=== PATIENT | male | born 1945 | race Caucasian/White ===

== ENCOUNTER → 2017-12-03 | Outpatient (CLI) | payer OTHER, SELFPAY ==
[2017-12-03 10:46] LABS: Hemoglobin A1C% w Est Avg Glu 8.6 % (4.0-6.0)
[2017-12-03 11:05] LABS: Alanine Aminotransferase 60 IU/L (21-72); Albumin 4.5 g/dL (3.5-5.0); Albumin Globulin Ratio 1.7 (1.0-2.8); Alkaline Phosphatase 78 U/L (38-126); Aspartate Aminotransferase 40 IU/L (17-59); BUN Creatinine Ratio 12.8 (6-22); Bilirubin Total 0.8 mg/dL (0.2-1.3); Calcium 10.1 mg/dL (8.4-10.2); Cholesterol 81 mg/dL (140-199); Estimated Glomerular Filt Rate 37.4 mL/min (>60); Globulin 2.7 g/dL (1.7-4.1); Glucose 220 mg/dL (80-110); HDL Cholesterol 23 mg/dL (40-60); HEMOLYSIS < 15 (0-50); LDL Cholesterol Calculated 10 mg/dL (<100); Potassium 4.5 mmol/L (3.4-5.1); Sodium 136 mmol/L (137-145); Total Protein 7.2 g/dL (6.3-8.2); Triglycerides 241 mg/dL (35-150)
== END ==
LOC: LAB 09:10
PROVIDERS: PCP Family Medicine; Visit Provider Family Medicine
DX: I10 Essential (primary) hypertension (principal); E78.2 Mixed hyperlipidemia; E11.9 Type 2 diabetes mellitus without complications
CPT/HCPCS: 36415; 80053; 80061; 83036

== ENCOUNTER → 2018-02-26 12:50 | Outpatient (CLI) | payer OTHER, SELFPAY ==
[2018-02-26 13:29] LABS: Hemoglobin A1C% w Est Avg Glu 9.4 % (4.0-6.0)
[2018-02-26 13:49] LABS: BUN Creatinine Ratio 15.9 (6-22); Blood Urea Nitrogen 27 mg/dL (9-20); Calcium 10.4 mg/dL (8.4-10.2); Carbon Dioxide 27 mmol/L (22-32); Chloride 95 mmol/L (98-107); Estimated Glomerular Filt Rate 39.9 mL/min (>60); Glucose 410 mg/dL (80-110); HEMOLYSIS < 15 (0-50); Potassium 5.1 mmol/L (3.4-5.1); Sodium 135 mmol/L (137-145)
== END ==
PROVIDERS: PCP Family Medicine; Visit Provider Family Medicine
DX: E11.9 Type 2 diabetes mellitus without complications (principal)
CPT/HCPCS: 36415; 80048; 83036

== ENCOUNTER → 2018-03-19 13:53 | Outpatient (CLI) | payer OTHER, SELFPAY ==
--- NOTE | 2018-03-19 14:01 | DI.MRI.S_ITS ---
PROCEDURE: MR LUMBAR SPINE WO CON INDICATIONS: DJD w/radiculopathy TECHNIQUE: Noncontrast sagittal T1 spin echo and T2 fast echo, sagittal STIR, axial T1 and T2 fast spin echo through the lumbar spine. In cases with scoliosis, additional coronal T2 fast spin echo may be performed. COMPARISON: [facility], MR, L-SPINE WITHOUT CONTRAST, 01/20/2015, 17:58. [facility], CT, IVP (ABD & PEL WWO CONTRAST), 10/29/2013, 8:08. FINDINGS: Image quality: Excellent. Alignment and Curvature: There is normal bony alignment. Bone Marrow: Marrow is of normal overall signal. No acute vertebral body compression fractures. Spinal Cord: Conus medullaris terminates at the L1 level. Visualized cord demonstrates normal signal and size. Paraspinous Soft Tissues: No paravertebral masses. T12-L1: Normal appearance. L1-L2: Normal appearance. L2-L3: The disc height is well-preserved. Loss of disc signal is seen at this level. Stable from the prior study. No significant neural foraminal or central canal narrowing are seen. L3-L4: The disc height is well-preserved. Loss of disc signal is seen at this level. Mild generalized disc bulge is seen. Mild facet joint hypertrophy is seen. Mild bilateral neural foraminal narrowing is seen. Minimal to mild central canal narrowing is seen. When comparison is made with the prior examination, these findings are similar. L4-L5: Moderate loss of disc height is seen. Loss of disc signal is seen. Moderate generalized disc bulge is seen. Mild facet joint hypertrophy is seen. There is moderate bilateral neural foraminal narrowing seen, right greater than left. Moderate central canal narrowing is seen. The degenerative changes at this level have progressed compared to 2015. L5-S1: The disc height is well-preserved. Loss of disc signal is seen at this level. Mild generalized disc bulge is seen. Mild facet joint hypertrophy is seen. No significant neural foraminal or central canal narrowing are seen. Stable from the prior study. IMPRESSION: Lower lumbar spine degenerative changes are seen, which are mildly progressed at the L4-L5 level compared to the 2015 MRI. Otherwise, stable degenerative changes. Dictated by: Teo Blandon M.D. on 03/19/2018 at 14:51 Approved by: Teo Blandon M.D. on 03/19/2018 at 14:57
== END ==
PROVIDERS: Family Provider Family Medicine; PCP Family Medicine; Visit Provider Family Medicine
DX: M51.36 Other intervertebral disc degeneration, lumbar region (principal); G14 Postpolio syndrome; R29.898 Other symptoms and signs involving the musculoskeletal system
CPT/HCPCS: 72148

== ENCOUNTER → 2018-04-22 12:52 | Outpatient (CLI) | payer OTHER, SELFPAY ==
[2018-04-22 13:43] LABS: Hemoglobin A1C% w Est Avg Glu 7.7 % (4.0-6.0)
[2018-04-22 14:33] LABS: BUN Creatinine Ratio 10.6 (6-22); Blood Urea Nitrogen 18 mg/dL (9-20); Carbon Dioxide 28 mmol/L (22-32); Chloride 99 mmol/L (98-107); Estimated Glomerular Filt Rate 39.9 mL/min (>60); Glucose 218 mg/dL (80-110); HEMOLYSIS < 15 (0-50); Potassium 4.9 mmol/L (3.4-5.1); Sodium 140 mmol/L (137-145)
== END ==
PROVIDERS: PCP Family Medicine; Visit Provider Family Medicine
DX: E11.9 Type 2 diabetes mellitus without complications (principal)
CPT/HCPCS: 36415; 80048; 83036

== ENCOUNTER 2018-06-06 11:15 | Outpatient (RCR) | payer OTHER, SELFPAY ==
--- NOTE | 2018-03-19 12:45 | PT.OIE ---
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) Low back pain (03/19/18) Muscle weakness (generalized) (03/19/18) Other abnormalities of gait and mobility (03/19/18) Repeated falls (03/19/18) Past Medical History (Last Updated 02/26/18 @ 08:20 by Deena Maher) Asthma (Chronic) Bipolar disorder (Chronic) Depression (Chronic) Diabetes mellitus (Chronic) Diverticular disease (Chronic) Gout (Chronic) Hyperlipidemia (Chronic) Hypertension (Chronic) Impotence (Chronic) Insomnia (Chronic) Polio (Chronic) Sleep apnea (Chronic) Past Surgical History (Last Updated 02/26/18 @ 08:24 by Deena Maher) Anesthesia (Resolved) History of incision and drainage (Resolved) Inguinal hernia (Resolved) Surgical procedure planned (Resolved) Status post eye surgery Status post tonsillectomy and adenoidectomy Provider Visit Care Team Role Provider Type Randal Guy MD Attending Provider Physician Family Provider Primary Care Provider Specialty: [facility] Practice Address: [address] [place] [address] Email: [email or web address] Physical Therapy Initial Evaluation PT-OP-A Visit Information Start: 03/19/18 16:33 Freq: Status: Active Protocol: Document 03/19/18 16:38 [facility] (Rec: 03/19/18 17:28 [facility] [email or web address]) Out-Patient Physical Therapy Visit Information Visit Information Visit Type Initial Evaluation Visit Start Time 12:00 Visit Stop Time 12:45 Total Visit Minutes 45 Visit Number 1 Number of GAME PROGRAMMER Visits 0 Evaluation Information Evaluation Date 03/19/18 PT-OP-B Current Condition Start: 03/19/18 16:33 Freq: Status: Active Protocol: Document 03/19/18 16:38 [facility] (Rec: 03/19/18 17:28 [facility] [email or web address]) Current Condition History of Current Condition Onset Date impaired mobility 3+ yrs ago, low back worsening 1 yr ago Current Complaints low back pain, mult. falls History of Current Condition Pt is a 72 y/o male presenting to physical therapy with a c/ o low back pain, worsening with prolonged sitting, and a history of multiple falls and general LE weakness. Pt reports 2 falls while on vacation over the past 1.5-2 weeks. He is not wearing his bilateral ankle braces today due to having an MRI after this appointment and he did not want to have to bring them with him since he would need to take them off anyway. His back pain is somewhat relieved by standing and bending forward or just standing with his back against the wall. He had an MRI on this date which showed lower lumbar spine degenerative changes, mildly progressed at L4-5 compared to 2015 MRI. 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 He is still doing some [place], but back pain is worsening limiting his ability to perform. He now lives in his home with his in [place]. Prior Treatments and Tests MRI of lumbar spine 03/19/2018- lower lumbar spine degenerative changes, mildly progressed at L4-5 compared to 2014 MRI. Developmental History Developmental History polio age 7 Treatment Goals Patient/Caregiver Goals decrease pain, improve strength and participation with [place] [employer] Prior Functional Status Baseline Function- ADL's Needs Assist Baseline Function- Mobility Modified Independent Baseline Function- Gait short distances on level surface with SPC Baseline Function- Recreation/Hobbies [place] without increased back pain Current Functional Impairments (Reported) Functional Limitations- ADL's assistance with some ADLs due to pain (difficulty don/ doffing ankle braces without assitance) Functional Limitations- Mobility/Gait short distances outdoors with SPC Functional Limitations- Recreation/ [place] [employer] with increased low Hobbies back pain and stopping activity due to pain even with a modified version. PT-OP-C Subjective Start: 03/19/18 16:33 Freq: Status: Active Protocol: Document 03/19/18 16:38 [facility] (Rec: 03/19/18 17:28 [facility] [email or web address]) OP-PT Subjective Patient Comments Patient Comments pt wants to be able to participate in [place] [employer] more often, improve strength and balance Patient Reported Progress Worse Patient Questionnaires Oswestry Low Back Index Oswestry Score 48% Oswestry Impairment 40 to 59% Impaired (Score 40- 59) OP-PT Pain Assessment Location Bilateral Lower Back Intensity 8 Scale Used Numeric (1 - 10) Description Aching Radiating Frequency Frequent Variations/Patterns pain into B anterior hip/groin Pain Aggravating Factors Sitting Bending Lifting Pain Alleviating Factors Standing PT-OP-D Balance Start: 03/19/18 16:33 Freq: Status: Active Protocol: Document 03/19/18 16:38 [facility] (Rec: 03/19/18 17:28 [facility] [email or web address]) Tinetti Balance Assessment Sitting Balance Sitting Balance Steady, safe Arising from Chair Ability to Arise Able, uses arms to help Attempts to Arise Arises on 1st attempt Standing Balance Immediate Standing Balance Unsteady Standing Balance Steady, wide stance Nudged Response Begins to fall Standing with Eyes Closed Unsteady Turning Step Pattern Turning 360 Degrees Discontinuous steps Stability Turning 360 Degrees Unsteady, grabs/staggers Sitting Down Sitting Down Uses arms or unsteady Gait and Step Initiation of Gait No hesitancy Right Foot Step Length Does pass stance foot Right Foot Step Height Does not clear floor Left Foot Step Length Does pass stance foot Left Foot Step Height Does not clear floor Step Description Step Symmetry Step length appears equal Step Continuity Stopping or discontinuity Gait Description Path Description Marked deviation Trunk Description Marked sway or uses aide Walking Stance Heels together Scoring and Interpretation Tinetti Composite Score (points) 11 Interpretation of Scores High risk for falls(< 19) Tinetti Impairment Rating from Composite 60 to <80% Impaired (Score 6- Score 11) PT-OP-G Mobility & Gait Start: 03/19/18 16:33 Freq: Status: Active Protocol: Document 03/19/18 16:38 [facility] (Rec: 03/19/18 17:28 [facility] [email or web address]) OP Mobility Evaluation Bed Mobility Supine to and from Sit log roll, slow and painful, SBA PT-OP-H Neuro Start: 03/19/18 16:33 Freq: Status: Active Protocol: Document 03/19/18 16:38 [facility] (Rec: 03/19/18 17:28 [facility] [email or web address]) Sensation Evaluation Comments Summary Comments B neuropathy plantar surface of feet. Deep Tendon Reflex & Clonus Assessment Ankle Clonus Bilateral Clonus Assessment Absent PT-OP-K Range of Motion Start: 03/19/18 16:33 Freq: Status: Active Protocol: Document 03/19/18 16:38 [facility] (Rec: 03/19/18 17:28 [facility] [email or web address]) Lumbar Spine Range of Motion Lumbar Spine Active Degrees Testing Position standing Flexion 40 Extension 12 ROM Limitations Soft Tissue Tightness Pain Comments L side-bending 2 in. greater than to the R with pain bilaterally (pain on R and L side with SB R and SB L) PT-OP-L Special Tests Start: 03/19/18 16:33 Freq: Status: Active Protocol: Document 03/19/18 16:38 [facility] (Rec: 03/19/18 17:28 [facility] [email or web address]) Special Tests Lumbar Spine Special Tests Manual Traction Test Results some decrease in pain bilaterally Comments bent knee (short axis) no relief with long axis Slump Test Results positive bilaterally Comments sciatic Straight Leg Raise Test Results pain bilaterally with lift of each leg >45 deg. Hip Special Tests Buttocks Sign Test Results neg. bilaterally Scour Test Test Results neg. bilaterally PT-OP-M Strength Start: 03/19/18 16:33 Freq: Status: Active Protocol: Document 03/19/18 16:38 [facility] (Rec: 03/19/18 17:28 [facility] [email or web address]) Hip Strength Hip Manual Muscle Testing Right Flexion (L2) 3+ Fair+ Abduction 3 Fair Adduction 3+ Fair+ Left Flexion (L2) 3+ Fair+ Abduction 3 Fair Adduction 3+ Fair+ Knee Strength Knee Manual Muscle Testing Right Flexion (S2) 3+ Fair+ Extension (L3) 3+ Fair+ Left Flexion (S2) 3 Fair Extension (L3) 3+ Fair+ Ankle/Foot Strength Ankle and Foot Manual Muscle Testing Right Dorsiflexion (L4) 2 Poor Left Dorsiflexion (L4) 2 Poor PT-OP-Q Treatments Start: 03/19/18 16:33 Freq: Status: Active Protocol: Document 03/19/18 16:38 [facility] (Rec: 03/19/18 17:28 [facility] [email or web address]) Therapeutic Exercises Supine Exercises 2 Supine Exercise Name SKC Side bilateral 1 Supine Exercise Name Transverse abdominal activation Side bilateral Comments tactile cuing PT-OP-T Assessment and Plan Start: 03/19/18 16:33 Freq: Status: Active Protocol: Document 03/19/18 16:38 [facility] (Rec: 03/19/18 17:28 [facility] [email or web address]) Physical Therapy Assessment Rehab Potential Rehabilitation Potential Fair Evaluation Complexity Number of Personal Factors/Comorbidities 3 or More Number of Body Systems Impaired 4 or More Clinical Presentation at Evaluation Unstable Impairments Impairments Activity Tolerance Balance Functional Activities Functional Mobility Gait Pain ROM Sensation Strength Transfers Other Concerns Barriers to Rehabilitation multiple co-morbidities (DM type II, post-polio syndrome), chronicity of condition Goals Four Impairment Tinetti Balance Assessment score (07/02 on 03/19/2018) [facility] Goal (LTG) 16/28 or greater on the Tinetti Balance Assessment to improve balance in standing and gait. LTG Duration 12 weeks Three Impairment LE weakness Machine Sprayer Goal (LTG) 4/5 or greater hip flexion, abduction, adduction, knee flexion and extension to improve standing balance and decrease fall risk. LTG Duration 12 weeks Two Impairment impaired tolerance to [place] [employer] Short Term Goal (STG) pt to participate in [place] [employer] for 15 min, 3 days per week. STG Duration 6 weeks [facility] Goal (LTG) pt to participate in [place] [employer] for 30 min, 5 days per week. LTG Duration 12 weeks One Impairment low back pain 8/10 Machine Sprayer Goal (LTG) 5/10 or less low back pain LTG Duration 12 weeks Assessment Summary Assessment Pt presents back to physical therapy with increased low back pain, likely due to progression of degeneration of the lumbar spine and deconditioning due to progression of post-polio syndrome. Pt with reported multiple falls, and is still using SPC for ambulation. Pt would greatly benefit from using his 4WW for mobility vs. SPC when not participating in outpatient physical therapy. Pt's LE weakness appears to be worse since last seen in this clinic, which is likely contributing to his increased low back pain and continued falls. Pt's score of 11/20 on the Tinetti Balance Assessment rates him as a high fall risk , and he should have a gait belt on at all times when participating in therapy sessions. Increased time was required for transverse abdominal activation, which is essential to establish for progression of core stability and decreasing lumbar pain. Overall, this pt has multiple co-morbidities which will require an extended rehabilitation process, in which he will need 12+ weeks of therapy on a consistent basis, at least 2x/week to show improvement or no improvement with therapy. If pt does not receive extended physical therapy, it is unlikely that he will be able to improve or show objective and subjective improvements due to the chronicity of condition and poor condition the pt is in at this time. Physical Therapy Plan Frequency and Duration Frequency of Treatment 2x/Week Duration of Treatment 12 weeks Plan of Care Start Date 03/19/18 Plan of Care End Date 06/11/18 Therapeutic Interventions Therapeutic Interventions Aquatic Therapy Balance Training Gait Training Home Exercise Program Manual Therapy Neuromuscular Re-education Patient/Caregiver Education Self-Care/Home Management Taping Therapeutic Activities Therapeutic Exercises Modalities Cold Pack/Ice Massage Electric Stimulation Hot Packs Traction- Mechanical Ultrasound Next Visit Focus/Plan Next Note Type Treatment Note Next Visit Plan review transverse abdominal activation and progress to light core stabilization, LE strengthening, standing balance activities. Gait belt at all times.
--- NOTE | 2018-03-28 12:45 | PT.OTN ---
Current Diagnoses Low back pain (03/28/18) Physical Therapy Treatment Note PT-OP-A Visit Information Start: 03/19/18 16:33 Freq: Status: Active Protocol: Document 03/28/18 12:45 [facility] (Rec: 03/28/18 15:00 [facility] [email or web address]) Out-Patient Physical Therapy Visit Information Visit Information Visit Type Treatment Note Visit Start Time 12:00 Visit Stop Time 12:55 Total Visit Minutes 55 Visit Number 2 Number of ORE DRESSING ENGINEER Visits 0 Evaluation Information Evaluation Date 03/19/18 PT-OP-B Current Condition Start: 03/19/18 16:33 Freq: Status: Active Protocol: Document 03/19/18 16:38 [facility] (Rec: 03/19/18 17:28 [facility] [email or web address]) Current Condition History of Current Condition Onset Date impaired mobility 3+ yrs ago, low back worsening 1 yr ago Current Complaints low back pain, mult. falls History of Current Condition Pt is a 72 y/o male presenting to physical therapy with a c/ o low back pain, worsening with prolonged sitting, and a history of multiple falls and general LE weakness. Pt reports 2 falls while on vacation over the past 1.5-2 weeks. He is not wearing his bilateral ankle braces today due to having an MRI after this appointment and he did not want to have to bring them with him since he would need to take them off anyway. His back pain is somewhat relieved by standing and bending forward or just standing with his back against the wall. He had an MRI on this date which showed lower lumbar spine degenerative changes, mildly progressed at L4-5 compared to 2014 MRI. 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 He is still doing some [place] [employer], but back pain is worsening limiting his ability to perform. He now lives in his home with his in [place]. Prior Treatments and Tests MRI of lumbar spine 03/19/2018- lower lumbar spine degenerative changes, mildly progressed at L4-5 compared to 2014 MRI. Developmental History Developmental History polio age 7 Treatment Goals Patient/Caregiver Goals decrease pain, improve strength and participation with [place] [employer] Prior Functional Status Baseline Function- ADL's Needs Assist Baseline Function- Mobility Modified Independent Baseline Function- Gait short distances on level surface with SPC Baseline Function- Recreation/Hobbies [place] [employer] without increased back pain Current Functional Impairments (Reported) Functional Limitations- ADL's assistance with some ADLs due to pain (difficulty don/ doffing ankle braces without assitance) Functional Limitations- Mobility/Gait short distances outdoors with SPC Functional Limitations- Recreation/ [place] [employer] with increased low Hobbies back pain and stopping activity due to pain even with a modified version. PT-OP-C Subjective Start: 03/19/18 16:33 Freq: Status: Active Protocol: Document 03/28/18 12:45 [facility] (Rec: 03/28/18 15:00 [facility] [email or web address]) OP-PT Subjective Patient Comments Patient Comments pt states that his back pain is aching today into the L hip and anterior groin. He said his MRI showed degeneration of the lumbar spine. PT-OP-D Balance Start: 03/19/18 16:33 Freq: Status: Active Protocol: Document 03/19/18 16:38 [facility] (Rec: 03/19/18 17:28 [facility] [email or web address]) Tinetti Balance Assessment Sitting Balance Sitting Balance Steady, safe Arising from Chair Ability to Arise Able, uses arms to help Attempts to Arise Arises on 1st attempt Standing Balance Immediate Standing Balance Unsteady Standing Balance Steady, wide stance Nudged Response Begins to fall Standing with Eyes Closed Unsteady Turning Step Pattern Turning 360 Degrees Discontinuous steps Stability Turning 360 Degrees Unsteady, grabs/staggers Sitting Down Sitting Down Uses arms or unsteady Gait and Step Initiation of Gait No hesitancy Right Foot Step Length Does pass stance foot Right Foot Step Height Does not clear floor Left Foot Step Length Does pass stance foot Left Foot Step Height Does not clear floor Step Description Step Symmetry Step length appears equal Step Continuity Stopping or discontinuity Gait Description Path Description Marked deviation Trunk Description Marked sway or uses aide Walking Stance Heels together Scoring and Interpretation Tinetti Composite Score (points) 11 Interpretation of Scores High risk for falls(< 19) Tinetti Impairment Rating from Composite 60 to <80% Impaired (Score 6- Score 11) PT-OP-G Mobility & Gait Start: 03/19/18 16:33 Freq: Status: Active Protocol: Document 03/19/18 16:38 [facility] (Rec: 03/19/18 17:28 [facility] [email or web address]) OP Mobility Evaluation Bed Mobility Supine to and from Sit log roll, slow and painful, SBA PT-OP-H Neuro Start: 03/19/18 16:33 Freq: Status: Active Protocol: Document 03/19/18 16:38 [facility] (Rec: 03/19/18 17:28 [facility] [email or web address]) Sensation Evaluation Comments Summary Comments B neuropathy plantar surface of feet. Deep Tendon Reflex & Clonus Assessment Ankle Clonus Bilateral Clonus Assessment Absent PT-OP-K Range of Motion Start: 03/19/18 16:33 Freq: Status: Active Protocol: Document 03/19/18 16:38 [facility] (Rec: 03/19/18 17:28 [facility] [email or web address]) Lumbar Spine Range of Motion Lumbar Spine Active Degrees Testing Position standing Flexion 40 Extension 12 ROM Limitations Soft Tissue Tightness Pain Comments L side-bending 2 in. greater than to the R with pain bilaterally (pain on R and L side with SB R and SB L) PT-OP-L Special Tests Start: 03/19/18 16:33 Freq: Status: Active Protocol: Document 03/19/18 16:38 [facility] (Rec: 03/19/18 17:28 [facility] [email or web address]) Special Tests Lumbar Spine Special Tests Manual Traction Test Results some decrease in pain bilaterally Comments bent knee (short axis) no relief with long axis Slump Test Results positive bilaterally Comments sciatic Straight Leg Raise Test Results pain bilaterally with lift of each leg >45 deg. Hip Special Tests Buttocks Sign Test Results neg. bilaterally Scour Test Test Results neg. bilaterally PT-OP-M Strength Start: 03/19/18 16:33 Freq: Status: Active Protocol: Document 03/19/18 16:38 [facility] (Rec: 03/19/18 17:28 [facility] [email or web address]) Hip Strength Hip Manual Muscle Testing Right Flexion (L2) 3+ Fair+ Abduction 3 Fair Adduction 3+ Fair+ Left Flexion (L2) 3+ Fair+ Abduction 3 Fair Adduction 3+ Fair+ Knee Strength Knee Manual Muscle Testing Right Flexion (S2) 3+ Fair+ Extension (L3) 3+ Fair+ Left Flexion (S2) 3 Fair Extension (L3) 3+ Fair+ Ankle/Foot Strength Ankle and Foot Manual Muscle Testing Right Dorsiflexion (L4) 2 Poor Left Dorsiflexion (L4) 2 Poor PT-OP-Q Treatments Start: 03/19/18 16:33 Freq: Status: Active Protocol: Document 03/28/18 12:45 [facility] (Rec: 03/28/18 15:00 [facility] [email or web address]) Cardio Equipment Recumbent Stepper (Sci-Fit) Duration (Minutes) 8 Resistance 1 Therapeutic Exercises Supine Exercises 4 Supine Exercise Name head lift/chin tuck partial sit up with hold Side bilateral Reps/Minutes 15 Comments hold 5 sec, emphasis on breathing 3 Supine Exercise Name piriformis stretch Side left 2 Supine Exercise Name SKC Side bilateral 1 Supine Exercise Name Transverse abdominal activation- static and marching Side bilateral Comments tactile cuing Manual Therapy Treatment Manual Traction Lumbar Details bent knee traction (LLE) Body Position Supine Reps/Duration 10 min Nerve Glides 1 Nerve sciatic and femoral nerve glides Details manual Body Position R sidelyin Manual Techniques 1 Type Left L4/5 side-gliding Body Position R sidelying Reps/Duration 10 min PT-OP-R Modalities Start: 03/19/18 16:33 Freq: Status: Active Protocol: Document 03/28/18 12:45 [facility] (Rec: 03/28/18 15:00 [facility] [email or web address]) Hot Pack/Cold Pack Treatment Hot Pack Location lumbar Patient Position Hooklying Treatment Duration (minutes) 15 Patient Tolerance Good PT-OP-T Assessment and Plan Start: 03/19/18 16:33 Freq: Status: Active Protocol: Document 03/28/18 12:45 [facility] (Rec: 03/28/18 15:00 [facility] [email or web address]) Physical Therapy Assessment Assessment Summary Assessment Pt with decrease in low back pain and radiating symptoms after manual traction with L knee bent to ~90 degrees. He demonstrates neural tension in both the sciatic and femoral nerves of the L side. Pt requires tactile cuing for transverse abdominal training. MRI showed moderate loss of disc height and a generalized disc bulge at L4/5 and bilateral neural foraminal narrowing, R>L and central canal narrowing. Physical Therapy Plan Frequency and Duration Frequency of Treatment 2x/Week Duration of Treatment 12 weeks Plan of Care Start Date 03/19/18 Plan of Care End Date 06/11/18 Next Visit Focus/Plan Next Note Type Treatment Note Next Visit Plan core stabilization, modalities for pain control, progression toward balance and LE stabilization activities.
--- NOTE | 2018-03-31 13:13 | PT.OTN ---
Current Diagnoses Low back pain (03/31/18) Physical Therapy Treatment Note PT-OP-A Visit Information Start: 03/19/18 16:33 Freq: Status: Active Protocol: Document 03/31/18 13:06 EA (Rec: 03/31/18 13:13 EA [id number]) Out-Patient Physical Therapy Visit Information Visit Information Visit Type Treatment Note Visit Start Time 12:00 Visit Stop Time 12:55 Total Visit Minutes 55 Visit Number 3 Number of L[employer]SC[employer] SPECIALIST Visits 0 PT-OP-B Current Condition Start: 03/19/18 16:33 Freq: Status: Active Protocol: Document 03/19/18 16:38 RCC (Rec: 03/19/18 17:28 RCC [email or web address]) Current Condition History of Current Condition Onset Date impaired mobility 3+ yrs ago, low back worsening 1 yr ago Current Complaints low back pain, mult. falls History of Current Condition Pt is a 72 y/o male presenting to physical therapy with a c/ o low back pain, worsening with prolonged sitting, and a history of multiple falls and general LE weakness. Pt reports 2 falls while on vacation over the past 1.5-2 weeks. He is not wearing his bilateral ankle braces today due to having an MRI after this appointment and he did not want to have to bring them with him since he would need to take them off anyway. His back pain is somewhat relieved by standing and bending forward or just standing with his back against the wall. He had an MRI on this date which showed lower lumbar spine degenerative changes, mildly progressed at L4-5 compared to 2014 MRI. 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 He is still doing some [employer], but back pain is worsening limiting his ability to perform. He now lives in his home with his in [place]. Prior Treatments and Tests MRI of lumbar spine 03/19/2018- lower lumbar spine degenerative changes, mildly progressed at L4-5 compared to 2015 MRI. Developmental History Developmental History polio age 7 Treatment Goals Patient/Caregiver Goals decrease pain, improve strength and participation with [employer] Prior Functional Status Baseline Function- ADL's Needs Assist Baseline Function- Mobility Modified Independent Baseline Function- Gait short distances on level surface with SPC Baseline Function- Recreation/Hobbies [employer] without increased back pain Current Functional Impairments (Reported) Functional Limitations- ADL's assistance with some ADLs due to pain (difficulty don/ doffing ankle braces without assitance) Functional Limitations- Mobility/Gait short distances outdoors with SPC Functional Limitations- Recreation/ [employer] with increased low Hobbies back pain and stopping activity due to pain even with a modified version. PT-OP-C Subjective Start: 03/19/18 16:33 Freq: Status: Active Protocol: Document 03/31/18 13:06 EA (Rec: 03/31/18 13:13 EA [id number]) OP-PT Subjective Patient Comments Patient Comments Pt reports left hip ant/lat thigh tingling with pain and right hip ant when fully towards chest. PT-OP-D Balance Start: 03/19/18 16:33 Freq: Status: Active Protocol: Document 03/19/18 16:38 RCC (Rec: 03/19/18 17:28 RCC [email or web address]) Tinetti Balance Assessment Sitting Balance Sitting Balance Steady, safe Arising from Chair Ability to Arise Able, uses arms to help Attempts to Arise Arises on 1st attempt Standing Balance Immediate Standing Balance Unsteady Standing Balance Steady, wide stance Nudged Response Begins to fall Standing with Eyes Closed Unsteady Turning Step Pattern Turning 360 Degrees Discontinuous steps Stability Turning 360 Degrees Unsteady, grabs/staggers Sitting Down Sitting Down Uses arms or unsteady Gait and Step Initiation of Gait No hesitancy Right Foot Step Length Does pass stance foot Right Foot Step Height Does not clear floor Left Foot Step Length Does pass stance foot Left Foot Step Height Does not clear floor Step Description Step Symmetry Step length appears equal Step Continuity Stopping or discontinuity Gait Description Path Description Marked deviation Trunk Description Marked sway or uses aide Walking Stance Heels together Scoring and Interpretation Tinetti Composite Score (points) 11 Interpretation of Scores High risk for falls(< 19) Tinetti Impairment Rating from Composite 60 to <80% Impaired (Score 6- Score 11) PT-OP-G Mobility & Gait Start: 03/19/18 16:33 Freq: Status: Active Protocol: Document 03/19/18 16:38 RCC (Rec: 03/19/18 17:28 RCC [email or web address]) OP Mobility Evaluation Bed Mobility Supine to and from Sit log roll, slow and painful, SBA PT-OP-H Neuro Start: 03/19/18 16:33 Freq: Status: Active Protocol: Document 03/19/18 16:38 RCC (Rec: 03/19/18 17:28 RCC [email or web address]) Sensation Evaluation Comments Summary Comments B neuropathy plantar surface of feet. Deep Tendon Reflex & Clonus Assessment Ankle Clonus Bilateral Clonus Assessment Absent PT-OP-K Range of Motion Start: 03/19/18 16:33 Freq: Status: Active Protocol: Document 03/19/18 16:38 RCC (Rec: 03/19/18 17:28 RCC [email or web address]) Lumbar Spine Range of Motion Lumbar Spine Active Degrees Testing Position standing Flexion 40 Extension 12 ROM Limitations Soft Tissue Tightness Pain Comments L side-bending 2 in. greater than to the R with pain bilaterally (pain on R and L side with SB R and SB L) PT-OP-L Special Tests Start: 03/19/18 16:33 Freq: Status: Active Protocol: Document 03/19/18 16:38 RCC (Rec: 03/19/18 17:28 RCC [email or web address]) Special Tests Lumbar Spine Special Tests Manual Traction Test Results some decrease in pain bilaterally Comments bent knee (short axis) no relief with long axis Slump Test Results positive bilaterally Comments sciatic Straight Leg Raise Test Results pain bilaterally with lift of each leg >45 deg. Hip Special Tests Buttocks Sign Test Results neg. bilaterally Scour Test Test Results neg. bilaterally PT-OP-M Strength Start: 03/19/18 16:33 Freq: Status: Active Protocol: Document 03/19/18 16:38 RCC (Rec: 03/19/18 17:28 RCC [email or web address]) Hip Strength Hip Manual Muscle Testing Right Flexion (L2) 3+ Fair+ Abduction 3 Fair Adduction 3+ Fair+ Left Flexion (L2) 3+ Fair+ Abduction 3 Fair Adduction 3+ Fair+ Knee Strength Knee Manual Muscle Testing Right Flexion (S2) 3+ Fair+ Extension (L3) 3+ Fair+ Left Flexion (S2) 3 Fair Extension (L3) 3+ Fair+ Ankle/Foot Strength Ankle and Foot Manual Muscle Testing Right Dorsiflexion (L4) 2 Poor Left Dorsiflexion (L4) 2 Poor PT-OP-Q Treatments Start: 03/19/18 16:33 Freq: Status: Active Protocol: Document 03/31/18 13:06 EA (Rec: 03/31/18 13:13 EA [id number]) Cardio Equipment Recumbent Stepper (Sci-Fit) Duration (Minutes) 8 Resistance 1 Therapeutic Exercises Supine Exercises 4 Supine Exercise Name head lift/chin tuck partial sit up with hold Side bilateral Reps/Minutes 15 Comments hold 5 sec, emphasis on breathing 3 Supine Exercise Name piriformis stretch Side left 2 Supine Exercise Name SKC Side bilateral Comments right modified due to pain 1 Supine Exercise Name Transverse abdominal activation- static and marching Side bilateral Comments tactile cuing: with leg marching Manual Therapy Treatment Soft Tissue Mobilization 1 Body Location right hip: iliopsoas Mobilization Type Rolling Sustained Pressure Intensity/Depth Moderate Body Position Hooklying Manual Traction Lumbar Details bent knee traction (LLE) Body Position Supine Reps/Duration 10 min Nerve Glides 1 Nerve sciatic and femoral nerve glides Details manual Body Position R sidelyin Manual Techniques 1 Type Left L4/5 side-gliding Body Position R sidelying Reps/Duration 10 min PT-OP-R Modalities Start: 03/19/18 16:33 Freq: Status: Active Protocol: Document 03/31/18 13:06 EA (Rec: 03/31/18 13:13 EA [id number]) Hot Pack/Cold Pack Treatment Hot Pack Location lumbar Patient Position Hooklying Treatment Duration (minutes) 15 Patient Tolerance Good PT-OP-T Assessment and Plan Start: 03/19/18 16:33 Freq: Status: Active Protocol: Document 03/31/18 13:06 EA (Rec: 03/31/18 13:13 EA [id number]) Physical Therapy Assessment Assessment Summary Assessment Tolerated treatment well. verbal recommendation of sink sit -to stand squat with heel/ toe raises. Physical Therapy Plan Next Visit Focus/Plan Next Note Type Treatment Note Next Visit Plan core stabilization, modalities for pain control, progression toward balance and LE stabilization activities.
--- NOTE | 2018-04-03 12:53 | PT.OTN ---
Current Diagnoses Low back pain (04/03/18) Physical Therapy Treatment Note PT-OP-A Visit Information Start: 03/19/18 16:33 Freq: Status: Active Protocol: Document 04/03/18 12:53 RCC (Rec: 04/03/18 13:39 RCC [email or web address]) Out-Patient Physical Therapy Visit Information Visit Information Visit Type Treatment Note Visit Start Time 12:00 Visit Stop Time 12:53 Total Visit Minutes 53 Visit Number 4 Number of PORTER BATH Visits 0 Evaluation Information Evaluation Date 03/19/18 PT-OP-B Current Condition Start: 03/19/18 16:33 Freq: Status: Active Protocol: Document 03/19/18 16:38 RCC (Rec: 03/19/18 17:28 RCC [email or web address]) Current Condition History of Current Condition Onset Date impaired mobility 3+ yrs ago, low back worsening 1 yr ago Current Complaints low back pain, mult. falls History of Current Condition Pt is a 72 y/o male presenting to physical therapy with a c/ o low back pain, worsening with prolonged sitting, and a history of multiple falls and general LE weakness. Pt reports 2 falls while on vacation over the past 1.5-2 weeks. He is not wearing his bilateral ankle braces today due to having an MRI after this appointment and he did not want to have to bring them with him since he would need to take them off anyway. His back pain is somewhat relieved by standing and bending forward or just standing with his back against the wall. He had an MRI on this date which showed lower lumbar spine degenerative changes, mildly progressed at L4-5 compared to 2014 MRI. 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 He is still doing some [employer], but back pain is worsening limiting his ability to perform. He now lives in his home with his in [place]. Prior Treatments and Tests MRI of lumbar spine 03/19/2018- lower lumbar spine degenerative changes, mildly progressed at L4-5 compared to 2014 MRI. Developmental History Developmental History polio age 7 Treatment Goals Patient/Caregiver Goals decrease pain, improve strength and participation with [employer] Prior Functional Status Baseline Function- ADL's Needs Assist Baseline Function- Mobility Modified Independent Baseline Function- Gait short distances on level surface with SPC Baseline Function- Recreation/Hobbies [employer] without increased back pain Current Functional Impairments (Reported) Functional Limitations- ADL's assistance with some ADLs due to pain (difficulty don/ doffing ankle braces without assitance) Functional Limitations- Mobility/Gait short distances outdoors with SPC Functional Limitations- Recreation/ [employer] with increased low Hobbies back pain and stopping activity due to pain even with a modified version. PT-OP-C Subjective Start: 03/19/18 16:33 Freq: Status: Active Protocol: Document 04/03/18 12:53 RCC (Rec: 04/03/18 13:39 RCC [email or web address]) OP-PT Subjective Patient Comments Patient Comments Pt notes that pain is somewhat better, but still having pain into groin on the L side. PT-OP-D Balance Start: 03/19/18 16:33 Freq: Status: Active Protocol: Document 03/19/18 16:38 RCC (Rec: 03/19/18 17:28 RCC [email or web address]) Tinetti Balance Assessment Sitting Balance Sitting Balance Steady, safe Arising from Chair Ability to Arise Able, uses arms to help Attempts to Arise Arises on 1st attempt Standing Balance Immediate Standing Balance Unsteady Standing Balance Steady, wide stance Nudged Response Begins to fall Standing with Eyes Closed Unsteady Turning Step Pattern Turning 360 Degrees Discontinuous steps Stability Turning 360 Degrees Unsteady, grabs/staggers Sitting Down Sitting Down Uses arms or unsteady Gait and Step Initiation of Gait No hesitancy Right Foot Step Length Does pass stance foot Right Foot Step Height Does not clear floor Left Foot Step Length Does pass stance foot Left Foot Step Height Does not clear floor Step Description Step Symmetry Step length appears equal Step Continuity Stopping or discontinuity Gait Description Path Description Marked deviation Trunk Description Marked sway or uses aide Walking Stance Heels together Scoring and Interpretation Tinetti Composite Score (points) 11 Interpretation of Scores High risk for falls(< 19) Tinetti Impairment Rating from Composite 60 to <80% Impaired (Score 6- Score 11) PT-OP-G Mobility & Gait Start: 03/19/18 16:33 Freq: Status: Active Protocol: Document 03/19/18 16:38 RCC (Rec: 03/19/18 17:28 RCC [email or web address]) OP Mobility Evaluation Bed Mobility Supine to and from Sit log roll, slow and painful, SBA PT-OP-H Neuro Start: 03/19/18 16:33 Freq: Status: Active Protocol: Document 03/19/18 16:38 RCC (Rec: 03/19/18 17:28 RCC [email or web address]) Sensation Evaluation Comments Summary Comments B neuropathy plantar surface of feet. Deep Tendon Reflex & Clonus Assessment Ankle Clonus Bilateral Clonus Assessment Absent PT-OP-K Range of Motion Start: 03/19/18 16:33 Freq: Status: Active Protocol: Document 03/19/18 16:38 RCC (Rec: 03/19/18 17:28 RCC [email or web address]) Lumbar Spine Range of Motion Lumbar Spine Active Degrees Testing Position standing Flexion 40 Extension 12 ROM Limitations Soft Tissue Tightness Pain Comments L side-bending 2 in. greater than to the R with pain bilaterally (pain on R and L side with SB R and SB L) PT-OP-L Special Tests Start: 03/19/18 16:33 Freq: Status: Active Protocol: Document 03/19/18 16:38 RCC (Rec: 03/19/18 17:28 RCC [email or web address]) Special Tests Lumbar Spine Special Tests Manual Traction Test Results some decrease in pain bilaterally Comments bent knee (short axis) no relief with long axis Slump Test Results positive bilaterally Comments sciatic Straight Leg Raise Test Results pain bilaterally with lift of each leg >45 deg. Hip Special Tests Buttocks Sign Test Results neg. bilaterally Scour Test Test Results neg. bilaterally PT-OP-M Strength Start: 03/19/18 16:33 Freq: Status: Active Protocol: Document 03/19/18 16:38 RCC (Rec: 03/19/18 17:28 RCC [email or web address]) Hip Strength Hip Manual Muscle Testing Right Flexion (L2) 3+ Fair+ Abduction 3 Fair Adduction 3+ Fair+ Left Flexion (L2) 3+ Fair+ Abduction 3 Fair Adduction 3+ Fair+ Knee Strength Knee Manual Muscle Testing Right Flexion (S2) 3+ Fair+ Extension (L3) 3+ Fair+ Left Flexion (S2) 3 Fair Extension (L3) 3+ Fair+ Ankle/Foot Strength Ankle and Foot Manual Muscle Testing Right Dorsiflexion (L4) 2 Poor Left Dorsiflexion (L4) 2 Poor PT-OP-Q Treatments Start: 03/19/18 16:33 Freq: Status: Active Protocol: Document 04/03/18 12:53 RCC (Rec: 04/03/18 13:39 RCC [email or web address]) Gym Equipment Shuttle Recovery Bilateral Heel Raises Resistance 50 lbs Shuttle Recovery Platform Stable Reps/Time to fatigue Unilateral Squats Resistance 50 lbs Shuttle Recovery Platform Stable Reps/Time to fatigue Bilateral Squats Resistance 87 lbs Shuttle Recovery Platform Stable Reps/Time to fatigue Shuttle Balance 1 Details blue Reps/Duration 10 min Comments DL neutral, staggered stance with emphasis on TrAb activation Therapeutic Exercises Supine Exercises 1 Supine Exercise Name Transverse abdominal activation- static and marching Side bilateral Comments tactile cuing: with leg marching Manual Therapy Treatment Manual Traction Lumbar Details bent knee traction (LLE) Body Position Supine Reps/Duration 15 min PT-OP-R Modalities Start: 03/19/18 16:33 Freq: Status: Active Protocol: Document 04/03/18 12:53 RCC (Rec: 04/03/18 13:39 RCC [email or web address]) Hot Pack/Cold Pack Treatment Hot Pack Location lumbar Patient Position Hooklying Treatment Duration (minutes) 15 Patient Tolerance Good PT-OP-T Assessment and Plan Start: 03/19/18 16:33 Freq: Status: Active Protocol: Document 04/03/18 12:53 RCC (Rec: 04/03/18 13:39 RCC [email or web address]) Physical Therapy Assessment Assessment Summary Assessment Pt with less pain with transitional movements (supine <->sit). He tends to use hip and lumbar motion for his balance strategy compared to ankle strategy, which leaves him susceptible to increased back pain and falls. Physical Therapy Plan Frequency and Duration Frequency of Treatment 2x/Week Duration of Treatment 12 weeks Plan of Care Start Date 03/19/18 Plan of Care End Date 06/11/18 Next Visit Focus/Plan Next Note Type Treatment Note Next Visit Plan core stability, hip strengthening (IR, ER).
--- NOTE | 2018-04-11 12:47 | PT.OTN ---
Current Diagnoses Low back pain (04/11/18) Physical Therapy Treatment Note PT-OP-A Visit Information Start: 03/19/18 16:33 Freq: Status: Active Protocol: Document 04/11/18 12:00 DCW (Rec: 04/11/18 12:47 DCW [id number]) Out-Patient Physical Therapy Visit Information Visit Information Visit Type Treatment Note Visit Start Time 12:00 Visit Stop Time 12:55 Total Visit Minutes 55 Visit Number 5 Number of COMMISSIONS SPECIALIST Visits 0 Evaluation Information Evaluation Date 03/19/18 PT-OP-B Current Condition Start: 03/19/18 16:33 Freq: Status: Active Protocol: Document 03/19/18 16:38 RCC (Rec: 03/19/18 17:28 RCC [email or web address]) Current Condition History of Current Condition Onset Date impaired mobility 3+ yrs ago, low back worsening 1 yr ago Current Complaints low back pain, mult. falls History of Current Condition Pt is a 72 y/o male presenting to physical therapy with a c/ o low back pain, worsening with prolonged sitting, and a history of multiple falls and general LE weakness. Pt reports 2 falls while on vacation over the past 1.5-2 weeks. He is not wearing his bilateral ankle braces today due to having an MRI after this appointment and he did not want to have to bring them with him since he would need to take them off anyway. His back pain is somewhat relieved by standing and bending forward or just standing with his back against the wall. He had an MRI on this date which showed lower lumbar spine degenerative changes, mildly progressed at L4-5 compared to 2014 MRI. 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 He is still doing some [place] [employer], but back pain is worsening limiting his ability to perform. He now lives in his home with his in [place]. Prior Treatments and Tests MRI of lumbar spine 03/19/2018- lower lumbar spine degenerative changes, mildly progressed at L4-5 compared to 2014 MRI. Developmental History Developmental History polio age 7 Treatment Goals Patient/Caregiver Goals decrease pain, improve strength and participation with [place] [employer] Prior Functional Status Baseline Function- ADL's Needs Assist Baseline Function- Mobility Modified Independent Baseline Function- Gait short distances on level surface with SPC Baseline Function- Recreation/Hobbies [place] [employer] without increased back pain Current Functional Impairments (Reported) Functional Limitations- ADL's assistance with some ADLs due to pain (difficulty don/ doffing ankle braces without assitance) Functional Limitations- Mobility/Gait short distances outdoors with SPC Functional Limitations- Recreation/ [place] [employer] with increased low Hobbies back pain and stopping activity due to pain even with a modified version. PT-OP-C Subjective Start: 03/19/18 16:33 Freq: Status: Active Protocol: Document 04/11/18 12:00 DCW (Rec: 04/11/18 12:47 DCW [id number]) OP-PT Subjective Patient Comments Patient Comments Pt reports he feels like his back is a little better since starting therapy. PT-OP-D Balance Start: 03/19/18 16:33 Freq: Status: Active Protocol: Document 03/19/18 16:38 RCC (Rec: 03/19/18 17:28 RCC [email or web address]) Tinetti Balance Assessment Sitting Balance Sitting Balance Steady, safe Arising from Chair Ability to Arise Able, uses arms to help Attempts to Arise Arises on 1st attempt Standing Balance Immediate Standing Balance Unsteady Standing Balance Steady, wide stance Nudged Response Begins to fall Standing with Eyes Closed Unsteady Turning Step Pattern Turning 360 Degrees Discontinuous steps Stability Turning 360 Degrees Unsteady, grabs/staggers Sitting Down Sitting Down Uses arms or unsteady Gait and Step Initiation of Gait No hesitancy Right Foot Step Length Does pass stance foot Right Foot Step Height Does not clear floor Left Foot Step Length Does pass stance foot Left Foot Step Height Does not clear floor Step Description Step Symmetry Step length appears equal Step Continuity Stopping or discontinuity Gait Description Path Description Marked deviation Trunk Description Marked sway or uses aide Walking Stance Heels together Scoring and Interpretation Tinetti Composite Score (points) 11 Interpretation of Scores High risk for falls(< 19) Tinetti Impairment Rating from Composite 60 to <80% Impaired (Score 6- Score 11) PT-OP-G Mobility & Gait Start: 03/19/18 16:33 Freq: Status: Active Protocol: Document 03/19/18 16:38 RCC (Rec: 03/19/18 17:28 RCC [email or web address]) OP Mobility Evaluation Bed Mobility Supine to and from Sit log roll, slow and painful, SBA PT-OP-H Neuro Start: 08/15/18 16:33 Freq: Status: Active Protocol: Document 03/19/18 16:38 RCC (Rec: 03/19/18 17:28 RCC [email or web address]) Sensation Evaluation Comments Summary Comments B neuropathy plantar surface of feet. Deep Tendon Reflex & Clonus Assessment Ankle Clonus Bilateral Clonus Assessment Absent PT-OP-K Range of Motion Start: 03/19/18 16:33 Freq: Status: Active Protocol: Document 03/19/18 16:38 RCC (Rec: 03/19/18 17:28 RCC [email or web address]) Lumbar Spine Range of Motion Lumbar Spine Active Degrees Testing Position standing Flexion 40 Extension 12 ROM Limitations Soft Tissue Tightness Pain Comments L side-bending 2 in. greater than to the R with pain bilaterally (pain on R and L side with SB R and SB L) PT-OP-L Special Tests Start: 03/19/18 16:33 Freq: Status: Active Protocol: Document 03/19/18 16:38 RCC (Rec: 03/19/18 17:28 RCC [email or web address]) Special Tests Lumbar Spine Special Tests Manual Traction Test Results some decrease in pain bilaterally Comments bent knee (short axis) no relief with long axis Slump Test Results positive bilaterally Comments sciatic Straight Leg Raise Test Results pain bilaterally with lift of each leg >45 deg. Hip Special Tests Buttocks Sign Test Results neg. bilaterally Scour Test Test Results neg. bilaterally PT-OP-M Strength Start: 03/19/18 16:33 Freq: Status: Active Protocol: Document 03/19/18 16:38 RCC (Rec: 03/19/18 17:28 RCC [email or web address]) Hip Strength Hip Manual Muscle Testing Right Flexion (L2) 3+ Fair+ Abduction 3 Fair Adduction 3+ Fair+ Left Flexion (L2) 3+ Fair+ Abduction 3 Fair Adduction 3+ Fair+ Knee Strength Knee Manual Muscle Testing Right Flexion (S2) 3+ Fair+ Extension (L3) 3+ Fair+ Left Flexion (S2) 3 Fair Extension (L3) 3+ Fair+ Ankle/Foot Strength Ankle and Foot Manual Muscle Testing Right Dorsiflexion (L4) 2 Poor Left Dorsiflexion (L4) 2 Poor PT-OP-Q Treatments Start: 03/19/18 16:33 Freq: Status: Active Protocol: Document 04/11/18 12:00 DCW (Rec: 04/11/18 12:47 DCW [id number]) Cardio Equipment Recumbent Stepper (Sci-Fit) Duration (Minutes) 6 Resistance 2 Seat Position 10 Gym Equipment Shuttle Recovery Bilateral Heel Raises Resistance 50 lbs Shuttle Recovery Platform Stable Reps/Time to fatigue Unilateral Squats Resistance 50 lbs Shuttle Recovery Platform Stable Reps/Time to fatigue Bilateral Squats Resistance 87 lbs Shuttle Recovery Platform Stable Reps/Time to fatigue Shuttle Balance 1 Details blue Reps/Duration 10 min Comments DL neutral, staggered stance with emphasis on TrAb activation Manual Therapy Treatment Manual Traction Lumbar Details bent knee traction (LLE) Body Position Supine Reps/Duration 15 min PT-OP-R Modalities Start: 03/19/18 16:33 Freq: Status: Active Protocol: Document 04/11/18 12:00 DCW (Rec: 04/11/18 12:47 DCW [id number]) Hot Pack/Cold Pack Treatment Hot Pack Location lumbar Patient Position Hooklying Treatment Duration (minutes) 15 Patient Tolerance Good PT-OP-T Assessment and Plan Start: 03/19/18 16:33 Freq: Status: Active Protocol: Document 04/11/18 12:00 DCW (Rec: 04/11/18 12:47 DCW [id number]) Physical Therapy Assessment Impairments Impairments Activity Tolerance Balance Functional Activities Functional Mobility Gait Pain ROM Sensation Strength Transfers Goals Four Impairment Tinetti Balance Assessment score (07/02 on 03/19/2018) Usp Goal (LTG) 16/28 or greater on the Tinetti Balance Assessment to improve balance in standing and gait. LTG Duration 12 weeks Three Impairment LE weakness Customer Account Specialist Goal (LTG) 4/5 or greater hip flexion, abduction, adduction, knee flexion and extension to improve standing balance and decrease fall risk. LTG Duration 12 weeks Two Impairment impaired tolerance to [place] [employer] Short Term Goal (STG) pt to participate in [place] [employer] for 15 min, 3 days per week. STG Duration 6 weeks Customer Account Specialist Goal (LTG) pt to participate in [place] [employer] for 30 min, 5 days per week. LTG Duration 12 weeks One Impairment low back pain 8/10 Customer Account Specialist Goal (LTG) 5/10 or less low back pain LTG Duration 12 weeks Assessment Summary Assessment Pt had no complaints with treatment. Physical Therapy Plan Frequency and Duration Frequency of Treatment 2x/Week Duration of Treatment 12 weeks Plan of Care Start Date 03/19/18 Plan of Care End Date 06/11/18 Therapeutic Interventions Therapeutic Interventions Aquatic Therapy Balance Training Gait Training Home Exercise Program Manual Therapy Neuromuscular Re-education Patient/Caregiver Education Self-Care/Home Management Taping Therapeutic Activities Therapeutic Exercises Modalities Cold Pack/Ice Massage Electric Stimulation Hot Packs Traction- Mechanical Ultrasound Next Visit Focus/Plan Next Note Type Treatment Note Next Visit Plan core stability, hip strengthening (IR, ER).
--- NOTE | 2018-04-16 12:00 | PT.OTN ---
Current Diagnoses Low back pain (04/16/18) Physical Therapy Treatment Note PT-OP-A Visit Information Start: 03/19/18 16:33 Freq: Status: Active Protocol: Document 04/16/18 12:00 RCC (Rec: 04/16/18 18:08 RCC [email or web address]) Out-Patient Physical Therapy Visit Information Visit Information Visit Type Treatment Note Visit Start Time 11:15 Visit Stop Time 12:05 Total Visit Minutes 50 Visit Number 6 Number of INCLUSION INTERN Visits 0 Evaluation Information Evaluation Date 03/19/18 PT-OP-B Current Condition Start: 03/19/18 16:33 Freq: Status: Active Protocol: Document 03/19/18 16:38 RCC (Rec: 03/19/18 17:28 RCC [email or web address]) Current Condition History of Current Condition Onset Date impaired mobility 3+ yrs ago, low back worsening 1 yr ago Current Complaints low back pain, mult. falls History of Current Condition Pt is a 72 y/o male presenting to physical therapy with a c/ o low back pain, worsening with prolonged sitting, and a history of multiple falls and general LE weakness. Pt reports 2 falls while on vacation over the past 1.5-2 weeks. He is not wearing his bilateral ankle braces today due to having an MRI after this appointment and he did not want to have to bring them with him since he would need to take them off anyway. His back pain is somewhat relieved by standing and bending forward or just standing with his back against the wall. He had an MRI on this date which showed lower lumbar spine degenerative changes, mildly progressed at L4-5 compared to 2014 MRI. 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 He is still doing some [place] [employer], but back pain is worsening limiting his ability to perform. He now lives in his home with his in [place]. Prior Treatments and Tests MRI of lumbar spine 03/19/2018- lower lumbar spine degenerative changes, mildly progressed at L4-5 compared to 2014 MRI. Developmental History Developmental History polio age 7 Treatment Goals Patient/Caregiver Goals decrease pain, improve strength and participation with [place] [employer] Prior Functional Status Baseline Function- ADL's Needs Assist Baseline Function- Mobility Modified Independent Baseline Function- Gait short distances on level surface with SPC Baseline Function- Recreation/Hobbies [place] [employer] without increased back pain Current Functional Impairments (Reported) Functional Limitations- ADL's assistance with some ADLs due to pain (difficulty don/ doffing ankle braces without assitance) Functional Limitations- Mobility/Gait short distances outdoors with SPC Functional Limitations- Recreation/ [place] [employer] with increased low Hobbies back pain and stopping activity due to pain even with a modified version. PT-OP-C Subjective Start: 03/19/18 16:33 Freq: Status: Active Protocol: Document 04/16/18 12:00 RCC (Rec: 04/16/18 18:08 RCC [email or web address]) OP-PT Subjective Patient Comments Patient Comments Pt notes that he is doing his core exercises, but still having pain with some transitional movements. PT-OP-D Balance Start: 03/19/18 16:33 Freq: Status: Active Protocol: Document 03/19/18 16:38 RCC (Rec: 03/19/18 17:28 [facility] [email or web address]) Tinetti Balance Assessment Sitting Balance Sitting Balance Steady, safe Arising from Chair Ability to Arise Able, uses arms to help Attempts to Arise Arises on 1st attempt Standing Balance Immediate Standing Balance Unsteady Standing Balance Steady, wide stance Nudged Response Begins to fall Standing with Eyes Closed Unsteady Turning Step Pattern Turning 360 Degrees Discontinuous steps Stability Turning 360 Degrees Unsteady, grabs/staggers Sitting Down Sitting Down Uses arms or unsteady Gait and Step Initiation of Gait No hesitancy Right Foot Step Length Does pass stance foot Right Foot Step Height Does not clear floor Left Foot Step Length Does pass stance foot Left Foot Step Height Does not clear floor Step Description Step Symmetry Step length appears equal Step Continuity Stopping or discontinuity Gait Description Path Description Marked deviation Trunk Description Marked sway or uses aide Walking Stance Heels together Scoring and Interpretation Tinetti Composite Score (points) 11 Interpretation of Scores High risk for falls(< 19) Tinetti Impairment Rating from Composite 60 to <80% Impaired (Score 6- Score 11) PT-OP-G Mobility & Gait Start: 03/19/18 16:33 Freq: Status: Active Protocol: Document 03/19/18 16:38 RCC (Rec: 03/19/18 17:28 RCC [email or web address]) OP Mobility Evaluation Bed Mobility Supine to and from Sit log roll, slow and painful, SBA PT-OP-H Neuro Start: 03/19/18 16:33 Freq: Status: Active Protocol: Document 03/19/18 16:38 RCC (Rec: 03/19/18 17:28 RCC [email or web address]) Sensation Evaluation Comments Summary Comments B neuropathy plantar surface of feet. Deep Tendon Reflex & Clonus Assessment Ankle Clonus Bilateral Clonus Assessment Absent PT-OP-K Range of Motion Start: 03/19/18 16:33 Freq: Status: Active Protocol: Document 03/19/18 16:38 RCC (Rec: 03/19/18 17:28 RCC [email or web address]) Lumbar Spine Range of Motion Lumbar Spine Active Degrees Testing Position standing Flexion 40 Extension 12 ROM Limitations Soft Tissue Tightness Pain Comments L side-bending 2 in. greater than to the R with pain bilaterally (pain on R and L side with SB R and SB L) PT-OP-L Special Tests Start: 03/19/18 16:33 Freq: Status: Active Protocol: Document 03/19/18 16:38 RCC (Rec: 03/19/18 17:28 RCC [email or web address]) Special Tests Lumbar Spine Special Tests Manual Traction Test Results some decrease in pain bilaterally Comments bent knee (short axis) no relief with long axis Slump Test Results positive bilaterally Comments sciatic Straight Leg Raise Test Results pain bilaterally with lift of each leg >45 deg. Hip Special Tests Buttocks Sign Test Results neg. bilaterally Scour Test Test Results neg. bilaterally PT-OP-M Strength Start: 03/19/18 16:33 Freq: Status: Active Protocol: Document 03/19/18 16:38 RCC (Rec: 03/19/18 17:28 RCC [email or web address]) Hip Strength Hip Manual Muscle Testing Right Flexion (L2) 3+ Fair+ Abduction 3 Fair Adduction 3+ Fair+ Left Flexion (L2) 3+ Fair+ Abduction 3 Fair Adduction 3+ Fair+ Knee Strength Knee Manual Muscle Testing Right Flexion (S2) 3+ Fair+ Extension (L3) 3+ Fair+ Left Flexion (S2) 3 Fair Extension (L3) 3+ Fair+ Ankle/Foot Strength Ankle and Foot Manual Muscle Testing Right Dorsiflexion (L4) 2 Poor Left Dorsiflexion (L4) 2 Poor PT-OP-Q Treatments Start: 03/19/18 16:33 Freq: Status: Active Protocol: Document 04/16/18 12:00 RCC (Rec: 04/16/18 18:08 RCC [email or web address]) Cardio Equipment Recumbent Stepper (Sci-Fit) Duration (Minutes) 8 Resistance 2 Seat Position 10 Gym Equipment Shuttle Recovery Unilateral Squats Resistance 50 lbs Shuttle Recovery Platform Stable Reps/Time to fatigue Bilateral Squats Resistance 87 lbs Shuttle Recovery Platform Stable Reps/Time to fatigue Shuttle Balance 1 Details blue Reps/Duration 10 min Comments DL neutral, staggered stance with emphasis on TrAb activation Therapeutic Exercises Supine Exercises 1 Supine Exercise Name Transverse abdominal activation- static and marching Side bilateral Comments tactile cuing: with leg marching Manual Therapy Treatment Soft Tissue Mobilization 1 Body Location right hip: iliopsoas Mobilization Type Rolling Sustained Pressure Intensity/Depth Moderate Body Position Hooklying Manual Techniques 1 Type Left L4/5 side-gliding Body Position R sidelying Reps/Duration 10 min PT-OP-R Modalities Start: 03/19/18 16:33 Freq: Status: Active Protocol: Document 04/16/18 12:00 RCC (Rec: 04/16/18 18:08 [facility] [email or web address]) Hot Pack/Cold Pack Treatment Hot Pack Location lumbar Patient Position Hooklying Treatment Duration (minutes) 10 Patient Tolerance Good PT-OP-T Assessment and Plan Start: 03/19/18 16:33 Freq: Status: Active Protocol: Document 04/16/18 12:00 RCC (Rec: 04/16/18 18:08 [facility] [email or web address]) Physical Therapy Assessment Assessment Summary Assessment Pt with less pain using log roll and transverse abdominal activation. Balance on Shuttle Balance Board with improved hip strategy but still limited ankle strategy. Physical Therapy Plan Frequency and Duration Frequency of Treatment 2x/Week Duration of Treatment 12 weeks Plan of Care Start Date 03/19/18 Plan of Care End Date 06/11/18 Next Visit Focus/Plan Next Note Type Treatment Note Next Visit Plan progress TrAb strengthening, and hip strength
--- NOTE | 2018-04-18 12:00 | PT.OTN ---
Current Diagnoses Low back pain (04/18/18) Physical Therapy Treatment Note PT-OP-A Visit Information Start: 03/19/18 16:33 Freq: Status: Active Protocol: Document 04/18/18 12:00 [facility] (Rec: 04/18/18 15:18 [facility] [email or web address]) Out-Patient Physical Therapy Visit Information Visit Information Visit Type Treatment Note Visit Start Time 11:30 Visit Stop Time 12:10 Total Visit Minutes 40 Visit Number 7 Number of FOREIGN LEGAL CONSULTANT Visits 0 Evaluation Information Evaluation Date 03/19/18 PT-OP-B Current Condition Start: 03/19/18 16:33 Freq: Status: Active Protocol: Document 03/19/18 16:38 [facility] (Rec: 03/19/18 17:28 [facility] [email or web address]) Current Condition History of Current Condition Onset Date impaired mobility 3+ yrs ago, low back worsening 1 yr ago Current Complaints low back pain, mult. falls History of Current Condition Pt is a 72 y/o male presenting to physical therapy with a c/ o low back pain, worsening with prolonged sitting, and a history of multiple falls and general LE weakness. Pt reports 2 falls while on vacation over the past 1.5-2 weeks. He is not wearing his bilateral ankle braces today due to having an MRI after this appointment and he did not want to have to bring them with him since he would need to take them off anyway. His back pain is somewhat relieved by standing and bending forward or just standing with his back against the wall. He had an MRI on this date which showed lower lumbar spine degenerative changes, mildly progressed at L4-5 compared to 2014 MRI. 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 He is still doing some [employer], but back pain is worsening limiting his ability to perform. He now lives in his home with his in [place]. Prior Treatments and Tests MRI of lumbar spine 03/19/2018- lower lumbar spine degenerative changes, mildly progressed at L4-5 compared to 2014 MRI. Developmental History Developmental History polio age 7 Treatment Goals Patient/Caregiver Goals decrease pain, improve strength and participation with [employer] Prior Functional Status Baseline Function- ADL's Needs Assist Baseline Function- Mobility Modified Independent Baseline Function- Gait short distances on level surface with SPC Baseline Function- Recreation/Hobbies [employer] without increased back pain Current Functional Impairments (Reported) Functional Limitations- ADL's assistance with some ADLs due to pain (difficulty don/ doffing ankle braces without assitance) Functional Limitations- Mobility/Gait short distances outdoors with SPC Functional Limitations- Recreation/ [employer] with increased low Hobbies back pain and stopping activity due to pain even with a modified version. PT-OP-C Subjective Start: 03/19/18 16:33 Freq: Status: Active Protocol: Document 04/18/18 12:00 [facility] (Rec: 04/18/18 15:18 [facility] [email or web address]) OP-PT Subjective Patient Comments Patient Comments Pt notes that his gait is a little off today, notes that he feels like his legs are having a bad day due to post- polio. PT-OP-D Balance Start: 03/19/18 16:33 Freq: Status: Active Protocol: Document 03/19/18 16:38 [facility] (Rec: 03/19/18 17:28 [facility] [email or web address]) Tinetti Balance Assessment Sitting Balance Sitting Balance Steady, safe Arising from Chair Ability to Arise Able, uses arms to help Attempts to Arise Arises on 1st attempt Standing Balance Immediate Standing Balance Unsteady Standing Balance Steady, wide stance Nudged Response Begins to fall Standing with Eyes Closed Unsteady Turning Step Pattern Turning 360 Degrees Discontinuous steps Stability Turning 360 Degrees Unsteady, grabs/staggers Sitting Down Sitting Down Uses arms or unsteady Gait and Step Initiation of Gait No hesitancy Right Foot Step Length Does pass stance foot Right Foot Step Height Does not clear floor Left Foot Step Length Does pass stance foot Left Foot Step Height Does not clear floor Step Description Step Symmetry Step length appears equal Step Continuity Stopping or discontinuity Gait Description Path Description Marked deviation Trunk Description Marked sway or uses aide Walking Stance Heels together Scoring and Interpretation Tinetti Composite Score (points) 11 Interpretation of Scores High risk for falls(< 19) Tinetti Impairment Rating from Composite 60 to <80% Impaired (Score 6- Score 11) PT-OP-G Mobility & Gait Start: 03/19/18 16:33 Freq: Status: Active Protocol: Document 03/19/18 16:38 [facility] (Rec: 03/19/18 17:28 [facility] [email or web address]) OP Mobility Evaluation Bed Mobility Supine to and from Sit log roll, slow and painful, SBA PT-OP-H Neuro Start: 03/19/18 16:33 Freq: Status: Active Protocol: Document 03/19/18 16:38 [facility] (Rec: 03/19/18 17:28 [facility] [email or web address]) Sensation Evaluation Comments Summary Comments B neuropathy plantar surface of feet. Deep Tendon Reflex & Clonus Assessment Ankle Clonus Bilateral Clonus Assessment Absent PT-OP-K Range of Motion Start: 03/19/18 16:33 Freq: Status: Active Protocol: Document 03/19/18 16:38 [facility] (Rec: 03/19/18 17:28 [facility] [email or web address]) Lumbar Spine Range of Motion Lumbar Spine Active Degrees Testing Position standing Flexion 40 Extension 12 ROM Limitations Soft Tissue Tightness Pain Comments L side-bending 2 in. greater than to the R with pain bilaterally (pain on R and L side with SB R and SB L) PT-OP-L Special Tests Start: 03/19/18 16:33 Freq: Status: Active Protocol: Document 03/19/18 16:38 [facility] (Rec: 03/19/18 17:28 [facility] [email or web address]) Special Tests Lumbar Spine Special Tests Manual Traction Test Results some decrease in pain bilaterally Comments bent knee (short axis) no relief with long axis Slump Test Results positive bilaterally Comments sciatic Straight Leg Raise Test Results pain bilaterally with lift of each leg >45 deg. Hip Special Tests Buttocks Sign Test Results neg. bilaterally Scour Test Test Results neg. bilaterally PT-OP-M Strength Start: 03/19/18 16:33 Freq: Status: Active Protocol: Document 03/19/18 16:38 [facility] (Rec: 03/19/18 17:28 [facility] [email or web address]) Hip Strength Hip Manual Muscle Testing Right Flexion (L2) 3+ Fair+ Abduction 3 Fair Adduction 3+ Fair+ Left Flexion (L2) 3+ Fair+ Abduction 3 Fair Adduction 3+ Fair+ Knee Strength Knee Manual Muscle Testing Right Flexion (S2) 3+ Fair+ Extension (L3) 3+ Fair+ Left Flexion (S2) 3 Fair Extension (L3) 3+ Fair+ Ankle/Foot Strength Ankle and Foot Manual Muscle Testing Right Dorsiflexion (L4) 2 Poor Left Dorsiflexion (L4) 2 Poor PT-OP-Q Treatments Start: 03/19/18 16:33 Freq: Status: Active Protocol: Document 04/18/18 12:00 [facility] (Rec: 04/18/18 15:18 [facility] [email or web address]) Manual Therapy Treatment Soft Tissue Mobilization 3 Body Location B piriformis Mobilization Type Strumming Intensity/Depth Moderate Body Position Sidelying 2 Body Location L paraspinals Mobilization Type Rolling Intensity/Depth Moderate Body Position Sidelying 1 Body Location right hip: iliopsoas Mobilization Type Rolling Sustained Pressure Intensity/Depth Moderate Body Position Hooklying Manual Techniques 1 Type Left L4/5 side-gliding Body Position R sidelying Reps/Duration 10 min PT-OP-R Modalities Start: 03/19/18 16:33 Freq: Status: Active Protocol: Document 04/18/18 12:00 [facility] (Rec: 04/18/18 15:18 [facility] [email or web address]) Hot Pack/Cold Pack Treatment Hot Pack Location lumbar Patient Position Hooklying Treatment Duration (minutes) 10 Patient Tolerance Good PT-OP-T Assessment and Plan Start: 03/19/18 16:33 Freq: Status: Active Protocol: Document 04/18/18 12:00 [facility] (Rec: 04/18/18 15:18 [facility] [email or web address]) Physical Therapy Assessment Assessment Summary Assessment Pt with increased tenderness in soft tissue of the lumbar spine on the L and bilateral piriformis. Physical Therapy Plan Frequency and Duration Frequency of Treatment 2x/Week Duration of Treatment 12 weeks Plan of Care Start Date 03/19/18 Plan of Care End Date 06/11/18 Next Visit Focus/Plan Next Note Type Treatment Note Next Visit Plan cont to progress core stabilization, LE strength and balance.
--- NOTE | 2018-04-23 12:00 | PT.OTN ---
Current Diagnoses Low back pain (04/23/18) Physical Therapy Treatment Note PT-OP-A Visit Information Start: 03/19/18 16:33 Freq: Status: Active Protocol: Document 04/23/18 12:00 [facility] (Rec: 04/23/18 13:39 [facility] [email or web address]) Out-Patient Physical Therapy Visit Information Visit Information Visit Type Treatment Note Visit Start Time 11:25 Visit Stop Time 12:10 Total Visit Minutes 45 Visit Number 8 Number of PLUNGER SCOOP OPERATOR Visits 0 Evaluation Information Evaluation Date 03/19/18 PT-OP-B Current Condition Start: 03/19/18 16:33 Freq: Status: Active Protocol: Document 03/19/18 16:38 [facility] (Rec: 03/19/18 17:28 [facility] [email or web address]) Current Condition History of Current Condition Onset Date impaired mobility 3+ yrs ago, low back worsening 1 yr ago Current Complaints low back pain, mult. falls History of Current Condition Pt is a 72 y/o male presenting to physical therapy with a c/ o low back pain, worsening with prolonged sitting, and a history of multiple falls and general LE weakness. Pt reports 2 falls while on vacation over the past 1.5-2 weeks. He is not wearing his bilateral ankle braces today due to having an MRI after this appointment and he did not want to have to bring them with him since he would need to take them off anyway. His back pain is somewhat relieved by standing and bending forward or just standing with his back against the wall. He had an MRI on this date which showed lower lumbar spine degenerative changes, mildly progressed at L4-5 compared to 2014 MRI. 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 He is still doing some [employer] [employer], but back pain is worsening limiting his ability to perform. He now lives in his home with his in [place]. Prior Treatments and Tests MRI of lumbar spine 03/19/2018- lower lumbar spine degenerative changes, mildly progressed at L4-5 compared to 2014 MRI. Developmental History Developmental History polio age 7 Treatment Goals Patient/Caregiver Goals decrease pain, improve strength and participation with [employer] [employer] Prior Functional Status Baseline Function- ADL's Needs Assist Baseline Function- Mobility Modified Independent Baseline Function- Gait short distances on level surface with SPC Baseline Function- Recreation/Hobbies [employer] without increased back pain Current Functional Impairments (Reported) Functional Limitations- ADL's assistance with some ADLs due to pain (difficulty don/ doffing ankle braces without assitance) Functional Limitations- Mobility/Gait short distances outdoors with SPC Functional Limitations- Recreation/ [employer] [employer] with increased low Hobbies back pain and stopping activity due to pain even with a modified version. PT-OP-C Subjective Start: 03/19/18 16:33 Freq: Status: Active Protocol: Document 04/23/18 12:00 [facility] (Rec: 04/23/18 13:39 [facility] [email or web address]) OP-PT Subjective Patient Comments Patient Comments Pt states he saw his PCP earlier this week. He will be attending the pain clinic and potentially getting and injection in his low back at some point. PT-OP-D Balance Start: 03/19/18 16:33 Freq: Status: Active Protocol: Document 03/19/18 16:38 [facility] (Rec: 03/19/18 17:28 [facility] [email or web address]) Tinetti Balance Assessment Sitting Balance Sitting Balance Steady, safe Arising from Chair Ability to Arise Able, uses arms to help Attempts to Arise Arises on 1st attempt Standing Balance Immediate Standing Balance Unsteady Standing Balance Steady, wide stance Nudged Response Begins to fall Standing with Eyes Closed Unsteady Turning Step Pattern Turning 360 Degrees Discontinuous steps Stability Turning 360 Degrees Unsteady, grabs/staggers Sitting Down Sitting Down Uses arms or unsteady Gait and Step Initiation of Gait No hesitancy Right Foot Step Length Does pass stance foot Right Foot Step Height Does not clear floor Left Foot Step Length Does pass stance foot Left Foot Step Height Does not clear floor Step Description Step Symmetry Step length appears equal Step Continuity Stopping or discontinuity Gait Description Path Description Marked deviation Trunk Description Marked sway or uses aide Walking Stance Heels together Scoring and Interpretation Tinetti Composite Score (points) 11 Interpretation of Scores High risk for falls(< 19) Tinetti Impairment Rating from Composite 60 to <80% Impaired (Score 6- Score 11) PT-OP-G Mobility & Gait Start: 03/19/18 16:33 Freq: Status: Active Protocol: Document 03/19/18 16:38 [facility] (Rec: 03/19/18 17:28 [facility] [email or web address]) OP Mobility Evaluation Bed Mobility Supine to and from Sit log roll, slow and painful, SBA PT-OP-H Neuro Start: 03/19/18 16:33 Freq: Status: Active Protocol: Document 03/19/18 16:38 [facility] (Rec: 03/19/18 17:28 [facility] [email or web address]) Sensation Evaluation Comments Summary Comments B neuropathy plantar surface of feet. Deep Tendon Reflex & Clonus Assessment Ankle Clonus Bilateral Clonus Assessment Absent PT-OP-K Range of Motion Start: 03/19/18 16:33 Freq: Status: Active Protocol: Document 03/19/18 16:38 [facility] (Rec: 03/19/18 17:28 [facility] [email or web address]) Lumbar Spine Range of Motion Lumbar Spine Active Degrees Testing Position standing Flexion 40 Extension 12 ROM Limitations Soft Tissue Tightness Pain Comments L side-bending 2 in. greater than to the R with pain bilaterally (pain on R and L side with SB R and SB L) PT-OP-L Special Tests Start: 03/19/18 16:33 Freq: Status: Active Protocol: Document 03/19/18 16:38 [facility] (Rec: 03/19/18 17:28 [facility] [email or web address]) Special Tests Lumbar Spine Special Tests Manual Traction Test Results some decrease in pain bilaterally Comments bent knee (short axis) no relief with long axis Slump Test Results positive bilaterally Comments sciatic Straight Leg Raise Test Results pain bilaterally with lift of each leg >45 deg. Hip Special Tests Buttocks Sign Test Results neg. bilaterally Scour Test Test Results neg. bilaterally PT-OP-M Strength Start: 03/19/18 16:33 Freq: Status: Active Protocol: Document 03/19/18 16:38 [facility] (Rec: 03/19/18 17:28 [facility] [email or web address]) Hip Strength Hip Manual Muscle Testing Right Flexion (L2) 3+ Fair+ Abduction 3 Fair Adduction 3+ Fair+ Left Flexion (L2) 3+ Fair+ Abduction 3 Fair Adduction 3+ Fair+ Knee Strength Knee Manual Muscle Testing Right Flexion (S2) 3+ Fair+ Extension (L3) 3+ Fair+ Left Flexion (S2) 3 Fair Extension (L3) 3+ Fair+ Ankle/Foot Strength Ankle and Foot Manual Muscle Testing Right Dorsiflexion (L4) 2 Poor Left Dorsiflexion (L4) 2 Poor PT-OP-Q Treatments Start: 03/19/18 16:33 Freq: Status: Active Protocol: Document 04/23/18 12:00 [facility] (Rec: 04/23/18 13:39 [facility] [email or web address]) Gym Equipment Shuttle Recovery Bilateral Heel Raises Resistance 50 lbs Shuttle Recovery Platform Stable Reps/Time to fatigue Unilateral Squats Resistance 62 lbs Shuttle Recovery Platform Unstable Reps/Time to fatigue Bilateral Squats Resistance 100 lbs Shuttle Recovery Platform Unstable Reps/Time to fatigue Manual Therapy Treatment Soft Tissue Mobilization 3 Body Location L piriformis Mobilization Type Strumming Intensity/Depth Moderate Body Position Sidelying 2 Body Location B paraspinals Mobilization Type Rolling Intensity/Depth Moderate Body Position Sidelying Manual Techniques 1 Type Left L4/5 side-gliding Body Position R sidelying Reps/Duration 12 min PT-OP-R Modalities Start: 03/19/18 16:33 Freq: Status: Active Protocol: Document 04/23/18 12:00 [facility] (Rec: 04/23/18 13:39 [facility] [email or web address]) Hot Pack/Cold Pack Treatment Hot Pack Location lumbar Patient Position Hooklying Treatment Duration (minutes) 10 Patient Tolerance Good PT-OP-T Assessment and Plan Start: 03/19/18 16:33 Freq: Status: Active Protocol: Document 04/23/18 12:00 [facility] (Rec: 04/23/18 13:39 [facility] [email or web address]) Physical Therapy Assessment Assessment Summary Assessment Pt able to tolerate unstable leg press without pain, and actively recruiting transverse abdominals during this activity. He has improved fluidity of supine<->sit but still with low back pain with deeper squatting (sit<->stand to low bed). Physical Therapy Plan Frequency and Duration Frequency of Treatment 2x/Week Duration of Treatment 12 weeks Plan of Care Start Date 03/19/18 Plan of Care End Date 06/11/18 Next Visit Focus/Plan Next Note Type Treatment Note Next Visit Plan STS in WB @ various height with TrAb activation and posture & body mechanics.
--- NOTE | 2018-04-25 12:09 | PT.OTN ---
Current Diagnoses Low back pain (04/25/18) Physical Therapy Treatment Note PT-OP-A Visit Information Start: 03/19/18 16:33 Freq: Status: Active Protocol: Document 04/25/18 12:09 [facility] (Rec: 04/25/18 12:40 [facility] [email or web address]) Out-Patient Physical Therapy Visit Information Visit Information Visit Type Treatment Note Visit Start Time 11:19 Visit Stop Time 12:09 Total Visit Minutes 50 Visit Number 9 Number of SECURITY CONTROL ASSESSOR Visits 0 Evaluation Information Evaluation Date 03/19/18 PT-OP-B Current Condition Start: 03/19/18 16:33 Freq: Status: Active Protocol: Document 03/19/18 16:38 [facility] (Rec: 03/19/18 17:28 [facility] [email or web address]) Current Condition History of Current Condition Onset Date impaired mobility 3+ yrs ago, low back worsening 1 yr ago Current Complaints low back pain, mult. falls History of Current Condition Pt is a 72 y/o male presenting to physical therapy with a c/ o low back pain, worsening with prolonged sitting, and a history of multiple falls and general LE weakness. Pt reports 2 falls while on vacation over the past 1.5-2 weeks. He is not wearing his bilateral ankle braces today due to having an MRI after this appointment and he did not want to have to bring them with him since he would need to take them off anyway. His back pain is somewhat relieved by standing and bending forward or just standing with his back against the wall. He had an MRI on this date which showed lower lumbar spine degenerative changes, mildly progressed at L4-5 compared to 2014 MRI. 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 He is still doing some [place] [employer], but back pain is worsening limiting his ability to perform. He now lives in his home with his in [place]. Prior Treatments and Tests MRI of lumbar spine 03/19/2018- lower lumbar spine degenerative changes, mildly progressed at L4-5 compared to 2014 MRI. Developmental History Developmental History polio age 7 Treatment Goals Patient/Caregiver Goals decrease pain, improve strength and participation with [place] [employer] Prior Functional Status Baseline Function- ADL's Needs Assist Baseline Function- Mobility Modified Independent Baseline Function- Gait short distances on level surface with SPC Baseline Function- Recreation/Hobbies [place] [employer] without increased back pain Current Functional Impairments (Reported) Functional Limitations- ADL's assistance with some ADLs due to pain (difficulty don/ doffing ankle braces without assitance) Functional Limitations- Mobility/Gait short distances outdoors with SPC Functional Limitations- Recreation/ [place] [employer] with increased low Hobbies back pain and stopping activity due to pain even with a modified version. PT-OP-C Subjective Start: 03/19/18 16:33 Freq: Status: Active Protocol: Document 04/25/18 12:09 [facility] (Rec: 04/25/18 12:40 [facility] [email or web address]) OP-PT Subjective Patient Comments Patient Comments Pt notes that pain ranges from a 7 to occasionally and 8/10 (slightly better). Patient Questionnaires Oswestry Low Back Index Oswestry Score 46% Oswestry Impairment 40 to 59% Impaired (Score 40- 59) OP-PT Pain Assessment Location Bilateral Lower Back Intensity 8 Scale Used Numeric (1 - 10) PT-OP-D Balance Start: 03/19/18 16:33 Freq: Status: Active Protocol: Document 04/25/18 12:09 [facility] (Rec: 04/25/18 12:40 [facility] [email or web address]) Tinetti Balance Assessment Sitting Balance Sitting Balance Steady, safe Arising from Chair Ability to Arise Able, w/o using arms Attempts to Arise Arises on 1st attempt Standing Balance Immediate Standing Balance Steady with support Standing Balance Steady, wide stance Nudged Response Staggers, catches self Standing with Eyes Closed Unsteady Turning Step Pattern Turning 360 Degrees Discontinuous steps Stability Turning 360 Degrees Unsteady, grabs/staggers Sitting Down Sitting Down Uses arms or unsteady Gait and Step Initiation of Gait No hesitancy Right Foot Step Length Does pass stance foot Right Foot Step Height Does not clear floor Left Foot Step Length Does pass stance foot Left Foot Step Height Does not clear floor Step Description Step Symmetry Step length appears equal Step Continuity Steps appear continuous Gait Description Path Description Mild/moderate deviation Trunk Description Marked sway or uses aide Walking Stance Heels together Scoring and Interpretation Tinetti Composite Score (points) 16 Interpretation of Scores High risk for falls(< 19) Tinetti Impairment Rating from Composite 40 to <60% Impaired (Score 12- Score 16) PT-OP-G Mobility & Gait Start: 03/19/18 16:33 Freq: Status: Active Protocol: Document 03/19/18 16:38 [facility] (Rec: 03/19/18 17:28 [facility] [email or web address]) OP Mobility Evaluation Bed Mobility Supine to and from Sit log roll, slow and painful, SBA PT-OP-H Neuro Start: 03/19/18 16:33 Freq: Status: Active Protocol: Document 03/19/18 16:38 [facility] (Rec: 03/19/18 17:28 [facility] [email or web address]) Sensation Evaluation Comments Summary Comments B neuropathy plantar surface of feet. Deep Tendon Reflex & Clonus Assessment Ankle Clonus Bilateral Clonus Assessment Absent PT-OP-K Range of Motion Start: 03/19/18 16:33 Freq: Status: Active Protocol: Document 04/25/18 12:09 [facility] (Rec: 04/25/18 12:40 [facility] [email or web address]) Lumbar Spine Range of Motion Lumbar Spine Active Degrees Testing Position standing Flexion 40 Extension 15 ROM Limitations Soft Tissue Tightness Pain Comments L side-bending 2 in. greater than to the R with pain bilaterally (pain on R and L side with SB R and SB L) PT-OP-L Special Tests Start: 03/19/18 16:33 Freq: Status: Active Protocol: Document 03/19/18 16:38 [facility] (Rec: 03/19/18 17:28 [facility] [email or web address]) Special Tests Lumbar Spine Special Tests Manual Traction Test Results some decrease in pain bilaterally Comments bent knee (short axis) no relief with long axis Slump Test Results positive bilaterally Comments sciatic Straight Leg Raise Test Results pain bilaterally with lift of each leg >45 deg. Hip Special Tests Buttocks Sign Test Results neg. bilaterally Scour Test Test Results neg. bilaterally PT-OP-M Strength Start: 03/19/18 16:33 Freq: Status: Active Protocol: Document 04/25/18 12:09 [facility] (Rec: 04/25/18 12:40 [facility] [email or web address]) Hip Strength Hip Manual Muscle Testing Right Flexion (L2) 4- Good- Abduction 3 Fair Adduction 4 Good Left Flexion (L2) 4- Good- Abduction 3 Fair Adduction 4 Good Knee Strength Knee Manual Muscle Testing Right Flexion (S2) 4- Good- Extension (L3) 4- Good- Left Flexion (S2) 4- Good- Extension (L3) 4- Good- Ankle/Foot Strength Ankle and Foot Manual Muscle Testing Right Dorsiflexion (L4) 3+ Fair+ Left Dorsiflexion (L4) 3+ Fair+ PT-OP-Q Treatments Start: 03/19/18 16:33 Freq: Status: Active Protocol: Document 04/25/18 12:09 [facility] (Rec: 04/25/18 12:40 [facility] [email or web address]) Therapeutic Activity Therapeutic Activity 1 Name Tinetti Balance Assessment Reps/Minutes 10 min Manual Therapy Treatment Soft Tissue Mobilization 3 Body Location L piriformis Mobilization Type Strumming Intensity/Depth Moderate Body Position Sidelying 2 Body Location B paraspinals Mobilization Type Rolling Intensity/Depth Moderate Body Position Sidelying Manual Traction Lumbar Details bent knee traction (LLE) Body Position Supine Reps/Duration 12 min Manual Techniques 1 Type Left L4/5 side-gliding Body Position R sidelying Reps/Duration 6 min PT-OP-R Modalities Start: 03/19/18 16:33 Freq: Status: Active Protocol: Document 04/25/18 12:09 [facility] (Rec: 04/25/18 12:40 [facility] [email or web address]) Hot Pack/Cold Pack Treatment Hot Pack Location lumbar Patient Position Hooklying Treatment Duration (minutes) 10 Patient Tolerance Good PT-OP-T Assessment and Plan Start: 03/19/18 16:33 Freq: Status: Active Protocol: Document 04/25/18 12:09 [facility] (Rec: 04/25/18 12:40 [facility] [email or web address]) Physical Therapy Assessment Goals Four Impairment Tinetti Balance Assessment score (1128 on 03/19/2018) Cardroom Plastic Card Grader Goal (LTG) 16/28 or greater on the Tinetti Balance Assessment to improve balance in standing and gait. LTG Duration 12 weeks Three Impairment LE weakness Cardroom Plastic Card Grader Goal (LTG) 4/5 or greater hip flexion, abduction, adduction, knee flexion and extension to improve standing balance and decrease fall risk. LTG Duration 12 weeks Two Impairment impaired tolerance to [place] [employer] Short Term Goal (STG) pt to participate in [place] [employer] for 15 min, 3 days per week. STG Duration 6 weeks Cardroom Plastic Card Grader Goal (LTG) pt to participate in [place] [employer] for 30 min, 5 days per week. LTG Duration 12 weeks One Impairment low back pain 8/10 Half-Way Goal (LTG) 5/10 or less low back pain LTG Duration 12 weeks Progress Towards Goals Progress Towards Goals Progressing Toward Goals Progress Comments Pt is participating in modified version of [place] [employer], which he reports is ~50% or greater modified version. His pain is normally a 7-8/10, which he believes is somewhat better but this is the same rating that he gave on initial evaluation. LE strength had substantially improved, with improved dorsiflexion of bilateral ankles to no longer present with foot-drop. 2% decrease in Modified Oswestry perceived disability. Assessment Summary Assessment Pt has made excellent progression with his LE strength, no longer with drop foot. His score in the Tinetti Balance Assessment Tool is 16 /28, which is an improvement of 5 points, but still remains a high fall risk according to what his score still indicates. Overall, the pt is making good progression with therapy, and it is imperative that he continue to participate in outpatient physical therapy to progress his strength, decrease pain, improve function and independence with activities. Pt is going to require an extended period of time participating in physical therapy, given his co- morbidities which included ( but are not limited to) type II diabetes and post-polio syndrome. Pt will require at least another 8 weeks of physical therapy, twice per week (16 visits) to demonstrate further improvements given the chronicity of his condition and co-morbidities. Physical Therapy Plan Frequency and Duration Frequency of Treatment 2x/Week Duration of Treatment 12 weeks Plan of Care Start Date 03/19/18 Plan of Care End Date 06/11/18 Next Visit Focus/Plan Next Note Type Treatment Note Next Visit Plan progression of sit to stand and log roll with core/ transverse abdominal activation; progress HEP
--- NOTE | 2018-05-09 16:00 | PT.OTN ---
Current Diagnoses Low back pain (05/09/18) Physical Therapy Treatment Note PT-OP-A Visit Information Start: 03/19/18 16:33 Freq: Status: Active Protocol: Document 05/09/18 16:00 [facility] (Rec: 05/11/18 13:07 [facility] [email or web address]) Out-Patient Physical Therapy Visit Information Visit Information Visit Type Treatment Note Visit Start Time 15:15 Visit Stop Time 16:04 Total Visit Minutes 49 Visit Number 10 Number of POLICE LIAISON Visits 0 Evaluation Information Evaluation Date 03/19/18 PT-OP-B Current Condition Start: 03/19/18 16:33 Freq: Status: Active Protocol: Document 03/19/18 16:38 [facility] (Rec: 03/19/18 17:28 [facility] [email or web address]) Current Condition History of Current Condition Onset Date impaired mobility 3+ yrs ago, low back worsening 1 yr ago Current Complaints low back pain, mult. falls History of Current Condition Pt is a 72 y/o male presenting to physical therapy with a c/ o low back pain, worsening with prolonged sitting, and a history of multiple falls and general LE weakness. Pt reports 2 falls while on vacation over the past 1.5-2 weeks. He is not wearing his bilateral ankle braces today due to having an MRI after this appointment and he did not want to have to bring them with him since he would need to take them off anyway. His back pain is somewhat relieved by standing and bending forward or just standing with his back against the wall. He had an MRI on this date which showed lower lumbar spine degenerative changes, mildly progressed at L4-5 compared to 2014 MRI. 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 He is still doing some [place] [employer], but back pain is worsening limiting his ability to perform. He now lives in his home with his in [place]. Prior Treatments and Tests MRI of lumbar spine 03/19/2018- lower lumbar spine degenerative changes, mildly progressed at L4-5 compared to 2014 MRI. Developmental History Developmental History polio age 7 Treatment Goals Patient/Caregiver Goals decrease pain, improve strength and participation with [place] [employer] Prior Functional Status Baseline Function- ADL's Needs Assist Baseline Function- Mobility Modified Independent Baseline Function- Gait short distances on level surface with SPC Baseline Function- Recreation/Hobbies [place] [employer] without increased back pain Current Functional Impairments (Reported) Functional Limitations- ADL's assistance with some ADLs due to pain (difficulty don/ doffing ankle braces without assitance) Functional Limitations- Mobility/Gait short distances outdoors with SPC Functional Limitations- Recreation/ [place] [employer] with increased low Hobbies back pain and stopping activity due to pain even with a modified version. PT-OP-C Subjective Start: 03/19/18 16:33 Freq: Status: Active Protocol: Document 05/09/18 16:00 [facility] (Rec: 05/11/18 13:07 [facility] [email or web address]) OP-PT Subjective Patient Comments Patient Comments Pt notes his back is somewhat better, but still having pain into L groin and hip. PT-OP-D Balance Start: 03/19/18 16:33 Freq: Status: Active Protocol: Document 04/25/18 12:09 [facility] (Rec: 04/25/18 12:40 [facility] [email or web address]) Tinetti Balance Assessment Sitting Balance Sitting Balance Steady, safe Arising from Chair Ability to Arise Able, w/o using arms Attempts to Arise Arises on 1st attempt Standing Balance Immediate Standing Balance Steady with support Standing Balance Steady, wide stance Nudged Response Staggers, catches self Standing with Eyes Closed Unsteady Turning Step Pattern Turning 360 Degrees Discontinuous steps Stability Turning 360 Degrees Unsteady, grabs/staggers Sitting Down Sitting Down Uses arms or unsteady Gait and Step Initiation of Gait No hesitancy Right Foot Step Length Does pass stance foot Right Foot Step Height Does not clear floor Left Foot Step Length Does pass stance foot Left Foot Step Height Does not clear floor Step Description Step Symmetry Step length appears equal Step Continuity Steps appear continuous Gait Description Path Description Mild/moderate deviation Trunk Description Marked sway or uses aide Walking Stance Heels together Scoring and Interpretation Tinetti Composite Score (points) 16 Interpretation of Scores High risk for falls(< 19) Tinetti Impairment Rating from Composite 40 to <60% Impaired (Score 12- Score 16) PT-OP-G Mobility & Gait Start: 03/19/18 16:33 Freq: Status: Active Protocol: Document 03/19/18 16:38 [facility] (Rec: 03/19/18 17:28 [facility] [email or web address]) OP Mobility Evaluation Bed Mobility Supine to and from Sit log roll, slow and painful, SBA PT-OP-H Neuro Start: 03/19/18 16:33 Freq: Status: Active Protocol: Document 03/19/18 16:38 [facility] (Rec: 03/19/18 17:28 [facility] [email or web address]) Sensation Evaluation Comments Summary Comments B neuropathy plantar surface of feet. Deep Tendon Reflex & Clonus Assessment Ankle Clonus Bilateral Clonus Assessment Absent PT-OP-K Range of Motion Start: 03/19/18 16:33 Freq: Status: Active Protocol: Document 04/25/18 12:09 [facility] (Rec: 04/25/18 12:40 [facility] [email or web address]) Lumbar Spine Range of Motion Lumbar Spine Active Degrees Testing Position standing Flexion 40 Extension 15 ROM Limitations Soft Tissue Tightness Pain Comments L side-bending 2 in. greater than to the R with pain bilaterally (pain on R and L side with SB R and SB L) PT-OP-L Special Tests Start: 03/19/18 16:33 Freq: Status: Active Protocol: Document 03/19/18 16:38 [facility] (Rec: 03/19/18 17:28 [facility] [email or web address]) Special Tests Lumbar Spine Special Tests Manual Traction Test Results some decrease in pain bilaterally Comments bent knee (short axis) no relief with long axis Slump Test Results positive bilaterally Comments sciatic Straight Leg Raise Test Results pain bilaterally with lift of each leg >45 deg. Hip Special Tests Buttocks Sign Test Results neg. bilaterally Scour Test Test Results neg. bilaterally PT-OP-M Strength Start: 03/19/18 16:33 Freq: Status: Active Protocol: Document 04/25/18 12:09 [facility] (Rec: 04/25/18 12:40 [facility] [email or web address]) Hip Strength Hip Manual Muscle Testing Right Flexion (L2) 4- Good- Abduction 3 Fair Adduction 4 Good Left Flexion (L2) 4- Good- Abduction 3 Fair Adduction 4 Good Knee Strength Knee Manual Muscle Testing Right Flexion (S2) 4- Good- Extension (L3) 4- Good- Left Flexion (S2) 4- Good- Extension (L3) 4- Good- Ankle/Foot Strength Ankle and Foot Manual Muscle Testing Right Dorsiflexion (L4) 3+ Fair+ Left Dorsiflexion (L4) 3+ Fair+ PT-OP-Q Treatments Start: 03/19/18 16:33 Freq: Status: Active Protocol: Document 05/09/18 16:00 [facility] (Rec: 05/11/18 13:07 [facility] [email or web address]) Cardio Equipment Recumbent Elliptical (Biodex) Duration (Minutes) 6 Resistance 3 Gym Equipment Shuttle Recovery Unilateral Squats Resistance 75 lbs Shuttle Recovery Platform Unstable Reps/Time to fatigue Bilateral Squats Resistance 100 lbs Shuttle Recovery Platform Unstable Reps/Time to fatigue Therapeutic Exercises Other Exercises quadruped alt LE Other Exercise Name quadruped alternating LE lift Side bilateral Reps/Minutes 10 each LE Comments with TrAb activation Manual Therapy Treatment Manual Traction Lumbar Details bent knee traction (LLE) Body Position Supine Reps/Duration 15 min Manual Techniques 1 Type Left L4/5 side-gliding Body Position R sidelying Reps/Duration 8 min PT-OP-R Modalities Start: 03/19/18 16:33 Freq: Status: Active Protocol: Document 05/09/18 16:00 [facility] (Rec: 05/11/18 13:07 [facility] [email or web address]) Hot Pack/Cold Pack Treatment Hot Pack Location lumbar Patient Position Hooklying Treatment Duration (minutes) 10 Patient Tolerance Good PT-OP-T Assessment and Plan Start: 03/19/18 16:33 Freq: Status: Active Protocol: Document 05/09/18 16:00 [facility] (Rec: 05/11/18 13:07 [facility] [email or web address]) Physical Therapy Assessment Assessment Summary Assessment Pt tolerated increased resistance with single leg Shuttle Recovery as well as the quadruped position for alternating LE lifts. Pt requires tactile cuing for multifidi activation. Physical Therapy Plan Frequency and Duration Frequency of Treatment 2x/Week Duration of Treatment 12 weeks Plan of Care Start Date 03/19/18 Plan of Care End Date 06/11/18 Next Visit Focus/Plan Next Note Type Treatment Note Next Visit Plan advance core stability- quadruped
--- NOTE | 2018-05-13 16:10 | PT.OTN ---
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 falls History of Current Condition Pt is a 72 y/o male presenting to physical therapy with a c/ o low back pain, worsening with prolonged sitting, and a history of multiple falls and general LE weakness. Pt reports 2 falls while on vacation over the past 1.5-2 weeks. He is not wearing his bilateral ankle braces today due to having an MRI after this appointment and he did not want to have to bring them with him since he would need to take them off anyway. His back pain is somewhat relieved by standing and bending forward or just standing with his back against the wall. He had an MRI on this date which showed lower lumbar spine degenerative changes, mildly progressed at L4-5 compared to 2015 MRI. 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 He is still doing some [employer], but back pain is worsening limiting his ability to perform. He now lives in his home with his in [place]. Prior Treatments and Tests MRI of lumbar spine 03/19/2018- lower lumbar spine degenerative changes, mildly progressed at L4-5 compared to 2015 MRI. Developmental History Developmental History polio age 7 Treatment Goals Patient/Caregiver Goals decrease pain, improve strength and participation with [employer] Prior Functional Status Baseline Function- ADL's Needs Assist Baseline Function- Mobility Modified Independent Baseline Function- Gait short distances on level surface with SPC Baseline Function- Recreation/Hobbies [employer] without increased back pain Current Functional Impairments (Reported) Functional Limitations- ADL's assistance with some ADLs due to pain (difficulty don/ doffing ankle braces without assitance) Functional Limitations- Mobility/Gait short distances outdoors with SPC Functional Limitations- Recreation/ [employer] with increased low Hobbies back pain and stopping activity due to pain even with a modified version. PT-OP-C Subjective Start: 03/19/18 16:33 Freq: Status: Active Protocol: Document 05/13/18 15:59 SA (Rec: 05/13/18 16:10 SA [email or web address]) OP-PT Subjective Patient Comments Patient Comments Pt having tough day with increased LLE leg bucking, denied increase in pain though . PT-OP-D Balance Start: 03/19/18 16:33 Freq: Status: Active Protocol: Document 04/25/18 12:09 RCC (Rec: 04/25/18 12:40 RCC [email or web address]) Tinetti Balance Assessment Sitting Balance Sitting Balance Steady, safe Arising from Chair Ability to Arise Able, w/o using arms Attempts to Arise Arises on 1st attempt Standing Balance Immediate Standing Balance Steady with support Standing Balance Steady, wide stance Nudged Response Staggers, catches self Standing with Eyes Closed Unsteady Turning Step Pattern Turning 360 Degrees Discontinuous steps Stability Turning 360 Degrees Unsteady, grabs/staggers Sitting Down Sitting Down Uses arms or unsteady Gait and Step Initiation of Gait No hesitancy Right Foot Step Length Does pass stance foot Right Foot Step Height Does not clear floor Left Foot Step Length Does pass stance foot Left Foot Step Height Does not clear floor Step Description Step Symmetry Step length appears equal Step Continuity Steps appear continuous Gait Description Path Description Mild/moderate deviation Trunk Description Marked sway or uses aide Walking Stance Heels together Scoring and Interpretation Tinetti Composite Score (points) 16 Interpretation of Scores High risk for falls(< 19) Tinetti Impairment Rating from Composite 40 to <60% Impaired (Score 12- Score 16) PT-OP-G Mobility & Gait Start: 03/19/18 16:33 Freq: Status: Active Protocol: Document 03/19/18 16:38 RCC (Rec: 03/19/18 17:28 RCC [email or web address]) OP Mobility Evaluation Bed Mobility Supine to and from Sit log roll, slow and painful, SBA PT-OP-H Neuro Start: 03/19/18 16:33 Freq: Status: Active Protocol: Document 03/19/18 16:38 RCC (Rec: 03/19/18 17:28 RCC [email or web address]) Sensation Evaluation Comments Summary Comments B neuropathy plantar surface of feet. Deep Tendon Reflex & Clonus Assessment Ankle Clonus Bilateral Clonus Assessment Absent PT-OP-K Range of Motion Start: 03/19/18 16:33 Freq: Status: Active Protocol: Document 04/25/18 12:09 RCC (Rec: 04/25/18 12:40 RCC [email or web address]) Lumbar Spine Range of Motion Lumbar Spine Active Degrees Testing Position standing Flexion 40 Extension 15 ROM Limitations Soft Tissue Tightness Pain Comments L side-bending 2 in. greater than to the R with pain bilaterally (pain on R and L side with SB R and SB L) PT-OP-L Special Tests Start: 03/19/18 16:33 Freq: Status: Active Protocol: Document 03/19/18 16:38 RCC (Rec: 03/19/18 17:28 RCC [email or web address]) Special Tests Lumbar Spine Special Tests Manual Traction Test Results some decrease in pain bilaterally Comments bent knee (short axis) no relief with long axis Slump Test Results positive bilaterally Comments sciatic Straight Leg Raise Test Results pain bilaterally with lift of each leg >45 deg. Hip Special Tests Buttocks Sign Test Results neg. bilaterally Scour Test Test Results neg. bilaterally PT-OP-M Strength Start: 03/19/18 16:33 Freq: Status: Active Protocol: Document 04/25/18 12:09 RCC (Rec: 04/25/18 12:40 RCC [email or web address]) Hip Strength Hip Manual Muscle Testing Right Flexion (L2) 4- Good- Abduction 3 Fair Adduction 4 Good Left Flexion (L2) 4- Good- Abduction 3 Fair Adduction 4 Good Knee Strength Knee Manual Muscle Testing Right Flexion (S2) 4- Good- Extension (L3) 4- Good- Left Flexion (S2) 4- Good- Extension (L3) 4- Good- Ankle/Foot Strength Ankle and Foot Manual Muscle Testing Right Dorsiflexion (L4) 3+ Fair+ Left Dorsiflexion (L4) 3+ Fair+ PT-OP-Q Treatments Start: 03/19/18 16:33 Freq: Status: Active Protocol: Document 05/13/18 15:59 SA (Rec: 05/13/18 16:10 SA [email or web address]) Cardio Equipment Recumbent Elliptical (Biodex) Duration (Minutes) 6 Resistance 3 Gym Equipment Shuttle Recovery Unilateral Squats Resistance 75 lbs Shuttle Recovery Platform Unstable Reps/Time to fatigue Bilateral Squats Resistance 100 lbs Shuttle Recovery Platform Unstable Reps/Time to fatigue Therapeutic Exercises Supine Exercises 1 Supine Exercise Name Transverse abdominal activation- static and marching Side bilateral Comments tactile cuing: with leg marching Other Exercises quadruped alt LE Other Exercise Name quadruped alternating LE lift Side bilateral Reps/Minutes 10 each LE Comments with TrAb activation Manual Therapy Treatment Soft Tissue Mobilization 3 Body Location L piriformis Mobilization Type Strumming Intensity/Depth Moderate Body Position Sidelying 2 Body Location B paraspinals Mobilization Type Rolling Intensity/Depth Moderate Body Position Sidelying Manual Traction Lumbar Details bent knee traction (LLE) Body Position Supine Reps/Duration 15 min PT-OP-R Modalities Start: 03/19/18 16:33 Freq: Status: Active Protocol: Document 05/13/18 15:59 SA (Rec: 05/13/18 16:10 SA [email or web address]) Hot Pack/Cold Pack Treatment Hot Pack Location lumbar Patient Position Hooklying Treatment Duration (minutes) 10 Patient Tolerance Good PT-OP-T Assessment and Plan Start: 03/19/18 16:33 Freq: Status: Active Protocol: Document 05/13/18 15:59 SA (Rec: 05/13/18 16:10 SA [email or web address]) Physical Therapy Assessment Assessment Summary Assessment Pt tolerated exercise well with verbal/tactile cues for quadriped exercise and form. Physical Therapy Plan Frequency and Duration Frequency of Treatment 2x/Week Duration of Treatment 12 weeks Plan of Care Start Date 03/19/18 Plan of Care End Date 06/11/18 Next Visit Focus/Plan Next Note Type Treatment Note Next Visit Plan Continue with LE and quadriped strengthening to reduce LLE knee buckling.
--- NOTE | 2018-05-15 12:12 | PT.OTN ---
Current Diagnoses Low back pain (05/15/18) Physical Therapy Treatment Note PT-OP-A Visit Information Start: 03/19/18 16:33 Freq: Status: Active Protocol: Document 05/15/18 12:12 RCC (Rec: 05/16/18 12:44 RCC [email or web address]) Out-Patient Physical Therapy Visit Information Visit Information Visit Type Treatment Note Visit Start Time 11:30 Visit Stop Time 12:12 Total Visit Minutes 42 Visit Number 12 Number of [employer] Visits 0 Evaluation Information Evaluation Date 03/19/18 PT-OP-B Current Condition Start: 03/19/18 16:33 Freq: Status: Active Protocol: Document 03/19/18 16:38 RCC (Rec: 03/19/18 17:28 RCC [email or web address]) Current Condition History of Current Condition Onset Date impaired mobility 3+ yrs ago, low back worsening 1 yr ago Current Complaints low back pain, mult. falls History of Current Condition Pt is a 72 y/o male presenting to physical therapy with a c/ o low back pain, worsening with prolonged sitting, and a history of multiple falls and general LE weakness. Pt reports 2 falls while on vacation over the past 1.5-2 weeks. He is not wearing his bilateral ankle braces today due to having an MRI after this appointment and he did not want to have to bring them with him since he would need to take them off anyway. His back pain is somewhat relieved by standing and bending forward or just standing with his back against the wall. He had an MRI on this date which showed lower lumbar spine degenerative changes, mildly progressed at L4-5 compared to 2014 MRI. 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 He is still doing some [place] [employer], but back pain is worsening limiting his ability to perform. He now lives in his home with his in [place]. Prior Treatments and Tests MRI of lumbar spine 03/19/2018- lower lumbar spine degenerative changes, mildly progressed at L4-5 compared to 2014 MRI. Developmental History Developmental History polio age 7 Treatment Goals Patient/Caregiver Goals decrease pain, improve strength and participation with [place] Prior Functional Status Baseline Function- ADL's Needs Assist Baseline Function- Mobility Modified Independent Baseline Function- Gait short distances on level surface with SPC Baseline Function- Recreation/Hobbies [place] without increased back pain Current Functional Impairments (Reported) Functional Limitations- ADL's assistance with some ADLs due to pain (difficulty don/ doffing ankle braces without assitance) Functional Limitations- Mobility/Gait short distances outdoors with SPC Functional Limitations- Recreation/ [place] with increased low Hobbies back pain and stopping activity due to pain even with a modified version. PT-OP-C Subjective Start: 03/19/18 16:33 Freq: Status: Active Protocol: Document 05/15/18 12:12 RCC (Rec: 05/16/18 12:44 RCC [email or web address]) OP-PT Subjective Patient Comments Patient Comments Pt has been doing his HEP and doing the quadruped training on the floor. PT-OP-D Balance Start: 03/19/18 16:33 Freq: Status: Active Protocol: Document 04/25/18 12:09 RCC (Rec: 04/25/18 12:40 RCC [email or web address]) Tinetti Balance Assessment Sitting Balance Sitting Balance Steady, safe Arising from Chair Ability to Arise Able, w/o using arms Attempts to Arise Arises on 1st attempt Standing Balance Immediate Standing Balance Steady with support Standing Balance Steady, wide stance Nudged Response Staggers, catches self Standing with Eyes Closed Unsteady Turning Step Pattern Turning 360 Degrees Discontinuous steps Stability Turning 360 Degrees Unsteady, grabs/staggers Sitting Down Sitting Down Uses arms or unsteady Gait and Step Initiation of Gait No hesitancy Right Foot Step Length Does pass stance foot Right Foot Step Height Does not clear floor Left Foot Step Length Does pass stance foot Left Foot Step Height Does not clear floor Step Description Step Symmetry Step length appears equal Step Continuity Steps appear continuous Gait Description Path Description Mild/moderate deviation Trunk Description Marked sway or uses aide Walking Stance Heels together Scoring and Interpretation Tinetti Composite Score (points) 16 Interpretation of Scores High risk for falls(< 19) Tinetti Impairment Rating from Composite 40 to <60% Impaired (Score 12- Score 16) PT-OP-G Mobility & Gait Start: 03/19/18 16:33 Freq: Status: Active Protocol: Document 03/19/18 16:38 RCC (Rec: 03/19/18 17:28 RCC [email or web address]) OP Mobility Evaluation Bed Mobility Supine to and from Sit log roll, slow and painful, SBA PT-OP-H Neuro Start: 08/15/18 16:33 Freq: Status: Active Protocol: Document 03/19/18 16:38 RCC (Rec: 03/19/18 17:28 RCC [email or web address]) Sensation Evaluation Comments Summary Comments B neuropathy plantar surface of feet. Deep Tendon Reflex & Clonus Assessment Ankle Clonus Bilateral Clonus Assessment Absent PT-OP-K Range of Motion Start: 03/19/18 16:33 Freq: Status: Active Protocol: Document 04/25/18 12:09 RCC (Rec: 04/25/18 12:40 RCC [email or web address]) Lumbar Spine Range of Motion Lumbar Spine Active Degrees Testing Position standing Flexion 40 Extension 15 ROM Limitations Soft Tissue Tightness Pain Comments L side-bending 2 in. greater than to the R with pain bilaterally (pain on R and L side with SB R and SB L) PT-OP-L Special Tests Start: 03/19/18 16:33 Freq: Status: Active Protocol: Document 03/19/18 16:38 RCC (Rec: 03/19/18 17:28 RCC [email or web address]) Special Tests Lumbar Spine Special Tests Manual Traction Test Results some decrease in pain bilaterally Comments bent knee (short axis) no relief with long axis Slump Test Results positive bilaterally Comments sciatic Straight Leg Raise Test Results pain bilaterally with lift of each leg >45 deg. Hip Special Tests Buttocks Sign Test Results neg. bilaterally Scour Test Test Results neg. bilaterally PT-OP-M Strength Start: 03/19/18 16:33 Freq: Status: Active Protocol: Document 04/25/18 12:09 RCC (Rec: 04/25/18 12:40 RCC [email or web address]) Hip Strength Hip Manual Muscle Testing Right Flexion (L2) 4- Good- Abduction 3 Fair Adduction 4 Good Left Flexion (L2) 4- Good- Abduction 3 Fair Adduction 4 Good Knee Strength Knee Manual Muscle Testing Right Flexion (S2) 4- Good- Extension (L3) 4- Good- Left Flexion (S2) 4- Good- Extension (L3) 4- Good- Ankle/Foot Strength Ankle and Foot Manual Muscle Testing Right Dorsiflexion (L4) 3+ Fair+ Left Dorsiflexion (L4) 3+ Fair+ PT-OP-Q Treatments Start: 03/19/18 16:33 Freq: Status: Active Protocol: Document 05/15/18 12:12 RCC (Rec: 05/16/18 12:44 RCC [email or web address]) Therapeutic Exercises Supine Exercises dying bug Side bilateral Reps/Minutes 10 reps each side 1 Supine Exercise Name Transverse abdominal activation- static and marching Side bilateral Comments tactile cuing: with leg marching Other Exercises quad alt UE/LE Other Exercise Name quadruped alternating UE/LE Side bilateral Reps/Minutes 2 each Comments tactile cuing, unsteady quadruped alt LE Other Exercise Name quadruped alternating LE lift Side bilateral Reps/Minutes 10 each LE Comments with TrAb activation Manual Therapy Treatment Soft Tissue Mobilization 3 Body Location L piriformis Mobilization Type Strumming Intensity/Depth Moderate Body Position Sidelying 2 Body Location B paraspinals Mobilization Type Rolling Intensity/Depth Moderate Body Position Sidelying Manual Traction Lumbar Details bent knee traction (LLE) Body Position Supine Reps/Duration 12 min PT-OP-R Modalities Start: 03/19/18 16:33 Freq: Status: Active Protocol: Document 05/15/18 12:12 RCC (Rec: 05/16/18 12:44 RCC [email or web address]) Hot Pack/Cold Pack Treatment Hot Pack Location lumbar Patient Position Hooklying Treatment Duration (minutes) 10 Patient Tolerance Good PT-OP-T Assessment and Plan Start: 03/19/18 16:33 Freq: Status: Active Protocol: Document 05/15/18 12:12 RCC (Rec: 05/16/18 12:44 RCC [email or web address]) Physical Therapy Assessment Assessment Summary Assessment Pt was too unstable with core stability to tolerate adding alternating upper and lower extremity quadruped activity ( alternating at the same time), and required tactile cuing. No c/o pain during exercise, but still with increased tension in the L piriformis and bilateral multifidi. Physical Therapy Plan Frequency and Duration Frequency of Treatment 2x/Week Duration of Treatment 12 weeks Plan of Care Start Date 03/19/18 Plan of Care End Date 06/11/18 Next Visit Focus/Plan Next Note Type Treatment Note Next Visit Plan core and LE stabilization.
--- NOTE | 2018-05-22 16:26 | PT.OTN ---
Current Diagnoses Low back pain (05/22/18) Physical Therapy Treatment Note PT-OP-A Visit Information Start: 03/19/18 16:33 Freq: Status: Active Protocol: Document 05/22/18 15:19 SAK (Rec: 05/22/18 16:14 SAK [id number]) Out-Patient Physical Therapy Visit Information Visit Information Visit Type Treatment Note Visit Start Time 15:20 Visit Stop Time 16:05 Total Visit Minutes 42 Visit Number 13 Number of MEDICAL OFFICE SECRETARY Visits 0 Evaluation Information Evaluation Date 03/19/18 PT-OP-B Current Condition Start: 03/19/18 16:33 Freq: Status: Active Protocol: Document 03/19/18 16:38 RCC (Rec: 03/19/18 17:28 RCC [email or web address]) Current Condition History of Current Condition Onset Date impaired mobility 3+ yrs ago, low back worsening 1 yr ago Current Complaints low back pain, mult. falls History of Current Condition Pt is a 72 y/o male presenting to physical therapy with a c/ o low back pain, worsening with prolonged sitting, and a history of multiple falls and general LE weakness. Pt reports 2 falls while on vacation over the past 1.5-2 weeks. He is not wearing his bilateral ankle braces today due to having an MRI after this appointment and he did not want to have to bring them with him since he would need to take them off anyway. His back pain is somewhat relieved by standing and bending forward or just standing with his back against the wall. He had an MRI on this date which showed lower lumbar spine degenerative changes, mildly progressed at L4-5 compared to 2014 MRI. 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 He is still doing some [place] [employer], but back pain is worsening limiting his ability to perform. He now lives in his home with his in [place]. Prior Treatments and Tests MRI of lumbar spine 03/19/2018- lower lumbar spine degenerative changes, mildly progressed at L4-5 compared to 2014 MRI. Developmental History Developmental History polio age 7 Treatment Goals Patient/Caregiver Goals decrease pain, improve strength and participation with [place] [employer] Prior Functional Status Baseline Function- ADL's Needs Assist Baseline Function- Mobility Modified Independent Baseline Function- Gait short distances on level surface with SPC Baseline Function- Recreation/Hobbies [place] [employer] without increased back pain Current Functional Impairments (Reported) Functional Limitations- ADL's assistance with some ADLs due to pain (difficulty don/ doffing ankle braces without assitance) Functional Limitations- Mobility/Gait short distances outdoors with SPC Functional Limitations- Recreation/ [place] [employer] with increased low Hobbies back pain and stopping activity due to pain even with a modified version. PT-OP-C Subjective Start: 03/19/18 16:33 Freq: Status: Active Protocol: Document 05/22/18 15:19 SAK (Rec: 05/22/18 16:14 SAK [id number]) OP-PT Subjective Patient Comments Patient Comments Reports doing [place] [employer] 2x/day. Compliant with HEP, has joined gym at [employer] and [employer], plans to try some aquatic exercise PT-OP-D Balance Start: 03/19/18 16:33 Freq: Status: Active Protocol: Document 04/25/18 12:09 RCC (Rec: 04/25/18 12:40 RCC [email or web address]) Tinetti Balance Assessment Sitting Balance Sitting Balance Steady, safe Arising from Chair Ability to Arise Able, w/o using arms Attempts to Arise Arises on 1st attempt Standing Balance Immediate Standing Balance Steady with support Standing Balance Steady, wide stance Nudged Response Staggers, catches self Standing with Eyes Closed Unsteady Turning Step Pattern Turning 360 Degrees Discontinuous steps Stability Turning 360 Degrees Unsteady, grabs/staggers Sitting Down Sitting Down Uses arms or unsteady Gait and Step Initiation of Gait No hesitancy Right Foot Step Length Does pass stance foot Right Foot Step Height Does not clear floor Left Foot Step Length Does pass stance foot Left Foot Step Height Does not clear floor Step Description Step Symmetry Step length appears equal Step Continuity Steps appear continuous Gait Description Path Description Mild/moderate deviation Trunk Description Marked sway or uses aide Walking Stance Heels together Scoring and Interpretation Tinetti Composite Score (points) 16 Interpretation of Scores High risk for falls(< 19) Tinetti Impairment Rating from Composite 40 to <60% Impaired (Score 12- Score 16) PT-OP-G Mobility & Gait Start: 03/19/18 16:33 Freq: Status: Active Protocol: Document 03/19/18 16:38 RCC (Rec: 03/19/18 17:28 RCC [email or web address]) OP Mobility Evaluation Bed Mobility Supine to and from Sit log roll, slow and painful, SBA PT-OP-H Neuro Start: 03/19/18 16:33 Freq: Status: Active Protocol: Document 03/19/18 16:38 RCC (Rec: 03/19/18 17:28 RCC [email or web address]) Sensation Evaluation Comments Summary Comments B neuropathy plantar surface of feet. Deep Tendon Reflex & Clonus Assessment Ankle Clonus Bilateral Clonus Assessment Absent PT-OP-K Range of Motion Start: 03/19/18 16:33 Freq: Status: Active Protocol: Document 04/25/18 12:09 RCC (Rec: 04/25/18 12:40 RCC [email or web address]) Lumbar Spine Range of Motion Lumbar Spine Active Degrees Testing Position standing Flexion 40 Extension 15 ROM Limitations Soft Tissue Tightness Pain Comments L side-bending 2 in. greater than to the R with pain bilaterally (pain on R and L side with SB R and SB L) PT-OP-L Special Tests Start: 03/19/18 16:33 Freq: Status: Active Protocol: Document 03/19/18 16:38 RCC (Rec: 03/19/18 17:28 RCC [email or web address]) Special Tests Lumbar Spine Special Tests Manual Traction Test Results some decrease in pain bilaterally Comments bent knee (short axis) no relief with long axis Slump Test Results positive bilaterally Comments sciatic Straight Leg Raise Test Results pain bilaterally with lift of each leg >45 deg. Hip Special Tests Buttocks Sign Test Results neg. bilaterally Scour Test Test Results neg. bilaterally PT-OP-M Strength Start: 03/19/18 16:33 Freq: Status: Active Protocol: Document 04/25/18 12:09 RCC (Rec: 04/25/18 12:40 RCC [email or web address]) Hip Strength Hip Manual Muscle Testing Right Flexion (L2) 4- Good- Abduction 3 Fair Adduction 4 Good Left Flexion (L2) 4- Good- Abduction 3 Fair Adduction 4 Good Knee Strength Knee Manual Muscle Testing Right Flexion (S2) 4- Good- Extension (L3) 4- Good- Left Flexion (S2) 4- Good- Extension (L3) 4- Good- Ankle/Foot Strength Ankle and Foot Manual Muscle Testing Right Dorsiflexion (L4) 3+ Fair+ Left Dorsiflexion (L4) 3+ Fair+ PT-OP-Q Treatments Start: 03/19/18 16:33 Freq: Status: Active Protocol: Document 05/22/18 15:19 SAK (Rec: 05/22/18 16:14 [facility] [id number]) Cardio Equipment Recumbent Stepper (Sci-Fit) Duration (Minutes) 7 Resistance 2.0 Gym Equipment Shuttle Recovery Unilateral Squats Resistance 62 lbs Shuttle Recovery Platform Unstable Reps/Time to fatigue Bilateral Squats Resistance 100 lbs Shuttle Recovery Platform Unstable Reps/Time to fatigue Therapeutic Exercises Supine Exercises [id number] isometric Reps/Minutes 5x ea push, pull Comments hips flexed to 90, feet supported on bolster dying bug Side bilateral Reps/Minutes 10 reps each side 1 Supine Exercise Name Transverse abdominal activation- static and marching Side bilateral Comments tactile cuing: with leg marching Other Exercises quad alt UE/LE Other Exercise Name quadruped alternating UE/LE Side bilateral Reps/Minutes 2 each Comments tactile cuing, unsteady quadruped alt LE Other Exercise Name quadruped alternating LE lift Side bilateral Reps/Minutes 10 each LE Comments with TrAb activation Manual Therapy Treatment Soft Tissue Mobilization 3 Body Location L piriformis Mobilization Type Strumming Intensity/Depth Moderate Body Position Sidelying 2 Body Location B paraspinals Mobilization Type Rolling Intensity/Depth Moderate Body Position Sidelying Manual Traction Lumbar Details bent knee traction (LLE) Body Position Supine Reps/Duration 12 min PT-OP-R Modalities Start: 03/19/18 16:33 Freq: Status: Active Protocol: Document 05/22/18 15:19 [facility] (Rec: 05/22/18 16:18 [facility] [id number]) Hot Pack/Cold Pack Treatment Hot Pack Location lumbar Patient Position Hooklying Treatment Duration (minutes) 10 Patient Tolerance Good PT-OP-T Assessment and Plan Start: 03/19/18 16:33 Freq: Status: Active Protocol: Document 05/22/18 15:19 [facility] (Rec: 05/22/18 16:18 [facility] [id number]) Physical Therapy Assessment Goals Four Impairment Tinetti Balance Assessment score (1128 on 03/19/2018) Languages And Literature Instructor Goal (LTG) 16/28 or greater on the Tinetti Balance Assessment to improve balance in standing and gait. LTG Duration 12 weeks Three Impairment LE weakness Languages And Literature Instructor Goal (LTG) 4/5 or greater hip flexion, abduction, adduction, knee flexion and extension to improve standing balance and decrease fall risk. LTG Duration 12 weeks Two Impairment impaired tolerance to [place] [employer] Short Term Goal (STG) pt to participate in [place] [employer] for 15 min, 3 days per week. STG Duration 6 weeks Languages And Literature Instructor Goal (LTG) pt to participate in [place] [employer] for 30 min, 5 days per week. LTG Duration 12 weeks One Impairment low back pain 8/10 Languages And Literature Instructor Goal (LTG) 5/10 or less low back pain LTG Duration 12 weeks Assessment Summary Assessment Able to tolerate lower trunk bracing (push, cross, pull); stated he could feel deep core musculature. Physical Therapy Plan Frequency and Duration Frequency of Treatment 2x/Week Duration of Treatment 12 weeks Plan of Care Start Date 03/19/18 Plan of Care End Date 06/11/18 Therapeutic Interventions Therapeutic Interventions Aquatic Therapy Balance Training Gait Training Home Exercise Program Manual Therapy Neuromuscular Re-education Patient/Caregiver Education Self-Care/Home Management Taping Therapeutic Activities Therapeutic Exercises Modalities Cold Pack/Ice Massage Electric Stimulation Hot Packs Traction- Mechanical Ultrasound Next Visit Focus/Plan Next Note Type Treatment Note Next Visit Plan Progress core stabilization, manual techniques and modalities as indicated.
--- NOTE | 2018-05-27 10:40 | PT.OTN ---
Current Diagnoses Low back pain (05/27/18) Physical Therapy Treatment Note PT-OP-A Visit Information Start: 03/19/18 16:33 Freq: Status: Active Protocol: Document 05/27/18 09:50 GGD (Rec: 05/27/18 09:57 GGD [id number]) Out-Patient Physical Therapy Visit Information Visit Information Visit Type Treatment Note Visit Start Time 09:50 Visit Stop Time 10:40 Total Visit Minutes 50 Visit Number 14 Number of PNEUMATIC TOOL OPERATOR Visits 1 Evaluation Information Evaluation Date 03/19/18 PT-OP-B Current Condition Start: 03/19/18 16:33 Freq: Status: Active Protocol: Document 03/19/18 16:38 RCC (Rec: 03/19/18 17:28 RCC [email or web address]) Current Condition History of Current Condition Onset Date impaired mobility 3+ yrs ago, low back worsening 1 yr ago Current Complaints low back pain, mult. falls History of Current Condition Pt is a 72 y/o male presenting to physical therapy with a c/ o low back pain, worsening with prolonged sitting, and a history of multiple falls and general LE weakness. Pt reports 2 falls while on vacation over the past 1.5-2 weeks. He is not wearing his bilateral ankle braces today due to having an MRI after this appointment and he did not want to have to bring them with him since he would need to take them off anyway. His back pain is somewhat relieved by standing and bending forward or just standing with his back against the wall. He had an MRI on this date which showed lower lumbar spine degenerative changes, mildly progressed at L4-5 compared to 2014 MRI. 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 He is still doing some [place] [employer], but back pain is worsening limiting his ability to perform. He now lives in his home with his in [place]. Prior Treatments and Tests MRI of lumbar spine 03/19/2018- lower lumbar spine degenerative changes, mildly progressed at L4-5 compared to 2014 MRI. Developmental History Developmental History polio age 7 Treatment Goals Patient/Caregiver Goals decrease pain, improve strength and participation with [place] [employer] Prior Functional Status Baseline Function- ADL's Needs Assist Baseline Function- Mobility Modified Independent Baseline Function- Gait short distances on level surface with SPC Baseline Function- Recreation/Hobbies [place] [employer] without increased back pain Current Functional Impairments (Reported) Functional Limitations- ADL's assistance with some ADLs due to pain (difficulty don/ doffing ankle braces without assitance) Functional Limitations- Mobility/Gait short distances outdoors with SPC Functional Limitations- Recreation/ [place] [employer] with increased low Hobbies back pain and stopping activity due to pain even with a modified version. PT-OP-C Subjective Start: 03/19/18 16:33 Freq: Status: Active Protocol: Document 05/27/18 09:50 GGD (Rec: 05/27/18 09:57 GGD [id number]) OP-PT Subjective Patient Comments Patient Comments Pt states pain is the same. Doing HEP. PT-OP-D Balance Start: 03/19/18 16:33 Freq: Status: Active Protocol: Document 04/25/18 12:09 RCC (Rec: 04/25/18 12:40 RCC [email or web address]) Tinetti Balance Assessment Sitting Balance Sitting Balance Steady, safe Arising from Chair Ability to Arise Able, w/o using arms Attempts to Arise Arises on 1st attempt Standing Balance Immediate Standing Balance Steady with support Standing Balance Steady, wide stance Nudged Response Staggers, catches self Standing with Eyes Closed Unsteady Turning Step Pattern Turning 360 Degrees Discontinuous steps Stability Turning 360 Degrees Unsteady, grabs/staggers Sitting Down Sitting Down Uses arms or unsteady Gait and Step Initiation of Gait No hesitancy Right Foot Step Length Does pass stance foot Right Foot Step Height Does not clear floor Left Foot Step Length Does pass stance foot Left Foot Step Height Does not clear floor Step Description Step Symmetry Step length appears equal Step Continuity Steps appear continuous Gait Description Path Description Mild/moderate deviation Trunk Description Marked sway or uses aide Walking Stance Heels together Scoring and Interpretation Tinetti Composite Score (points) 16 Interpretation of Scores High risk for falls(< 19) Tinetti Impairment Rating from Composite 40 to <60% Impaired (Score 12- Score 16) PT-OP-G Mobility & Gait Start: 03/19/18 16:33 Freq: Status: Active Protocol: Document 03/19/18 16:38 RCC (Rec: 03/19/18 17:28 RCC [email or web address]) OP Mobility Evaluation Bed Mobility Supine to and from Sit log roll, slow and painful, SBA PT-OP-H Neuro Start: 08/15/18 16:33 Freq: Status: Active Protocol: Document 03/19/18 16:38 RCC (Rec: 03/19/18 17:28 RCC [email or web address]) Sensation Evaluation Comments Summary Comments B neuropathy plantar surface of feet. Deep Tendon Reflex & Clonus Assessment Ankle Clonus Bilateral Clonus Assessment Absent PT-OP-K Range of Motion Start: 03/19/18 16:33 Freq: Status: Active Protocol: Document 04/25/18 12:09 RCC (Rec: 04/25/18 12:40 RCC [email or web address]) Lumbar Spine Range of Motion Lumbar Spine Active Degrees Testing Position standing Flexion 40 Extension 15 ROM Limitations Soft Tissue Tightness Pain Comments L side-bending 2 in. greater than to the R with pain bilaterally (pain on R and L side with SB R and SB L) PT-OP-L Special Tests Start: 03/19/18 16:33 Freq: Status: Active Protocol: Document 03/19/18 16:38 RCC (Rec: 03/19/18 17:28 RCC [email or web address]) Special Tests Lumbar Spine Special Tests Manual Traction Test Results some decrease in pain bilaterally Comments bent knee (short axis) no relief with long axis Slump Test Results positive bilaterally Comments sciatic Straight Leg Raise Test Results pain bilaterally with lift of each leg >45 deg. Hip Special Tests Buttocks Sign Test Results neg. bilaterally Scour Test Test Results neg. bilaterally PT-OP-M Strength Start: 03/19/18 16:33 Freq: Status: Active Protocol: Document 04/25/18 12:09 RCC (Rec: 04/25/18 12:40 RCC [email or web address]) Hip Strength Hip Manual Muscle Testing Right Flexion (L2) 4- Good- Abduction 3 Fair Adduction 4 Good Left Flexion (L2) 4- Good- Abduction 3 Fair Adduction 4 Good Knee Strength Knee Manual Muscle Testing Right Flexion (S2) 4- Good- Extension (L3) 4- Good- Left Flexion (S2) 4- Good- Extension (L3) 4- Good- Ankle/Foot Strength Ankle and Foot Manual Muscle Testing Right Dorsiflexion (L4) 3+ Fair+ Left Dorsiflexion (L4) 3+ Fair+ PT-OP-Q Treatments Start: 03/19/18 16:33 Freq: Status: Active Protocol: Document 05/27/18 09:50 GGD (Rec: 05/27/18 10:21 GGD [id number]) Cardio Equipment Recumbent Elliptical (Biodex) Duration (Minutes) 7 Resistance 3 Gym Equipment Shuttle Recovery Unilateral Squats Resistance 62 lbs Shuttle Recovery Platform Unstable Reps/Time to fatigue Bilateral Squats Resistance 100 lbs Shuttle Recovery Platform Unstable Reps/Time to fatigue Therapeutic Exercises Supine Exercises [id number] isometric Reps/Minutes 5x ea push, pull Comments hips flexed to 90, feet supported on bolster dying bug Side bilateral Reps/Minutes 10 reps each side 1 Supine Exercise Name Transverse abdominal activation- static and marching Side bilateral Comments tactile cuing: with leg marching Manual Therapy Treatment Soft Tissue Mobilization 3 Body Location L piriformis Mobilization Type Strumming Intensity/Depth Moderate Body Position Sidelying 2 Body Location B paraspinals Mobilization Type Rolling Intensity/Depth Moderate Body Position Sidelying Manual Traction Lumbar Details bent knee traction (LLE) Body Position Supine Reps/Duration 12 min PT-OP-R Modalities Start: 03/19/18 16:33 Freq: Status: Active Protocol: Document 05/27/18 09:50 GGD (Rec: 05/27/18 10:21 GGD [id number]) Hot Pack/Cold Pack Treatment Hot Pack Location lumbar Patient Position Hooklying Treatment Duration (minutes) 10 Patient Tolerance Good PT-OP-T Assessment and Plan Start: 03/19/18 16:33 Freq: Status: Active Protocol: Document 05/27/18 09:50 GGD (Rec: 05/27/18 10:38 GGD [email or web address]) Physical Therapy Assessment Assessment Summary Assessment Pt need cues with exercise technique. He had improved tolerance to LE strengthening. Physical Therapy Plan Frequency and Duration Frequency of Treatment 2x/Week Duration of Treatment 12 weeks Plan of Care Start Date 03/19/18 Plan of Care End Date 06/11/18 Next Visit Focus/Plan Next Note Type Treatment Note Next Visit Plan Progress core stabilization.
--- NOTE | 2018-05-29 12:00 | PT.OTN ---
Current Diagnoses Low back pain (05/29/18) Physical Therapy Treatment Note PT-OP-A Visit Information Start: 03/19/18 16:33 Freq: Status: Active Protocol: Document 05/29/18 12:00 RCC (Rec: 06/01/18 16:16 RCC [email or web address]) Out-Patient Physical Therapy Visit Information Visit Information Visit Type Treatment Note Visit Start Time 11:20 Visit Stop Time 12:00 Total Visit Minutes 40 Visit Number 15 Number of PLASTIC MIXER Visits 0 Evaluation Information Evaluation Date 03/19/18 PT-OP-B Current Condition Start: 03/19/18 16:33 Freq: Status: Active Protocol: Document 03/19/18 16:38 RCC (Rec: 03/19/18 17:28 RCC [email or web address]) Current Condition History of Current Condition Onset Date impaired mobility 3+ yrs ago, low back worsening 1 yr ago Current Complaints low back pain, mult. falls History of Current Condition Pt is a 72 y/o male presenting to physical therapy with a c/ o low back pain, worsening with prolonged sitting, and a history of multiple falls and general LE weakness. Pt reports 2 falls while on vacation over the past 1.5-2 weeks. He is not wearing his bilateral ankle braces today due to having an MRI after this appointment and he did not want to have to bring them with him since he would need to take them off anyway. His back pain is somewhat relieved by standing and bending forward or just standing with his back against the wall. He had an MRI on this date which showed lower lumbar spine degenerative changes, mildly progressed at L4-5 compared to 2014 MRI. 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 He is still doing some [place] [employer], but back pain is worsening limiting his ability to perform. He now lives in his home with his in [place]. Prior Treatments and Tests MRI of lumbar spine 03/19/2018- lower lumbar spine degenerative changes, mildly progressed at L4-5 compared to 2014 MRI. Developmental History Developmental History polio age 7 Treatment Goals Patient/Caregiver Goals decrease pain, improve strength and participation with [place] [employer] Prior Functional Status Baseline Function- ADL's Needs Assist Baseline Function- Mobility Modified Independent Baseline Function- Gait short distances on level surface with SPC Baseline Function- Recreation/Hobbies [place] [employer] without increased back pain Current Functional Impairments (Reported) Functional Limitations- ADL's assistance with some ADLs due to pain (difficulty don/ doffing ankle braces without assitance) Functional Limitations- Mobility/Gait short distances outdoors with SPC Functional Limitations- Recreation/ [place] [employer] with increased low Hobbies back pain and stopping activity due to pain even with a modified version. PT-OP-C Subjective Start: 03/19/18 16:33 Freq: Status: Active Protocol: Document 05/29/18 12:00 RCC (Rec: 06/01/18 16:16 RCC [email or web address]) OP-PT Subjective Patient Comments Patient Comments Pt states his legs are a little shaky today. He admits he has had less groin pain. PT-OP-D Balance Start: 03/19/18 16:33 Freq: Status: Active Protocol: Document 04/25/18 12:09 RCC (Rec: 04/25/18 12:40 RCC [email or web address]) Tinetti Balance Assessment Sitting Balance Sitting Balance Steady, safe Arising from Chair Ability to Arise Able, w/o using arms Attempts to Arise Arises on 1st attempt Standing Balance Immediate Standing Balance Steady with support Standing Balance Steady, wide stance Nudged Response Staggers, catches self Standing with Eyes Closed Unsteady Turning Step Pattern Turning 360 Degrees Discontinuous steps Stability Turning 360 Degrees Unsteady, grabs/staggers Sitting Down Sitting Down Uses arms or unsteady Gait and Step Initiation of Gait No hesitancy Right Foot Step Length Does pass stance foot Right Foot Step Height Does not clear floor Left Foot Step Length Does pass stance foot Left Foot Step Height Does not clear floor Step Description Step Symmetry Step length appears equal Step Continuity Steps appear continuous Gait Description Path Description Mild/moderate deviation Trunk Description Marked sway or uses aide Walking Stance Heels together Scoring and Interpretation Tinetti Composite Score (points) 16 Interpretation of Scores High risk for falls(< 19) Tinetti Impairment Rating from Composite 40 to <60% Impaired (Score 12- Score 16) PT-OP-G Mobility & Gait Start: 03/19/18 16:33 Freq: Status: Active Protocol: Document 03/19/18 16:38 RCC (Rec: 03/19/18 17:28 RCC [email or web address]) OP Mobility Evaluation Bed Mobility Supine to and from Sit log roll, slow and painful, SBA PT-OP-H Neuro Start: 03/19/18 16:33 Freq: Status: Active Protocol: Document 03/19/18 16:38 RCC (Rec: 03/19/18 17:28 RCC [email or web address]) Sensation Evaluation Comments Summary Comments B neuropathy plantar surface of feet. Deep Tendon Reflex & Clonus Assessment Ankle Clonus Bilateral Clonus Assessment Absent PT-OP-K Range of Motion Start: 03/19/18 16:33 Freq: Status: Active Protocol: Document 04/25/18 12:09 RCC (Rec: 04/25/18 12:40 RCC [email or web address]) Lumbar Spine Range of Motion Lumbar Spine Active Degrees Testing Position standing Flexion 40 Extension 15 ROM Limitations Soft Tissue Tightness Pain Comments L side-bending 2 in. greater than to the R with pain bilaterally (pain on R and L side with SB R and SB L) PT-OP-L Special Tests Start: 03/19/18 16:33 Freq: Status: Active Protocol: Document 03/19/18 16:38 RCC (Rec: 03/19/18 17:28 RCC [email or web address]) Special Tests Lumbar Spine Special Tests Manual Traction Test Results some decrease in pain bilaterally Comments bent knee (short axis) no relief with long axis Slump Test Results positive bilaterally Comments sciatic Straight Leg Raise Test Results pain bilaterally with lift of each leg >45 deg. Hip Special Tests Buttocks Sign Test Results neg. bilaterally Scour Test Test Results neg. bilaterally PT-OP-M Strength Start: 03/19/18 16:33 Freq: Status: Active Protocol: Document 04/25/18 12:09 RCC (Rec: 04/25/18 12:40 RCC [email or web address]) Hip Strength Hip Manual Muscle Testing Right Flexion (L2) 4- Good- Abduction 3 Fair Adduction 4 Good Left Flexion (L2) 4- Good- Abduction 3 Fair Adduction 4 Good Knee Strength Knee Manual Muscle Testing Right Flexion (S2) 4- Good- Extension (L3) 4- Good- Left Flexion (S2) 4- Good- Extension (L3) 4- Good- Ankle/Foot Strength Ankle and Foot Manual Muscle Testing Right Dorsiflexion (L4) 3+ Fair+ Left Dorsiflexion (L4) 3+ Fair+ PT-OP-Q Treatments Start: 03/19/18 16:33 Freq: Status: Active Protocol: Document 05/29/18 12:00 RCC (Rec: 06/01/18 16:16 RCC [email or web address]) Gym Equipment Shuttle Recovery Unilateral Squats Resistance 62 lbs Shuttle Recovery Platform Unstable Reps/Time to fatigue Bilateral Squats Resistance 112 lbs Shuttle Recovery Platform Unstable Reps/Time to fatigue Therapeutic Exercises Supine Exercises [id number] isometric Reps/Minutes 5x ea push, pull Comments hips flexed to 90, feet supported on bolster Manual Therapy Treatment Soft Tissue Mobilization 3 Body Location L piriformis Mobilization Type Strumming Intensity/Depth Moderate Body Position Sidelying 2 Body Location L paraspinals Mobilization Type Rolling Intensity/Depth Moderate Body Position Sidelying Manual Traction Lumbar Details bent knee traction (LLE) Body Position Supine Reps/Duration 10 min PT-OP-R Modalities Start: 03/19/18 16:33 Freq: Status: Active Protocol: Document 05/29/18 12:00 [facility] (Rec: 06/01/18 16:16 [facility] [email or web address]) Hot Pack/Cold Pack Treatment Hot Pack Location lumbar Patient Position Hooklying Treatment Duration (minutes) 10 Patient Tolerance Good PT-OP-T Assessment and Plan Start: 03/19/18 16:33 Freq: Status: Active Protocol: Document 05/29/18 12:00 [facility] (Rec: 06/01/18 16:16 [facility] [email or web address]) Physical Therapy Assessment Assessment Summary Assessment Pt able to increased BLE leg press resistance, but fatigues quickly with this activity. Pt able to perform abdominal isometric well with cuing. He continues to get good relief with manual traction. Physical Therapy Plan Frequency and Duration Frequency of Treatment 2x/Week Duration of Treatment 12 weeks Plan of Care Start Date 03/19/18 Plan of Care End Date 06/11/18 Next Visit Focus/Plan Next Note Type Treatment Note Next Visit Plan gluteal and core stability, lateral step up/down
--- NOTE | 2018-06-03 15:50 | PT.OTN ---
Current Diagnoses Low back pain (06/03/18) Physical Therapy Treatment Note PT-OP-A Visit Information Start: 03/19/18 16:33 Freq: Status: Active Protocol: Document 06/03/18 15:38 SA (Rec: 06/03/18 15:50 SA [email or web address]) Out-Patient Physical Therapy Visit Information Visit Information Visit Type Treatment Note Visit Start Time 13:00 Visit Stop Time 13:42 Total Visit Minutes 42 Visit Number 16 Number of QUILLER TENDER Visits 1 PT-OP-B Current Condition Start: 03/19/18 16:33 Freq: Status: Active Protocol: Document 03/19/18 16:38 RCC (Rec: 03/19/18 17:28 RCC [email or web address]) Current Condition History of Current Condition Onset Date impaired mobility 3+ yrs ago, low back worsening 1 yr ago Current Complaints low back pain, mult. falls History of Current Condition Pt is a 72 y/o male presenting to physical therapy with a c/ o low back pain, worsening with prolonged sitting, and a history of multiple falls and general LE weakness. Pt reports 2 falls while on vacation over the past 1.5-2 weeks. He is not wearing his bilateral ankle braces today due to having an MRI after this appointment and he did not want to have to bring them with him since he would need to take them off anyway. His back pain is somewhat relieved by standing and bending forward or just standing with his back against the wall. He had an MRI on this date which showed lower lumbar spine degenerative changes, mildly progressed at L4-5 compared to 2015 MRI. 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 He is still doing some [place] [employer], but back pain is worsening limiting his ability to perform. He now lives in his home with his in [place]. Prior Treatments and Tests MRI of lumbar spine 03/19/2018- lower lumbar spine degenerative changes, mildly progressed at L4-5 compared to 2015 MRI. Developmental History Developmental History polio age 7 Treatment Goals Patient/Caregiver Goals decrease pain, improve strength and participation with [place] [employer] Prior Functional Status Baseline Function- ADL's Needs Assist Baseline Function- Mobility Modified Independent Baseline Function- Gait short distances on level surface with SPC Baseline Function- Recreation/Hobbies [place] [employer] without increased back pain Current Functional Impairments (Reported) Functional Limitations- ADL's assistance with some ADLs due to pain (difficulty don/ doffing ankle braces without assitance) Functional Limitations- Mobility/Gait short distances outdoors with SPC Functional Limitations- Recreation/ [place] [employer] with increased low Hobbies back pain and stopping activity due to pain even with a modified version. PT-OP-C Subjective Start: 03/19/18 16:33 Freq: Status: Active Protocol: Document 06/03/18 15:38 SA (Rec: 06/03/18 15:50 SA [email or web address]) OP-PT Subjective Patient Comments Patient Comments Pt having difficulty the last few days keeping blood sugar levels stable. Has appointment to see but feeling a little shaky on legs today. Patient Reported Progress Improving PT-OP-D Balance Start: 03/19/18 16:33 Freq: Status: Active Protocol: Document 04/25/18 12:09 RCC (Rec: 04/25/18 12:40 RCC [email or web address]) Tinetti Balance Assessment Sitting Balance Sitting Balance Steady, safe Arising from Chair Ability to Arise Able, w/o using arms Attempts to Arise Arises on 1st attempt Standing Balance Immediate Standing Balance Steady with support Standing Balance Steady, wide stance Nudged Response Staggers, catches self Standing with Eyes Closed Unsteady Turning Step Pattern Turning 360 Degrees Discontinuous steps Stability Turning 360 Degrees Unsteady, grabs/staggers Sitting Down Sitting Down Uses arms or unsteady Gait and Step Initiation of Gait No hesitancy Right Foot Step Length Does pass stance foot Right Foot Step Height Does not clear floor Left Foot Step Length Does pass stance foot Left Foot Step Height Does not clear floor Step Description Step Symmetry Step length appears equal Step Continuity Steps appear continuous Gait Description Path Description Mild/moderate deviation Trunk Description Marked sway or uses aide Walking Stance Heels together Scoring and Interpretation Tinetti Composite Score (points) 16 Interpretation of Scores High risk for falls(< 19) Tinetti Impairment Rating from Composite 40 to <60% Impaired (Score 12- Score 16) PT-OP-G Mobility & Gait Start: 03/19/18 16:33 Freq: Status: Active Protocol: Document 03/19/18 16:38 RCC (Rec: 03/19/18 17:28 RCC [email or web address]) OP Mobility Evaluation Bed Mobility Supine to and from Sit log roll, slow and painful, SBA PT-OP-H Neuro Start: 03/19/18 16:33 Freq: Status: Active Protocol: Document 03/19/18 16:38 RCC (Rec: 03/19/18 17:28 RCC [email or web address]) Sensation Evaluation Comments Summary Comments B neuropathy plantar surface of feet. Deep Tendon Reflex & Clonus Assessment Ankle Clonus Bilateral Clonus Assessment Absent PT-OP-K Range of Motion Start: 03/19/18 16:33 Freq: Status: Active Protocol: Document 04/25/18 12:09 RCC (Rec: 04/25/18 12:40 RCC [email or web address]) Lumbar Spine Range of Motion Lumbar Spine Active Degrees Testing Position standing Flexion 40 Extension 15 ROM Limitations Soft Tissue Tightness Pain Comments L side-bending 2 in. greater than to the R with pain bilaterally (pain on R and L side with SB R and SB L) PT-OP-L Special Tests Start: 03/19/18 16:33 Freq: Status: Active Protocol: Document 03/19/18 16:38 RCC (Rec: 03/19/18 17:28 RCC [email or web address]) Special Tests Lumbar Spine Special Tests Manual Traction Test Results some decrease in pain bilaterally Comments bent knee (short axis) no relief with long axis Slump Test Results positive bilaterally Comments sciatic Straight Leg Raise Test Results pain bilaterally with lift of each leg >45 deg. Hip Special Tests Buttocks Sign Test Results neg. bilaterally Scour Test Test Results neg. bilaterally PT-OP-M Strength Start: 03/19/18 16:33 Freq: Status: Active Protocol: Document 04/25/18 12:09 RCC (Rec: 04/25/18 12:40 RCC [email or web address]) Hip Strength Hip Manual Muscle Testing Right Flexion (L2) 4- Good- Abduction 3 Fair Adduction 4 Good Left Flexion (L2) 4- Good- Abduction 3 Fair Adduction 4 Good Knee Strength Knee Manual Muscle Testing Right Flexion (S2) 4- Good- Extension (L3) 4- Good- Left Flexion (S2) 4- Good- Extension (L3) 4- Good- Ankle/Foot Strength Ankle and Foot Manual Muscle Testing Right Dorsiflexion (L4) 3+ Fair+ Left Dorsiflexion (L4) 3+ Fair+ PT-OP-Q Treatments Start: 03/19/18 16:33 Freq: Status: Active Protocol: Document 06/03/18 15:38 SA (Rec: 06/03/18 15:50 SA [email or web address]) Cardio Equipment Recumbent Elliptical (Biodex) Duration (Minutes) 7 Resistance 3 Gym Equipment Shuttle Recovery Unilateral Squats Resistance 62 lbs Shuttle Recovery Platform Unstable Reps/Time to fatigue Bilateral Squats Resistance 112 lbs Shuttle Recovery Platform Unstable Reps/Time to fatigue Therapeutic Exercises Supine Exercises [id number] isometric Reps/Minutes 5x ea push, pull Comments hips at 90 degrees Other Exercises quad alt UE/LE Reps/Minutes 10 x each Comments unstable, limited to LEs only quadruped alt LE Reps/Minutes 15x Manual Therapy Treatment Soft Tissue Mobilization 3 Body Location L piriformis Mobilization Type Strumming Intensity/Depth Moderate Body Position Side lying Manual Traction Lumbar Details bent knee traction (LLE) Body Position Supine Reps/Duration 10 min PT-OP-R Modalities Start: 03/19/18 16:33 Freq: Status: Active Protocol: Document 05/29/18 12:00 RCC (Rec: 06/01/18 16:16 RCC [email or web address]) Hot Pack/Cold Pack Treatment Hot Pack Location lumbar Patient Position Hooklying Treatment Duration (minutes) 10 Patient Tolerance Good PT-OP-T Assessment and Plan Start: 03/19/18 16:33 Freq: Status: Active Protocol: Document 06/03/18 15:38 SA (Rec: 06/03/18 15:50 SA [email or web address]) Physical Therapy Assessment Assessment Summary Assessment Tactile cues for quadriped alternating LEs. Pt with increased unsteadyness today, continues to have relief with lumbar traction. Physical Therapy Plan Next Visit Focus/Plan Next Note Type Treatment Note Next Visit Plan Continue/progress with core stabilization and manual lumbar traction.
--- NOTE | 2018-06-06 12:00 | PT.OTN ---
Current Diagnoses Low back pain (06/06/18) Physical Therapy Treatment Note PT-OP-A Visit Information Start: 03/19/18 16:33 Freq: Status: Active Protocol: Document 06/06/18 12:00 RCC (Rec: 06/07/18 13:33 RCC [email or web address]) Out-Patient Physical Therapy Visit Information Visit Information Visit Type Treatment Note Visit Start Time 11:17 Visit Stop Time 12:00 Total Visit Minutes 43 Visit Number 17 Number of BUNDLE CLERK Visits 0 Evaluation Information Evaluation Date 03/19/18 PT-OP-B Current Condition Start: 03/19/18 16:33 Freq: Status: Active Protocol: Document 03/19/18 16:38 RCC (Rec: 03/19/18 17:28 RCC [email or web address]) Current Condition History of Current Condition Onset Date impaired mobility 3+ yrs ago, low back worsening 1 yr ago Current Complaints low back pain, mult. falls History of Current Condition Pt is a 72 y/o male presenting to physical therapy with a c/ o low back pain, worsening with prolonged sitting, and a history of multiple falls and general LE weakness. Pt reports 2 falls while on vacation over the past 1.5-2 weeks. He is not wearing his bilateral ankle braces today due to having an MRI after this appointment and he did not want to have to bring them with him since he would need to take them off anyway. His back pain is somewhat relieved by standing and bending forward or just standing with his back against the wall. He had an MRI on this date which showed lower lumbar spine degenerative changes, mildly progressed at L4-5 compared to 2014 MRI. 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 He is still doing some [place] [employer], but back pain is worsening limiting his ability to perform. He now lives in his home with his in [place]. Prior Treatments and Tests MRI of lumbar spine 03/19/2018- lower lumbar spine degenerative changes, mildly progressed at L4-5 compared to 2014 MRI. Developmental History Developmental History polio age 7 Treatment Goals Patient/Caregiver Goals decrease pain, improve strength and participation with [place] [employer] Prior Functional Status Baseline Function- ADL's Needs Assist Baseline Function- Mobility Modified Independent Baseline Function- Gait short distances on level surface with SPC Baseline Function- Recreation/Hobbies [place] [employer] without increased back pain Current Functional Impairments (Reported) Functional Limitations- ADL's assistance with some ADLs due to pain (difficulty don/ doffing ankle braces without assitance) Functional Limitations- Mobility/Gait short distances outdoors with SPC Functional Limitations- Recreation/ [place] [employer] with increased low Hobbies back pain and stopping activity due to pain even with a modified version. PT-OP-C Subjective Start: 03/19/18 16:33 Freq: Status: Active Protocol: Document 06/06/18 12:00 RCC (Rec: 06/07/18 13:33 RCC [email or web address]) OP-PT Subjective Patient Comments Patient Comments Pt states pain in groin is better; he is still dealing with low back pain but is doing his HEP to hell dull it down. OP-PT Pain Assessment Location Bilateral Lower Back Intensity 6 Scale Used Numeric (1 - 10) PT-OP-D Balance Start: 03/19/18 16:33 Freq: Status: Active Protocol: Document 04/25/18 12:09 RCC (Rec: 04/25/18 12:40 RCC [email or web address]) Tinetti Balance Assessment Sitting Balance Sitting Balance Steady, safe Arising from Chair Ability to Arise Able, w/o using arms Attempts to Arise Arises on 1st attempt Standing Balance Immediate Standing Balance Steady with support Standing Balance Steady, wide stance Nudged Response Staggers, catches self Standing with Eyes Closed Unsteady Turning Step Pattern Turning 360 Degrees Discontinuous steps Stability Turning 360 Degrees Unsteady, grabs/staggers Sitting Down Sitting Down Uses arms or unsteady Gait and Step Initiation of Gait No hesitancy Right Foot Step Length Does pass stance foot Right Foot Step Height Does not clear floor Left Foot Step Length Does pass stance foot Left Foot Step Height Does not clear floor Step Description Step Symmetry Step length appears equal Step Continuity Steps appear continuous Gait Description Path Description Mild/moderate deviation Trunk Description Marked sway or uses aide Walking Stance Heels together Scoring and Interpretation Tinetti Composite Score (points) 16 Interpretation of Scores High risk for falls(< 19) Tinetti Impairment Rating from Composite 40 to <60% Impaired (Score 12- Score 16) PT-OP-G Mobility & Gait Start: 03/19/18 16:33 Freq: Status: Active Protocol: Document 03/19/18 16:38 RCC (Rec: 03/19/18 17:28 RCC [email or web address]) OP Mobility Evaluation Bed Mobility Supine to and from Sit log roll, slow and painful, SBA PT-OP-H Neuro Start: 03/19/18 16:33 Freq: Status: Active Protocol: Document 03/19/18 16:38 RCC (Rec: 03/19/18 17:28 RCC [email or web address]) Sensation Evaluation Comments Summary Comments B neuropathy plantar surface of feet. Deep Tendon Reflex & Clonus Assessment Ankle Clonus Bilateral Clonus Assessment Absent PT-OP-K Range of Motion Start: 03/19/18 16:33 Freq: Status: Active Protocol: Document 04/25/18 12:09 RCC (Rec: 04/25/18 12:40 RCC [email or web address]) Lumbar Spine Range of Motion Lumbar Spine Active Degrees Testing Position standing Flexion 40 Extension 15 ROM Limitations Soft Tissue Tightness Pain Comments L side-bending 2 in. greater than to the R with pain bilaterally (pain on R and L side with SB R and SB L) PT-OP-L Special Tests Start: 03/19/18 16:33 Freq: Status: Active Protocol: Document 03/19/18 16:38 RCC (Rec: 03/19/18 17:28 RCC [email or web address]) Special Tests Lumbar Spine Special Tests Manual Traction Test Results some decrease in pain bilaterally Comments bent knee (short axis) no relief with long axis Slump Test Results positive bilaterally Comments sciatic Straight Leg Raise Test Results pain bilaterally with lift of each leg >45 deg. Hip Special Tests Buttocks Sign Test Results neg. bilaterally Scour Test Test Results neg. bilaterally PT-OP-M Strength Start: 03/19/18 16:33 Freq: Status: Active Protocol: Document 06/06/18 12:00 RCC (Rec: 06/07/18 13:33 RCC [email or web address]) Hip Strength Hip Manual Muscle Testing Right Flexion (L2) 5 Normal Abduction 4 Good Adduction 5 Normal Left Flexion (L2) 5 Normal Abduction 4 Good Adduction 5 Normal Knee Strength Knee Manual Muscle Testing Right Flexion (S2) 5 Normal Extension (L3) 5 Normal Left Flexion (S2) 5 Normal Extension (L3) 5 Normal Ankle/Foot Strength Ankle and Foot Manual Muscle Testing Right Dorsiflexion (L4) 4 Good Left Dorsiflexion (L4) 4- Good- PT-OP-Q Treatments Start: 03/19/18 16:33 Freq: Status: Active Protocol: Document 06/06/18 12:00 RCC (Rec: 06/07/18 13:33 [facility] [id number]) Therapeutic Exercises Supine Exercises [id number] isometric Reps/Minutes 5x ea push, pull Comments hips at 90 degrees 1 Supine Exercise Name Transverse abdominal activation- static and marching Side bilateral Comments tactile cuing: with leg marching Sitting Exercises ankle DF Sitting Exercise Name ankle DF Side bilateral Resistance L2 Reps/Minutes 10 each Manual Therapy Treatment Soft Tissue Mobilization 3 Body Location L piriformis Mobilization Type Strumming Intensity/Depth Moderate Body Position Sidelying 2 Body Location L paraspinals Mobilization Type Rolling Intensity/Depth Moderate Body Position Sidelying Manual Traction Lumbar Details bent knee traction (LLE) Body Position Supine Reps/Duration 15 min Other Other Manual Treatments LE MMT PT-OP-R Modalities Start: 03/19/18 16:33 Freq: Status: Active Protocol: Document 05/29/18 12:00 [facility] (Rec: 06/01/18 16:16 [facility] [id number]) Hot Pack/Cold Pack Treatment Hot Pack Location lumbar Patient Position Hooklying Treatment Duration (minutes) 10 Patient Tolerance Good PT-OP-T Assessment and Plan Start: 03/19/18 16:33 Freq: Status: Active Protocol: Document 06/06/18 12:00 [facility] (Rec: 06/07/18 13:33 [facility] [id number]) Physical Therapy Assessment Goals Four Impairment Tinetti Balance Assessment score (07/02 on 03/19/2018) Pigment Processor Goal (LTG) 16/28 or greater on the Tinetti Balance Assessment to improve balance in standing and gait. unable to assess 06/06/18 Three Impairment LE weakness Mcc Goal (LTG) 4/5 or greater hip flexion, abduction, adduction, knee flexion and extension to improve standing balance and decrease fall risk. Goal Achieved 06/06/18 Two Impairment impaired tolerance to [place] [employer] Short Term Goal (STG) pt to participate in [place] [employer] for 15 min, 3 days per week. STG Duration 6 weeks Mcc Goal (LTG) pt to participate in [place] [employer] for 30 min, 5 days per week. 06/06/18: goal achieved ( limited/modified) One Impairment low back pain 8/10 Pigment Processor Goal (LTG) 5/10 or less low back pain 06/06/18: some progress Progress Towards Goals Progress Towards Goals Progressing Toward Goals Assessment Summary Assessment Pt with less low back pain reported, although it still is present and challenges him in standing and with transitional movements. Pt has a HEP established to perform to improve posture and core stabilization. His LE strength has improved drastically, but still with weakness of the bilateral tibialis anterior due to post-polio. Pt at this time is limited due to insurance visit limitations, therefore will d/c today with emphasis on his HEP as well as attending the pain clinic next month. Pt has a good understanding of his HEP. If his pain continues, he may benefit from a referral to a neurosurgical group for further assessment and options . Physical Therapy Plan Discharge Physical Therapy Discharge Comments insurance visit limitations
== END 2018-06-06 12:47 ==
LOC: PHYS 11:15
PROVIDERS: Family Provider Family Medicine; PCP Family Medicine; Visit Provider Family Medicine
DX: M54.5 Low back pain (principal)
CPT/HCPCS: 97010; 97110; 97112; 97140; 97163; 97530

== ENCOUNTER → 2018-07-02 13:48 | Outpatient (CLI) | payer OTHER, SELFPAY ==
[2018-07-02 14:30] LABS: Hemoglobin A1C% w Est Avg Glu 7.5 % (4.0-6.0)
[2018-07-02 15:19] LABS: BUN Creatinine Ratio 16.1 (6-22); Blood Urea Nitrogen 29 mg/dL (9-20); Calcium 10.3 mg/dL (8.4-10.2); Carbon Dioxide 24 mmol/L (22-32); Chloride 100 mmol/L (98-107); Estimated Glomerular Filt Rate 37.4 mL/min (>60); Glucose 131 mg/dL (80-110); HEMOLYSIS < 15 (0-50); Potassium 4.9 mmol/L (3.4-5.1); Sodium 140 mmol/L (137-145)
== END ==
PROVIDERS: Family Provider Family Medicine; PCP Family Medicine; Visit Provider Family Medicine
DX: E11.9 Type 2 diabetes mellitus without complications (principal)
CPT/HCPCS: 36415; 80048; 83036

== ENCOUNTER 2018-07-28 22:24 | Observation (INO) | payer OTHER, SELFPAY ==
[2018-07-28 22:29] VITALS: BP 109/70; PULSE 105; RESP 18; TEMP 37.1; O2SAT 100; BMI 28.7
--- NOTE | 2018-07-28 22:36 | ED.GIBLEED ---
HPI - GI Bleed General Chief complaint: Syncope Stated complaint: GI Bleed Time Seen by Provider: 07/28/18 22:30 Source: patient, family () and EMS Mode of arrival: EMS Limitations: no limitations History of Present Illness HPI Narrative: This is a 72 year old male who comes to the emergency department with complaint of black tarry stools that started this evening. Patient states that he felt a little nauseous and fatigue today, no chest pain, no shortness of breath, no syncope. He felt maybe a little lightheaded. Patient has the feeling that he had to go the bathroom but did not make it to the bathroom and started having diarrhea on the floor. Him and his states that small metallic and it was black with a little bit of maroonish red coloration. Patient states he had similar issues about 2 years ago, he had a colonoscopy there was no source found. He states that he does take aspirin daily. He takes medication for hypertension as well as diabetes, he denies any dyslipidemia. Patient also has a history of PTSD and takes medications related to this. He also has a post-polio syndrome and has chronic weakness in his lower extremities that slowly been progressive. Related Data Home Medications Medication Instructions Recorded Confirmed testosterone cypionate 300 mg IM SEE INSTRUCTIONS #0 10/09/16 07/25/18 [Depo-Testosterone] Previous Rx's Medication Instructions Recorded metformin [Glucophage] 0 PO BID #360 tab 01/01/17 clonazepam 0.25 mg PO QDAYP PRN #30 tab 07/03/17 amlodipine [Norvasc] 5 mg PO QDAY #180 tab 01/03/18 gabapentin 300 mg capsule 300 mg PO ONCE #90 cap 01/07/18 albuterol sulfate HFA 90 1 puff INHALATION Q6H PRN #17 gram 01/31/18 mcg/actuation aerosol inhaler atorvastatin [Lipitor] 40 mg PO HS #90 tab 02/27/18 tamsulosin [Flomax] 0.4 mg PO QHS #60 cap 03/24/18 aspirin 325 mg tablet 325 mg PO QDAY #150 tab 06/17/18 duloxetine [Cymbalta] 0 PO Q DAY #60 cap 06/17/18 lisinopril 20 mg tablet 40 mg PO BID #120 tab 06/17/18 lamotrigine 200 mg tablet 200 mg PO QDAY #30 tab 06/18/18 glimepiride 2 mg tablet 4 mg PO QAM #180 tab 07/03/18 levetiracetam 1,000 mg tablet 1,000 mg PO BID #60 tab 07/15/18 blood-glucose meter kit #1 each 07/17/18 lancets #100 each 07/17/18 blood sugar diagnostic strips #100 each 07/18/18 montelukast 10 mg tablet 10 mg PO QDAYPM #30 07/18/18 Allergies Allergy/AdvReac Type Severity Reaction Status Date / Time ibuprofen [IBUPROFEN] Allergy Severe LARGE Verified 07/25/18 14:20 HIVES, ALL OVER BODY Iodine and Iodide Containing Allergy Severe THROAT Verified 07/25/18 14:20 Produc SWELLING [IODINE AND IODIDE AND WELTS CONTAINING PRODUC] shellfish derived Allergy Severe SEAFOOD, Verified 07/25/18 14:20 [SHELLFISH DERIVED] THROAT SWELLING Review of Systems Review of Systems All systems reviewed & are unremarkable except as noted in HPI and below Constitutional Denies chills, Reports fatigue, Denies fever(s), Denies lethargy and Reports weakness Cardiovascular Denies chest pain, Denies diaphoresis, Denies syncope, Denies edema, Denies irregular heart rhythm, Denies lightheadedness, Denies palpitations, Denies dyspnea and Denies orthopnea Respiratory Denies dyspnea Gastrointestinal Gastrointestinal: Denies abdominal pain, Reports melena, Reports hematochezia, Denies change in bowel habits, Denies constipation, Denies diarrhea, Reports nausea and Denies vomiting Genitourinary Denies hematuria, Denies flank pain, Denies urinary incontinence and Denies urinary urgency Musculoskeletal Reports back pain (x 1 week after lifting a box) Neurologic Denies syncope and Reports weakness Endocrine Reports fatigue and Denies palpitations [facility] Medical History Asthma (Chronic) Bipolar disorder (Chronic) Depression (Chronic) Diabetes mellitus (Chronic) Diverticular disease (Chronic) Gout (Chronic) Hyperlipidemia (Chronic) Hypertension (Chronic) Impotence (Chronic) Insomnia (Chronic) Polio (Chronic) Sleep apnea (Chronic) Surgical History Anesthesia (Resolved) History of incision and drainage (Resolved) Inguinal hernia (Resolved) Surgical procedure planned (Resolved) Status post eye surgery Status post tonsillectomy and adenoidectomy Social History household members: spouse Smoking Status: Never smoker Exam Narrative Exam Narrative: GENERAL: Alert and oriented x three, well-nourished, well-appearing male in mild distress. HEENT: Head normocephalic, atraumatic, EOMI, pupils reactive, face symmetric, moist mucous membranes NECK: Supple, full range of motion CARDIOVASCULAR: Regular rate and rhythm without murmurs, rubs or gallops. RESPIRATORY: Breath sounds equal bilaterally, no wheezes rales or rhonchi. ABDOMEN: Soft, nontender. Normoactive bowel sounds all 4 quadrants. No guarding or rebound, rigidity, no mass. : No CVA tenderness EXTREMITIES: Normal range of motion, no clubbing or edema. Neurovascularly intact NEUROLOGICAL: Cranial nerves II through XII grossly intact. Moving all extremities SKIN: Warm, dry, no petechiae, no rashes or lesions. Initial Vital Signs Initial Vital Signs: Vital Signs Temperature 98.7 F 07/28/18 22:29 Pulse Rate 105 H 07/28/18 22:29 Respiratory Rate 18 07/28/18 22:29 Blood Pressure 109/70 07/28/18 22:29 Pulse Oximetry 100 07/28/18 22:29 Course Orders Ordered: ED Orders 07/28/18 22:25 CBC [Complete Blood Count AUTO DIFF] Stat CMP [Comprehensive Metabolic Panel] Stat PT [Prothrombin Time INR] Stat 07/28/18 22:45 Type and Screen Stat 07/29/18 00:54 Consult to General Surgery Routine 07/29/18 04:45 Blood Culture Stat 07/29/18 05:00 Basic Metabolic Panel Stat Complete Blood Count AUTO DIFF Stat Sodium Chloride (Normal Saline 0.9%) 1,000 mls @ 125 mls/hr IV CONT LIZBETH Last Admin: 07/29/18 01:42 Dose: 125 mls/hr Discontinued Medications Sodium Chloride (Normal Saline 0.9%) 1,000 mls @ 1,000 mls/hr IV BOLUS ONE Stop: 07/28/18 23:35 Last Infusion: 07/28/18 23:54 Dose: 0 mls/hr Admin: 07/28/18 22:51 Dose: 1,000 mls/hr Pantoprazole Sodium (Protonix) 40 mg IV NOW ONE Stop: 07/28/18 22:37 Last Admin: 07/28/18 22:51 Dose: 40 mg Vital Signs - 8 hr 07/28/18 22:29 07/28/18 23:56 07/29/18 00:34 Temperature 98.7 F Pulse Rate 105 H 88 Pulse Rate [Orthostatic Lying] 91 H Pulse Rate [Orthostatic Sitting] 112 H Pulse Rate [Orthostatic Standing] 120 H Respiratory Rate 18 21 Blood Pressure 109/70 Blood Pressure [Orthostatic Lying] 123/64 Blood Pressure [Orthostatic Sitting] 135/78 Blood Pressure [Orthostatic Standing] 116/76 Blood Pressure [Right Arm] 116/67 Pulse Oximetry 100 98 07/29/18 00:46 07/29/18 01:18 Temperature 98.6 F Pulse Rate 88 89 Pulse Rate [Orthostatic Lying] Pulse Rate [Orthostatic Sitting] Pulse Rate [Orthostatic Standing] Respiratory Rate 22 16 Blood Pressure 125/66 Blood Pressure [Orthostatic Lying] Blood Pressure [Orthostatic Sitting] Blood Pressure [Orthostatic Standing] Blood Pressure [Right Arm] 126/84 Pulse Oximetry 97 100 MDM - GI Bleed Lab Data Attestation: I reviewed the patient's lab results. Result diagrams: 07/28/18 22:25 07/28/18 22:25 Lab Results 07/28/18 07/28/18 07/28/18 Range/Units 22:25 22:25 22:25 WBC 17.3 H (4.5-11.0) X10^3/uL RBC 3.68 L (4.5-5.9) X10^6/uL Hgb 11.2 L (13.5-17.5) g/dL Hct 33.4 L (41-53) % MCV 90.7 (80-100) fL MCH 30.5 (26-34) PG MCHC 33.6 (30-36) % RDW 13.3 (11.6-14.8) % Plt Count 276 (150-400) X10^3/uL Neut % (Auto) 78.3 H (50-75) % Lymph % (Auto) 13.6 L (25-40) % [place] % (Auto) 7.0 (3-14) % Eos % (Auto) 0.8 L (2-4) % Baso % (Auto) 0.3 (0-2) % Neut # (Auto) 16714 H (8393-9219) /uL PT 11.1 (10.1-12.7) SECONDS INR 1.0 (0.9-1.3) Sodium 143 (137-145) mmol/L Potassium 4.8 (3.4-5.1) mmol/L Chloride 104 (98-107) mmol/L Carbon Dioxide 22 (22-32) mmol/L BUN 31 H (9-20) mg/dL Creatinine 1.70 H (0.66-1.25) mg/dL Estimated GFR 39.9 L (>60) mL/min BUN/Creatinine Ratio 18.2 (6-22) Glucose 211 H (80-110) mg/dL Calcium 9.7 (8.4-10.2) mg/dL Total Bilirubin 0.4 (0.2-1.3) mg/dL AST 29 (17-59) IU/L ALT 45 (21-72) IU/L Alkaline Phosphatase 64 (38-126) U/L Total Protein 6.3 (6.3-8.2) g/dL Albumin 3.9 (3.5-5.0) g/dL Globulin 2.4 (1.7-4.1) g/dL Albumin/Globulin Ratio 1.6 (1.0-2.8) Blood Type Antibody Screen 07/28/18 Range/Units 22:45 WBC (4.5-11.0) X10^3/uL RBC (4.5-5.9) X10^6/uL Hgb (13.5-17.5) g/dL Hct (41-53) % MCV (80-100) fL MCH (26-34) PG MCHC (30-36) % RDW (11.6-14.8) % Plt Count (150-400) X10^3/uL Neut % (Auto) (50-75) % Lymph % (Auto) (25-40) % [place] % (Auto) (3-14) % Eos % (Auto) (2-4) % Baso % (Auto) (0-2) % Neut # (Auto) (3847-8860) /uL PT (10.1-12.7) SECONDS INR (0.9-1.3) Sodium (137-145) mmol/L Potassium (3.4-5.1) mmol/L Chloride (98-107) mmol/L Carbon Dioxide (22-32) mmol/L BUN (9-20) mg/dL Creatinine (0.66-1.25) mg/dL Estimated GFR (>60) mL/min BUN/Creatinine Ratio (6-22) Glucose (80-110) mg/dL Calcium (8.4-10.2) mg/dL Total Bilirubin (0.2-1.3) mg/dL AST (17-59) IU/L ALT (21-72) IU/L Alkaline Phosphatase (38-126) U/L Total Protein (6.3-8.2) g/dL Albumin (3.5-5.0) g/dL Globulin (1.7-4.1) g/dL Albumin/Globulin Ratio (1.0-2.8) Blood Type O Positive Antibody Screen Negative MDM Narrative Medical decision making narrative: Patient comes in with complaints of black bloody stools, patient's hemoglobin dropped from 14-11 from last lab several months ago. Patient with feeling fatigued and tired, no chest pain or shortness of breath. Orthostatics were positive. Patient does have a history of scope secondary to GI bleed with no source found. Spoke with Dr. Lantigua on he who happy to consult on the patient. Spoke with Dr. Guy primary care who will see the patient hospital. He asked the patient be NPO repeat crit and hemoglobin in the morning. Patient was given a dose of Protonix here in the emergency department, vitals have been stable otherwise. Discharge Plan Departure Patient Disposition: Admitted as Observation Clinical Impression: Acute GI bleeding Discharge Date/Time: 07/29/18 01:17 Interventions: ED Discharge Assessment Last Done: 07/29/18 01:17 Admit Date/Time: 07/29/18 00:54 Admit Provider: Randal Guy
[2018-07-28 22:42] LABS: Add Manual Diff / Slide Review NO; Basophils Percent Auto 0.3 % (0-2); Eosinophils Percent Auto 0.8 % (2-4); Hematocrit 33.4 % (41-53); Hemoglobin 11.2 g/dL (13.5-17.5); Lymphocytes Percent Auto 13.6 % (25-40); Mean Corpuscular HGB Conc 33.6 % (30-36); Mean Corpuscular Hemoglobin 30.5 PG (26-34); Mean Corpuscular Volume 90.7 fL (80-100); Neutrophils Absolute Auto 13500 /uL (1500-7000); Neutrophils Percent Auto 78.3 % (50-75); Platelet Count 276 X10^3/uL (150-400); Red Blood Cell Count 3.68 X10^6/uL (4.5-5.9); Red Cell Distribution Width 13.3 % (11.6-14.8); White Blood Cell Count 17.3 X10^3/uL (4.5-11.0)
[2018-07-28 22:44] LABS: Prothrombin Time 11.1 SECONDS (10.1-12.7)
[2018-07-28 22:49] LABS: Alanine Aminotransferase 45 IU/L (21-72); Albumin 3.9 g/dL (3.5-5.0); Albumin Globulin Ratio 1.6 (1.0-2.8); Alkaline Phosphatase 64 U/L (38-126); Aspartate Aminotransferase 29 IU/L (17-59); BUN Creatinine Ratio 18.2 (6-22); Bilirubin Total 0.4 mg/dL (0.2-1.3); Blood Urea Nitrogen 31 mg/dL (9-20); Calcium 9.7 mg/dL (8.4-10.2); Carbon Dioxide 22 mmol/L (22-32); Chloride 104 mmol/L (98-107); Estimated Glomerular Filt Rate 39.9 mL/min (>60); Globulin 2.4 g/dL (1.7-4.1); Glucose 211 mg/dL (80-110); HEMOLYSIS < 15 (0-50); Potassium 4.8 mmol/L (3.4-5.1); Sodium 143 mmol/L (137-145); Total Protein 6.3 g/dL (6.3-8.2)
[2018-07-28] MEDS: PANTOPRAZOLE 40 MG VIAL IV (22:51)
[2018-07-28] MEDS: SODIUM CHLORIDE 0.9% 1,000 ML 1000 ML IV (22:51)
[2018-07-28 23:56] VITALS: BP 116/67; PULSE 88; RESP 21; O2SAT 98
[2018-07-29] VITALS (26 sets, daily range): BP systolic 104–147; BP diastolic 62–84; PULSE 73–120; RESP 10–22; TEMP 36.6–37.6; O2SAT 94–100; BMI 28.7
--- NOTE | 2018-07-29 | PATH_ITS ---
[facility] Accession Number: [id number] . 01 Material submitted: . PART A: RANDOM ANTRUM BIOPSIES PART B: GE JUNCTION BIOPSIES . 02 Diagnosis: A. Random Gastric Antrum Biopsies: Mucosal hyperemia involving antral mucosa and fundic mucosa, negative for significant inflammation. Negative for evidence of Helicobacter on H/E stain. Negative for intestinal metaplasia. Negative for dysplasia and malignancy. . B. 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 Chronic inflammation with reactive epithelial changes, but negative for dysplasia and malignancy. Negative for squamous intraepithelial eosinophils. . . I/08/01/2018 . 02 Electronically signed: . Jean Claude Thompson MD, Pathologist NPI- [id number] . 01 Gross description: . Part A: RANDOM ANTRUM BIOPSIES: Received in formalin are multiple fragment(s) of roa, soft tissue measuring 1.0 x 0.3 x 0.1 cm in aggregate submitted entirely in 1 cassette(s) Part B: GE JUNCTION BIOPSIES: Received in formalin are multiple fragment(s) of roa, soft tissue measuring 0.7 x 0.2 x 0.1 cm in aggregate submitted entirely in 1 cassette(s) /TRC /TRC . 02 Pathologist provided ICD-10: K22.70 . 02 CPT . 211878, [id number] Performed at: 01 [facility] [address] [facility] [place], [place], [place] [id number] MD Tashi Mcgee MD Phone: [phone] Performed at: [facility] [address] [place], [place] [id number] MD Emily Butler MD Phone: [phone]
[2018-07-29] MEDS: SODIUM CHLORIDE 0.9% 1,000 ML 125 ML IV ×4 (01:42→23:58)
--- NOTE | 2018-07-29 02:29 | PC.NURSE ---
Addendum entered by Radha Michael R.N. 07/29/18 06:32: 0545: Pt had large black tarry stool with some red streaks. Pt used bedside commode with SBA. Pt denies light headiness and VSS throughout the night. Pt requests for his inhaler because he did not sleep with his CPAP machine and feels constricted. Dr. Guy notified of stool at 0615 and pt's request for his inhaler. 2 U PRBCs placed on hold. Pt already typed and crossed. RT consult ordered. RT notified by KEILY Ortiz. Inhaler ordered. Waiting for acknowledgement from Rx. Original Note: operation shift supervisor 0115: Pt arrived on unit via stretcher with [employer]IST. Pt was able to transfer from stretcher to bed independently. Pt denies pain at this time and VSS. Pt went home for the night. Reviewed home medication. Pt states to be honest I don't look at the names of the pills I put in my week med dispenser. Will have to wait for home medication list in the morning. Pt reports last stool was at 2145 and it was black/maroon and jello-mary in texture.
[2018-07-29 06:21] LABS: Add Manual Diff / Slide Review NO; Basophils Percent Auto 0.3 % (0-2); Eosinophils Percent Auto 0.9 % (2-4); Hematocrit 25.4 % (41-53); Hemoglobin 8.9 g/dL (13.5-17.5); Lymphocytes Percent Auto 16.1 % (25-40); Mean Corpuscular HGB Conc 35.1 % (30-36); Mean Corpuscular Hemoglobin 31.4 PG (26-34); Mean Corpuscular Volume 89.6 fL (80-100); Neutrophils Absolute Auto 8100 /uL (1500-7000); Neutrophils Percent Auto 76.7 % (50-75); Platelet Count 215 X10^3/uL (150-400); Red Blood Cell Count 2.84 X10^6/uL (4.5-5.9); Red Cell Distribution Width 13.3 % (11.6-14.8); White Blood Cell Count 10.6 X10^3/uL (4.5-11.0)
[2018-07-29 06:41] LABS: Blood Urea Nitrogen 33 mg/dL (9-20); Calcium 8.8 mg/dL (8.4-10.2); Carbon Dioxide 19 mmol/L (22-32); Chloride 109 mmol/L (98-107); Glucose 185 mg/dL (80-110); HEMOLYSIS 19 (0-50); Potassium 4.8 mmol/L (3.4-5.1); Sodium 142 mmol/L (137-145)
--- NOTE | 2018-07-29 08:24 | P.HP_ITS ---
History of Present Illness Date Patient Seen: 07/29/18 Time Patient Seen: 08:21 Chief complaint: GI Bleed Narrative: GI bleed. Patient admitted through the emergency room early this morning. The patient had been well on Saturday and Saturday he felt fine. Saturday night she began to feel tired and somewhat nauseated. He was attempting to go to bed because he felt tired. Apparently he felt he needed a bowel movement for he went to bed. He was on the toilet and became very dizzy diaphoretic and lightheaded. He did not pass out but felt like it. Paramedics were called and they found blacked tarry stools in the toilet and on the floor. He was lightheaded at that time. And he was brought to the emergency room. Emergency room evaluation found him to have dizziness and decreased hemoglobin. [place] to have upper GI bleed based on this history of melena. Vital signs improved however a dizziness persisted. A apparently Dr. Vasquez surgeon on air announcer was notified and he recommended patient be admitted to the medical service. Patient has a history of a ulcer back in 1969. Additionally reportedly has a history of a GI bleed 2013. The chart shows him to have a history of diverticulosis. Unable to retrieve operative note or hospitalization at that time due to computer dysfunction. But patient does not believe he had an upper endoscopy at that time but colonoscopy. The patient does not take nonsteroidal anti-inflammatory medications routinely. He did take 2 last night because of his headache. Patient History Medical History Asthma (Chronic) Bipolar disorder (Chronic) Depression (Chronic) Diabetes mellitus (Chronic) Diverticular disease (Chronic) Gout (Chronic) Hyperlipidemia (Chronic) Hypertension (Chronic) Impotence (Chronic) Insomnia (Chronic) Polio (Chronic) Sleep apnea (Chronic) Surgical History Anesthesia (Resolved) History of incision and drainage (Resolved) Inguinal hernia (Resolved) Surgical procedure planned (Resolved) Status post eye surgery Status post tonsillectomy and adenoidectomy Family & Social History Family History: Reviewed 07/29/18 by Randal Guy MD Social History: household members spouse Prior Living Arrangements House Safety & Behavioral: Feels Safe in Current Yes Environment Been Physically Hurt or No Threatened By a Person Suicidal Ideation Description None Suicide Plan Description No Plan Tobacco & Substance use: Smoking Status Never smoker alcohol intake frequency holiday/special occasion Substance Use Type does not use Meds Home Medications Medication Instructions Recorded Confirmed Type testosterone cypionate 300 mg IM SEE INSTRUCTIONS #0 10/09/16 07/25/18 History [Depo-Testosterone] metformin [Glucophage] 0 PO BID #360 tab 01/01/17 07/25/18 Rx clonazepam 0.25 mg PO QDAYP PRN #30 tab 07/03/17 07/25/18 Rx amlodipine [Norvasc] 5 mg PO QDAY #180 tab 01/03/18 07/25/18 Rx gabapentin 300 mg capsule 300 mg PO ONCE #90 cap 01/07/18 07/25/18 Rx albuterol sulfate HFA 90 1 puff INHALATION Q6H PRN #17 gram 01/31/18 07/25/18 Rx mcg/actuation aerosol inhaler atorvastatin [Lipitor] 40 mg PO HS #90 tab 02/27/18 07/25/18 Rx tamsulosin [Flomax] 0.4 mg PO QHS #60 cap 03/24/18 07/25/18 Rx aspirin 325 mg tablet 325 mg PO QDAY #150 tab 06/17/18 07/25/18 Rx duloxetine [Cymbalta] 0 PO Q DAY #60 cap 06/17/18 07/25/18 Rx lisinopril 20 mg tablet 40 mg PO BID #120 tab 06/17/18 07/25/18 Rx lamotrigine 200 mg tablet 200 mg PO QDAY #30 tab 06/18/18 07/25/18 Rx glimepiride 2 mg tablet 4 mg PO QAM #180 tab 07/03/18 07/25/18 Rx levetiracetam 1,000 mg tablet 1,000 mg PO BID #60 tab 07/15/18 07/25/18 Rx blood-glucose meter kit #1 each 07/17/18 07/25/18 Rx lancets #100 each 07/17/18 07/25/18 Rx blood sugar diagnostic strips #100 each 07/18/18 07/25/18 Rx montelukast 10 mg tablet 10 mg PO QDAYPM #30 07/18/18 07/25/18 Rx Allergies Allergy/AdvReac Type Severity Reaction Status Date / Time ibuprofen [IBUPROFEN] Allergy Severe LARGE Verified 07/25/18 14:20 HIVES, ALL OVER BODY Iodine and Iodide Containing Allergy Severe THROAT Verified 07/25/18 14:20 Produc SWELLING [IODINE AND IODIDE AND WELTS CONTAINING PRODUC] shellfish derived Allergy Severe SEAFOOD, Verified 07/25/18 14:20 [SHELLFISH DERIVED] THROAT SWELLING Review of Systems Review of Systems All systems reviewed & are unremarkable except as noted in HPI and below Exam Vital Signs (past 8 hours): - 07/29/18 00:34 07/29/18 00:46 07/29/18 01:18 Temperature 98.6 F Pulse Rate 88 89 Pulse Rate [Orthostatic Lying] 91 H Pulse Rate [Orthostatic Sitting] 112 H Pulse Rate [Orthostatic Standing] 120 H Respiratory Rate 22 16 Blood Pressure 125/66 Blood Pressure [Orthostatic Lying] 123/64 Blood Pressure [Orthostatic Sitting] 135/78 Blood Pressure [Orthostatic Standing] 116/76 Blood Pressure [Right Arm] 126/84 Pulse Oximetry 97 100 07/29/18 05:42 07/29/18 08:03 07/29/18 08:11 Temperature 98.5 F 98 F Pulse Rate 85 Pulse Rate [Orthostatic Lying] Pulse Rate [Orthostatic Sitting] Pulse Rate [Orthostatic Standing] Respiratory Rate 16 14 Blood Pressure 121/73 129/67 Blood Pressure [Orthostatic Lying] Blood Pressure [Orthostatic Sitting] Blood Pressure [Orthostatic Standing] Blood Pressure [Right Arm] Pulse Oximetry 99 99 99 Oxygen Delivery Method Room Air Oxygen Flow Rate 0 Narrative Exam Narrative: Gen.: Skin: Warm well perfused. No prominent lesions. Nonicteric. HEENT: PERRL., normal EOM, external ears canals TMs normal, nasal mucosa normal and midline septum, oropharynx without lesions. Neck: Trachea midline. Thyroid nontender and not enlarged. Carotids without bruits. No lymphadenopathy Back: No obvious deformity or tenderness. Chest: Clear to P&A. Symmetric. CV: RRR no murmur or gallop. No JVD. Abdomen: No masses bruits tenderness or visceromegaly. Neuro: Cranial nerves II through XII grossly intact. Sensory and motor exams intact. Gait normal.] Mental status: Intact for screening Extremities: No cyanosis clubbing or edema Musculoskeletal: No gross deformities Lymphatics: Negative for lymphadenopathy, supraclavicular axillary or inguinal . The patient examined in his hospital bed he is resting quietly appears in no distress lungs are entirely clear. Abdominal exam no masses no tenderness calves are nontender Objective Labs Result Diagrams: 07/29/18 05:25 07/29/18 05:25 Labs: Laboratory Results - last 24 hr 07/28/18 07/28/18 07/28/18 22:25 22:25 22:25 WBC 17.3 H RBC 3.68 L Hgb 11.2 L Hct 33.4 L MCV 90.7 MCH 30.5 MCHC 33.6 RDW 13.3 Plt Count 276 Neut % (Auto) 78.3 H Lymph % (Auto) 13.6 L [place] % (Auto) 7.0 Eos % (Auto) 0.8 L Baso % (Auto) 0.3 Neut # (Auto) 33212 H PT 11.1 INR 1.0 Sodium 143 Potassium 4.8 Chloride 104 Carbon Dioxide 22 BUN 31 H Creatinine 1.70 H Estimated GFR 39.9 L BUN/Creatinine Ratio 18.2 Glucose 211 H Calcium 9.7 Total Bilirubin 0.4 AST 29 ALT 45 Alkaline Phosphatase 64 Total Protein 6.3 Albumin 3.9 Globulin 2.4 Albumin/Globulin Ratio 1.6 Blood Type Antibody Screen Crossmatch 07/28/18 07/29/18 07/29/18 22:45 05:25 05:25 WBC 10.6 RBC 2.84 L Hgb 8.9 L Hct 25.4 L MCV 89.6 MCH 31.4 MCHC 35.1 RDW 13.3 Plt Count 215 Neut % (Auto) 76.7 H Lymph % (Auto) 16.1 L [place] % (Auto) 6.0 Eos % (Auto) 0.9 L Baso % (Auto) 0.3 Neut # (Auto) 8100 H PT INR Sodium 142 Potassium 4.8 Chloride 109 H Carbon Dioxide 19 L BUN 33 H Creatinine 1.50 H Estimated GFR 46.0 L BUN/Creatinine Ratio 22.0 Glucose 185 H Calcium 8.8 Total Bilirubin AST ALT Alkaline Phosphatase Total Protein Albumin Globulin Albumin/Globulin Ratio Blood Type O Positive Antibody Screen Negative Crossmatch See Detail Labs reviewed as above. His hemoglobin has dropped significantly from initial. Will commence with 2 units of packed cells transfusion surgical evaluation forthcoming Assessment & Plan Plan: Assessment/Plan Narrative: 1. GI bleed. Presumably coming from upper GI based on history of melena. Presumably has a diverticulosis S past medical history. Obviously this could be the source of his red blood. Patient was orthostatic in the emergency room and that has resolved with IV fluids. However his hemoglobin has dropped significantly from last night and will commence with transfusion. Patient also to receive IV Protonix. 2. Diabetes mellitus has been well controlled in the past. Will hold his metformin for the time being. 3. Hypertension has been stable in the past will hold his antihypertensive medication pending reassessment of vital signs. 4. His asthma has been chronic and stable on current medications will resume his baseline inhaler. 5. He has multiple psychiatric diagnoses being followed by counselors. Diagnoses include posttraumatic stress disorder, bipolar, depression, anxiety,. 6. 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 7.
[2018-07-29] MEDS: DULOXETINE 30 MG CAPSULE 60 MG PO (09:09)
[2018-07-29] MEDS: lamoTRIgine 100 MG TABLET 200 MG PO (09:10)
[2018-07-29] MEDS: levETIRAcetam 250 MG TABLET 1000 MG PO ×2 (09:10→20:16)
[2018-07-29] MEDS: PANTOPRAZOLE 40 MG VIAL IV (09:11)
[2018-07-29] MEDS: ALBUTEROL HFA 60 PUFF/8 GM INH INH ×2 (09:37→13:52)
--- NOTE | 2018-07-29 12:04 | CM.IDA ---
Discharge Planning/Care Management CM Discharge Assessment Start: 07/29/18 11:46 Freq: Status: Active Protocol: Document 07/29/18 11:47 LITZY (Rec: 07/29/18 12:04 LITZY [id number]) Discharge Planning Assessment Assigned Jockey Room Custodian ATUL Teresa DPOA/Assigned Designee Name NEGAR Murphy, Life Partner Contact Information [phone], Advance Directives? No History Provided By Patient Prior Living Arrangements House Household Members spouse Type of transporation used prior to Drives own vehicle admit Independent with ADL's Yes Is patient alert and oriented? Yes Barriers to Discharge No Comment Likely no barriers to safe DC home when ready. Met w/spouse briefly outside of pt's rm, introduced role. Then introduced role to pt and his friend at bedside, today is pt's [birth year]. Pt indp in ADLs at home and grateful today to Dr Guy for addressing his medical needs. Pt is NPO and awaits a scope by Dr Vasquez. Pt has significant mental health history to include depression, PTSD and Bipolar disorder. Pt is well managed on his psychiatric medications to include duloxetine, Klonopin prn, lamotrigine( Bipolar med/mood stabilizer). counseling and Rx management done by Rama ALLEN at behavioral health. Pt in good spirits today and has no questions or concerns at this time. Appreciative of visit. This PLACEMENT DIRECTOR following closely in case any DC needs or concerns arise. Discharge Plan Home Transportation Arrangement Family Referrals Initiated None needed Whiteboard Updated in Patient Room with Yes name and ext. # of Jockey Room Custodian Review Status In Process
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
--- NOTE | 2018-07-29 13:30 | PM.PREOP ---
Pre-operative Note Interval Note Pre-op Check: Yes History & Physical exam performed today by Physician Changes: No H&P completed within 30 days and has changed as indicated here:: General anesthesia
[2018-07-29] MEDS: LACTATED RINGERS 1,000 ML 42 ML IV (13:53)
--- NOTE | 2018-07-29 14:04 | PC.NURSE ---
Addendum entered by Pratima Mar R.N. 07/29/18 15:43: Post-op: Arrived back to floor at 1455 from EGD. Awake but drowsy. Vitals stable. Cont pulse ox in place, 95% RA. Wearing CPAP. Second unit PRBC's infusing. This functional tester typewriters passed on to the next shift to order CBC after second unit is complete. Bed alarm on, call light in reach. at bedside. Original Note: Shift summary: A&O X3. No bloody/black stools this shift, no other s/sx bleeding. VSS. Received one unit PRBC's- tolerated well and without s/sx adverse reaction. Was taken off floor to surgery at 1345. This functional tester typewriters informed HARMONICA MAKER that there is a second unit that is still needing to be transfused- the RN was going to check with Dr Vasquez downstairs. They might hang it in surgery, or we may still have to hang it when he's back on the floor.
--- NOTE | 2018-07-29 14:21 | PM.OP.ENDO ---
Operative Date/Time/Diagnoses Date of procedure: 07/29/18 Time of procedure: 14:22 Pre-op diagnosis: Upper GI bleed Post-op diagnosis: same (Duodenal ulcers superficial. Lesion in the wall of the duodenal bulb. Cause unclear. Inflammation of the GE junction. 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 Topical anesthetic was applied his oropharynx. Scope was inserted through a bite block and advanced under direct vision into the esophagus. The esophagus was normal. GE junction at 38 cm from the incisors. There was mild inflammation and evidence of possible Castillo's esophagus. The stomach insufflated well. It was normal in appearance without any blood. The pyloric channel was patent and normal. The duodenal bulb had 2 superficial ulcers. There is also a raised lesion with a central opening in what appeared to be the superior surface of the bulb. He was in location was very difficult to get good visualization and good distention of the bulb. I went on into the 2nd 3rd and 4th parts of the duodenum which were unremarkable. The scope was brought back into the bulb and I tried multiple times to look at this area but really could not get a good assessment of its size or its nature due to the fact I could not keep the bulb distended and I could not angled the scope to see into the opening at the center. It is possible this represents a duodenal diverticulum but it could also represent a leiomyoma of the wall of the duodenum and could well be the source of the patient's large amount of bleeding. The ulcers seen were fairly superficial and not felt to be a likely source of the massive upper GI bleeding that the patient experienced. The scope was brought back into the stomach and retroflexed. The proximal stomach was normal in appearance. I took random biopsies of the antrum to rule out H pylori. The scope was then brought up into the GE junction where multiple biopsies were taken to rule out Castillo's esophagus. The scope was slowly removed after evacuating the air from the stomach. The patient tolerated the procedure well. 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 Esophageal biopsies.) Complications: none Plan for aftercare: CT scan of the abdomen to evaluate the duodenal bulb wall. Follow up: as needed Disposition: PACU
[2018-07-29] MEDS: MONTELUKAST 10 MG TABLET PO (16:48)
[2018-07-29] MEDS: GABAPENTIN 300 MG CAPSULE PO (16:49)
[2018-07-29 17:19] LABS: Add Manual Diff / Slide Review NO; Basophils Percent Auto 0.4 % (0-2); Hematocrit 31.6 % (41-53); Hemoglobin 10.9 g/dL (13.5-17.5); Mean Corpuscular HGB Conc 34.5 % (30-36); Mean Corpuscular Hemoglobin 31.3 PG (26-34); Mean Corpuscular Volume 90.8 fL (80-100); Monocytes Percent Auto 5.7 % (3-14); Neutrophils Absolute Auto 7500 /uL (1500-7000); Neutrophils Percent Auto 75.9 % (50-75); Platelet Count 199 X10^3/uL (150-400); Red Blood Cell Count 3.48 X10^6/uL (4.5-5.9); Red Cell Distribution Width 13.4 % (11.6-14.8); White Blood Cell Count 9.9 X10^3/uL (4.5-11.0)
--- NOTE | 2018-07-29 18:04 | PC.NURSE ---
Tara shift note: PRBC unit 2 ended at 1645, VSS and afebrile. No s/sx of transfusion reaction. NO c/o SOB or dizziness. Tolerating clear liquid diet. Call light within reach.
[2018-07-29] MEDS: TAMSULOSIN 0.4 MG CAPSULE PO (20:16)
[2018-07-29] MEDS: ATORVASTATIN 20 MG TABLET 40 MG PO (20:16)
[2018-07-30] VITALS (10 sets, daily range): BP systolic 121–146; BP diastolic 67–85; PULSE 63–86; RESP 16–18; TEMP 36.6–36.9; O2SAT 95–99
--- NOTE | 2018-07-30 | DI.MRI.S_ITS ---
PROCEDURE: MR ABDOMEN WO/W CON INDICATIONS: Abdominal/duodenal mass found on CT abdomen pelvis today TECHNIQUE: Coronal HASTE, axial 2D FLASH in- and [id number]; axial breath-hold T2 FSE with fat saturation from the hepatic dome to the iliac crests. Oblique coronal thin-slice and radial thick slab HASTE through the biliary system. Dynamic axial VIBE during administration of contrast. Post-contrast coronal VIBE or 2D FLASH with fat saturation from the hepatic dome to the iliac crests. Optional diffusion weighted imaging and ADC may be performed. COMPARISON: [facility], CT, ABDOMEN/PELVIS WITH CONTRAST, 07/31/2014, 16:45. [facility], CT, CT ABDOMEN PELVIS W CON, 07/30/2018, 10:08. FINDINGS: Image quality: Excellent. Pancreas and biliary system: Over the multiple pulse sequences at are targeted to the area of prior CT concern, the pancreatic head and its relationship to the medial wall of the descending duodenum, no discrete identifiable mass is found. There is no biliary distention, and no retroperitoneal edema or evidence of altered vascularity. The pancreatic duct and side branches are normal in caliber. The subtle interlobular fat within the pancreatic parenchyma is symmetric throughout. Solid organs: Liver is normal in size and enhancement. Gallbladder contains a gallstone that measures up to 1.7 cm but is not associated with evidence of gallbladder inflammation or biliary obstruction.. Spleen is normal in size and enhancement. No adrenal nodules. Kidneys are normal in size and enhancement, without hydronephrosis. Nodes and vessels: No retroperitoneal or mesenteric adenopathy by size criteria. Aorta and inferior vena cava are normal in size. Bowel and peritoneum: Unenhanced bowel loops are normal in caliber throughout. No free fluid. Lung bases: No basal pleural effusions. Heart size is normal. Bones and soft tissues: No ventral hernias. Bone marrow is normal in overall signal. IMPRESSION: The recent CT scanning from 07/30/18 earlier same day has a morphology of the pancreatic parenchyma near equivalent to that present on a comparison CT from almost exactly 4 years ago. There is a normal anatomic variant lobulation of the pancreatic head area, previously present, and without imaging findings diagnostic of a pancreatic head or ampullary neoplasm. The absence of biliary ductal distention or pancreatic ductal distention also argues strongly towards normal anatomic variability as cause of the lobulated pattern noted above, stable over time. No inflammation or adenopathy is seen. 1.7 cm nonobstructive gallstone incidentally noted within the gallbladder lumen. Dictated by: Isaac Ratliff M.D. on 07/30/2018 at 16:38 Approved by: Isaac Ratliff M.D. on 07/30/2018 at 16:49
--- NOTE | 2018-07-30 | DI.CT.S_ITS ---
PROCEDURE: CT ABDOMEN PELVIS W CON INDICATIONS: Abnormal duodenum on egd yesterday TECHNIQUE: After the administration of oral and intravenous contrast, 5 mm thick sections acquired from the diaphragms to the symphysis. 5 mm thick coronal and sagittal reformats were performed. For radiation dose reduction, the following was used: automated exposure control, adjustment of mA and/or kV according to patient size. COMPARISON: None. FINDINGS: Image quality: Excellent. ABDOMEN: Lung bases: Lung bases are clear. Heart size is normal. Solid organs: Liver is normal in size and enhancement. Gallbladder demonstrates gallstones within its lumen. Biliary system is non-dilated. Pancreas enhances normally. Spleen is normal in size and enhancement. No adrenal nodules. Kidneys are normal in size and enhancement, without hydronephrosis. Peritoneum and bowel: Within the 1st portion of the duodenum, there is a mass seen, as on series 4 image 37 that measures up to 3 cm, with partial obscuration of the lumen. This appears to correspond to a pancreatic head mass, as on series 2 image 36 and measures 3.2 x 2.7 cm in greatest axial dimension. No additional areas of bowel wall thickening are seen. No dilated loops of small bowel are seen. No free fluid or air. Diverticulosis is seen, without findings of active diverticulitis. Incidental note is made of a normal-appearing appendix. Nodes and vessels: Mildly enlarged left para-aortic lymph nodes can be seen, as on series 2 image 46 that measure up to 1 cm in short axis. No enlarged retroperitoneal lymph nodes are seen. Aorta and inferior vena cava are normal in caliber. Miscellaneous: No ventral hernias. PELVIS: Genitourinary: Bladder wall thickness is normal. Miscellaneous: No inguinal adenopathy. Bilateral fat containing inguinal hernias are seen Bones: No suspicious bony lesions. No vertebral body compression fractures. Degenerative changes are seen throughout, which are most prominent at the L4-L5 level. IMPRESSION: Apparent periampullary mass, likely pancreatic in origin, with protrusion into the duodenal lumen. Please correlate with endoscopic biopsy results, if performed. Please consider a dedicated pancreatic protocol CT of the abdomen and pelvis without and with IV contrast for further evaluation. Mildly enlarged retroperitoneal lymph nodes are seen, which are felt unlikely to be related to the pancreatic process. Incidental note is made of: Gallstones Diverticulosis is seen, without findings of active diverticulitis. Normal appendix Bilateral fat containing inguinal hernias Focal L4-L5 degenerative change Dictated by: Teo Blandon M.D. on 07/30/2018 at 9:40 Approved by: Teo Blandon M.D. on 07/30/2018 at 9:55
[2018-07-30 01:00] LABS: Enterococcus species Not Detected (Not Detect); Listeria monocytogenes Not Detected (Not Detect); Staphylococcus species Not Detected (Not Detect)
[2018-07-30 01:02] LABS: Streptococcus species Detected (Not Detect)
[2018-07-30 01:03] LABS: Acinetobacter baumannii Not Detected (Not Detect); Candida albicans Not Detected (Not Detect); Candida glabrata Not Detected (Not Detect); Candida krusei Not Detected (Not Detect); Candida parapsilosis Not Detected (Not Detect); Candida tropicalis Not Detected (Not Detect); E. coli Not Detected (Not Detect); Enterobacter cloacae complex Not Detected (Not Detect); Enterobacteriaceae species Not Detected (Not Detect); Haemophilus influenzae Not Detected (Not Detect); Neisseria meningitidis Not Detected (Not Detect); Proteus species Not Detected (Not Detect); Pseudomonas aeruginosa Not Detected (Not Detect); Serratia marcescens Not Detected (Not Detect); Streptococcus agalactiae (Gr B Not Detected (Not Detect); Streptococcus pneumonia Not Detected (Not Detect); Streptococcus pyogenes (Gr A) Not Detected (Not Detect)
[2018-07-30 06:21] LABS: BUN Creatinine Ratio 18.6 (6-22); Blood Urea Nitrogen 26 mg/dL (9-20); Calcium 8.7 mg/dL (8.4-10.2); Carbon Dioxide 22 mmol/L (22-32); Chloride 110 mmol/L (98-107); Estimated Glomerular Filt Rate 49.8 mL/min (>60); Glucose 110 mg/dL (80-110); HEMOLYSIS < 15 (0-50); Potassium 4.4 mmol/L (3.4-5.1); Sodium 144 mmol/L (137-145)
[2018-07-30 06:26] LABS: Add Manual Diff / Slide Review NO; Basophils Percent Auto 0.3 % (0-2); Hematocrit 26.7 % (41-53); Hemoglobin 9.4 g/dL (13.5-17.5); Mean Corpuscular HGB Conc 35.2 % (30-36); Mean Corpuscular Hemoglobin 31.8 PG (26-34); Mean Corpuscular Volume 90.4 fL (80-100); Monocytes Percent Auto 5.9 % (3-14); Neutrophils Absolute Auto 6500 /uL (1500-7000); Neutrophils Percent Auto 72.8 % (50-75); Platelet Count 175 X10^3/uL (150-400); Red Blood Cell Count 2.95 X10^6/uL (4.5-5.9); Red Cell Distribution Width 13.7 % (11.6-14.8); White Blood Cell Count 8.9 X10^3/uL (4.5-11.0)
[2018-07-30 06:43] LABS: B Type Natriuretic Peptide < 100 (<100)
[2018-07-30] MEDS: SODIUM CHLORIDE 0.9% 1,000 ML 125 ML IV ×2 (06:50→18:26)
--- NOTE | 2018-07-30 08:30 | PM.PN.1 ---
Subjective Date Patient Seen: 07/30/18 Time Patient Seen: 08:30 Interval history: Had a relatively uneventful night. Does not recall much of the endoscopy report as per Dr. Vasquez last night. Tolerating clear liquids. Respiratory status stable. He has not had a bowel movement since yesterday afternoon. Having no abdominal pain Exam Vital Signs (past 8 hours): - 07/30/18 05:55 07/30/18 07:55 Temperature 98.4 F 98.3 F Pulse Rate 64 63 Respiratory Rate 16 17 Blood Pressure 125/74 139/81 Pulse Oximetry 97 97 Fraction of Inspired Oxygen 21 Oxygen Delivery Method Room Air Oxygen Flow Rate 0 Narrative Exam Narrative: The patient is sitting upright a finishing his a clear liquid breakfast. He appears in no distress. Lungs are entirely clear. Cardiac exam regular rhythm no murmur gallop. Abdominal exam nontender. Objective Labs Result Diagrams: 07/30/18 05:41 07/30/18 05:41 Labs: Laboratory Results - last 24 hr 07/28/18 07/29/18 07/29/18 22:45 05:25 17:09 WBC 9.9 RBC 3.48 L Hgb 10.9 L Hct 31.6 L MCV 90.8 MCH 31.3 MCHC 34.5 RDW 13.4 Plt Count 199 Neut % (Auto) 75.9 H Lymph % (Auto) 17.0 L [place] % (Auto) 5.7 Eos % (Auto) 1.0 L Baso % (Auto) 0.4 Neut # (Auto) 7500 H Sodium Potassium Chloride Carbon Dioxide BUN Creatinine Estimated GFR BUN/Creatinine Ratio Glucose Calcium B-Natriuretic Peptide A. baumannii (PCR) Not detected Leslye albicans (PCR) Not detected C. glabrata (PCR) Not detected C. krusei (PCR) Not detected C. parapsilosis (PCR) Not detected C. tropicalis (PCR) Not detected Enterobacteriac sp PCR Not detected E. cloacae complex PCR Not detected Enterococcus sp PCR Not detected E. coli (PCR) Not detected H. influenzae (PCR) Not detected Klebsiella oxytoca PCR Not detected Klebsiella pneumoniae Not detected List. monocytogenes PCR Not detected N. meningitidis (PCR) Not detected Proteus species (PCR) Not detected Serratia marcescens PCR Not detected Staphylococcus sp PCR Not detected Staph aureus (PCR) Not detected mecA-Methicil Res Gene Not Reportable Streptococcus sp PCR Detected H Group A Strep (PCR) Not detected Strep agalactiae (PCR) Not detected Strep pneumoniae (PCR) Not detected P. aeruginosa (PCR) Not detected Dorota/B-Vanco Res Genes Not Reportable KPC-Carbap Res Gene PCR Not Reportable Blood Type O Positive Antibody Screen Negative Crossmatch See Detail 07/30/18 07/30/18 07/30/18 05:41 05:41 05:41 WBC 8.9 RBC 2.95 L Hgb 9.4 L Hct 26.7 L MCV 90.4 MCH 31.8 MCHC 35.2 RDW 13.7 Plt Count 175 Neut % (Auto) 72.8 Lymph % (Auto) 19.0 L [place] % (Auto) 5.9 Eos % (Auto) 2.0 Baso % (Auto) 0.3 Neut # (Auto) 6500 Sodium 144 Potassium 4.4 Chloride 110 H Carbon Dioxide 22 BUN 26 H Creatinine 1.40 H Estimated GFR 49.8 L BUN/Creatinine Ratio 18.6 Glucose 110 Calcium 8.7 B-Natriuretic Peptide < 100 A. baumannii (PCR) Leslye albicans (PCR) C. glabrata (PCR) C. krusei (PCR) C. parapsilosis (PCR) C. tropicalis (PCR) Enterobacteriac sp PCR E. cloacae complex PCR Enterococcus sp PCR E. coli (PCR) H. influenzae (PCR) Klebsiella oxytoca PCR Klebsiella pneumoniae List. monocytogenes PCR N. meningitidis (PCR) Proteus species (PCR) Serratia marcescens PCR Staphylococcus sp PCR Staph aureus (PCR) mecA-Methicil Res Gene Streptococcus sp PCR Group A Strep (PCR) Strep agalactiae (PCR) Strep pneumoniae (PCR) P. aeruginosa (PCR) Dorota/B-Vanco Res Genes KPC-Carbap Res Gene PCR Blood Type Antibody Screen Crossmatch labs today is reviewed hemoglobin is dropped from last night. But as stated does not require transfusion. Renal function stable has improved from admission %period% creatinine 1.4 is his baseline. Apparent blood culture shows positive for strep infection. Unclear whether not relevant or not he has no evidence for infection Assessment & Plan Plan: Assessment/Plan Narrative: 1. GI bleed presumably from upper source. Gastritis perhaps some duodenitis para apparent no evidence for ulcer disease. Question about whether not maybe some esophagitis. Biopsies are pending. 2. Presumably bleeding of stopped as per observation at the EGD. Hemoglobin has dropped somewhat. 3. Chronic renal failure stable. 4. Patient have abdominal CT as per recommendation by Dr. Vasquez. Presumably bleeding of stop. Assuming there is no abnormality seen on the CT that warrant further evaluation. Hopefully patient will be stable enough to be discharged tomorrow
[2018-07-30] MEDS: lamoTRIgine 100 MG TABLET 200 MG PO (11:55)
[2018-07-30] MEDS: DULOXETINE 30 MG CAPSULE 60 MG PO (11:55)
[2018-07-30] MEDS: levETIRAcetam 250 MG TABLET 1000 MG PO ×2 (11:56→20:35)
[2018-07-30] MEDS: PANTOPRAZOLE 40 MG VIAL IV (11:57)
--- NOTE | 2018-07-30 13:28 | PC.NURSE ---
GI: 500ml black/red stool with clots, guiac positive. Pt denies weakness of lightheadedness. Is back in bed. MD Guy called about large stool w/obvious clots. HH was down this am from previous value. Pt has no pain and has been instructed to call if he feels worse or has another large bloody stool.
[2018-07-30 16:20] LABS: Hematocrit 29.4 % (41-53); Hemoglobin 10.3 g/dL (13.5-17.5)
[2018-07-30] MEDS: GABAPENTIN 300 MG CAPSULE PO (17:22)
[2018-07-30] MEDS: MONTELUKAST 10 MG TABLET PO (17:22)
[2018-07-30] MEDS: TAMSULOSIN 0.4 MG CAPSULE PO (20:35)
[2018-07-30] MEDS: ATORVASTATIN 20 MG TABLET 40 MG PO (20:35)
--- NOTE | 2018-07-30 21:56 | PC.NURSE ---
Tara shift note: Patient returned form MRI in stable condition, remains asymptomatic, no dizziness or SOB. No c/o pain or discomfort. NO BM this shift. Voiding.
[2018-07-31] VITALS (7 sets, daily range): BP systolic 127–145; BP diastolic 72–81; PULSE 64–70; RESP 16–18; TEMP 36.4–36.8; O2SAT 96–99
--- NOTE | 2018-07-31 02:59 | PC.NURSE ---
Histology Manager Note: 0000: Resting in bed. Home CPAP on, with room air. IV in place in lt arm with NS infusing at 125cc/hr. No complaint of pain or discomfort.
[2018-07-31] MEDS: SODIUM CHLORIDE 0.9% 1,000 ML 125 ML IV (03:25)
[2018-07-31 06:36] LABS: BUN Creatinine Ratio 11.4 (6-22); Blood Urea Nitrogen 16 mg/dL (9-20); Calcium 9.1 mg/dL (8.4-10.2); Carbon Dioxide 25 mmol/L (22-32); Chloride 105 mmol/L (98-107); Estimated Glomerular Filt Rate 49.8 mL/min (>60); Glucose 93 mg/dL (80-110); HEMOLYSIS < 15 (0-50); Sodium 140 mmol/L (137-145)
[2018-07-31 08:17] LABS: Add Manual Diff / Slide Review NO; Basophils Percent Auto 0.6 % (0-2); Eosinophils Percent Auto 2.4 % (2-4); Hematocrit 26.7 % (41-53); Hemoglobin 9.4 g/dL (13.5-17.5); Lymphocytes Percent Auto 18.4 % (25-40); Mean Corpuscular Hemoglobin 31.8 PG (26-34); Monocytes Percent Auto 6.1 % (3-14); Neutrophils Absolute Auto 5300 /uL (1500-7000); Neutrophils Percent Auto 72.5 % (50-75); Platelet Count 171 X10^3/uL (150-400); Red Blood Cell Count 2.94 X10^6/uL (4.5-5.9); Red Cell Distribution Width 13.9 % (11.6-14.8); White Blood Cell Count 7.4 X10^3/uL (4.5-11.0)
[2018-07-31] MEDS: DULOXETINE 30 MG CAPSULE 60 MG PO (09:37)
[2018-07-31] MEDS: levETIRAcetam 250 MG TABLET 1000 MG PO (09:37)
[2018-07-31] MEDS: PANTOPRAZOLE 40 MG VIAL IV (09:37)
[2018-07-31] MEDS: lamoTRIgine 100 MG TABLET 200 MG PO (09:38)
[2018-07-31] MEDS: ALBUTEROL HFA 60 PUFF/8 GM INH INH (11:33)
[2018-07-31] MEDS: GABAPENTIN 300 MG CAPSULE PO (17:03)
[2018-07-31] MEDS: MONTELUKAST 10 MG TABLET PO (17:04)
[2018-07-31 18:15] LABS: Add Manual Diff / Slide Review NO; Basophils Percent Auto 0.5 % (0-2); Hemoglobin 9.9 g/dL (13.5-17.5); Lymphocytes Percent Auto 15.1 % (25-40); Mean Corpuscular HGB Conc 34.1 % (30-36); Mean Corpuscular Hemoglobin 31.1 PG (26-34); Mean Corpuscular Volume 91.2 fL (80-100); Monocytes Percent Auto 6.4 % (3-14); Neutrophils Absolute Auto 6400 /uL (1500-7000); Platelet Count 202 X10^3/uL (150-400); Red Blood Cell Count 3.18 X10^6/uL (4.5-5.9); Red Cell Distribution Width 13.4 % (11.6-14.8); White Blood Cell Count 8.4 X10^3/uL (4.5-11.0)
--- NOTE | 2018-07-31 19:39 | PC.NURSE ---
patient discharged from facility at around 1950 this shift, with all belongings and discharge paperwork. No medications were locked up in pharmacy, and no valuables were in the safe. Patient left facility escorted by spouse and CHANGE ATTENDANT and left in personal vehicle.
--- NOTE | 2018-07-31 21:46 | P.DS_ITS ---
History of Present Illness Chief complaint: GI Bleed Narrative: GI bleed. Patient admitted through the emergency room early this morning. The patient had been well on Saturday and Saturday he felt fine. Saturday night she began to feel tired and somewhat nauseated. He was attempting to go to bed because he felt tired. Apparently he felt he needed a bowel movement for he went to bed. He was on the toilet and became very dizzy diaphoretic and lightheaded. He did not pass out but felt like it. Paramedics were called and they found blacked tarry stools in the toilet and on the floor. He was lightheaded at that time. And he was brought to the emergency room. Emergency room evaluation found him to have dizziness and decreased hemoglobin. [place] to have upper GI bleed based on this history of melena. Vital signs improved however a dizziness persisted. A apparently Dr. Vasquez surgeon concrete fence builder was notified and he recommended patient be admitted to the medical service. Patient has a history of a ulcer back in 1969. Additionally reportedly has a history of a GI bleed 2013. The chart shows him to have a history of diverticulosis. Unable to retrieve operative note or hospitalization at that time due to computer dysfunction. But patient does not believe he had an upper endoscopy at that time but colonoscopy. The patient does not take nonsteroidal anti-inflammatory medications routinely. He did take 2 last night because of his headache. Discharge Providers Date of admission: 07/29/18 00:54 Primary care physician: Randal Guy MD Consults: 07/29/18 00:54 Consult to General Surgery Routine Comment: Consulting Provider: Scott Vasquez Reason for consultation: gi bleed Has provider been notified: Yes 07/29/18 06:17 Consult to Respiratory Therapy Evaluate & Treat Comment: Physician Instructions: Evaluate and treat Discharge provider: Randal Guy MD Discharge Date: 07/31/18 Summary Discharge Diagnosis: 1. upper GI bleed. 2. superficial duodenal ulcers. 3. acute blood loss anemia requiring transfusion. 4. abnormal appearing duodenal mucosa is workup included CT CT the pancreas MRI all of which confirmed benign normavariant. 5. diabetes mellitus patient was relatively asymptomatic referable to this sugars remain low he will resume his baseline medication patient upon discharge. 6. sleep apnea has his own BiPAP doing well. 7. hyperlipidemia stable 8. history of PTSD on medications stable. 9. history of testosterone deficiency being replaced Hospital Course: the patient was admitted for evaluation of presumed upper GI bleed associated with melena. Was seen in consultation by Dr. Vasquez surgeon patient underwent endoscopy and found superficial duodenal ulcers and possibly esophagitis. These are biopsies results pending at the time of this dictation. Additionally a distorted proximal duodenum was seen. Workup included CT abdomen CT the pancreas MR the pancreas all of which confirmed benign lesion nothing further The patient was discharged the evening of the tolerating normal food ambulating in the hallway no longer having dizzy spells. Apparently had a dark stool morning discharge but hemoglobin stable. The patient will be followed up in the office in 2 weeks remain on omeprazole 20 mg twice a day for the ulcer disease. Biopsy results from pathology had not returned at the time of this dictation but patient may need further follow-up of this pending Exam Vital Signs (past 8 hours): - 07/31/18 15:00 07/31/18 15:26 Temperature 98.2 F Pulse Rate 64 Respiratory Rate 18 Blood Pressure 145/81 H Pulse Oximetry 96 96 Fraction of Inspired Oxygen 21 Oxygen Delivery Method Room Air Oxygen Flow Rate 0 Narrative Exam Narrative: on discharge he looked in no distress conversant appeared his usual self. Lungs were clear. Abdomen was benign soft nontender cardiac exam regular rhythm Objective Labs Result Diagrams: 07/31/18 17:35 07/31/18 05:50 Labs: Laboratory Results - last 24 hr 07/29/18 07/31/18 07/31/18 05:25 05:50 05:50 WBC 7.4 RBC 2.94 L Hgb 9.4 L Hct 26.7 L MCV 91.0 MCH 31.8 MCHC 35.0 RDW 13.9 Plt Count 171 Neut % (Auto) 72.5 Lymph % (Auto) 18.4 L [place] % (Auto) 6.1 Eos % (Auto) 2.4 Baso % (Auto) 0.6 Neut # (Auto) 5300 Sodium 140 Potassium 4.0 Chloride 105 Carbon Dioxide 25 BUN 16 Creatinine 1.40 H Estimated GFR 49.8 L BUN/Creatinine Ratio 11.4 Glucose 93 Calcium 9.1 A. baumannii (PCR) Not detected Leslye albicans (PCR) Not detected C. glabrata (PCR) Not detected C. krusei (PCR) Not detected C. parapsilosis (PCR) Not detected C. tropicalis (PCR) Not detected Enterobacteriac sp PCR Not detected E. cloacae complex PCR Not detected Enterococcus sp PCR Not detected E. coli (PCR) Not detected H. influenzae (PCR) Not detected Klebsiella oxytoca PCR Not detected Klebsiella pneumoniae Not detected List. monocytogenes PCR Not detected N. meningitidis (PCR) Not detected Proteus species (PCR) Not detected Serratia marcescens PCR Not detected Staphylococcus sp PCR Not detected Staph aureus (PCR) Not detected Streptococcus sp PCR Detected H Group A Strep (PCR) Not detected Strep agalactiae (PCR) Not detected Strep pneumoniae (PCR) Not detected P. aeruginosa (PCR) Not detected 07/31/18 17:35 WBC 8.4 RBC 3.18 L Hgb 9.9 L Hct 29.0 L MCV 91.2 MCH 31.1 MCHC 34.1 RDW 13.4 Plt Count 202 Neut % (Auto) 76.0 H Lymph % (Auto) 15.1 L [place] % (Auto) 6.4 Eos % (Auto) 2.0 Baso % (Auto) 0.5 Neut # (Auto) 6400 Sodium Potassium Chloride Carbon Dioxide BUN Creatinine Estimated GFR BUN/Creatinine Ratio Glucose Calcium A. baumannii (PCR) Leslye albicans (PCR) C. glabrata (PCR) C. krusei (PCR) C. parapsilosis (PCR) C. tropicalis (PCR) Enterobacteriac sp PCR E. cloacae complex PCR Enterococcus sp PCR E. coli (PCR) H. influenzae (PCR) Klebsiella oxytoca PCR Klebsiella pneumoniae List. monocytogenes PCR N. meningitidis (PCR) Proteus species (PCR) Serratia marcescens PCR Staphylococcus sp PCR Staph aureus (PCR) Streptococcus sp PCR Group A Strep (PCR) Strep agalactiae (PCR) Strep pneumoniae (PCR) P. aeruginosa (PCR) Discharge Plan Discharge Plan Patient Disposition: Home Discharge comment: apt w conl 2 weeks. cbc prior to appt Discharge Med Rec/Prescriptions Prescriptions: New omeprazole magnesium 20 mg capsule,delayed release(DR/EC) 20 mg PO DAILY Qty: 60 RF: 0 Continue testosterone cypionate [Depo-Testosterone] 200 MG/1 ML oil 300 mg IM SEE INSTRUCTIONS Qty: 0 RF: 0 metformin [Glucophage] 500 MG tablet PO BID Qty: 360 RF: 3 clonazepam 0.5 MG tablet 0.25 mg PO QDAYP PRNQty: 30 RF: 0 amlodipine [Norvasc] 5 mg tablet 5 mg PO QDAY Qty: 180 RF: 3 gabapentin [Neurontin] 300 mg capsule 300 mg PO ONCE Qty: 90 RF: 3 albuterol sulfate [Proventil HFA] 90 mcg/actuation HFA aerosol inhaler 1 puff INHALATION Q6H PRN (Reason: shortness of breath or wheezing) Qty: 17 RF: 3 atorvastatin [Lipitor] 40 mg tablet 40 mg PO HS Qty: 90 RF: 1 tamsulosin [Flomax] 0.4 mg capsule 0.4 mg PO QHS Qty: 60 RF: 2 lisinopril 20 mg tablet 40 mg PO BID Qty: 120 RF: 1 duloxetine [Cymbalta] 60 mg capsule,delayed release(DR/EC) PO Q DAY Qty: 60 RF: 1 lamotrigine 200 mg tablet 200 mg PO QDAY Qty: 30 RF: 1 glimepiride 2 mg tablet 4 mg PO QAM Qty: 180 RF: 3 levetiracetam [Keppra] 1,000 mg tablet 1,000 mg PO BID Qty: 60 RF: 5 blood-glucose meter [Blood Glucose Monitoring] kit .ROUTE .MEDSUPPLY Qty: 1 RF: 0 lancets misc .ROUTE .MEDSUPPLY Qty: 100 RF: 11 montelukast 10 mg tablet 10 mg PO QDAYPM Qty: 30 RF: 5 blood sugar diagnostic [Blood Glucose Test] strip .ROUTE .MEDSUPPLY Qty: 100 RF: 11 Discontinued aspirin 325 mg tablet 325 mg PO QDAY Qty: 150 RF: 6 Follow up/Referrals: Randal Guy MD [Primary Care Provider] - Visit Report/Discharge Packet Instructions: Blood Transfusion, Gastrointestinal Bleeding Visit Report Forms: Stroke Signs & Symptoms Discharge Data Primary Care Provider: Randal Guy Attending Provider: Randal Guy Admit Date/Time: 07/29/18 00:54 Discharges patient from system. Discharge Date/Time: 07/31/18 19:50
== END 2018-07-31 19:50 | disposition home or self-care (01) | DRG 378 ==
LOC: ED 07-29 00:53 → AC 07-29 08:39
PROVIDERS: Specialist; Admitting Provider Family Medicine; Emergency Provider Emergency Medicine; Family Provider Family Medicine; PCP Family Medicine; Visit Provider Family Medicine
PROC: 0DJ08ZZ Inspection of Upper Intestinal Tract, Via Natural or Artificial Opening Endoscopic (ICD-10-PCS; CPT 43235; principal; 2018-07-29 13:25)
DX: K22.70 Barrett's esophagus without dysplasia (principal); K92.1 Melena; K26.4 Chronic or unspecified duodenal ulcer with hemorrhage; D62 Acute posthemorrhagic anemia; K29.70 Gastritis, unspecified, without bleeding; K29.80 Duodenitis without bleeding; Z79.84 Long term (current) use of oral hypoglycemic drugs; F31.9 Bipolar disorder, unspecified; F41.9 Anxiety disorder, unspecified; E78.5 Hyperlipidemia, unspecified; J45.909 Unspecified asthma, uncomplicated; F43.10 Post-traumatic stress disorder, unspecified; G47.33 Obstructive sleep apnea (adult) (pediatric); E11.22 Type 2 diabetes mellitus with diabetic chronic kidney disease; I12.9 Hypertensive chronic kidney disease with stage 1 through stage 4 chronic kidney disease, or unspecified chronic kidney disease; N18.9 Chronic kidney disease, unspecified; A80.9 Acute poliomyelitis, unspecified
CPT/HCPCS: 43239; 36415; 36430; 74177; 74183; 80048; 80053; 82962; 83880; 85014; 85018; 85025; 85610; 86850; 86900; 86901; 87040; 87147; 87150; 87205; 94640; 94760; 96361; 96374; 99222; 99223; 99233; 99238; 99283; 99284; G0378; P9016; A9579; C9113; J0330; J2704; Q9967

== ENCOUNTER → 2018-08-11 10:17 | Outpatient (CLI) | payer OTHER, SELFPAY ==
[2018-08-04 11:31] VITALS: BMI 28.7
[2018-08-11 11:03] LABS: Add Manual Diff / Slide Review NO; Eosinophils Percent Auto 2.1 % (2-4); Hematocrit 34.6 % (41-53); Hemoglobin 11.8 g/dL (13.5-17.5); Lymphocytes Percent Auto 17.4 % (25-40); Mean Corpuscular HGB Conc 34.2 % (30-36); Mean Corpuscular Hemoglobin 30.9 PG (26-34); Mean Corpuscular Volume 90.4 fL (80-100); Monocytes Percent Auto 8.8 % (3-14); Neutrophils Absolute Auto 4700 /uL (1500-7000); Neutrophils Percent Auto 70.7 % (50-75); Platelet Count 243 X10^3/uL (150-400); Red Blood Cell Count 3.83 X10^6/uL (4.5-5.9); Red Cell Distribution Width 14.2 % (11.6-14.8); White Blood Cell Count 6.6 X10^3/uL (4.5-11.0)
[2018-08-11 11:12] LABS: BUN Creatinine Ratio 14.7 (6-22); Blood Urea Nitrogen 25 mg/dL (9-20); Calcium 10.5 mg/dL (8.4-10.2); Carbon Dioxide 25 mmol/L (22-32); Chloride 103 mmol/L (98-107); Estimated Glomerular Filt Rate 39.8 mL/min (>60); Glucose 141 mg/dL (80-110); HEMOLYSIS < 15 (0-50); Sodium 142 mmol/L (137-145)
== END ==
PROVIDERS: Family Provider Family Medicine; PCP Family Medicine; Visit Provider Family Medicine
DX: K92.2 Gastrointestinal hemorrhage, unspecified (principal)
CPT/HCPCS: 36415; 80048; 85025

== ENCOUNTER 2018-08-19 08:42 | Outpatient (CLI) | payer OTHER, SELFPAY ==
[2018-08-12 12:44] VITALS: BMI 28.7
[2018-08-19] VITALS (9 sets, daily range): BP systolic 124–148; BP diastolic 64–88; PULSE 66–78; RESP 16–26; TEMP 36.6; O2SAT 96–99
--- NOTE | 2018-08-19 | DI.RAD.S_ITS ---
PROCEDURE: PAIN L/S FACET INJ/BLK 1ST bilateral. COMPARISON: None. 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 These images represent the procedure a bilateral needle tip localization at the L4-5 and L5-S1 facet region levels, for perineural injection bilaterally. The study shows successful perineural epidural steroid injection localization. IMPRESSION: Successful bilateral L4-5 and L5-S1 needle tip localization for perineural epidural steroid injection bilaterally. Dictated by: Isaac Ratliff M.D. on 08/19/2018 at 11:00 Approved by: Isaac Ratliff M.D. on 08/19/2018 at 11:02
[2018-08-19] MEDS: MIDAZOLAM 5 MG/5 ML VIAL IV (09:55)
--- NOTE | 2018-08-19 10:07 | PC.NURSE ---
pt tolerated procedure without incident. Some difficulty getting him off the table, 2 person assist related to his legs feeling a little rubbery and his polio played into that also. Transferred pt via W/C to pre procedure room for continued monitoring with Judith MICHAUD.
--- NOTE | 2018-08-19 10:16 | P.PCN_ITS ---
Procedures Date/Time Date of procedure: 08/19/18 Time of procedure: 10:15 General Procedure description: PREOP DIAGNOSIS 1. FACET ARTHROPATHY 2. AXIAL LBP 3. MULTILEVEL DDD POST OP DIAGNOSIS 1. FACET ARTHROPATHY 2. AXIAL LBP 3. MULTILEVEL DDD PROCEDURES 1. FLUORSCOPICALLY GUIDED CONTRAST CONTROLLED FACET JOINT INJECTIONS BILATERAL L4/5, L5/S1 PHYSICIAN: Ovidio Choe, DO INDICATIONS Hemanth is referred by Dr. Guy for treatment of Axial LBP FINDINGS Multilevel Facet Arthropathy with Clinically significant axial LBP DESCRIPTION OF PROCEDURE Fluoroscopically guided, contrast-controlled bilateral L4/5, L5/S1 facet joint injections. Following denial of allergy and review of potential side effects and complications, including, but not necessarily limited to, infection, allergic reaction, local tissue breakdown, stroke, temporary or permanent nerve injury, paralysis, and possible , the patient indicated that the patient understood and agreed to proceed. An informed consent document was signed by the patient, witnessed by a nurse, and placed in the patient's chart. Additionally, other treatment options including medications, modalities, and physical therapy were reviewed with the patient. After review of previous anaesthesic history and IV conscious sedation the patient was deemed safe to proceed with todays procedure with IV conscious sedation as ASA class II designation. Safety time-out was performed to confirm patient ID, procedure to be performed and site of procedure. IV sedation was accomplished with a combination of 4mg was administered by the RN after DO order , titrated to patient comfort during the course of the procedure while the patient remained responsive to all verbal commands In the prone position, following sterile prep and drape of the lumbar region, the posterior aspect of the L4/5, L5/S1 facet joints were identified fluoroscopically. The skin was anesthetized via a 25-gauge 1.5-inch needle with 1% lidocaine solution into the corresponding facet joints. At this point, a 22-gauge 3.5-inch spinal needle was atraumatically introduced and advanced under fluoroscopic guidance into the corresponding facet joints. Following negative aspiration, injections of approximately 0.2-cc of Isovue 200 confirmed interarticular placement without vascular uptake. The identical procedure was then performed at the L4/5, L5/S1 facet joints on the left. Radiological data, including multiple fluoroscopic views of the lumbosacral spine, reveal a spinal needle at the L4/5, L5/S1 facet joints bilaterally. Subsequent views show flow of contrast material both superiorly and inferiorly within the joint space without vascular or intrathecal uptake. At this point, a total of 0.5 cc including a mixture of 0.25cc Marcaine and 0.25cc betamethasone was injected without complication into each of the corresponding facet joints. The patient tolerated the procedure well without signs or symptoms of complications prior to transfer to the recovery area continued monitoring without incident. The patient was then transferred to the recovery area where they were observed for an appropriate period of time after the injection. The patient reported a VAS score of 7 prior to the procedure and a post- procedure VAS of 0. Total Fluoroscopy Time: 20.3 seconds Total Conscious Sedation Time: 24min POST OP INSTRUCTIONS The patient was provided a Pain Log to continue to record their response to the target-specific procedure prior to follow-up visit with their referring physician. Additionally, specific post-injection care instructions and a contact number to our office were provided if concerns arise regarding possible complications associated with the procedure are suspected. Ovidio Choe, Complications: none
--- NOTE | 2018-08-19 10:20 | PC.NURSE ---
ACCEPTED PT CARE IN POST PROC AREA. PT IN STABLE CONDITION
[2018-08-19] MEDS: IOPAMIDOL 15 ML VIAL 3 ML INJ (10:22)
[2018-08-19] MEDS: BETAMETHASONE 30 MG/5 ML MDV 12 MG INJ (10:22)
[2018-08-19] MEDS: LIDOCAINE 1% 20 ML INJ 10 ML INJ (10:22)
[2018-08-19] MEDS: diphenhydrAMINE 50 MG/ML VIAL IV (10:22)
[2018-08-19] MEDS: BUPIVACAINE 0.5% (PF) VIAL 5 ML INJ (10:22)
--- NOTE | 2018-08-20 12:51 | PC.NURSE ---
Follow up call made, pt reports that it was just like we said it would be He's a little more sore today but it's getting better. Otherwise he is doing well and denies any questions.
== END 2018-08-19 11:18 | disposition home or self-care (01) ==
LOC: RAD 08:45
PROVIDERS: PCP Family Medicine; Visit Provider Physical Medicine & Rehabilitation
DX: M47.817 Spondylosis without myelopathy or radiculopathy, lumbosacral region (principal); M47.816 Spondylosis without myelopathy or radiculopathy, lumbar region; M54.5 Low back pain; M51.36 Other intervertebral disc degeneration, lumbar region
CPT/HCPCS: 64493; 64494; 99152; J0702; J1200; J2250

== ENCOUNTER → 2018-09-22 11:46 | Outpatient (CLI) | payer OTHER, SELFPAY ==
[2018-08-12 12:44] VITALS: BMI 28.7
[2018-09-22 12:35] LABS: Hemoglobin A1C% w Est Avg Glu 7.8 % (4.0-6.0)
[2018-09-22 12:56] LABS: BUN Creatinine Ratio 11.8 (6-22); Blood Urea Nitrogen 20 mg/dL (9-20); Calcium 10.4 mg/dL (8.4-10.2); Carbon Dioxide 25 mmol/L (22-32); Chloride 96 mmol/L (98-107); Estimated Glomerular Filt Rate 39.8 mL/min (>60); Glucose 276 mg/dL (80-110); HEMOLYSIS < 15 (0-50); Potassium 4.8 mmol/L (3.4-5.1); Sodium 136 mmol/L (137-145)
== END ==
PROVIDERS: PCP Family Medicine; Visit Provider Family Medicine
DX: E11.9 Type 2 diabetes mellitus without complications (principal)
CPT/HCPCS: 36415; 80048; 83036

== ENCOUNTER 2018-10-01 07:31 | Outpatient (CLI) | payer OTHER, SELFPAY ==
[2018-08-12 12:44] VITALS: BMI 28.7
[2018-10-01] VITALS (8 sets, daily range): BP systolic 100–124; BP diastolic 47–72; PULSE 72–86; RESP 16–18; TEMP 36.8; O2SAT 96–98
--- NOTE | 2018-10-01 07:34 | DI.RAD.S_ITS ---
PROCEDURE: PAIN L/S TRANSFORAMINAL INJECT INDICATIONS: SPONDYLOSIS FINDINGS: Fluoroscopic spot filming was performed to verify placement of spinal needles at the L4-L5 level(s), as labeled on the films. Appropriate location(s) of the needle tip(s) was confirmed by injection of iodinated contrast. IMPRESSION: Intraprocedural examination within normal limits. Dictated by: Teo Blandon M.D. on 10/01/2018 at 9:13 Approved by: Teo Blandon M.D. on 10/01/2018 at 9:13
[2018-10-01] MEDS: MIDAZOLAM 5 MG/5 ML VIAL IV (08:17)
[2018-10-01] MEDS: IOPAMIDOL 15 ML VIAL 3 ML INJ (08:24)
[2018-10-01] MEDS: BUPIVACAINE 0.25% (PF) VIAL 2 ML INJ (08:24)
[2018-10-01] MEDS: DEXAMETHASONE 10 MG/ML VIAL 20 MG INJ (08:25)
--- NOTE | 2018-10-01 08:36 | P.PCN_ITS ---
Procedures Date/Time Date of procedure: 10/01/18 Time of procedure: 08:35 General Procedure description: PREOP DIAGNOSIS 1. FORMAINAL STENOSIS WITH LE SYMPTOMS POST OP DIAGNOSIS 1. FORMAINAL STENOSIS WITH LE SYMPTOMS PROCEDURES 1. FLUOROSCOPICALLY GUIDED CONTRAST CONTROLLED TRANSFORAMINAL EPIDURAL STEROID INJECTION - LEFT L4/5 PHYSICIAN: Ovidio Choe DO INDICATIONS: Hemanth is referred by Dr. Guy for treatment of Foraminal Stenosis with Left LE Symptoms FINDINGS Foraminal Nerve Root Compression secondary to disc disease and facet hypertrophy DESCRIPTION OF PROCEDURE: Following denial of allergy and review of potential side effects and complications, including, but not necessarily limited to, infection, allergic reaction, local tissue breakdown, stroke, temporary or permanent nerve injury, paralysis, and possible , the patient indicated that the patient understood and agreed to proceed. An informed consent document was signed by the patient, witnessed by a nurse, and placed in the patient's chart. Additionally, other treatment options including medications, modalities, and physical therapy were reviewed with the patient. After review of previous anaesthesic history and IV conscious sedation the patie nt was deemed safe to proceed with todays procedure with IV conscious sedation as ASA class II designation. Safety time-out was performed to confirm patient ID, procedure to be performed and site of procedure. IV sedation was accomplished with a combination of 3mg of Versed administered by the RN after DO order, titrated to patient comfort during the course of the procedure while the patient remained responsive to all verbal commands In the prone position following sterile prep and drape of the lumbar region, the left L4/5 posterior neuroforamen was identified fluoroscopically. The skin was anesthetized via a 25-gauge 1.5-inch needle with 1% lidocaine solution. At this point, a 25-gauge 3.5-inch spinal needle was atraumatically introduced and advanced under fluoroscopic guidance through the posterior left L4/5 neuroforamen to approximately the anterior aspect of the canal. Depth was confirmed on lateral view. Following negative aspiration, injection of approximately 1.5 cc of Isovue 200 under live fluoroscopy in the AP view confirmed excellent flow along the nerve root, into the epidural space without vascular or intrathecal uptake observed Radiological data, including multiple fluoroscopic views of the lumbosacral spine, reveal a spinal needle at the left L4/5 posterior neuroforamen. Subsequent views show flow of contrast material flowing superiorly and inferiorly along the nerve root confirming epidural flow. Subsequently, a test dose of 1.5 cc of 1% lidocaine solution was administered and patient was observed for two minutes for signs or symptoms of complications, including abdominal pain, shortness of breath, bilateral upper or lower extremity weakness, nausea and vomiting, prior to steroid injection. At this point, a total of 2cc or 20mg of dexamethasone was injected without incident. The procedure tolerated the procedure well without signs or symptoms of complications prior to transfer to the recovery area continued monitoring without incident. The patient was then transferred to the recovery area where they were observed for an appropriate time after the injection. The patient reported a VAS score of 7 prior to the procedure and a post- procedure VAS of 0. Total Fluoroscopy Time: 20.9 seconds Total Conscious Sedation Time: 24min POST OP INSTRUCTIONS The patient was provided a Pain Log to continue to record their response to the target-specific procedure prior to follow-up visit with their referring physician. Additionally, specific post-injection care instructions and a contact number to our office were provided if concerns arise regarding possible complications associated with the procedure are suspected. Ovidio Choe DO Complications: none
--- NOTE | 2018-10-01 08:36 | CM.MNRNOTE ---
Pt finished procedure at 0826, assisted pt off table awake and alert. Able to get into w/c with 2 person assist related to his hx of polio and left knee trouble. Transferred pt to pre procedure room via w/c for continued monitoring by Judith MICHAUD.
--- NOTE | 2018-10-01 08:38 | PC.NURSE ---
accepted care of pt in post proc area in stable condition
--- NOTE | 2018-10-01 08:46 | DI.RAD.S_ITS ---
PROCEDURE: XR KNEE LT 3V INDICATIONS: left knee pain and swelling TECHNIQUE: 3 views of the knee were acquired. COMPARISON: None. FINDINGS: Bones: No fractures or dislocations. No suspicious bony lesions. Soft tissues: Small joint effusion. No suspicious soft tissue calcifications. IMPRESSION: Small suprapatellar joint effusion. Consider MRI to evaluate for internal derangement. Dictated by: Chio Alatorre M.D. on 10/01/2018 at 14:26 Approved by: Chio Alatorre M.D. on 10/01/2018 at 14:26
== END 2018-10-01 08:58 | disposition home or self-care (01) ==
LOC: RAD 07:32
PROVIDERS: PCP Family Medicine; Visit Provider Physical Medicine & Rehabilitation
DX: M48.061 Spinal stenosis, lumbar region without neurogenic claudication (principal); M51.16 Intervertebral disc disorders with radiculopathy, lumbar region; M25.462 Effusion, left knee; M25.562 Pain in left knee; M47.26 Other spondylosis with radiculopathy, lumbar region
CPT/HCPCS: 64483; 73562; 99152; J1100; J2250

== ENCOUNTER 2018-11-13 12:51 | Emergency (ER) | payer OTHER, SELFPAY ==
[2018-08-12 12:44] VITALS: BMI 28.7
[2018-11-13 12:53] VITALS: BP 126/76; PULSE 92; RESP 18; TEMP 36.3; O2SAT 99; BMI 27.9
--- NOTE | 2018-11-13 13:29 | DI.RAD.S_ITS ---
PROCEDURE: XR KNEE LT 3V INDICATIONS: left knee pain, swelling, dec rom TECHNIQUE: 3 views of the knee were acquired. COMPARISON: [facility], CR, XR KNEE LT 3V, 10/01/2018, 8:52. FINDINGS: Bones: Mild tricompartment osteoarthritis is seen. No fractures or dislocations. No suspicious bony lesions. Soft tissues: There is moderate to large joint effusion. No suspicious soft tissue calcifications. IMPRESSION: Mild tricompartment osteoarthritis. Moderate to large joint effusion. No fracture or dislocation. Dictated by: Faustino Martinez M.D. on 11/13/2018 at 14:19 Approved by: Faustino Martinez M.D. on 11/13/2018 at 14:20
--- NOTE | 2018-11-13 13:29 | DI.US.S_ITS ---
PROCEDURE: US PERIPH VENOUS LOW EXTREM LT INDICATIONS: pain, swelling, dec mobility TECHNIQUE: Real-time imaging, as well as color and pulse Doppler interrogation, were performed of the lower extremity deep veins from the inguinal ligament to the popliteal fossa. COMPARISON: None. FINDINGS: The common femoral, femoral and popliteal veins are normally compressible, and free of intraluminal thrombus. Color and pulse Doppler demonstrate normal phasic intraluminal flow. There is normal augmentation response to distal compression maneuver. Multiple mildly enlarged left inguinal lymph nodes are seen measures up to 3.7 x 1 x 2.3 cm in size. There are multiple fluid collection in the subcutaneous soft tissue anterior and superior to left patella measures 4.3 x 1.4 x 5.4 cm, and 6.7 x 3.6 x 1.2 cm in size. No internal vascularity is seen. IMPRESSION: 1. No evidence of DVT in visualized left lower extremity veins. 2. Prominent left inguinal lymph nodes as above. 3. 2 small fluid collections in the subcutaneous soft tissue anterior and superior to patella, which may represent hematoma. Dictated by: Faustino Martinez M.D. on 11/13/2018 at 14:14 Approved by: Faustino Martinez M.D. on 11/13/2018 at 14:19
--- NOTE | 2018-11-13 13:32 | ED.EXTPRO ---
HPI - Extremity Problem <Nohemi Alvarenga, PAY AGENT-BC - Last Filed: 11/13/18 15:42> General Chief complaint: Extremity Problem,Nontraumatic Stated complaint: LEFT LEG PAIN Time Seen by Provider: 11/13/18 13:19 Source: patient and family Mode of arrival: wheelchair Limitations: no limitations History of Present Illness HPI Narrative: The patient is a 73-year-old male with her smoker who presents with his for chief complaint of ongoing left knee pain times several months. He states it started back in August in June. States his pain is getting worse, radiating from the back of the knee. Patient has a history of type 2 diabetes, post-polio syndrome and back issues. He states he was seen by pain management, orthopedics, and his physical therapist sent him to the emergency department. He has not iced the knee, but T2 knee or taken any medications for his knee pain. His is concerned about a blood clot given his decreased mobility lately. He states that the pain radiates from the back of his knee up and down. Chart review of the streets the patient was seen on 10/[address] Choe for a transforaminal epidural steroid injection and was subsequently seen after his procedure on the 10/10. He had left knee x-rays completed on 10/[address] Choe Patient later states that he thinks his pain started when he had a twisting fall back in September. He states he felt a pop in his knee at that point time. He denies any fevers nausea vomiting diarrhea. He denies any redness or bruising over his knee. Related Data Home Medications Medication Instructions Recorded Confirmed testosterone cypionate 300 mg IM Q3W #0 10/09/16 11/13/18 [Depo-Testosterone] amlodipine [Norvasc] 10 mg PO DAILY 11/13/18 11/13/18 aspirin 325 mg PO DAILY 11/13/18 11/13/18 atorvastatin 40 mg PO BEDTIME 11/13/18 11/13/18 duloxetine [Cymbalta] 120 mg PO BEDTIME 11/13/18 11/13/18 glimepiride 2 mg PO QPM 11/13/18 11/13/18 glimepiride 4 mg PO QAM 11/13/18 11/13/18 lamotrigine 200 mg PO DAILY 11/13/18 11/13/18 metformin 1,000 mg PO QPM 11/13/18 11/13/18 metformin [Glucophage] 1,500 mg PO QAM 11/13/18 11/13/18 montelukast 10 mg PO QPM 11/13/18 11/13/18 tamsulosin [Flomax] 0.4 mg PO BEDTIME 11/13/18 11/13/18 Previous Rx's Medication Instructions Recorded levetiracetam 1,000 mg tablet 1,000 mg PO BID #60 tab 07/15/18 blood-glucose meter kit #1 each 07/17/18 lancets #100 each 07/17/18 blood sugar diagnostic strips #100 each 07/18/18 omeprazole 20 mg capsule,delayed 20 mg PO BID #60 cap 08/20/18 release albuterol sulfate HFA 90 1 puff INHALATION Q6H PRN #17 gram 09/23/18 mcg/actuation aerosol inhaler gabapentin 300 mg capsule 300 mg PO BID #180 cap 09/23/18 lisinopril 20 mg tablet 40 mg PO BID #120 tab 10/13/18 diclofenac sodium [Voltaren] 2 gram TOP BID #100 gram 11/13/18 hydrocodone 5 mg-acetaminophen 325 1 tab PO Q6H PRN #20 tab 11/13/18 mg tablet lidocaine 1 patch TOP DAILY #15 each 11/13/18 Allergies Allergy/AdvReac Type Severity Reaction Status Date / Time ibuprofen [IBUPROFEN] Allergy Severe LARGE Verified 11/13/18 16:11 HIVES, ALL OVER BODY Iodine and Iodide Containing Allergy Severe THROAT Verified 11/13/18 16:11 Produc SWELLING [IODINE AND IODIDE AND WELTS CONTAINING PRODUC] shellfish derived Allergy Severe SEAFOOD, Verified 11/13/18 16:11 [SHELLFISH DERIVED] THROAT SWELLING Review of Systems <SHANNAN Hernández-BC - Last Filed: 11/13/18 15:42> Review of Systems GENERAL: Denies chills, fatigue, malaise, fever, sweats. HEENT: Denies sinus pain, ear pain, sore throat, difficulty swallowing, dizziness. RESPIRATORY: Denies dyspnea, cough, wheezing, hemoptysis, sputum. CARDIOVASCULAR: Denies chest pain, palpitations, orthopnea, edema, GASTROINTESTINAL: Denies nausea, vomiting, abdominal pain, diarrhea, constipation, melena. : Denies dysuria, frequency, incontinence, hematuria, urinary retention. MUSCULOSKELETAL: See HPI SKIN: See HPI NEUROLOGIC: Denies weakness, headache, numbness, change in speech, confusion, seizures, incoordination. PSYCHIATRIC: No concerning psychosocial issues. 12 point review of systems is negative except for those stated above PFSH <ALESIA Hernández - Last Filed: 11/13/18 15:42> Medical History Asthma (Chronic) Bipolar disorder (Chronic) Depression (Chronic) Diabetes mellitus (Chronic) Diverticular disease (Chronic) Gout (Chronic) Hyperlipidemia (Chronic) Hypertension (Chronic) Impotence (Chronic) Insomnia (Chronic) Polio (Chronic) Sleep apnea (Chronic) Personal history of radiation therapy (Resolved) Surgical History Anesthesia (Resolved) History of incision and drainage (Resolved) History of prostate surgery (Resolved) Inguinal hernia (Resolved) Surgical procedure planned (Resolved) Status post eye surgery Status post tonsillectomy and adenoidectomy Family History Father Prostate cancer Mother CAD (coronary artery disease) Social History household members: spouse Smoking Status: Never smoker Social History household members: spouse Smoking Status: Never smoker Exam <ALESIA Hernández - Last Filed: 11/13/18 15:42> Narrative Exam Narrative: GENERAL: This is a well-nourished, well-developed patient, in mild distress. HEAD: Atraumatic. Normocephalic. No temporal or scalp tenderness. EYES: Pupils equal round and reactive. Extraocular motions intact. No scleral icterus. No injection or drainage. ENT: Nose without bleeding, purulent drainage or septal hematoma. Throat without erythema, tonsillar hypertrophy or exudate. Uvula midline. Airway patent. NECK: Trachea midline. No JVD or lymphadenopathy. Supple, nontender, no meningeal signs. RESPIRATORY: No cough. No increased respiratory effort. EXTREMITIES: Slight swelling of left knee. Generalized pain to palpation posterior aspect left knee. Negative posterior and anterior drawer test. Negative varus and valgus test. Pain and catching on Jose. Positive pedal pulses. BACK: Nontender without deformity or crepitance. No flank tenderness. NEURO: AOx3. SKIN: No rash, erythema, ecchymosis noted left knee. Initial Vital Signs Initial Vital Signs: Vital Signs Temperature 97.4 F L 11/13/18 12:53 Pulse Rate 92 H 11/13/18 12:53 Respiratory Rate 18 11/13/18 12:53 Blood Pressure 126/76 11/13/18 12:53 Pulse Oximetry 99 11/13/18 12:53 <Nohemi Abernathy DO - Last Filed: 11/17/18 07:12> Initial Vital Signs Initial Vital Signs: Vital Signs Temperature 97.4 F L 11/13/18 12:53 Pulse Rate 92 H 11/13/18 12:53 Respiratory Rate 18 11/13/18 12:53 Blood Pressure 126/76 11/13/18 12:53 Pulse Oximetry 99 11/13/18 12:53 Course <MARTA HernándezBC - Last Filed: 11/13/18 15:42> Orders Ordered: ED Orders 11/13/18 13:29 US periph venous low extrem lt Stat XR knee LT 3V Stat Vital Signs - 8 hr 11/13/18 12:53 11/13/18 13:45 11/13/18 15:20 Temperature 97.4 F L Pulse Rate 92 H 74 65 Respiratory Rate 18 16 18 Blood Pressure 126/76 Blood Pressure [Left Arm] 136/72 135/75 Pulse Oximetry 99 99 100 <Nohemi Abernathy DO - Last Filed: 11/17/18 07:12> Orders Ordered: ED Orders 11/13/18 13:29 US periph venous low extrem lt Stat XR knee LT 3V Stat Vital Signs - 8 hr 11/13/18 12:53 11/13/18 13:45 11/13/18 15:20 Temperature 97.4 F L Pulse Rate 92 H 74 65 Respiratory Rate 18 16 18 Blood Pressure 126/76 Blood Pressure [Left Arm] 136/72 135/75 Pulse Oximetry 99 99 100 MDM - Extremity (Nontraumatic) <ALESIA Hernández - Last Filed: 11/13/18 15:42> Imaging Data Venous US: Radiologist's impression: [address] [address] Ultrasound Report Signed Patient: Hemanth Murphy RMR#: [id number] : 1945cct:[id number] Age/Sex: 73 / MDate of Service: 11/13/18 Loc: ED Accession Number: [id number] Procedure: US periph venous low extrem lt Ordering Provider: Nohemi Alvarenga PROCEDURE: US PERIPH VENOUS LOW EXTREM LT INDICATIONS: pain, swelling, dec mobility TECHNIQUE: Real-time imaging, as well as color and pulse Doppler interrogation, were performed of the lower extremity deep veins from the inguinal ligament to the popliteal fossa. COMPARISON: None. FINDINGS: The common femoral, femoral and popliteal veins are normally compressible, and free of intraluminal thrombus. Color and pulse Doppler demonstrate normal phasic intraluminal flow. There is normal augmentation response to distal compression maneuver. Multiple mildly enlarged left inguinal lymph nodes are seen measures up to 3.7 x 1 x 2.3 cm in size. There are multiple fluid collection in the subcutaneous soft tissue anterior and superior to left patella measures 4.3 x 1.4 x 5.4 cm, and 6.7 x 3.6 x 1.2 cm in size. No internal vascularity is seen. IMPRESSION: 1. No evidence of DVT in visualized left lower extremity veins. 2. Prominent left inguinal lymph nodes as above. 3. 2 small fluid collections in the subcutaneous soft tissue anterior and superior to patella, which may represent hematoma. Dictated by: Faustino Martinez M.D. on 11/13/2018 at 14:14 Approved by: Faustino Martinez M.D. on 11/13/2018 at 14:19 knee xray : Radiologist's impression: [place],Hemanth Garvey 73 M [address] [address] XRay Report Signed Patient: Hemanth Murphy RMR#: [id number] : 6Acct:[id number] Age/Sex: 73 / MDate of Service: 11/13/18 Loc: ED Accession Number: [id number] Procedure: XR knee LT 3V Ordering Provider: Nohemi Alvarenga PROCEDURE: XR KNEE LT 3V INDICATIONS: left knee pain, swelling, dec rom TECHNIQUE: 3 views of the knee were acquired. COMPARISON: [facility], CR, XR KNEE LT 3V, 10/01/2018, 8:52. FINDINGS: Bones: Mild tricompartment osteoarthritis is seen. No fractures or dislocations. No suspicious bony lesions. Soft tissues: There is moderate to large joint effusion. No suspicious soft tissue calcifications. IMPRESSION: Mild tricompartment osteoarthritis. Moderate to large joint effusion. No fracture or dislocation. Dictated by: Faustino Martinez M.D. on 11/13/2018 at 14:19 Approved by: Faustino Martinez M.D. on 11/13/2018 at 14:20 MDM Narrative Medical decision making narrative: The patient is a 73-year-old male who presents with a chief complaint of left knee pain ongoing since September. is concerned about a DVT, which was ruled out by ultrasound. The he has no fractures on his x-ray. He does have a knee effusion. I discussed at length the rest ice compression elevation as well as follow up with Orthopedics for possible further workup including further imaging. I am concerned about soft tissue injury given his exam. I discussed Toradol, but the patient's renal function is decreased, so I gave him Voltaren gel as well as lidocaine patches. Patient and state understanding. Discussed return precautions to the emergency department including acute concerns. Able to ambulate outside the emergency department with a walker. Discharge Plan Departure Patient Disposition: Home Clinical Impression: Acute pain of left knee, Effusion of knee joint, left Discharge Date/Time: 11/13/18 15:25 Interventions: ED Discharge Assessment Last Done: 11/13/18 15:25 Instructions: How To Perform RICE (Rest, Ice, Compress, Elevate), DI for Knee Pain Activity Restrictions/Additional Instructions: Your ultrasound shows no blood clot. Your x-ray shows no fracture. Please follow up with orthopedics as we discussed. Please use rest ice compression elevation as well as pain medication as needed and able. You may need further imaging as well as specialist care. I am concerned about a soft tissue injury. come back to emergency department for any acute concerns. Prescriptions: New lidocaine 5 % adhesive patch,medicated 1 patch TOP DAILY Qty: 15 RF: 0 diclofenac sodium [Voltaren] 1 % gel 2 gram TOP BID Qty: 100 RF: 0 No Action testosterone cypionate [Depo-Testosterone] 200 MG/1 ML oil 300 mg IM Q3W Qty: 0 RF: 0 levetiracetam [Keppra] 1,000 mg tablet 1,000 mg PO BID Qty: 60 RF: 5 blood-glucose meter [Blood Glucose Monitoring] kit .ROUTE .MEDSUPPLY Qty: 1 RF: 0 lancets misc .ROUTE .MEDSUPPLY Qty: 100 RF: 11 blood sugar diagnostic [Blood Glucose Test] strip .ROUTE .MEDSUPPLY Qty: 100 RF: 11 lisinopril 20 mg tablet 40 mg PO BID Qty: 120 RF: 11 hydrocodone-acetaminophen [Tate] 5-325 mg tablet 1 tab PO Q6H PRN (Reason: pain) Qty: 20 RF: 0 Proventil HFA 90 mcg/actuation HFA aerosol inhaler 1 puff INHALATION Q6H PRN (Reason: shortness of breath or wheezing) Qty: 17 RF: 8 gabapentin [Neurontin] 300 mg capsule 300 mg PO BID Qty: 180 RF: 3 omeprazole 20 mg capsule,delayed release(DR/EC) 20 mg PO BID Qty: 60 RF: 2 atorvastatin 40 mg tablet 40 mg PO BEDTIME RF: 0 metformin 500 mg tablet 1,000 mg PO QPM RF: 0 glimepiride 2 mg tablet 2 mg PO QPM RF: 0 metformin [Glucophage] 500 mg tablet 1,500 mg PO QAM RF: 0 lamotrigine 200 mg tablet 200 mg PO DAILY RF: 0 aspirin 325 mg tablet 325 mg PO DAILY RF: 0 amlodipine [Norvasc] 5 mg tablet 10 mg PO DAILY RF: 0 glimepiride 2 mg tablet 4 mg PO QAM RF: 0 tamsulosin [Flomax] 0.4 mg capsule 0.4 mg PO BEDTIME RF: 0 montelukast 10 mg tablet 10 mg PO QPM RF: 0 duloxetine [Cymbalta] 60 mg capsule,delayed release(DR/EC) 120 mg PO BEDTIME RF: 0 Referrals: [facility] [Provider Group] Randal Guy MD [Primary Care Provider] - <Nohemi Abernathy DO - Last Filed: 11/17/18 07:12> Cosign ED Attending Cosignature Attestation: I was immediately available in the department for consultation. This documentation has been reviewed and I agree with assessment and plan. Supervised by Nohemi Abernathy,
--- NOTE | 2018-11-13 13:35 | ED_ITS ---
HPI - Extremity Problem <Nohemi Alvarenga, LACQUER MIXER-BC - Last Filed: 11/13/18 15:42> General Chief complaint: Extremity Problem,Nontraumatic Stated complaint: LEFT LEG PAIN Time Seen by Provider: 11/13/18 13:19 Source: patient and family Mode of arrival: wheelchair Limitations: no limitations History of Present Illness HPI Narrative: The patient is a 73-year-old male with her smoker who presents w ith his for chief complaint of ongoing left knee pain times several months. He states it started back in August in June. States his pain is getting worse, radiating from the back of the knee. Patient has a history of type 2 diabetes, post-polio syndrome and back issues. He states he was seen by pain management, orthopedics, and his physical therapist sent him to the emergency department. He has not iced the knee, but T2 knee or taken any medications for his knee pain. His is concerned about a blood clot given his decreased mobility lately. He states that the pain radiates from the back of his knee up and down. Chart review of the streets the patient was seen on 10/[address] Choe for a transforaminal epidural steroid injection and was subsequently seen after his procedure on the 10/10. He had left knee x-rays completed on 10/[address] Choe Patient later states that he thinks his pain started when he had a twisting fall back in September. He states he felt a pop in his knee at that point time. He denies any fevers nausea vomiting diarrhea. He denies any redness or bruising over his knee. Related Data Home Medications Medication Instructions Recorded Confirmed testosterone cypionate 300 mg IM Q3W #0 10/09/16 11/13/18 [Depo-Testosterone] amlodipine [Norvasc] 10 mg PO DAILY 11/13/18 11/13/18 aspirin 325 mg PO DAILY 11/13/18 11/13/18 atorvastatin 40 mg PO BEDTIME 11/13/18 11/13/18 duloxetine [Cymbalta] 120 mg PO BEDTIME 11/13/18 11/13/18 glimepiride 2 mg PO QPM 11/13/18 11/13/18 glimepiride 4 mg PO QAM 11/13/18 11/13/18 lamotrigine 200 mg PO DAILY 11/13/18 11/13/18 metformin 1,000 mg PO QPM 11/13/18 11/13/18 metformin [Glucophage] 1,500 mg PO QAM 11/13/18 11/13/18 montelukast 10 mg PO QPM 11/13/18 11/13/18 tamsulosin [Flomax] 0.4 mg PO BEDTIME 11/13/18 11/13/18 Previous Rx's Medication Instructions Recorded levetiracetam 1,000 mg tablet 1,000 mg PO BID #60 tab 07/15/18 blood-glucose meter kit #1 each 07/17/18 lancets #100 each 07/17/18 blood sugar diagnostic strips #100 each 07/18/18 omeprazole 20 mg capsule,delayed 20 mg PO BID #60 cap 08/20/18 release albuterol sulfate HFA 90 1 puff INHALATION Q6H PRN #17 gram 09/23/18 mcg/actuation aerosol inhaler gabapentin 300 mg capsule 300 mg PO BID #180 cap 09/23/18 lisinopril 20 mg tablet 40 mg PO BID #120 tab 10/13/18 diclofenac sodium [Voltaren] 2 gram TOP BID #100 gram 11/13/18 hydrocodone 5 mg-acetaminophen 325 1 tab PO Q6H PRN #20 tab 11/13/18 mg tablet lidocaine 1 patch TOP DAILY #15 each 11/13/18 Allergies Allergy/AdvReac Type Severity Reaction Status Date / Time ibuprofen [IBUPROFEN] Allergy Severe LARGE Verified 11/13/18 16:11 HIVES, ALL OVER BODY Iodine and Iodide Containing Allergy Severe THROAT Verified 11/13/18 16:11 Produc SWELLING [IODINE AND IODIDE AND WELTS CONTAINING PRODUC] shellfish derived Allergy Severe SEAFOOD, Verified 11/13/18 16:11 [SHELLFISH DERIVED] THROAT SWELLING Review of Systems <Nohemi Alvarenga, LACQUER MIXER-BC - Last Filed: 11/13/18 15:42> Review of Systems GENERAL: Denies chills, fatigue, malaise, fever, sweats. HEENT: Denies sinus pain, ear pain, sore throat, difficulty swallowing, dizziness. RESPIRATORY: Denies dyspnea, cough, wheezing, hemoptysis, sputum. CARDIOVASCULAR: Denies chest pain, palpitations, orthopnea, edema, GASTROINTESTINAL: Denies nausea, vomiting, abdominal pain, diarrhea, constipation, melena. : Denies dysuria, frequency, incontinence, hematuria, urinary retention. MUSCULOSKELETAL: See HPI SKIN: See HPI NEUROLOGIC: Denies weakness, headache, numbness, change in speech, confusion, seizures, incoordination. PSYCHIATRIC: No concerning psychosocial issues. 12 point review of systems is negative except for those stated above PFSH <ALESIA Hernández - Last Filed: 11/13/18 15:42> Medical History Asthma (Chronic) Bipolar disorder (Chronic) Depression (Chronic) Diabetes mellitus (Chronic) Diverticular disease (Chronic) Gout (Chronic) Hyperlipidemia (Chronic) Hypertension (Chronic) Impotence (Chronic) Insomnia (Chronic) Polio (Chronic) Sleep apnea (Chronic) Personal history of radiation therapy (Resolved) Surgical History Anesthesia (Resolved) History of incision and drainage (Resolved) History of prostate surgery (Resolved) Inguinal hernia (Resolved) Surgical procedure planned (Resolved) Status post eye surgery Status post tonsillectomy and adenoidectomy Family History Father Prostate cancer Mother CAD (coronary artery disease) Social History household members: spouse Smoking Status: Never smoker Social History household members: spouse Smoking Status: Never smoker Exam <ALESIA Hernández - Last Filed: 11/13/18 15:42> Narrative Exam Narrative: GENERAL: This is a well-nourished, well-developed patient, in mild distress. HEAD: Atraumatic. Normocephalic. No temporal or scalp tenderness. EYES: Pupils equal round and reactive. Extraocular motions intact. No scleral icterus. No injection or drainage. ENT: Nose without bleeding, purulent drainage or septal hematoma. Throat without erythema, tonsillar hypertrophy or exudate. Uvula midline. Airway patent. NECK: Trachea midline. No JVD or lymphadenopathy. Supple, nontender, no meningeal signs. RESPIRATORY: No cough. No increased respiratory effort. EXTREMITIES: Slight swelling of left knee. Generalized pain to palpation posterior aspect left knee. Negative posterior and anterior drawer test. Negative varus and valgus test. Pain and catching on Jose. Positive pedal pulses. BACK: Nontender without deformity or crepitance. No flank tenderness. NEURO: AOx3. SKIN: No rash, erythema, ecchymosis noted left knee. Initial Vital Signs Initial Vital Signs: Vital Signs Temperature 97.4 F L 11/13/18 12:53 Pulse Rate 92 H 11/13/18 12:53 Respiratory Rate 18 11/13/18 12:53 Blood Pressure 126/76 11/13/18 12:53 Pulse Oximetry 99 11/13/18 12:53 <Nohemi Abernathy DO - Last Filed: 11/17/18 07:12> Initial Vital Signs Initial Vital Signs: Vital Signs Temperature 97.4 F L 11/13/18 12:53 Pulse Rate 92 H 11/13/18 12:53 Respiratory Rate 18 11/13/18 12:53 Blood Pressure 126/76 11/13/18 12:53 Pulse Oximetry 99 11/13/18 12:53 Course <SHNANAN Hernández-BC - Last Filed: 11/13/18 15:42> Orders Ordered: ED Orders 11/13/18 13:29 US periph venous low extrem lt Stat XR knee LT 3V Stat Vital Signs - 8 hr 11/13/18 12:53 11/13/18 13:45 11/13/18 15:20 Temperature 97.4 F L Pulse Rate 92 H 74 65 Respiratory Rate 18 16 18 Blood Pressure 126/76 Blood Pressure [Left Arm] 136/72 135/75 Pulse Oximetry 99 99 100 <Nohemi Abernathy DO - Last Filed: 11/17/18 07:12> Orders Ordered: ED Orders 11/13/18 13:29 US periph venous low extrem lt Stat XR knee LT 3V Stat Vital Signs - 8 hr 11/13/18 12:53 11/13/18 13:45 11/13/18 15:20 Temperature 97.4 F L Pulse Rate 92 H 74 65 Respiratory Rate 18 16 18 Blood Pressure 126/76 Blood Pressure [Left Arm] 136/72 135/75 Pulse Oximetry 99 99 100 MDM - Extremity (Nontraumatic) <ALESIA Hernández - Last Filed: 11/13/18 15:42> Imaging Data Venous US: Radiologist's impression: [address] [address] Ultrasound Report Signed Patient: Hemanth Murphy RMR#: [id number] : [id number]:[id number] Age/Sex: 73 / MDate of Service: 11/13/18 Loc: ED Accession Number: [id number] Procedure: US periph venous low extrem lt Ordering Provider: Nohemi Alvarenga PROCEDURE: US PERIPH VENOUS LOW EXTREM LT INDICATIONS: pain, swelling, dec mobility TECHNIQUE: Real-time imaging, as well as color and pulse Doppler interrogation, were performed of the lower extremity deep veins from the inguinal ligament to the popliteal fossa. COMPARISON: None. FINDINGS: The common femoral, femoral and popliteal veins are normally compressible, and free of intraluminal thrombus. Color and pulse Doppler demonstrate normal phasic intraluminal flow. There is normal augmentation response to distal compression maneuver. Multiple mildly enlarged left inguinal lymph nodes are seen measures up to 3.7 x 1 x 2.3 cm in size. There are multiple fluid collection in the subcutaneous soft tissue anterior and superior to left patella measures 4.3 x 1.4 x 5.4 cm, and 6.7 x 3.6 x 1.2 cm in size. No internal vascularity is seen. IMPRESSION: 1. No evidence of DVT in visualized left lower extremity veins. 2. Prominent left inguinal lymph nodes as above. 3. 2 small fluid collections in the subcutaneous soft tissue anterior and superior to patella, which may represent hematoma. Dictated by: Faustino Martinez M.D. on 11/13/2018 at 14:14 Approved by: Faustino Martinez M.D. on 11/13/2018 at 14:19 knee xray : Radiologist's impression: [place] 73 M [address] [address] XRay Report Signed Patient: Hemanth Murphy RMR#: [id number] : 6Acct:[id number] Age/Sex: 73 / MDate of Service: 11/13/18 Loc: ED Accession Number: [id number] Procedure: XR knee LT 3V Ordering Provider: Nohemi Alvarenga-BC PROCEDURE: XR KNEE LT 3V INDICATIONS: left knee pain, swelling, dec rom TECHNIQUE: 3 views of the knee were acquired. COMPARISON: [facility], CR, XR KNEE LT 3V, 10/01/2018, 8:52. FINDINGS: Bones: Mild tricompartment osteoarthritis is seen. No fractures or dislocations. No suspicious bony lesions. Soft tissues: There is moderate to large joint effusion. No suspicious soft tissue calcifications. IMPRESSION: Mild tricompartment osteoarthritis. Moderate to large joint effusion. No fracture or dislocation. Dictated by: Faustino Martinez M.D. on 11/13/2018 at 14:19 Approved by: Faustino Martinez M.D. on 11/13/2018 at 14:20 MDM Narrative Medical decision making narrative: The patient is a 73-year-old male who presents with a chief complaint of left knee pain ongoing since September. is concerned about a DVT, which was ruled out by ultrasound. The he has no fractures on his x-ray. He does have a knee effusion. I discussed at length the rest ice compression elevation as well as follow up with Orthopedics for possible further workup including further imaging. I am concerned about soft tissue injury given his exam. I discussed Toradol, but the patient's renal function is decreased, so I gave him Voltaren gel as well as lidocaine patches. Patient and state understanding. Discussed return precautions to the emergency department including acute concerns. Able to ambulate outside the emergency department with a walker. Discharge Plan Departure Patient Disposition: Home Clinical Impression: Acute pain of left knee, Effusion of knee joint, left Discharge Date/Time: 11/13/18 15:25 Interventions: ED Discharge Assessment Last Done: 11/13/18 15:25 Instructions: How To Perform RICE (Rest, Ice, Compress, Elevate), DI for Knee Pain Activity Restrictions/Additional Instructions: Your ultrasound shows no blood clot. Your x-ray shows no fracture. Please follow up with orthopedics as we discussed. Please use rest ice compression elevation as well as pain medication as needed and able. You may need further imaging as well as specialist care. I am concerned about a soft tissue injury. come back to emergency department for any acute concerns. Prescriptions: New lidocaine 5 % adhesive patch,medicated 1 patch TOP DAILY Qty: 15 RF: 0 diclofenac sodium [Voltaren] 1 % gel 2 gram TOP BID Qty: 100 RF: 0 No Action testosterone cypionate [Depo-Testosterone] 200 MG/1 ML oil 300 mg IM Q3W Qty: 0 RF: 0 levetiracetam [Keppra] 1,000 mg tablet 1,000 mg PO BID Qty: 60 RF: 5 blood-glucose meter [Blood Glucose Monitoring] kit .ROUTE .MEDSUPPLY Qty: 1 RF: 0 lancets misc .ROUTE .MEDSUPPLY Qty: 100 RF: 11 blood sugar diagnostic [Blood Glucose Test] strip .ROUTE .MEDSUPPLY Qty: 100 RF: 11 lisinopril 20 mg tablet 40 mg PO BID Qty: 120 RF: 11 hydrocodone-acetaminophen [Cana] 5-325 mg tablet 1 tab PO Q6H PRN (Reason: pain) Qty: 20 RF: 0 Proventil HFA 90 mcg/actuation HFA aerosol inhaler 1 puff INHALATION Q6H PRN (Reason: shortness of breath or wheezing) Qty: 17 RF: 8 gabapentin [Neurontin] 300 mg capsule 300 mg PO BID Qty: 180 RF: 3 omeprazole 20 mg capsule,delayed release(DR/EC) 20 mg PO BID Qty: 60 RF: 2 atorvastatin 40 mg tablet 40 mg PO BEDTIME RF: 0 metformin 500 mg tablet 1,000 mg PO QPM RF: 0 glimepiride 2 mg tablet 2 mg PO QPM RF: 0 metformin [Glucophage] 500 mg tablet 1,500 mg PO QAM RF: 0 lamotrigine 200 mg tablet 200 mg PO DAILY RF: 0 aspirin 325 mg tablet 325 mg PO DAILY RF: 0 amlodipine [Norvasc] 5 mg tablet 10 mg PO DAILY RF: 0 glimepiride 2 mg tablet 4 mg PO QAM RF: 0 tamsulosin [Flomax] 0.4 mg capsule 0.4 mg PO BEDTIME RF: 0 montelukast 10 mg tablet 10 mg PO QPM RF: 0 duloxetine [Cymbalta] 60 mg capsule,delayed release(DR/EC) 120 mg PO BEDTIME RF: 0 Referrals: [facility] [Provider Group] Randal Guy MD [Primary Care Provider] - <Nohemi Abernathy DO - Last Filed: 11/17/18 07:12> Cosign ED Attending Cosignature Attestation: I was immediately available in the department for consultation. This documentation has been reviewed and I agree with assessment and plan. Supervised by Nohemi Abernathy DO
[2018-11-13 13:45] VITALS: BP 136/72; PULSE 74; RESP 16; O2SAT 99
[2018-11-13 15:20] VITALS: BP 135/75; PULSE 65; RESP 18; O2SAT 100
== END 2018-11-13 15:25 | disposition home or self-care (01) ==
PROVIDERS: Emergency Provider Nurse Practitioner Family; PCP Family Medicine
DX: M25.562 Pain in left knee (principal); M25.462 Effusion, left knee; M25.511 Pain in right shoulder; M19.011 Primary osteoarthritis, right shoulder
CPT/HCPCS: 73030; 73562; 93971; 99282; 99283

== ENCOUNTER → 2018-11-13 16:56 | Outpatient (CLI) | payer OTHER, SELFPAY ==
[2018-08-12 12:44] VITALS: BMI 28.7
--- NOTE | 2018-11-13 16:58 | DI.RAD.S_ITS ---
PROCEDURE: XR SHOULDER RT MIN 2V INDICATIONS: pain TECHNIQUE: 3 views of the shoulder were acquired. COMPARISON: None. FINDINGS: Bones: Moderate acromioclavicular joint and glenohumeral joint osteoarthritis is seen. No fractures or dislocations. No suspicious bony lesions. Visualized ribs appear intact. Soft tissues: No suspicious soft tissue calcifications. IMPRESSION: Moderate right shoulder joint osteoarthritis. Dictated by: Faustino Martinez M.D. on 11/13/2018 at 17:26 Approved by: Faustino Martinez M.D. on 11/13/2018 at 17:32
== END ==
PROVIDERS: PCP Family Medicine; Visit Provider Family Medicine
DX: M19.011 Primary osteoarthritis, right shoulder (principal)
CPT/HCPCS: 73030

== ENCOUNTER → 2018-11-24 16:35 | Outpatient (CLI) | payer OTHER, SELFPAY ==
[2018-08-12 12:44] VITALS: BMI 28.7
[2018-11-24 18:58] LABS: Testosterone 45.5 ng/dL (71.8-623)
== END ==
PROVIDERS: PCP Family Medicine; Visit Provider Family Medicine
DX: E34.9 Endocrine disorder, unspecified (principal)
CPT/HCPCS: 36415; 84403

== ENCOUNTER → 2018-11-26 06:59 | Outpatient (CLI) | payer OTHER, SELFPAY ==
[2018-08-12 12:44] VITALS: BMI 28.7
--- NOTE | 2018-11-26 07:09 | DI.MRI.S_ITS ---
PROCEDURE: MR SHOULDER RT WO CON INDICATIONS: pain TECHNIQUE: Noncontrast oblique coronal T2 fast spin echo with fat saturation, oblique sagittal T1 spin echo and T2 fast spin echo with fat saturation, axial T1 spin echo and T2 fast spin echo with fat saturation through the shoulder. COMPARISON: [facility], MR, SHOULDER WITHOUT CONTRAST, 04/25/2012, 8:12. FINDINGS: Image quality: Excellent. Rotator cuff: There is full thickness rupture involving most anterior fibers of the distal supraspinatus at its insertion on femoral head with 9 mm medial retraction of torn tendon fibers. Tendinosis and moderately articular surface partial-thickness tear involving mid to posterior fibers of the distal supraspinatus and infraspinatus at their insertion on greater tuberosity of humeral head extending to the musculotendinous junction. Tendinosis and low-grade intrasubstance partial thickness involving distal subscapularis is seen. Sagittal images demonstrate mild supraspinatus muscle atrophy. Bones and bursae: No bone marrow contusions or fractures. Moderate acromioclavicular joint and glenohumeral joint osteoarthritis is seen.. Moderate amount of subacromial-subdeltoid fluid and joint effusion is present. Capsule and soft tissues: In the absence of intra-articular contrast, there is suggestion of superior anterior labral tear at 12 to 2:00 position. The glenohumeral ligaments appear intact. The long head of the biceps tendon demonstrates normal location and morphology. The rotator interval appears normal, without fibrosis. The coracohumeral ligament is normal in thickness. IMPRESSION: 1. Focal full-thickness perforation involving most anterior fibers of the distal supraspinatus at its insertion the humeral head with a 9 mm medial retraction of torn tendon fibers. Tendinosis of moderately articular surface partial-thickness tear involving rest of supraspinatus and infraspinatus. Tendinosis and low to moderate grade intrasubstance partial thickness involving the distal subscapularis. Mild supraspinatus muscle atrophy. 2. Moderate acromioclavicular joint and glenohumeral joint osteoarthritis. Moderate amount of joint effusion and subacromial subdeltoid bursal fluid. 3. Suggestion of superior anterior labral tear from 12 to 2:00 position. Dictated by: Faustino Martinez M.D. on 11/26/2018 at 9:05 Approved by: Faustino Martinez M.D. on 11/26/2018 at 9:15
--- NOTE | 2018-11-26 07:09 | DI.MRI.S_ITS ---
PROCEDURE: MR KNEE LT WO CON INDICATIONS: pain TECHNIQUE: Noncontrast sagittal PD fast spin echo and T2 fast spin echo with fat saturation, sagittal 3-D FLASH with fat saturation; coronal T1 spin echo and PD fast spin echo with fat saturation, and axial PD fast spin echo with fat saturation through the knee. COMPARISON: None. FINDINGS: Image quality: Excellent. Menisci: Medial meniscal tear involving the body and posterior horn, with abnormal signal extending to the free margin and undersurface. There is also mild truncation of the free margin of the body. Lateral meniscal tear also present, with truncation of the free margin of the body as well as abnormal signal extending to the superior to the surface. There is also partial extrusion. Cruciate ligaments: Anterior cruciate ligament grossly intact although mild thickening and increased intrasubstance T2 hyperintensity suggestive of low-grade mucoid degeneration or essentially age-indeterminate mild sprain. The PCL appears intact Medial structures: The medial collateral ligament appears intact. Prominent soft tissue edema is seen adjacent to the sella raise the possibility of low-grade sprain. The posterior oblique ligament, semimembranosus tendon insertions, oblique popliteal ligament, and meniscocapsular junction appear intact. Visualized portions of the pes anserinus tendons appear normal although there is adjacent fluid raising the possibility of mild bursitis. Lateral structures: Mild age indeterminate low-grade sprain of the proximal lateral collateral ligament. The long and short heads of the biceps femoris tendon appear intact. The popliteus tendon appears normal; the popliteofibular ligament appears intact. The posterosuperior and anteroinferior popliteomeniscal fascicles appear intact. The arcuate and fabellofibular ligaments appear intact, on either side of the lateral inferior geniculate artery. Iliotibial band appears normal. Anterior structures: Quadriceps tendon intact. Low-grade proximal and distal patellar tendinopathy with mild thickening and adjacent soft tissue edema. Bones and cartilage: No focal marrow contusion or discrete low signal fracture line. Within the medial compartment, diffuse partial-thickness loss of the femoral and tibial articular cartilage without focal defect. Within the lateral compartment, diffuse partial-thickness loss of the femoral and tibial articular cartilage. Within the patellofemoral compartment, evaluation limited by motion artifact on the axial pulse sequence. There is probable diffuse surface fraying of the patellar and femoral trochlear cartilage. Joint space: Moderate joint effusion is seen. No specific evidence of intra-articular loose body identified. Trace Munoz's cyst is seen measuring 1 cm in the cephalocaudad dimension. Subcutaneous edema adjacent to the lateral aspect of the fibular head. IMPRESSION: Medial meniscal tear involving the body and posterior horn. Lateral meniscal tear involving the body, with partial extrusion. Mild signal changes and thickening involving the ACL suggestive of chronic low-grade mucoid degeneration or age-indeterminate mild sprain. Mild degenerative joint disease. Low-grade proximal and distal patellar tendinopathy. Moderate joint effusion. Trace Munoz's cyst. Mild soft tissue edema adjacent to the MCL, which could be reactive to meniscal pathology versus mild sprain. The MCL is otherwise intact. Dictated by: Jose Maria Sinha M.D. on 11/26/2018 at 9:49 Approved by: Jose Maria Sinha M.D. on 11/26/2018 at 9:59
== END ==
PROVIDERS: PCP Family Medicine; Visit Provider Family Medicine
DX: M25.511 Pain in right shoulder (principal); M75.121 Complete rotator cuff tear or rupture of right shoulder, not specified as traumatic; M19.011 Primary osteoarthritis, right shoulder; M25.562 Pain in left knee; S83.242A Other tear of medial meniscus, current injury, left knee, initial encounter; S83.282A Other tear of lateral meniscus, current injury, left knee, initial encounter; M17.12 Unilateral primary osteoarthritis, left knee; M25.462 Effusion, left knee; M67.962 Unspecified disorder of synovium and tendon, left lower leg
CPT/HCPCS: 73221; 73721

== ENCOUNTER 2018-12-05 06:51 | Day surgery (SDC) | payer OTHER, SELFPAY ==
[2018-08-12 12:44] VITALS: BMI 28.7
[2018-12-05 07:26] VITALS: BP 148/84; PULSE 79; RESP 15; TEMP 36.4; O2SAT 100; BMI 60.4
[2018-12-05] MEDS: SODIUM CHLORIDE 0.9% 1,000 ML 200 ML IV (07:40)
[2018-12-05] MEDS: LIDOCAINE 4% SOLN 50 ML 20 ML TOP (07:47)
[2018-12-05] MEDS: TETRACAINE/BENZOCAINE/BUTAMBEN (CETACAINE) BOTTLE 1 SPRAY TOP (07:47)
--- NOTE | 2018-12-05 07:48 | P.HP_ITS ---
History of Present Illness Date Patient Seen: 12/05/18 Time Patient Seen: 07:40 Chief complaint: [id number] EGD Narrative: Patient is a man here for a repeat EGD to confirm healing of gastric ulcers. Last scope was in July Patient History Medical History Obstructive sleep apnea of adult (Chronic) Hypersomnia (Chronic) Asthma (Chronic) Bipolar disorder (Chronic) Depression (Chronic) Diabetes mellitus (Chronic) Diverticular disease (Chronic) Gout (Chronic) Hyperlipidemia (Chronic) Hypertension (Chronic) Impotence (Chronic) Insomnia (Chronic) Polio (Chronic) Sleep apnea (Chronic) Personal history of radiation therapy (Resolved) Surgical History Anesthesia (Resolved) History of incision and drainage (Resolved) History of prostate surgery (Resolved) Inguinal hernia (Resolved) Surgical procedure planned (Resolved) Status post eye surgery Status post tonsillectomy and adenoidectomy Family History Father Prostate cancer Mother CAD (coronary artery disease) Social History (Updated 11/27/18 @ 18:26 by ALEJANDRO Ramsey) marital status: details: to , lives in [place] household members: spouse lives independently: Yes caregiver/support person: No housing: house education level: master's degree Previous occupational history: law enforcement Smoking Status: Never smoker alcohol intake: never substance use type: does not use Family & Social History Family History Father Prostate cancer Mother CAD (coronary artery disease) Social History: household members spouse lives independently Yes caregiver/support person No Tobacco & Substance use: Smoking Status Never smoker alcohol intake never alcohol intake frequency holiday/special occasion Substance Use Type does not use Meds Home Medications Medication Instructions Recorded Confirmed Type blood-glucose meter kit #1 each 07/17/18 11/27/18 Rx lancets #100 each 07/17/18 11/27/18 Rx blood sugar diagnostic strips #100 each 07/18/18 11/27/18 Rx omeprazole 20 mg capsule,delayed 20 mg PO BID #60 cap 08/20/18 12/05/18 Rx release albuterol sulfate HFA 90 1 puff INHALATION Q6H PRN #17 gram 09/23/18 12/05/18 Rx mcg/actuation aerosol inhaler gabapentin 300 mg capsule 300 mg PO BID #180 cap 09/23/18 12/05/18 Rx lisinopril 20 mg tablet 40 mg PO BID #120 tab 10/13/18 12/05/18 Rx amlodipine [Norvasc] 10 mg PO DAILY 11/13/18 12/05/18 History aspirin 325 mg PO DAILY 11/13/18 12/05/18 History atorvastatin 40 mg PO BEDTIME 11/13/18 12/05/18 History diclofenac sodium [Voltaren] 2 gram TOP BID #100 gram 11/13/18 12/05/18 Rx duloxetine [Cymbalta] 120 mg PO BEDTIME 11/13/18 12/05/18 History glimepiride 2 mg PO QPM 11/13/18 12/05/18 History glimepiride 4 mg PO QAM 11/13/18 12/05/18 History hydrocodone 5 mg-acetaminophen 325 1 tab PO Q6H PRN #20 tab 11/13/18 12/05/18 Rx mg tablet lamotrigine 200 mg PO DAILY 11/13/18 12/05/18 History lidocaine 1 patch TOP DAILY #15 each 11/13/18 12/05/18 Rx metformin 1,000 mg PO QPM 11/13/18 12/05/18 History metformin [Glucophage] 1,500 mg PO QAM 11/13/18 12/05/18 History montelukast 10 mg PO QPM 11/13/18 12/05/18 History tamsulosin [Flomax] 0.4 mg PO BEDTIME 11/13/18 12/05/18 History testosterone cypionate 200 mg/mL 350 mg IM Q2W ml 11/26/18 12/05/18 History intramuscular oil Respironics Dreamstation BIPAP #1 ea 11/27/18 11/27/18 History levetiracetam 1,000 mg tablet 1,000 mg PO BID #60 tab 12/04/18 12/05/18 Rx Allergies Allergy/AdvReac Type Severity Reaction Status Date / Time ibuprofen [IBUPROFEN] Allergy Severe LARGE Verified 12/05/18 07:42 HIVES, ALL OVER BODY Iodine and Iodide Containing Allergy Severe THROAT Verified 12/05/18 07:43 Produc SWELLING [IODINE AND IODIDE AND WELTS CONTAINING PRODUC] shellfish derived Allergy Severe SEAFOOD, Verified 12/05/18 07:43 [SHELLFISH DERIVED] THROAT SWELLING Review of Systems Review of Systems All systems reviewed & are unremarkable except as noted in HPI and below Exam Vital Signs (past 8 hours): - 12/05/18 07:26 Temperature 97.5 F L Pulse Rate 79 Respiratory Rate 15 Blood Pressure 148/84 H Pulse Oximetry 100 Oxygen Delivery Method Room Air Narrative Exam Narrative: Pleasant cooperative patient no apparent distress. Lungs are clear to auscultation. No rales or rhonchi. Heart regular rate and rhythm no murmur gallop. Abdomen is soft protuberant nontender without mass. No obvious hernias. Patient is alert and oriented x3. Assessment & Plan Assessment & Plan narrative: The patient for an egd.. I have discussed the procedure with them. Risks of bleeding, perforation which would necessitate major operation, were discussed. He wishes to proceed
--- NOTE | 2018-12-05 07:48 | PM.PREOP ---
Pre-operative Note Interval Note History & Physical reviewed/Exam performed by Physician: Yes Changes to H&P: No ASA Class (for procedural sedation): II
[2018-12-05] MEDS: fentaNYL 250 MCG/5 ML INJ IV (08:08)
[2018-12-05] MEDS: MIDAZOLAM 5 MG/5 ML VIAL IV (08:08)
--- NOTE | 2018-12-05 08:08 | PM.OP.ENDO ---
Operative Date/Time/Diagnoses Date of procedure: 12/05/18 Time of procedure: 08:08 Pre-op diagnosis: History of ulcers of the duodenum with upper GI bleed Post-op diagnosis: same (Ulcers have healed) Procedure & Clinicians Study performed: EGD Same procedure as scheduled: Yes Indications: Patient had an upper GI bleed. He had no abdominal complaints prior to that bleed. He was found to have duodenal ulcers. He is brought back to evaluate his upper tract for healing as he had no symptoms prior to his bleeding at the last exam. Surgeon: Scott Vasquez Procedure Notes SCOAP/Timeout: Performed Procedure in detail: The patient had topical anesthetic applied to oropharynx. She was placed in left lateral decubitus position and underwent IV sedation directed by the surgeon consisting of fentanyl and Versed. A bite block was inserted and the scope was advanced through it into the esophagus. The esophagus was unremarkable. GE junction was noted at 38 cm from the incisors. 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 The stomach insufflated well. There were no lesions seen in the body, antrum or at the incisura. The pyloric channel was widely patent. The duodenum was unremarkable to the 4th part. The scope was brought back into the stomach and retroflexed. The proximal stomach was remarkable for small hiatal hernia visible from below but not apparent from above. The scope was straightened and brought out through the esophagus again. In the proximal esophagus around 20 cm from the incisors there were some raised dilated veins that were isolated like small bubbles. The scope was removed and the patient tolerated the procedure well. Scope withdrawal time: Not applicable Sedation minutes: 17 Findings: hiatal hernia (Small) and other findings (Healed ulcers. Normal exam except for small hiatal hernia.) Specimen(s): none sent Complications: none Recommendations: EGD in 1 year (Due to Castillo's esophagus) Plan for aftercare: Will continue some form of acid suppression. May switch to a H2 lashanda. Disposition: PACU
[2018-12-05 08:15] VITALS: BP 133/77; PULSE 71; RESP 13; TEMP 37; O2SAT 91
[2018-12-05 08:17] VITALS: BP 125/71; PULSE 70; RESP 11; O2SAT 96
[2018-12-05 08:22] VITALS: BP 114/65; PULSE 66; RESP 10; O2SAT 96
[2018-12-05 08:27] VITALS: BP 128/71; PULSE 74; RESP 9; O2SAT 92
[2018-12-05 08:35] VITALS: BP 127/75; PULSE 75; RESP 18; TEMP 36.7; O2SAT 93
== END 2018-12-05 08:53 | disposition home or self-care (01) ==
PROVIDERS: PCP Family Medicine; Visit Provider Specialist
PROC: 0DJ08ZZ Inspection of Upper Intestinal Tract, Via Natural or Artificial Opening Endoscopic (ICD-10-PCS; CPT 43235; principal; 2018-12-05 07:45)
DX: Z87.19 Personal history of other diseases of the digestive system (principal); K44.9 Diaphragmatic hernia without obstruction or gangrene; K22.70 Barrett's esophagus without dysplasia; G47.33 Obstructive sleep apnea (adult) (pediatric); J45.909 Unspecified asthma, uncomplicated; E78.5 Hyperlipidemia, unspecified; I10 Essential (primary) hypertension
CPT/HCPCS: 43235; 99152; J2250; J3010

== ENCOUNTER → 2018-12-16 07:44 | Outpatient (CLI) | payer OTHER, SELFPAY ==
[2018-08-12 12:44] VITALS: BMI 28.7
[2018-12-16 09:19] LABS: Hemoglobin A1C% w Est Avg Glu 8.6 % (4.0-6.0)
[2018-12-16 09:20] LABS: Alanine Aminotransferase 22 IU/L (21-72); Albumin 4.2 g/dL (3.5-5.0); Albumin Globulin Ratio 1.4 (1.0-2.8); Alkaline Phosphatase 88 U/L (38-126); Aspartate Aminotransferase 20 IU/L (17-59); BUN Creatinine Ratio 13.1 (6-22); Bilirubin Total 0.7 mg/dL (0.2-1.3); Blood Urea Nitrogen 17 mg/dL (9-20); Calcium 10.6 mg/dL (8.4-10.2); Carbon Dioxide 28 mmol/L (22-32); Chloride 101 mmol/L (98-107); Cholesterol 81 mg/dL (140-199); Estimated Glomerular Filt Rate 54.3 mL/min (>60); Globulin 2.9 g/dL (1.7-4.1); Glucose 118 mg/dL (80-110); HDL Cholesterol 21 mg/dL (40-60); HEMOLYSIS 25 (0-50); LDL Cholesterol Calculated 29 mg/dL (<100); Potassium 4.4 mmol/L (3.4-5.1); Sodium 140 mmol/L (137-145); Total Protein 7.1 g/dL (6.3-8.2); Triglycerides 157 mg/dL (35-150)
[2018-12-16 09:34] LABS: Creatinine Urine Random 104.2 mg/dL
[2018-12-16 09:39] LABS: Microalbumi Creatinin Ratio Ur 27.8 ug/mg CR (<30); Microalbumin Urine Random 2.9 mg/dL (0-1.6)
[2018-12-16 09:48] LABS: Prostate Specific Antigen Scrn 0.255 ng/mL (0.1-4.0)
== END ==
PROVIDERS: PCP Family Medicine; Visit Provider Family Medicine
DX: E11.9 Type 2 diabetes mellitus without complications (principal); E34.9 Endocrine disorder, unspecified; Z12.5 Encounter for screening for malignant neoplasm of prostate
CPT/HCPCS: 36415; 80053; 80061; 82043; 82570; 83036; 84403; 84443; G0103

== ENCOUNTER → 2019-02-10 11:11 | Outpatient (CLI) | payer OTHER, SELFPAY ==
[2018-08-12 12:44] VITALS: BMI 28.7
[2019-02-10 12:23] LABS: Hemoglobin A1C% w Est Avg Glu 6.7 % (4.0-6.0)
[2019-02-10 12:33] LABS: HEMOLYSIS < 15 (0-50)
[2019-02-10 12:41] LABS: BUN Creatinine Ratio 11.3 (6-22); Blood Urea Nitrogen 18 mg/dL (9-20); Calcium 10.6 mg/dL (8.4-10.2); Carbon Dioxide 26 mmol/L (22-32); Chloride 100 mmol/L (98-107); Estimated Glomerular Filt Rate 42.7 mL/min (>60); Glucose 119 mg/dL (80-110); Potassium 4.9 mmol/L (3.4-5.1); Sodium 140 mmol/L (137-145)
== END ==
PROVIDERS: PCP Family Medicine; Visit Provider Family Medicine
DX: E11.9 Type 2 diabetes mellitus without complications (principal)
CPT/HCPCS: 36415; 80048; 83036; 84403

== ENCOUNTER → 2019-04-07 08:56 | Outpatient (CLI) | payer OTHER, SELFPAY ==
[2018-08-12 12:44] VITALS: BMI 28.7
[2019-04-07 09:58] LABS: Blood Urea Nitrogen 16 mg/dL (9-20); Calcium 10.2 mg/dL (8.4-10.2); Carbon Dioxide 28 mmol/L (22-32); Chloride 100 mmol/L (98-107); Estimated Glomerular Filt Rate 42.7 mL/min (>60); Glucose 108 mg/dL (80-110); HEMOLYSIS < 15 (0-50); Potassium 4.3 mmol/L (3.4-5.1); Sodium 138 mmol/L (137-145)
== END ==
PROVIDERS: PCP Family Medicine; Visit Provider Family Medicine
DX: E11.9 Type 2 diabetes mellitus without complications (principal)
CPT/HCPCS: 36415; 80048; 83036

== ENCOUNTER → 2019-06-23 14:15 | Outpatient (CLI) | payer OTHER, SELFPAY ==
[2018-08-12 12:44] VITALS: BMI 28.7
[2019-06-23 14:40] LABS: Hemoglobin A1C% w Est Avg Glu 7.1 % (4.0-6.0)
[2019-06-23 15:25] LABS: BUN Creatinine Ratio 7.9 (6-22); Blood Urea Nitrogen 15 mg/dL (9-20); Calcium 10.8 mg/dL (8.4-10.2); Carbon Dioxide 30 mmol/L (22-32); Chloride 97 mmol/L (98-107); Glucose 58 mg/dL (80-110); HEMOLYSIS < 15 (0-50); Potassium 4.7 mmol/L (3.4-5.1); Sodium 138 mmol/L (137-145)
[2019-06-23 16:15] LABS: Creatinine Urine Random 249.8 mg/dL
[2019-06-23 16:19] LABS: Microalbumi Creatinin Ratio Ur 65.6 ug/mg CR (<30); Microalbumin Urine Random 16.4 mg/dL (0-1.6)
== END ==
PROVIDERS: PCP Family Medicine; Visit Provider Family Medicine
DX: E11.9 Type 2 diabetes mellitus without complications (principal)
CPT/HCPCS: 36415; 80048; 82043; 82570; 83036

== ENCOUNTER → 2019-09-21 11:20 | Outpatient (CLI) | payer OTHER, SELFPAY ==
[2018-08-12 12:44] VITALS: BMI 28.7
[2019-09-21 12:14] LABS: BUN Creatinine Ratio 11.7 (6-22); Blood Urea Nitrogen 21 mg/dL (9-20); Calcium 10.9 mg/dL (8.4-10.2); Carbon Dioxide 28 mmol/L (22-32); Chloride 99 mmol/L (98-107); Estimated Glomerular Filt Rate 37.2 mL/min (>60); Glucose 135 mg/dL (80-110); HEMOLYSIS < 15 (0-50); Potassium 5.3 mmol/L (3.4-5.1); Sodium 138 mmol/L (137-145)
[2019-09-21 12:55] LABS: Creatinine Urine Random 102.8 mg/dL
[2019-09-21 13:01] LABS: Microalbumi Creatinin Ratio Ur 153.6 ug/mg CR (<30); Microalbumin Urine Random 15.8 mg/dL (0-1.6)
[2019-09-24 16:49] LABS: Testosterone Free 586.9 pg/mL (30.0-135.0); Testosterone Total 1643 ng/dL (250-1100)
== END ==
PROVIDERS: Nurse Practitioner; PCP Family Medicine; Referring Provider Family Medicine; Visit Provider Family Medicine
DX: E29.1 Testicular hypofunction (principal); E11.9 Type 2 diabetes mellitus without complications
CPT/HCPCS: 36415; 80048; 82043; 82570; 83036; 84402; 84403

== ENCOUNTER → 2019-12-17 12:28 | Outpatient (CLI) | payer OTHER, SELFPAY ==
[2018-08-12 12:44] VITALS: BMI 28.7
[2019-12-17 13:25] LABS: Hemoglobin A1C% w Est Avg Glu 7.5 % (4.0-6.0)
[2019-12-17 13:30] LABS: BUN Creatinine Ratio 11.9 (6-22); Blood Urea Nitrogen 22 mg/dL (9-20); Calcium 10.7 mg/dL (8.4-10.2); Carbon Dioxide 28 mmol/L (22-32); Chloride 99 mmol/L (98-107); Glucose 246 mg/dL (80-110); HEMOLYSIS < 15 (0-50); Potassium 4.9 mmol/L (3.4-5.1); Sodium 138 mmol/L (137-145)
[2019-12-17 13:37] LABS: Creatinine Urine Random 156.2 mg/dL
[2019-12-17 14:03] LABS: Testosterone 722 ng/dL (71.8-623)
[2019-12-17 14:06] LABS: Microalbumi Creatinin Ratio Ur 190.7 ug/mg CR (<30); Microalbumin Urine Random 29.8 mg/dL (0-1.6)
== END ==
PROVIDERS: PCP Family Medicine; Referring Provider Family Medicine; Visit Provider Family Medicine
DX: E11.9 Type 2 diabetes mellitus without complications (principal)
CPT/HCPCS: 36415; 80048; 82043; 82570; 83036; 84403

== ENCOUNTER → 2020-02-06 14:43 | Outpatient (CLI) | payer OTHER, SELFPAY ==
[2018-08-12 12:44] VITALS: BMI 28.7
[2020-02-07 08:14] LABS: COVID19 Sendout Not Detected (Not Detect)
== END ==
PROVIDERS: PCP Family Medicine; Visit Provider Nurse Practitioner
DX: Z01.812 Encounter for preprocedural laboratory examination (principal)
CPT/HCPCS: 87635

== ENCOUNTER 2020-02-09 07:32 | Day surgery (SDC) | payer OTHER, SELFPAY ==
[2018-08-12 12:44] VITALS: BMI 28.7
[2020-02-09 07:57] VITALS: BP 167/80; PULSE 68; RESP 16; TEMP 36.3; O2SAT 98; BMI 27.8
[2020-02-09] MEDS: LACTATED RINGERS 1,000 ML 42 ML IV (08:00)
--- NOTE | 2020-02-09 08:29 | PM.HP.1 ---
History of Present Illness History of Present Illness Date Patient Seen: 02/09/20 Time Patient Seen: 08:29 Chief complaint: [id number] Narrative: The patient is a gentleman who has a history of peptic ulcer disease. He is here to confirm healing. He was relatively asymptomatic prior to the diagnosis. Patient History Medical History Asthma (Chronic) Bipolar disorder (Chronic) Depression (Chronic) Diabetes mellitus (Chronic) Diverticular disease (Chronic) Gout (Chronic) Hyperlipidemia (Chronic) Hypersomnia (Chronic) Hypertension (Chronic) Impotence (Chronic) Insomnia (Chronic) Obstructive sleep apnea of adult (Chronic) Personal history of radiation therapy (Resolved) Polio (Chronic) Sleep apnea (Chronic) Surgical History Anesthesia (Resolved) History of incision and drainage (Resolved) History of prostate surgery (Resolved) Inguinal hernia (Resolved) Status post eye surgery Status post tonsillectomy and adenoidectomy Surgical procedure planned (Resolved) Family & Social History Family History Father Prostate cancer Mother CAD (coronary artery disease) Social History: household members spouse lives independently Yes caregiver/support person No Tobacco & Substance use: Smoking Status Never smoker alcohol intake never alcohol intake frequency holiday/special occasion Substance Use Type does not use Meds Home Medications and Allergies Home Medications Medication Instructions Recorded Confirmed Type blood-glucose meter #1 each 07/17/18 01/20/20 Rx lancets #100 each 07/17/18 01/20/20 Rx diclofenac sodium [Voltaren] 2 gram TOP BID #100 gram 11/13/18 01/20/20 Rx Respironics Dreamstation BIPAP #1 ea 11/27/18 01/20/20 History albuterol sulfate 90 mcg/actuation 1 puff INHALATION Q6H PRN #17 gram 02/20/19 02/09/20 Rx aerosol inhaler aspirin 325 mg tablet 325 mg PO DAILY #90 tab 06/18/19 02/09/20 Rx blood sugar diagnostic #100 each 08/20/19 01/20/20 Rx montelukast 10 mg tablet 10 mg PO QPM #90 tab 09/05/19 02/09/20 Rx clotrimazole-betamethasone 1 1 applictn TOP BID 14 Days #45 gram 09/23/19 02/09/20 Rx %-0.05 % topical cream miscellaneous medical supply #1 each 10/26/19 01/20/[address] permit #1 each 10/28/19 01/20/20 Rx atorvastatin 40 mg tablet See Rx Instructions .ROUTE 11/11/19 02/09/20 Rx .COMPLEX #90 tablet glimepiride 2 mg tablet See Rx Instructions .ROUTE 11/11/19 02/09/20 Rx .COMPLEX #360 tablet gabapentin 300 mg capsule See Rx Instructions PO .COMPLEX 12/23/19 02/09/20 Rx #270 cap lisinopril 20 mg tablet See Rx Instructions .ROUTE 12/23/19 12/23/19 Rx .COMPLEX #120 tablet testosterone cypionate 200 mg/mL 150 mg IM Q2W #1 ml 12/23/19 02/09/20 Rx intramuscular oil omeprazole 20 mg capsule,delayed 20 mg PO DAILY #30 cap 12/30/19 02/09/20 Rx release flash glucose scanning reader #1 each 01/20/20 01/20/20 History metformin 500 mg tablet 500 mg PO QAM tab 01/20/20 02/09/20 History semaglutide 1 mg/dose (2 mg/1.5 1 mg SUBCUT QWEEK 01/20/20 02/09/20 History mL) subcutaneous pen injector amlodipine 5 mg tablet 10 mg PO DAILY #180 tab 02/03/20 02/09/20 Rx lamotrigine 200 mg tablet 200 mg PO DAILY #90 tab 02/03/20 02/09/20 Rx levetiracetam 1,000 mg tablet See Rx Instructions .ROUTE 02/03/20 Rx .COMPLEX #180 tab tamsulosin 0.4 mg capsule 0.4 mg PO BEDTIME #90 cap 02/03/20 02/09/20 Rx vortioxetine 20 mg tablet 20 mg PO DAILY #90 tab 02/03/20 02/09/20 Rx Allergies Allergy/AdvReac Type Severity Reaction Status Date / Time ibuprofen [IBUPROFEN] Allergy Severe LARGE Verified 02/06/20 14:54 HIVES, ALL OVER BODY Iodine and Iodide Containing Allergy Severe THROAT Verified 02/06/20 14:54 Produc SWELLING [IODINE AND IODIDE AND WELTS CONTAINING PRODUC] shellfish derived Allergy Severe SEAFOOD, Verified 02/06/20 14:54 [SHELLFISH DERIVED] THROAT SWELLING Review of Systems Review of Systems Narrative: Blood sugars well controlled ROS: Yes All systems reviewed with the patient and are negative except as otherwise documented Exam Vital Signs (past 8 hours): - 02/09/20 07:57 Temperature 97.4 F L Pulse Rate 68 Respiratory Rate 16 Blood Pressure 167/80 H Pulse Oximetry 98 Oxygen Delivery Method Room Air Narrative Exam Narrative: No apparent distress. Lungs are clear no rales or rhonchi heart regular rate and rhythm without murmur gallop abdomen is protuberant soft nontender without mass patient has no nodes in his neck or supraclavicular areas. He is alert and oriented. Assessment & Plan Assessment & Plan narrative: Patient for an EGD to confirm healing of ulcers. I have discussed the procedure including risks of bleeding and perforation. He appears to understand and wishes to proceed.
--- NOTE | 2020-02-09 08:32 | PM.PREOP ---
Pre-operative Note COVID-19 COVID-19 status: Negative Result date/Date tested (Pos, Neg/Pending): 02/06/20 Interval Note History & Physical reviewed/Exam performed by Physician: Yes Changes to H&P: No ASA Class (for procedural sedation): III
--- NOTE | 2020-02-09 08:53 | PM.OP.ENDO ---
Operative Date/Time/Diagnoses Date of procedure: 02/09/20 Time of procedure: 08:53 Pre-op diagnosis: History of peptic ulcer disease with minimal symptoms Post-op diagnosis: same (Ulcers have healed) Procedure & Clinicians Study performed: EGD Same procedure as scheduled: Yes Indications: Follow-up exam to confirm healing Surgeon: Scott Vasquez Procedure Notes SCOAP/Timeout: Performed Procedure in detail: The patient had topical anesthetic applied to oropharynx. She was placed in left lateral decubitus position and underwent IV sedation directed by the surgeon consisting of fentanyl and Versed. A bite block was inserted and the scope was advanced through it into the esophagus. The esophagus was unremarkable. GE junction was noted at 39 cm from the incisors. The stomach insufflated well. There were no lesions seen in the body, antrum or at the incisura. The pyloric channel was widely patent. The duodenum was unremarkable to the 4th part. The scope was brought back into the stomach and retroflexed. The proximal stomach normal in appearance. No evidence of a hiatal hernia.. The scope was straightened and brought out through the esophagus again. No lesions were seen. The scope was removed and the patient tolerated the procedure well. Scope withdrawal time: Not applicable Sedation minutes: 8 Specimen(s): none sent Complications: none Impression: Normal examination Post-procedure Recommendations: Stop medication(s) (Omeprazole may be stopped) Follow up: as needed Disposition: PACU
[2020-02-09] MEDS: fentaNYL 250 MCG/5 ML INJ IV (08:55)
[2020-02-09] MEDS: MIDAZOLAM 5 MG/5 ML VIAL IV (08:56)
[2020-02-09] MEDS: LIDOCAINE 4% SOLN 50 ML 20 ML TOP (08:57)
[2020-02-09 08:58] VITALS: BP 141/79; PULSE 62; RESP 14; TEMP 36.6; O2SAT 94
[2020-02-09 09:06] VITALS: BP 141/81; PULSE 58; RESP 16; O2SAT 94
[2020-02-09 09:10] VITALS: BP 138/81; PULSE 67; RESP 16; O2SAT 96
[2020-02-09 09:12] VITALS: BP 139/84; PULSE 64; RESP 16; TEMP 37; O2SAT 94
== END 2020-02-09 09:45 | disposition home or self-care (01) ==
PROVIDERS: PCP Family Medicine; Referring Provider Specialist; Visit Provider Specialist
PROC: 0DJ08ZZ Inspection of Upper Intestinal Tract, Via Natural or Artificial Opening Endoscopic (ICD-10-PCS; CPT 43235; principal; 2020-02-09 08:45)
DX: Z87.11 Personal history of peptic ulcer disease (principal); J45.909 Unspecified asthma, uncomplicated; I10 Essential (primary) hypertension; E78.5 Hyperlipidemia, unspecified; E11.9 Type 2 diabetes mellitus without complications; Z79.4 Long term (current) use of insulin; G47.33 Obstructive sleep apnea (adult) (pediatric)
CPT/HCPCS: 43235; 99152; J2250; J3010

== ENCOUNTER → 2020-02-11 09:36 | Outpatient (CLI) | payer OTHER, SELFPAY ==
[2018-08-12 12:44] VITALS: BMI 28.7
[2020-02-11 10:22] LABS: Hemoglobin A1C% w Est Avg Glu 7.3 % (4.0-6.0)
[2020-02-11 11:03] LABS: BUN Creatinine Ratio 12.6 (6-22); Blood Urea Nitrogen 19 mg/dL (9-20); Calcium 10.3 mg/dL (8.4-10.2); Carbon Dioxide 29 mmol/L (22-32); Chloride 103 mmol/L (98-107); Estimated Glomerular Filt Rate 45.5 mL/min (>60); Glucose 134 mg/dL (80-110); HEMOLYSIS < 15 (0-50); Sodium 140 mmol/L (137-145)
== END ==
PROVIDERS: PCP Family Medicine; Referring Provider Nurse Practitioner Family; Visit Provider Nurse Practitioner Family
DX: E11.9 Type 2 diabetes mellitus without complications (principal)
CPT/HCPCS: 36415; 80048; 83036

== ENCOUNTER → 2020-02-17 14:01 | Outpatient (CLI) | payer OTHER, SELFPAY ==
[2018-08-12 12:44] VITALS: BMI 28.7
--- NOTE | 2020-02-17 15:39 | DIET.PN ---
Diabetes Intake: Initial Assessment Assess: Mr. Murphy is a 74 YOM referred for type 2 diabetes. He was diagnosed approx. 15 yrs ago. He has had some prior education. He currently uses [employer] erin continuous glucose monitoring system for monitoring FBG, pre-prandials and 2 hr post-prandials. He reports family hx of diabetes on both sides. He request diabetes education as his microalbuminuria is elevated and he is experiencing neuropathy which is managed by gabapentin. 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 He follow a high protein diet but admits he has a sweet tooth. Will not eat seafood, vegetables (likes corn, potatoes) Labs: Per pt report A1c: 7.5 Meds: metformin XR 1000mg, Ozempic 0.5mg weekly, glimepiride 4mg, gabapentin Diet: per 24 hr recall: high protein, low f/v, likes oatmeal, corn, potatoes, velveta cheese, canned chili Wt: 194# Ht: 70? BMI: 27.8 DX: Altered nutrition related laboratory values related to impaired glucose metabolism, lack of previous exposure to nutrition information as evidenced by pt report, diagnosis of diabetes, previous diet high in refined carbohydrates. Intervention: 1. Completed intake assessment. Discussed barriers to care. 2. Discussed pathophysiology of diabetes. Reviewed A1c and its correlation to blood glucose numbers. Discussed recommended BG ranges. 3. Discussed importance of self-monitoring, how often, and when to check. 4. Reviewed hyper/hypoglycemia and treatment. 5. Reviewed safe disposal of equipment (strip/lancets/insulin needles). 6. Created SMART goals for pt self-care and success. 7. Discussed program curriculum outline and class needs based on individual goals. SMART Goals: 1. Would like to adopt better eating habits for better glucose control and kidney health. Monitor/Evaluate: Anticipate excellent compliance. Pt will attend full DSME program.
== END ==
PROVIDERS: PCP Family Medicine; Referring Provider Nurse Practitioner Family; Visit Provider Nurse Practitioner Family
DX: E11.21 Type 2 diabetes mellitus with diabetic nephropathy (principal); Z79.84 Long term (current) use of oral hypoglycemic drugs; R77.0 Abnormality of albumin; G14 Postpolio syndrome; Z71.3 Dietary counseling and surveillance
CPT/HCPCS: G0108

== ENCOUNTER → 2020-02-24 11:52 | Outpatient (CLI) | payer OTHER, SELFPAY ==
[2018-08-12 12:44] VITALS: BMI 28.7
[2020-02-24 13:19] LABS: Cholesterol 73 mg/dL (140-199); HDL Cholesterol 20 mg/dL (40-60); LDL Cholesterol Calculated 6 mg/dL (<100); Triglycerides 236 mg/dL (35-150)
[2020-02-24 13:50] LABS: Prostate Specific Antigen Scrn 0.237 ng/mL (0.1-4.0)
== END ==
PROVIDERS: PCP Family Medicine; Referring Provider Family Medicine; Visit Provider Family Medicine
DX: E78.2 Mixed hyperlipidemia (principal); Z12.5 Encounter for screening for malignant neoplasm of prostate
CPT/HCPCS: 36415; 80061; G0103

== ENCOUNTER → 2020-03-15 10:00 | Outpatient (CLI) | payer OTHER, SELFPAY ==
[2018-08-12 12:44] VITALS: BMI 28.7
--- NOTE | 2020-03-15 11:46 | DIET.PN ---
Diabetes: Healthy Eating 1 Intervention: ? Discussed pathophysiology of diabetes and impact of nutrition/diet on blood sugar control.? Discussed fed versus non-fed state.?? ? Reviewed importance of Balance, Variety, and Moderation. ? Discussed the effect of carbohydrates/protein/fat on blood sugar control.? ? Stressed importance of consistent carbohydrate intake at each meal and provided instructions for recommended servings/portions of carbohydrates/protein per meal. Provided educational material. ? Reviewed carbohydrate counting and measuring carbohydrate content via serving sizes and reading nutrition labels.? Provided handouts.?? ? Discussed the difference between simple versus complex carbohydrates and the effect of fiber on blood sugar control.? Discussed various methods to increase fiber content in diet. ? Discussed the plate method for creating more carbohydrate conscious balanced meals. ? Stressed importance of meal timing and not going >4-5 hours between meals. Encouraged adding protein to evening snack to support glucose control overnight. ? Discussed importance of making dietary habits part of lifestyle change.
== END ==
PROVIDERS: PCP Family Medicine; Referring Provider Family Medicine; Visit Provider Family Medicine
DX: E11.9 Type 2 diabetes mellitus without complications (principal); Z71.3 Dietary counseling and surveillance
CPT/HCPCS: G0109

== ENCOUNTER → 2020-03-24 09:56 | Outpatient (CLI) | payer OTHER, SELFPAY ==
[2018-08-12 12:44] VITALS: BMI 28.7
--- NOTE | 2020-03-24 11:42 | DIET.PN ---
Diabetes: Healthy Eating 2 Intervention: Fats effects on glucose, weight, heart disease, cholesterol Sat Vs Unsat Protein- animal and plant based options Low, med, high fat meats Sugar substitutes Sodium Health claims Grocery shopping guidelines Eating away from home Alcohol Sick day guidelines Ketone Testing
== END ==
PROVIDERS: PCP Family Medicine; Referring Provider Family Medicine; Visit Provider Family Medicine
DX: E11.9 Type 2 diabetes mellitus without complications (principal)
CPT/HCPCS: G0109

== ENCOUNTER → 2020-04-06 13:00 | Outpatient (CLI) | payer OTHER, SELFPAY ==
[2018-08-12 12:44] VITALS: BMI 28.7
--- NOTE | 2020-04-06 14:50 | DIET.PN ---
DIABETES Nutrition Initial Assessment:? ASSESS:??Mr. Murphy is a 74 yom?referred for type 2 diabetes seen as part of DSME program. Pt endorses managed BG between 80-150?s over the last few months. However, the last few days his BG has been elevated due to recent back surgery. In reviewing his CGM from last week, he does show several hyperglycemic episodes without explanation. He reports no real patterns regardless of eating the same meals every day. His GFR is still down, but in reviewing his labs appears to be improving slightly each month. ??? LABS: Per pt report:? A1c: 7.3 ? MEDS:?? metformin XR 500mg; Ozempic 1mg weekly; glimepiride 4mg; gabapentin ? Eating Out: several times ea week. Changes in Appetite: na Nutrition Supplements: no change ? Weight: 190lb Height:70in BMI: ? 27.3 ? Exercise:? NUTRITION DX 1. Altered Nutrition related labs related to impaired glucose metabolism, lack of previous exposure to accurate nutrition information as evidenced by pt report, dx of diabetes, previous diet high in refined carbohydrates.? INTERVENTION(s): 1. Reviewed pathophysiology of diabetes and impact of nutrition/diet on blood sugar control.? Discussed fed versus non-fed state.?? 2. Discussed the effect of carbohydrates/protein/fat on blood sugar control.? Stressed importance of consistent carbohydrate intake at each meal and provided instructions for recommended servings/portions of carbohydrates/protein per meal. Provided pt with educational material. 3. Reviewed carbohydrate counting and measuring carbohydrate content via serving sizes and reading nutrition labels.? Provided handouts.?? 4. Discussed the difference between simple versus complex carbohydrates and the effect of fiber on blood sugar control.? Discussed various methods to increase fiber content in diet. 5. Stressed importance of meal timing and not going >4-5 hours between meals. Encouraged adding protein to evening snack to support glucose control overnight. 6. Recommend monitoring fasting and alternating 2 hr PP mealtime glucose. MONITOR/EVALUATE: Anticipate good compliance.? Nutrition follow-up scheduled for 1 month.
[2020-04-06 14:52] VITALS: BMI 27.3
== END ==
PROVIDERS: PCP Family Medicine; Referring Provider Family Medicine; Visit Provider Family Medicine
DX: E11.9 Type 2 diabetes mellitus without complications (principal); Z71.3 Dietary counseling and surveillance; Z79.84 Long term (current) use of oral hypoglycemic drugs
CPT/HCPCS: G0109

== ENCOUNTER → 2020-04-19 14:50 | Outpatient (CLI) | payer OTHER, SELFPAY ==
[2018-08-12 12:44] VITALS: BMI 28.7
[2020-04-19 16:06] LABS: Hemoglobin A1C% w Est Avg Glu 6.7 % (4.0-6.0)
[2020-04-19 16:44] LABS: BUN Creatinine Ratio 16.7 (6-22); Blood Urea Nitrogen 28 mg/dL (9-20); Calcium 10.7 mg/dL (8.4-10.2); Carbon Dioxide 29 mmol/L (22-32); Chloride 98 mmol/L (98-107); Estimated Glomerular Filt Rate 40.3 mL/min (>60); Glucose 93 mg/dL (80-110); HEMOLYSIS < 15 (0-50); Potassium 4.5 mmol/L (3.4-5.1); Sodium 138 mmol/L (137-145)
[2020-04-19 17:15] LABS: Testosterone 845 ng/dL (71.8-623)
== END ==
PROVIDERS: PCP Family Medicine; Referring Provider Family Medicine; Visit Provider Family Medicine
DX: E11.9 Type 2 diabetes mellitus without complications (principal); E34.9 Endocrine disorder, unspecified
CPT/HCPCS: 36415; 80048; 83036; 84403

== ENCOUNTER → 2020-05-11 12:49 | Outpatient (CLI) | payer OTHER, SELFPAY ==
[2018-08-12 12:44] VITALS: BMI 28.7
--- NOTE | 2020-05-11 16:04 | DIET.PN ---
Diabetes Follow Up Assess: Met for Mr. Murphy?s 3 mo follow up visit. Pt recently completed follow up labs with great improvement in blood glucose values and lipids. After reviewing CGM, he appear to continue to have episodes of post-prandial hyperglycemia along with some hypoglycemia. He plans to follow up with his administrative services assistant to discuss these issues and strategies for management. He continues to work on dietary recommendations and exercises every day. He presents today without the assist of his cane and is working on his stabilization. Labs: A1c: 6.7 (down from 7.5) Meds: metf XR 1000mg, Ozempic .5mg weekly, glimepiride 4mg, gabapentin Dietary changes: drastically reduced portions of starchy foods and canned meals Ht: 70in Wt: 186lb BMI: 26.7 Nutrition DX: Altered nutrition related laboratory values related to impaired glucose metabolism, lack of previous exposure to nutrition information as evidenced by pt report, diagnosis of diabetes, previous diet high in refined carbohydrates. Intervention: 1. Completed follow up assessment. Reviewed barriers to care. 2. Reviewed new labs and importance of continued BG monitoring. 3. Reviewed SMART goals and made modifications where appropriate including wt management, activity, and A1c goals. 4. Discussed plan for ongoing support. Provided information for continued support and success. SMART goals: 1. Continue to work on better eating habits for glucose control and kidney health and weight maintenance. Monitor/Evaluate: Pt will follow up in 3 mo to discuss new labs and barriers to care.
== END ==
PROVIDERS: PCP Family Medicine; Referring Provider Family Medicine; Visit Provider Family Medicine
DX: E11.649 Type 2 diabetes mellitus with hypoglycemia without coma (principal); E11.65 Type 2 diabetes mellitus with hyperglycemia; Z79.84 Long term (current) use of oral hypoglycemic drugs; Z71.3 Dietary counseling and surveillance; Z68.26 Body mass index [BMI] 26.0-26.9, adult
CPT/HCPCS: G0109

== ENCOUNTER → 2020-07-06 14:25 | Outpatient (CLI) | payer OTHER, SELFPAY ==
[2018-08-12 12:44] VITALS: BMI 28.7
[2020-07-06 14:52] LABS: Blood Urea Nitrogen 26 mg/dL (9-20); Calcium 10.5 mg/dL (8.4-10.2); Carbon Dioxide 30 mmol/L (22-32); Chloride 105 mmol/L (98-107); Estimated Glomerular Filt Rate 38.9 mL/min (>60); Glucose 67 mg/dL (80-110); HEMOLYSIS 15 (0-50); Hemoglobin A1C% w Est Avg Glu 7.4 % (4.0-6.0); Potassium 4.9 mmol/L (3.4-5.1); Sodium 141 mmol/L (137-145)
[2020-07-06 15:24] LABS: Testosterone 142 ng/dL (71.8-623)
== END ==
PROVIDERS: PCP Family Medicine; Referring Provider Nurse Practitioner Family; Visit Provider Nurse Practitioner Family
DX: E11.29 Type 2 diabetes mellitus with other diabetic kidney complication (principal); R80.9 Proteinuria, unspecified
CPT/HCPCS: 36415; 80048; 83036; 84403

== ENCOUNTER → 2020-07-20 12:50 | Outpatient (CLI) | payer OTHER, SELFPAY ==
[2018-08-12 12:44] VITALS: BMI 28.7
== END ==
PROVIDERS: PCP Family Medicine; Referring Provider Family Medicine; Visit Provider Family Medicine
DX: E11.9 Type 2 diabetes mellitus without complications (principal); Z71.3 Dietary counseling and surveillance
CPT/HCPCS: G0109

== ENCOUNTER → 2020-09-28 14:00 | Outpatient (CLI) | payer OTHER, SELFPAY ==
[2018-08-12 12:44] VITALS: BMI 28.7
[2020-09-28 14:43] LABS: Hemoglobin A1C% w Est Avg Glu 6.6 % (4.0-6.0)
[2020-09-28 16:57] LABS: BUN Creatinine Ratio 12.4 (6-22); Blood Urea Nitrogen 23 mg/dL (9-20); Calcium 9.9 mg/dL (8.4-10.2); Carbon Dioxide 30 mmol/L (22-32); Chloride 105 mmol/L (98-107); Estimated Glomerular Filt Rate 35.9 mL/min (>60); Glucose 106 mg/dL (80-110); HEMOLYSIS < 15 (0-50); Potassium 4.5 mmol/L (3.4-5.1); Sodium 139 mmol/L (137-145)
== END ==
PROVIDERS: PCP Family Medicine; Referring Provider Nurse Practitioner Family; Visit Provider Family Medicine
DX: E11.29 Type 2 diabetes mellitus with other diabetic kidney complication (principal); R80.9 Proteinuria, unspecified; E11.9 Type 2 diabetes mellitus without complications
CPT/HCPCS: 36415; 80048; 83036

== ENCOUNTER → 2020-10-05 12:51 | Outpatient (CLI) | payer OTHER, SELFPAY ==
[2018-08-12 12:44] VITALS: BMI 28.7
--- NOTE | 2020-10-05 13:44 | DIET.PN ---
Diabetes Follow Up Assess: Met for Mr. Murphy?s 6 mo follow up visit. Pt continues to have improvements in blood glucose values. After reviewing CGM, he appear to continue to have episodes of post-prandial hyperglycemia along with some hypoglycemia in the 40's. His Ozempic and Glipizide was doubled since our last visit. He also reports a few mini seizures resulting from TIA's as shown by MRI. Labs: A1c: 6.6 Meds: metf XR 1000mg, Ozempic 1 mg weekly, glimepiride 10 mg, gabapentin Dietary changes: drastically reduced portions of starchy foods and canned meals Ht: 70in Wt: 190lb BMI: 27.3 Nutrition DX: Altered nutrition related laboratory values related to impaired glucose metabolism, lack of previous exposure to nutrition information as evidenced by pt report, diagnosis of diabetes, previous diet high in refined carbohydrates. Intervention: 1. Reviewed new labs. Pt satisfied with recent results. 2. Discussed frequent hypoglycemia and treatment. 3. Discussed importance of carb consistency and balance to avoid extreme hypo/hyperglycemia. SMART goals: 1. Continue to work on better eating habits for glucose control and kidney health and weight maintenance. Monitor/Evaluate: Pt will follow up in 3 mo to discuss new labs and barriers to care.
== END ==
PROVIDERS: PCP Family Medicine; Referring Provider Family Medicine; Visit Provider Family Medicine
DX: E11.9 Type 2 diabetes mellitus without complications (principal)
CPT/HCPCS: G0109

== ENCOUNTER → 2020-10-21 13:24 | Outpatient (CLI) | payer MEDICARE, SELFPAY ==
[2018-08-12 12:44] VITALS: BMI 28.7
[2020-10-21] MEDS: COVID-19 VACC #1, MRNA(MOD) 100 MCG/0.5 ML VIAL IM (13:35)
== END ==
PROVIDERS: PCP Family Medicine; Visit Provider Internal Medicine
DX: Z23 Encounter for immunization (principal)
CPT/HCPCS: 0011A; 91301

== ENCOUNTER → 2020-11-18 13:29 | Outpatient (CLI) | payer OTHER, MEDICARE, SELFPAY ==
[2018-08-12 12:44] VITALS: BMI 28.7
[2020-11-18] MEDS: COVID-19 VACC #2, MRNA(MOD) 100 MCG/0.5 ML VIAL IM (13:43)
== END ==
PROVIDERS: PCP Family Medicine; Visit Provider Internal Medicine
DX: Z23 Encounter for immunization (principal)
CPT/HCPCS: 0012A; 91301

== ENCOUNTER → 2020-12-07 13:29 | Outpatient (CLI) | payer OTHER, SELFPAY ==
[2018-08-12 12:44] VITALS: BMI 28.7
[2020-12-07 14:47] LABS: Add Manual Diff / Slide Review NO; Basophils Absolute Auto 0 /uL (0-100); Basophils Percent Auto 0.6 % (0-2); Eosinophils Absolute Auto 0 /uL (0-450); Hematocrit 39.4 % (41-53); Hemoglobin 13.8 g/dL (13.5-17.5); Lymphocytes Absolute Auto 1500 /uL (1100-4500); Mean Corpuscular Hemoglobin 31.1 PG (26-34); Monocytes Absolute Auto 700 /uL (0-900); Monocytes Percent Auto 11.1 % (3-14); Neutrophils Absolute Auto 4100 /uL (1500-7000); Neutrophils Percent Auto 64.3 % (50-75); Platelet Count 157 X10^3/uL (150-400); Red Blood Cell Count 4.43 X10^6/uL (4.5-5.9); Red Cell Distribution Width 12.9 % (11.6-14.8); White Blood Cell Count 6.3 X10^3/uL (4.5-11.0)
[2020-12-07 15:04] LABS: Hemoglobin A1C% w Est Avg Glu 6.4 % (4.0-6.0)
[2020-12-07 15:48] LABS: Testosterone 124 ng/dL (71.8-623)
[2020-12-07 16:14] LABS: Creatinine Urine Random 142.3 mg/dL
[2020-12-08 17:20] LABS: Microalbumi Creatinin Ratio Ur 67.4 ug/mg CR (<30); Microalbumin Urine Random 9.6 mg/dL (0-1.6)
== END ==
PROVIDERS: PCP Family Medicine; Referring Provider Internal Medicine; Visit Provider Internal Medicine
DX: E11.29 Type 2 diabetes mellitus with other diabetic kidney complication (principal); R80.9 Proteinuria, unspecified; E34.9 Endocrine disorder, unspecified
CPT/HCPCS: 36415; 82043; 82570; 83036; 84156; 84403; 85025

== ENCOUNTER → 2021-02-01 13:37 | Outpatient (CLI) | payer OTHER, SELFPAY ==
[2018-08-12 12:44] VITALS: BMI 28.7
[2021-02-01 14:30] LABS: Hemoglobin A1C% w Est Avg Glu 6.6 % (4.0-6.0)
[2021-02-01 14:34] LABS: Alanine Aminotransferase 29 IU/L (<50); Albumin 4.3 g/dL (3.5-5.0); Albumin Globulin Ratio 1.7 (1.0-2.8); Alkaline Phosphatase 90 U/L (38-126); Aspartate Aminotransferase 27 IU/L (17-59); BUN Creatinine Ratio 11.4 (6-22); Bilirubin Total 1.6 mg/dL (0.2-1.3); Blood Urea Nitrogen 29 mg/dL (9-20); Calcium 9.9 mg/dL (8.4-10.2); Carbon Dioxide 23 mmol/L (22-32); Chloride 105 mmol/L (98-107); Estimated Glomerular Filt Rate 24.9 mL/min (>60); Globulin 2.6 g/dL (1.7-4.1); Glucose 120 mg/dL (80-110); HEMOLYSIS < 15 (0-50); Potassium 4.4 mmol/L (3.4-5.1); Sodium 139 mmol/L (137-145); Total Protein 6.9 g/dL (6.3-8.2)
== END ==
PROVIDERS: PCP Family Medicine; Referring Provider Family Medicine; Visit Provider Family Medicine
DX: N18.2 Chronic kidney disease, stage 2 (mild) (principal); N17.9 Acute kidney failure, unspecified; E11.49 Type 2 diabetes mellitus with other diabetic neurological complication; E11.22 Type 2 diabetes mellitus with diabetic chronic kidney disease; I12.9 Hypertensive chronic kidney disease with stage 1 through stage 4 chronic kidney disease, or unspecified chronic kidney disease; E78.2 Mixed hyperlipidemia
CPT/HCPCS: 36415; 80053; 83036

== ENCOUNTER → 2021-02-01 14:22 | Outpatient (CLI) | payer OTHER, SELFPAY ==
[2018-08-12 12:44] VITALS: BMI 28.7
[2021-02-10 06:36] LABS: Testosterone Total 149.9 ng/dL (264.0-916.0)
== END ==
PROVIDERS: PCP Family Medicine; Referring Provider Family Medicine; Visit Provider Family Medicine
DX: Z12.5 Encounter for screening for malignant neoplasm of prostate (principal); E34.9 Endocrine disorder, unspecified; E11.22 Type 2 diabetes mellitus with diabetic chronic kidney disease; I12.9 Hypertensive chronic kidney disease with stage 1 through stage 4 chronic kidney disease, or unspecified chronic kidney disease; N18.2 Chronic kidney disease, stage 2 (mild); N17.9 Acute kidney failure, unspecified; E11.49 Type 2 diabetes mellitus with other diabetic neurological complication; E78.2 Mixed hyperlipidemia
CPT/HCPCS: 36415; 80053; 83036; 84402; 84403; G0103

== ENCOUNTER → 2021-02-07 12:15 | Outpatient (CLI) | payer OTHER, SELFPAY ==
[2018-08-12 12:44] VITALS: BMI 28.7
[2021-02-07 13:29] LABS: Alanine Aminotransferase 39 IU/L (<50); Albumin 4.4 g/dL (3.5-5.0); Albumin Globulin Ratio 1.9 (1.0-2.8); Alkaline Phosphatase 89 U/L (38-126); Aspartate Aminotransferase 30 IU/L (17-59); BUN Creatinine Ratio 9.8 (6-22); Bilirubin Total 1.4 mg/dL (0.2-1.3); Blood Urea Nitrogen 20 mg/dL (9-20); Calcium 10.1 mg/dL (8.4-10.2); Carbon Dioxide 26 mmol/L (22-32); Chloride 105 mmol/L (98-107); Estimated Glomerular Filt Rate 31.9 mL/min (>60); Globulin 2.3 g/dL (1.7-4.1); Glucose 107 mg/dL (80-110); HEMOLYSIS < 15 (0-50); Potassium 4.9 mmol/L (3.4-5.1); Sodium 139 mmol/L (137-145); Total Protein 6.7 g/dL (6.3-8.2)
[2021-02-10 11:10] LABS: Levetiracetam Keppra 46.3 ug/mL (10.0-40.0)
== END ==
PROVIDERS: PCP Family Medicine; Referring Provider Family Medicine; Visit Provider Family Medicine
DX: G40.909 Epilepsy, unspecified, not intractable, without status epilepticus (principal); I10 Essential (primary) hypertension
CPT/HCPCS: 36415; 80053; 80177

== ENCOUNTER → 2021-02-21 12:09 | Outpatient (CLI) | payer OTHER, SELFPAY ==
[2018-08-12 12:44] VITALS: BMI 28.7
[2021-02-21 13:32] LABS: Alanine Aminotransferase 33 IU/L (<50); Albumin 4.2 g/dL (3.5-5.0); Albumin Globulin Ratio 1.8 (1.0-2.8); Alkaline Phosphatase 72 U/L (38-126); Aspartate Aminotransferase 30 IU/L (17-59); BUN Creatinine Ratio 8.6 (6-22); Bilirubin Total 1.5 mg/dL (0.2-1.3); Blood Urea Nitrogen 21 mg/dL (9-20); Calcium 9.8 mg/dL (8.4-10.2); Carbon Dioxide 24 mmol/L (22-32); Chloride 104 mmol/L (98-107); Estimated Glomerular Filt Rate 26.2 mL/min (>60); Globulin 2.4 g/dL (1.7-4.1); Glucose 157 mg/dL (80-110); HEMOLYSIS < 15 (0-50); Potassium 4.8 mmol/L (3.4-5.1); Sodium 137 mmol/L (137-145); Total Protein 6.6 g/dL (6.3-8.2)
== END ==
PROVIDERS: PCP Family Medicine; Referring Provider Family Medicine; Visit Provider Family Medicine
DX: E11.9 Type 2 diabetes mellitus without complications (principal); E78.2 Mixed hyperlipidemia; I10 Essential (primary) hypertension
CPT/HCPCS: 36415; 80053

== ENCOUNTER → 2021-03-22 13:54 | Outpatient (CLI) | payer OTHER, SELFPAY ==
[2018-08-12 12:44] VITALS: BMI 28.7
[2021-03-22 16:03] LABS: Testosterone 526 ng/dL (71.8-623)
== END ==
PROVIDERS: PCP Family Medicine; Referring Provider Family Medicine; Visit Provider Family Medicine
DX: E34.9 Endocrine disorder, unspecified (principal)
CPT/HCPCS: 36415; 84403

== ENCOUNTER 2021-03-27 13:08 | Outpatient (RCR) | payer OTHER, SELFPAY ==
[2018-08-12 12:44] VITALS: BMI 28.7
--- NOTE | 2021-03-27 15:45 | PT.OPPOC ---
Physical, Occupational & Speech Therapy At [facility] Current Diagnoses Stiffness of unspecified hand, not elsewhere classified (03/27/21) Muscle weakness (generalized) (03/27/21) Palmar fascial fibromatosis [Dupuytren] (03/27/21) Visit Care Team Role Provider Type Esequiel Armstrong DO Attending Provider Physician Primary Care Provider Referring Provider Specialty: [facility] Address: [address] [place] [address], [facility] Email: [email or web address], [email or web address] Plan Of Care PT-OP-T Assessment and Plan Start: 03/24/21 11:51 Freq: Status: Active Protocol: Document 03/27/21 13:38 LRN (Rec: 03/27/21 19:22 LRN [id number]) Physical Therapy Assessment Rehab Potential Rehabilitation Potential Good Evaluation Complexity Number of Personal Factors/Comorbidities 1-2 Number of Body Systems Impaired 4 or More Clinical Presentation at Evaluation Evolving Impairments Impairments Functional Mobility,ROM,Soft Tissue Mobility,Strength Goals Three Impairment Decreased L wrist AROM Short Term Goal (STG) Pt will be independent in self care L wrist ROM ex's. STG Duration 04/24/21 Fan Mail Editor Goal (LTG) Improve L wrist AROM for improved UE function per UE QuickDASH score ............. LTG Duration 05/26/21 Two Impairment L middle finger fascial restrictions resulting in locking of finger in flex Impairment Middle finger AROM: MCP jt (in deg's): Flex 60 left, 68 right; Ext 16 left, 18 right. PIP jt (in deg's): Flex 72 left, 90 right. Tip to Distal Parlmar Crease: 3 cm left, 0 cm right. Tip Base of Palm: 8 cm left, 0 cm right. Short Term Goal (STG) Pt will be educated in self STM of L Flexor Digitorum Superficialis tendon and will demonstrate improved active finger flexion mobility. STG Duration 04/24/21 Senior Living Goal (LTG) Pt will be able to movable bulkhead installer a narrow object without the L middle finger locking into flexion. LTG Duration 05/26/21 One Impairment Lacks appropriate self care HEP. Short Term Goal (STG) Pt to obtain a volar wrist splint for nighttime wear. STG Duration 04/17/21 Fan Mail Editor Goal (LTG) Pt will be independent with a self care HEP. LTG Duration 05/26/21 Assessment Summary Assessment Pt presents with a Duputren's intermittent contracture with intermittent locking of his L middle finger in flexion. Recommend pt be referred to Certified Hand Specialist ( STEFANIA Merritt, at [facility] or possibly [facility]), for a custom fit volar splint to prevent his L middle finger locking into flexion during sleep prior to further PT. Once pt has a volar splint, the pt will benefit from skilled physical therapy to improve functional movable bulkhead installer for narrow objects without locking of his L middle finger and to improve his quality of sleep. He will benefit from manual therapy for fascial release and finger extension strengthening, finger ROM, and wrist/forearm ROM/ strengthening exercises. Treatment will focus on achieving the above stated goals. Physical Therapy Plan Frequency and Duration Frequency of Treatment 2x/wk to 1x/week Plan of Care Start Date 03/27/21 Plan of Care End Date 05/26/21 Therapeutic Interventions Therapeutic Interventions Home Exercise Program,Joint Mobilizations,Manual Therapy, Patient/Caregiver Education, Self-Care/Home Management,Soft Tissue Mobilization,Taping, Therapeutic Activities, Therapeutic Exercises Modalities Cold Pack/Ice Massage,Hot Packs,Infrared Therapy, Paraffin Bath Other Referrals/Consults Referrals/Consults Recommended Pt be referred to Certified Hand Specialist for volar splint for L hand. Next Visit Focus/Plan Next Note Type Treatment Note Next Visit Plan Pt to be fit for volar splint before return to PT. Start HEP ex's of wrist ROM ex's ( flex, ext, UD, RD) and assess pron/sup AROM and progress towards strengthening when appropriate. PT to include L hand intrinsic and finger ext strengthening, and manual therapy to reduce soft tissue restrictions and eliminate locking of L hand middle finger and JMT. Modalities: Laser. Plan of Care Dates Plan of Care Start Date 03/27/21 Plan of Care End Date 05/26/21 Electronically Signed by: Debbie Singh, PT 03/28/21 4616 Please Sign and Return: I have reviewed this Plan of Care and certify that the skilled therapy services above are required to meet the patient?s needs. Physician Signature Date Printed Name and Credentials Clinical Instructor Signature Printed Name and Credentials
--- NOTE | 2021-03-27 15:45 | PT.OIE ---
Current Diagnoses Stiffness of unspecified hand, not elsewhere classified (03/27/21) Muscle weakness (generalized) (03/27/21) Palmar fascial fibromatosis [Dupuytren] (03/27/21) Past Medical History (Last Reviewed 10/03/20 @ 14:52 by Esequiel Armstrong DO) Acute GI bleeding Wtkra-ga-[id number] kidney injury Asthma Barretts esophagus Bipolar disorder Closed head injury Community acquired pneumonia Degenerative joint disease of left hip Depression Diabetes mellitus Diverticular disease DJD of right shoulder Gout Herniated nucleus pulposus, L4-5 left History of incision and drainage History of prostate cancer History of prostate surgery Hyperlipidemia Hypersomnia Hypertension Idiopathic peripheral neuropathy Impotence Low back pain Lumbosacral radiculopathy at L4 Obstructive sleep apnea of adult Personal history of radiation therapy Polio Syncope TIA (transient ischemic attack) Past Surgical History (Last Reviewed 06/16/20 @ 10:11 by ALEJANDRO Ramsey) Anesthesia History of incision and drainage History of prostate surgery Inguinal hernia Status post eye surgery Status post tonsillectomy and adenoidectomy Surgical procedure planned Visit Care Team Role Provider Type Esequiel Armstrong DO Attending Provider Physician Primary Care Provider Referring Provider Specialty: [facility] Address: [address] [place] [address] Email: [email or web address] Physical Therapy Initial Evaluation PT-OP-A Visit Information Start: 03/24/21 11:51 Freq: Status: Active Protocol: Document 03/27/21 13:38 LRN (Rec: 03/27/21 14:27 LRN [id number]) Out-Patient Physical Therapy Visit Information Visit Information Visit Type Initial Evaluation Visit Start Time 13:38 Visit Stop Time 14:28 Total Visit Minutes 50 Visit Number 1 Evaluation Information Evaluation Date 03/27/21 Precautions Precautions TIA's, Arthritis, Diabetes II , Polio, Neuropathy, Fall history. PT-OP-B Current Condition Start: 03/24/21 11:51 Freq: Status: Active Protocol: Document 03/27/21 13:38 LRN (Rec: 03/27/21 14:27 LRN [id number]) Current Condition History of Current Condition Onset Date 1 yrs ago Current Complaints Locking of L hand middle finger into flexion History of Current Condition Pt reports unknown onset of L hand middle finger locking on his dominant hand. States he has severe pain when he unlocks it. Prior Treatments and Tests None Future Testing and Treatments Planned None Treatment Goals Patient/Caregiver Goals Pt goal is to stop the locking of the L hand middle finger Prior Functional Status Baseline Function- ADL's Independent Baseline Function- Mobility Independent Baseline Function- Other No locking of L middle finger. Current Functional Impairments (Reported) Functional Limitations- ADL's Locking of L middle finger day and night, interferring with nighttime sleep 2x night. Difficulty grabbing objects and holding utensils for eating. Difficulty writing, opening lids and sometimes holding cane for gait. Personal Factors Other Personal Factors That May Effect Lives with spouse. 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 PT-OP-C Subjective Start: 03/24/21 11:51 Freq: Status: Active Protocol: Document 03/27/21 13:38 LRN (Rec: 03/27/21 14:27 LRN [id number]) Patient Questionnaires Quick Dash- Upper Extremity Quick Dash UE Score 40.9 Quick Dash UE Impairment 40 to 59% Impaired (Score 40- 59) OP-PT Pain Assessment Pain Assessment Grid Paper Pain Assessment Grid Completed Yes Location L hand middle finger Pain Location Details L Hand middle finger and sometimes ring finger Intensity 9 Scale Used Numeric (0 - 10) Description Aching Pain Duration While locked PT-OP-H Neuro Start: 03/24/21 11:51 Freq: Status: Active Protocol: Document 03/27/21 13:38 LRN (Rec: 03/27/21 19:22 LRN [id number]) Sensation Evaluation Gross Sensation Gross Sensation WNL PT-OP-J Posture/Palpation/Skin Start: 03/24/21 11:51 Freq: Status: Active Protocol: Document 03/27/21 13:38 LRN (Rec: 03/27/21 19:22 LRN [id number]) Posture Evaluation Comments Posture Comments Mild forward head, rounded back, forward rounded shoulder . Palpation Assessment Location L hand Palpation Location L middle finger Palpation Details Flexor Digitorum Superficialis mid-palm node. Middle finger restricted at MCP and/or PIP jt. PT-OP-K Range of Motion Start: 03/24/21 11:51 Freq: Status: Active Protocol: Document 03/27/21 13:38 LRN (Rec: 03/27/21 14:27 LRN [id number]) Wrist Goniometric Range of Motion Wrist Right Wrist ROM WFL Yes Flexion Active (degrees) 75 Extension Active (degrees) 72 Ulnar Deviation Active (degrees) 30 Radial Deviation Active (degrees) 37 Left Wrist ROM WFL No Flexion Active (degrees) 62 Extension Active (degrees) 52 Ulnar Deviation Active (degrees) 20 Radial Deviation Active (degrees) 30 Finger Goniometric Range of Motion Finger Right Third MCP Flexion Active (degrees) 68 MCP Extension Active (degrees) 18 PIP Flexion Active (degrees) 90 DIP Flexion Active (70-90 degrees) 74 Tip to Distal Palmar Crease (0 cm) 0 H Tip to Base of Palm (0 cm) 0 H Left Third Finger ROM WFL No MCP Flexion Active (degrees) 60 MCP Extension Active (degrees) 16 PIP Flexion Active (degrees) 72 DIP Flexion Active (70-90 degrees) 60 L Tip to Distal Palmar Crease (0 cm) 3 H Tip to Base of Palm (0 cm) 8 H PT-OP-M Strength Start: 03/24/21 11:51 Freq: Status: Active Protocol: Document 03/27/21 13:38 LRN (Rec: 03/27/21 14:27 LRN [id number]) Elbow/Forearm Strength Elbow and Forearm Manual Muscle Testing Right Comments Generally 5/5 Left Comments Generally 5/5 Wrist Strength Wrist Manual Muscle Testing Right Comments Generally 5/5 Left Comments Generally 5/5 Finger/Thumb Strength Finger Manual Muscle Testing Left Third Adduction 3 Fair Left Second Adduction 3 Fair Abduction (fingers T1) 3 Fair PT-OP-Q Treatments Start: 03/24/21 11:51 Freq: Status: Active Protocol: Document 03/27/21 13:38 LRN (Rec: 03/27/21 19:22 LRN [id number]) Self-Care/Home Management Treatment Education Other Education Discussed results of evaluation, goals, and plan of care (POC). Pt agreeable to goals and POC. Discussed and educated pt in releasing his L middle finger when locked without forcing. Discussed nature of locking of finger and importance of not forceably straightening finger . Activities Self-Care/Home Management Activities Pt is to not forceable straighten his L middle finger when locked. Pt to seek volar wrist brace for nighttime wear. Recommended pt to try placing rolled towel in hand to prevent fist making at night. Discussed caution of not wrapping hand tightly. PT-OP-T Assessment and Plan Start: 03/24/21 11:51 Freq: Status: Active Protocol: Document 03/27/21 13:38 LRN (Rec: 03/27/21 19:22 LRN [id number]) Physical Therapy Assessment Rehab Potential Rehabilitation Potential Good Evaluation Complexity Number of Personal Factors/Comorbidities 1-2 Number of Body Systems Impaired 4 or More Clinical Presentation at Evaluation Evolving Impairments Impairments Functional Mobility,ROM,Soft Tissue Mobility,Strength Goals Three Impairment Decreased L wrist AROM Short Term Goal (STG) Pt will be independent in self care L wrist ROM ex's. STG Duration 04/24/21 Senior Care Goal (LTG) Improve L wrist AROM for improved UE function per UE QuickDASH score ............. LTG Duration 05/26/21 Two Impairment L middle finger fascial restrictions resulting in locking of finger in flex Impairment Middle finger AROM: MCP jt (in deg's): Flex 60 left, 68 right; Ext 16 left, 18 right. PIP jt (in deg's): Flex 72 left, 90 right. Tip to Distal Parlmar Crease: 3 cm left, 0 cm right. Tip Base of Palm: 8 cm left, 0 cm right. Short Term Goal (STG) Pt will be educated in self STM of L Flexor Digitorum Superficialis tendon and will demonstrate improved active finger flexion mobility. STG Duration 04/24/21 Design Lead Goal (LTG) Pt will be able to interface control officer a narrow object without the L middle finger locking into flexion. LTG Duration 05/26/21 One Impairment Lacks appropriate self care HEP. Short Term Goal (STG) Pt to obtain a volar wrist splint for nighttime wear. STG Duration 04/17/21 Senior Care Goal (LTG) Pt will be independent with a self care HEP. LTG Duration 05/26/21 Assessment Summary Assessment Pt presents with a Duputren's intermittent contracture with intermittent locking of his L middle finger in flexion. Recommend pt be referred to Certified Hand Specialist ( STEFANIA Merritt, at [facility] or possibly [facility]), for a custom fit volar splint to prevent his L middle finger locking into flexion during sleep prior to further PT. Once pt has a volar splint, the pt will benefit from skilled physical therapy to improve functional interface control officer for narrow objects without locking of his L middle finger and to improve his quality of sleep. He will benefit from manual therapy for fascial release and finger extension strengthening, finger ROM, and wrist/forearm ROM/ strengthening exercises. Treatment will focus on achieving the above stated goals. Physical Therapy Plan Frequency and Duration Frequency of Treatment 2x/wk to 1x/week Plan of Care Start Date 03/27/21 Plan of Care End Date 05/26/21 Therapeutic Interventions Therapeutic Interventions Home Exercise Program,Joint Mobilizations,Manual Therapy, Patient/Caregiver Education, Self-Care/Home Management,Soft Tissue Mobilization,Taping, Therapeutic Activities, Therapeutic Exercises Modalities Cold Pack/Ice Massage,Hot Packs,Infrared Therapy, Paraffin Bath Other Referrals/Consults Referrals/Consults Recommended Pt be referred to Certified Hand Specialist for volar splint for L hand. Next Visit Focus/Plan Next Note Type Treatment Note Next Visit Plan Pt to be fit for volar splint before return to PT. Start HEP ex's of wrist ROM ex's ( flex, ext, UD, RD) and assess pron/sup AROM and progress towards strengthening when appropriate. PT to include L hand intrinsic and finger ext strengthening, and manual therapy to reduce soft tissue restrictions and eliminate locking of L hand middle finger and JMT. Modalities: Laser.
--- NOTE | 2021-03-31 14:30 | PT-OP ANOTE ---
Called Dr Armstrong's office, message left with Melany (Pt lab coordinator) informing Dr. Armstrong of pt need for nighttime hand splint prior to further therapy. Message will be given to
--- NOTE | 2021-04-18 13:56 | PT-OP ANOTE ---
Pt called, and was informed he cancelled today's appt via electronic message received. He does not have his hand splint yet and has not heard from the physician's office yet. Pt will continue to be on hold until he obtains a hand splint.
--- NOTE | 2021-04-20 08:38 | PT-OP ANOTE ---
Message left with, Bella, pt appt coordinator at the office of referring physician, with request for pt referral for to certified hand specialists (Peter Castorena at [facility]: Dewey Nelson& ?Tanya Alexander for nighttime custom fit volar splint.
--- NOTE | 2021-04-25 17:15 | PT-OP ANOTE ---
Cx'd day before via [employer] response.
--- NOTE | 2021-09-04 13:13 | PT.OPDS ---
Current Diagnoses Stiffness of unspecified hand, not elsewhere classified (03/27/21) Muscle weakness (generalized) (03/27/21) Palmar fascial fibromatosis [Dupuytren] (03/27/21) Visit Care Team Role Provider Type Esequiel Armstrong DO Attending Provider Physician Primary Care Provider Referring Provider Specialty: [facility] Address: [address] [place] [address] Email: [email or web address] Visit Number Visit Number 1 Discharge Summary PT-OP-B Current Condition Start: 03/24/21 11:51 Freq: Status: Active Protocol: Document 03/27/21 13:38 LRN (Rec: 03/27/21 14:27 LRN [id number]) Current Condition History of Current Condition Onset Date 1 yrs ago Current Complaints Locking of L hand middle finger into flexion History of Current Condition Pt reports unknown onset of L hand middle finger locking on his dominant hand. States he has severe pain when he unlocks it. Prior Treatments and Tests None Future Testing and Treatments Planned None Treatment Goals Patient/Caregiver Goals Pt goal is to stop the locking of the L hand middle finger Prior Functional Status Baseline Function- ADL's Independent Baseline Function- Mobility Independent Baseline Function- Other No locking of L middle finger. Current Functional Impairments (Reported) Functional Limitations- ADL's Locking of L middle finger day and night, interferring with nighttime sleep 2x night. Difficulty grabbing objects and holding utensils for eating. Difficulty writing, opening lids and sometimes holding cane for gait. Personal Factors Other Personal Factors That May Effect Lives with spouse. 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 PT-OP-C Subjective Start: 03/24/21 11:51 Freq: Status: Active Protocol: Document 03/27/21 13:38 LRN (Rec: 03/27/21 14:27 LRN [id number]) Patient Questionnaires Quick Dash- Upper Extremity Quick Dash UE Score 40.9 Quick Dash UE Impairment 40 to 59% Impaired (Score 40- 59) OP-PT Pain Assessment Pain Assessment Grid Paper Pain Assessment Grid Completed Yes Location L hand middle finger Pain Location Details L Hand middle finger and sometimes ring finger Intensity 9 Scale Used Numeric (0 - 10) Description Aching Pain Duration While locked PT-OP-H Neuro Start: 03/24/21 11:51 Freq: Status: Active Protocol: Document 03/27/21 13:38 LRN (Rec: 03/27/21 19:22 LRN [id number]) Sensation Evaluation Gross Sensation Gross Sensation WNL PT-OP-J Posture/Palpation/Skin Start: 03/24/21 11:51 Freq: Status: Active Protocol: Document 03/27/21 13:38 LRN (Rec: 03/27/21 19:22 LRN [id number]) Posture Evaluation Comments Posture Comments Mild forward head, rounded back, forward rounded shoulder . Palpation Assessment Location L hand Palpation Location L middle finger Palpation Details Flexor Digitorum Superficialis mid-palm node. Middle finger restricted at MCP and/or PIP jt. PT-OP-K Range of Motion Start: 03/24/21 11:51 Freq: Status: Active Protocol: Document 03/27/21 13:38 LRN (Rec: 03/27/21 14:27 LRN [id number]) Wrist Goniometric Range of Motion Wrist Right Wrist ROM WFL Yes Flexion Active (degrees) 75 Extension Active (degrees) 72 Ulnar Deviation Active (degrees) 30 Radial Deviation Active (degrees) 37 Left Wrist ROM WFL No Flexion Active (degrees) 62 Extension Active (degrees) 52 Ulnar Deviation Active (degrees) 20 Radial Deviation Active (degrees) 30 Finger Goniometric Range of Motion Finger Right Third MCP Flexion Active (degrees) 68 MCP Extension Active (degrees) 18 PIP Flexion Active (degrees) 90 DIP Flexion Active (70-90 degrees) 74 Tip to Distal Palmar Crease (0 cm) 0 H Tip to Base of Palm (0 cm) 0 H Left Third Finger ROM WFL No MCP Flexion Active (degrees) 60 MCP Extension Active (degrees) 16 PIP Flexion Active (degrees) 72 DIP Flexion Active (70-90 degrees) 60 L Tip to Distal Palmar Crease (0 cm) 3 H Tip to Base of Palm (0 cm) 8 H PT-OP-M Strength Start: 03/24/21 11:51 Freq: Status: Active Protocol: Document 03/27/21 13:38 LRN (Rec: 03/27/21 14:27 LRN [id number]) Elbow/Forearm Strength Elbow and Forearm Manual Muscle Testing Right Comments Generally 5/5 Left Comments Generally 5/5 Wrist Strength Wrist Manual Muscle Testing Right Comments Generally 5/5 Left Comments Generally 5/5 Finger/Thumb Strength Finger Manual Muscle Testing Left Third Adduction 3 Fair Left Second Adduction 3 Fair Abduction (fingers T1) 3 Fair PT-OP-T Assessment and Plan Start: 03/24/21 11:51 Freq: Status: Active Protocol: Document 09/04/21 13:07 LRN (Rec: 09/04/21 13:12 LRN [id number]) Physical Therapy Assessment Goals Three Impairment Decreased L wrist AROM Short Term Goal (STG) Pt will be independent in self care L wrist ROM ex's. STG Duration 04/24/21 (NOT MET GOAL) Manager Reporting Goal (LTG) Improve L wrist AROM for improved UE function per UE QuickDASH score. LTG Duration 05/26/21 (NOT MET GOAL) Two Impairment L middle finger fascial restrictions resulting in locking of finger in flex Impairment Middle finger AROM: MCP jt (in deg's): Flex 60 left, 68 right; Ext 16 left, 18 right. PIP jt (in deg's): Flex 72 left, 90 right. Tip to Distal Parlmar Crease: 3 cm left, 0 cm right. Tip Base of Palm: 8 cm left, 0 cm right. Short Term Goal (STG) Pt will be educated in self STM of L Flexor Digitorum Superficialis tendon and will demonstrate improved active finger flexion mobility. 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 LTG Duration 05/26/21 (NOT MET GOAL) One Impairment Lacks appropriate self care HEP. Short Term Goal (STG) Pt to obtain a volar wrist splint for nighttime wear. STG Duration 04/17/21 (NOT MET GOAL) Detention Goal (LTG) Pt will be independent with a self care HEP. LTG Duration 05/26/21 (NOT MET GOAL) Assessment Summary Assessment Pt was seen only for his initial evaluation on 03/27/21. He was referred back for assessment by a certified hand specialist for a custom fit volar splint to prevent his L middle finger locking into flexion during sleep prior to further PT. The pt did not return for further therapy. His plan of care has ; therefore the pt would need a new referral to return to physical therapy if needed. No further therapy is planned. Physical Therapy Plan Discharge Physical Therapy Discharge Reasons No Longer Attending PT Discharge Comments The pt did not return for further therapy after being referred to a certified hand specialist for a volar splint. The pt is being discharged for lack of attendance. Thank you for your referral.
== END 2021-09-05 08:13 ==
LOC: PHYS 13:08
PROVIDERS: PCP Family Medicine; Referring Provider Family Medicine; Visit Provider Family Medicine
DX: M72.0 Palmar fascial fibromatosis [Dupuytren] (principal); M62.81 Muscle weakness (generalized); M25.649 Stiffness of unspecified hand, not elsewhere classified
CPT/HCPCS: 97162; 97535

== ENCOUNTER → 2021-05-10 11:18 | Outpatient (CLI) | payer OTHER, SELFPAY ==
[2018-08-12 12:44] VITALS: BMI 28.7
--- NOTE | 2021-05-10 11:19 | DI.MRI.S_ITS ---
PROCEDURE: MR LUMBAR SPINE WO CON INDICATIONS: Low back pain TECHNIQUE: Noncontrast sagittal T1 spin echo and T2 fast echo, sagittal STIR, axial T1 and T2 fast spin echo through the lumbar spine. In cases with scoliosis, additional coronal T2 fast spin echo may be performed. COMPARISON: None. FINDINGS: Straightening of the usual lumbar lordosis. Otherwise normal alignment. No listhesis. Vertebral body heights maintained. No suspicious focal marrow signal abnormality or bone marrow edema. Disc desiccation and disc height loss from L3-L4 through L5-S1. Annular fissure of the L4-L5 disc (series 4, images 7-9). Prevertebral and paraspinous soft tissues are within normal limits. The included unenhanced retroperitoneal visceral structures demonstrate no acute finding. From T12-L1 through L2-L3: No spinal canal or neural foraminal stenosis. No significant degenerative changes at these levels. L3-L4: Disc bulge flattens the ventral thecal sac without mass effect upon the traversing L4 nerve roots. Foraminal components of the disc bulge and mild facet hypertrophy combine to produce mild bilateral neural foraminal stenosis. Moderate-sized facet effusions with subchondral cystic change. L4-L5: Diffuse disc bulge flattens the ventral thecal sac and displaces the descending L5 nerve roots within both subarticular zones. Foraminal components of the disc bulge and facet hypertrophy combine to produce mild bilateral neural foraminal stenosis. Moderate-sized facet effusions with subchondral cystic change. L5-S1: Diffuse disc bulge flattens the ventral thecal sac and mildly displaces the descending S1 nerve roots, left greater than right. Foraminal components of the disc bulge and facet hypertrophy contribute to mild bilateral foraminal stenosis. IMPRESSION: Multilevel multifactorial degenerative changes, most pronounced at L4-L5 where there is displacement of the descending L5 nerve roots in both subarticular zones. Facet hypertrophy with facet effusions and subchondral cystic change at L3-L4 and L4-L5, potential sources of nonradicular axial back pain. An annular fissure of the L4-L5 disc is an additional potential source of nonradicular axial back pain. Dictated by: Samir Daniels M.D. on 05/10/2021 at 14:29 Approved by: Samir Daniels M.D. on 05/10/2021 at 14:33
== END ==
PROVIDERS: PCP Family Medicine; Referring Provider Family Medicine; Visit Provider Family Medicine
DX: M54.59 Other low back pain (principal); G89.29 Other chronic pain; M54.17 Radiculopathy, lumbosacral region; M47.816 Spondylosis without myelopathy or radiculopathy, lumbar region; G03.8 Meningitis due to other specified causes; M51.36 Other intervertebral disc degeneration, lumbar region; M48.061 Spinal stenosis, lumbar region without neurogenic claudication; Q05.7 Lumbar spina bifida without hydrocephalus
CPT/HCPCS: 72148

== ENCOUNTER → 2021-06-05 16:37 | Outpatient (CLI) | payer OTHER, SELFPAY ==
[2018-08-12 12:44] VITALS: BMI 28.7
[2021-06-05 17:58] LABS: Alanine Aminotransferase 31 IU/L (<50); Albumin 4.8 g/dL (3.5-5.0); Albumin Globulin Ratio 1.8 (1.0-2.8); Alkaline Phosphatase 92 U/L (38-126); Aspartate Aminotransferase 27 IU/L (17-59); BUN Creatinine Ratio 9.5 (6-22); Bilirubin Total 1.4 mg/dL (0.2-1.3); Blood Urea Nitrogen 21 mg/dL (9-20); Calcium 10.1 mg/dL (8.4-10.2); Carbon Dioxide 28 mmol/L (22-32); Chloride 104 mmol/L (98-107); Cholesterol 77 mg/dL (140-199); Estimated Glomerular Filt Rate 29.3 mL/min (>60); Globulin 2.7 g/dL (1.7-4.1); Glucose 73 mg/dL (80-110); HDL Cholesterol 22 mg/dL (40-60); HEMOLYSIS < 15 (0-50); LDL Cholesterol Calculated 21 mg/dL (<100); Potassium 4.9 mmol/L (3.4-5.1); Sodium 140 mmol/L (137-145); Total Protein 7.5 g/dL (6.3-8.2); Triglycerides 172 mg/dL (35-150)
[2021-06-05 18:10] LABS: Add Manual Diff / Slide Review NO; Basophils Absolute Auto 0 /uL (0-100); Basophils Percent Auto 0.7 % (0-2); Eosinophils Absolute Auto 0 /uL (0-450); Eosinophils Percent Auto 0.1 % (2-4); Hematocrit 39.9 % (41-53); Hemoglobin 13.8 g/dL (13.5-17.5); Lymphocytes Absolute Auto 1200 /uL (1100-4500); Lymphocytes Percent Auto 18.3 % (25-40); Mean Corpuscular HGB Conc 34.6 % (30-36); Mean Corpuscular Hemoglobin 30.6 PG (26-34); Mean Corpuscular Volume 88.5 fL (80-100); Monocytes Absolute Auto 700 /uL (0-900); Monocytes Percent Auto 10.3 % (3-14); Neutrophils Absolute Auto 4700 /uL (1500-7000); Neutrophils Percent Auto 70.6 % (50-75); Platelet Count 154 X10^3/uL (150-400); Red Blood Cell Count 4.51 X10^6/uL (4.5-5.9); Red Cell Distribution Width 12.8 % (11.6-14.8); White Blood Cell Count 6.7 X10^3/uL (4.5-11.0)
[2021-06-05 18:18] LABS: Hemoglobin A1C% w Est Avg Glu 5.8 % (4.0-6.0)
[2021-06-05 18:27] LABS: Prostate Specific Antigen Scrn 0.305 ng/mL (0.1-4.0); TSH w/ Reflex to FT4 1.77 uIU/mL (0.47-4.68)
== END ==
PROVIDERS: PCP Family Medicine; Referring Provider Family Medicine; Visit Provider Family Medicine
DX: E11.9 Type 2 diabetes mellitus without complications (principal); Z12.5 Encounter for screening for malignant neoplasm of prostate; I10 Essential (primary) hypertension; E34.9 Endocrine disorder, unspecified; E78.2 Mixed hyperlipidemia; M72.0 Palmar fascial fibromatosis [Dupuytren]
CPT/HCPCS: 36415; 80053; 80061; 83036; 84443; 85025; G0103

== ENCOUNTER → 2021-08-29 13:29 | Outpatient (CLI) | payer OTHER, SELFPAY ==
[2018-08-12 12:44] VITALS: BMI 28.7
[2021-08-29 14:56] LABS: Hemoglobin A1C% w Est Avg Glu 6.1 % (4.0-6.0)
[2021-08-29 15:14] LABS: Hemoglobin 13.6 g/dL (13.5-17.5)
[2021-08-29 15:30] LABS: Alanine Aminotransferase 28 IU/L (<50); Albumin 4.5 g/dL (3.5-5.0); Albumin Globulin Ratio 1.8 (1.0-2.8); Alkaline Phosphatase 91 U/L (38-126); Aspartate Aminotransferase 25 IU/L (17-59); BUN Creatinine Ratio 11.8 (6-22); Bilirubin Total 1.4 mg/dL (0.2-1.3); Blood Urea Nitrogen 24 mg/dL (9-20); Calcium 10.1 mg/dL (8.4-10.2); Carbon Dioxide 28 mmol/L (22-32); Chloride 105 mmol/L (98-107); Estimated Glomerular Filt Rate 32.2 mL/min (>60); Globulin 2.5 g/dL (1.7-4.1); Glucose 99 mg/dL (80-110); HEMOLYSIS < 15 (0-50); Potassium 4.8 mmol/L (3.4-5.1); Sodium 139 mmol/L (137-145)
[2021-08-29 15:51] LABS: Creatinine Urine Random 83.6 mg/dL; Protein (Total) Urine Random 11 mg/dL (0-12); Protein Creatinine Ratio Urine 0.13 GRAM/24H
[2021-09-05 07:38] LABS: Levetiracetam Keppra 32.4 ug/mL (10.0-40.0)
== END ==
PROVIDERS: PCP Family Medicine; Referring Provider Student in an Organized Health Care Education/Training Program; Visit Provider Student in an Organized Health Care Education/Training Program
DX: E11.49 Type 2 diabetes mellitus with other diabetic neurological complication (principal); N05.9 Unspecified nephritic syndrome with unspecified morphologic changes; D64.9 Anemia, unspecified; R80.9 Proteinuria, unspecified; G40.909 Epilepsy, unspecified, not intractable, without status epilepticus; E34.9 Endocrine disorder, unspecified; I10 Essential (primary) hypertension; E78.2 Mixed hyperlipidemia
CPT/HCPCS: 36415; 80053; 80177; 82570; 83036; 84156; 85014; 85018

== ENCOUNTER → 2021-09-19 12:40 | Outpatient (CLI) | payer OTHER, SELFPAY ==
[2018-08-12 12:44] VITALS: BMI 28.7
--- NOTE | 2021-09-19 12:44 | DI.CT.S_ITS ---
PROCEDURE: CT HEAD/BRAIN WO CON INDICATIONS: Recent breakthrough seizure TECHNIQUE: Helical axial CT of the brain was obtained without contrast and reformatted in multiple planes. Radiation dose reduction was achieved utilizing automated exposure control and/or adjustment of the dose parameters according to patient's size COMPARISON: [facility], CT, HEAD WITHOUT CONTRAST, 10/20/2016, 13:27. FINDINGS: Image quality: Excellent. CSF spaces: Basal cisterns are patent. No extra-axial fluid collections. Ventricles are normal in size and shape. Brain: No midline shift. No intracranial masses or hemorrhage. Tirado-white matter interface is normal. Moderate cerebral and cerebellar volume loss with multifocal white matter chronic ischemic change noted. Mild calcified atherosclerotic plaque noted involving the cavernous portions of both internal carotid and intradural vertebral arteries. Skull and face: Calvarium and visualized facial bones are intact, without suspicious lesions. Bilateral intraocular lens replacements noted. Sinuses: Visualized sinuses and mastoids are clear. IMPRESSION: Atrophy and chronic ischemic change without acute hemorrhage or mass effect. Approved by: Luis Gomez M.D. on 09/19/2021 at 14:08
== END ==
PROVIDERS: PCP Family Medicine; Referring Provider Family Medicine; Visit Provider Family Medicine
DX: G40.909 Epilepsy, unspecified, not intractable, without status epilepticus (principal); E34.9 Endocrine disorder, unspecified; E11.49 Type 2 diabetes mellitus with other diabetic neurological complication; I10 Essential (primary) hypertension; E78.2 Mixed hyperlipidemia
CPT/HCPCS: 70450

== ENCOUNTER → 2021-09-21 12:50 | Outpatient (CLI) | payer OTHER, SELFPAY ==
[2018-08-12 12:44] VITALS: BMI 28.7
--- NOTE | 2021-09-21 12:51 | DI.US.S_ITS ---
PROCEDURE: US RENAL COMPLETE INDICATIONS: CHRONIC KIDNEY DISEASE/ACUTE KIDNEY FAILURE TECHNIQUE: Real-time scanning was performed of the kidneys and bladder, with image documentation. COMPARISON: None. FINDINGS: Kidneys: Kidneys are normal in size. Right kidney measures 10.8 cm long; left kidney measures 12.5 cm long. Right renal cortical thickness is 1.1 cm; left renal cortical thickness is 1.4 cm. Renal cortical echotexture is normal. No hydronephrosis or nephrolithiasis. No suspicious solid mass lesions. Bladder: Bladder decompressed at the time of imaging which limits diagnostic sensitivity of the study for bladder pathology. Pre-void bladder volume is 4.7 mL. Patient unable to void. Pre-void images demonstrate no intraluminal masses or stones. On pre-void images, neither the right nor the left ureteral jets are noted with color Doppler interrogation. (Of note, ureteral jets may not be detectable in up to 25% of cases due to insufficient differences in specific gravity between ureteral and bladder urine). Miscellaneous: No free pelvic fluid. IMPRESSION: Kidneys are sonographically normal. No hydronephrosis. Dictated by: Addie Moreno MD, PhD on 09/21/2021 at 16:29 Approved by: Addie Moreno MD, PhD on 09/21/2021 at 16:30
== END ==
PROVIDERS: PCP Family Medicine; Referring Provider Student in an Organized Health Care Education/Training Program; Visit Provider Student in an Organized Health Care Education/Training Program
DX: N18.9 Chronic kidney disease, unspecified (principal); N17.9 Acute kidney failure, unspecified
CPT/HCPCS: 76770

== ENCOUNTER → 2021-09-27 13:04 | Outpatient (CLI) | payer OTHER, SELFPAY ==
[2018-08-12 12:44] VITALS: BMI 28.7
[2021-09-27 14:11] LABS: Hematocrit 40.2 % (41-53); Hemoglobin 13.7 g/dL (13.5-17.5)
[2021-09-27 14:13] LABS: Appearance Urine UA CLEAR; Bilirubin Urine UA NEGATIVE (NEGATIVE); Color Urine UA YELLOW; Glucose Urine UA NEGATIVE (Negative); Ketones Urine UA NEGATIVE (NEGATIVE); Leukocyte Esterase Urine UA NEGATIVE (NEGATIVE); Nitrite Urine UA NEGATIVE (Negative); Occult Blood Urine UA NEGATIVE (Negative); Protein Urine UA NEGATIVE (Negative); Specific Gravity Urine UA 1.015 (1.000-1.035); Urobilinogen Urine UA 0.2 E.U./dL (0.2); pH Urine UA 5.5 (4.5-8.0)
[2021-09-27 14:20] LABS: Bacteria Urine None Seen; Culture Indicated Urine Cult Not Indicated; RBC Urine None Seen (0-5/HPF); Urine Comments Microscopic Normal; WBC Urine None Seen (0-5/HPF)
[2021-09-27 15:06] LABS: BUN Creatinine Ratio 11.1 (6-22); Blood Urea Nitrogen 23 mg/dL (9-20); Calcium 9.9 mg/dL (8.4-10.2); Carbon Dioxide 26 mmol/L (22-32); Chloride 101 mmol/L (98-107); Estimated Glomerular Filt Rate 31.3 mL/min (>60); Glucose 232 mg/dL (80-110); HEMOLYSIS < 15 (0-50); Phosphorous 3.6 mg/dL (2.3-3.7); Potassium 4.4 mmol/L (3.4-5.1); Sodium 139 mmol/L (137-145)
[2021-09-27 15:18] LABS: Creatinine Urine Random 134.8 mg/dL; Protein (Total) Urine Random 12 mg/dL (0-12); Protein Creatinine Ratio Urine 0.08 GRAM/24H
[2021-09-28 08:50] LABS: Parathyroid Hormone Int 56 pg/mL (15-65)
== END ==
PROVIDERS: PCP Family Medicine; Referring Provider Student in an Organized Health Care Education/Training Program; Visit Provider Student in an Organized Health Care Education/Training Program
DX: N05.9 Unspecified nephritic syndrome with unspecified morphologic changes (principal); D64.9 Anemia, unspecified; E83.30 Disorder of phosphorus metabolism, unspecified; N25.81 Secondary hyperparathyroidism of renal origin; N30.00 Acute cystitis without hematuria; R80.9 Proteinuria, unspecified
CPT/HCPCS: 36415; 80048; 81001; 82570; 83970; 84100; 84156; 85014; 85018

== ENCOUNTER → 2021-12-19 14:35 | Outpatient (CLI) | payer OTHER, SELFPAY ==
[2021-12-11 14:10] VITALS: BMI 28.7
[2021-12-19 16:11] LABS: Hemoglobin A1C% w Est Avg Glu 5.8 % (4.0-6.0)
[2021-12-19 16:36] LABS: Alanine Aminotransferase 32 IU/L (<50); Albumin 4.4 g/dL (3.5-5.0); Albumin Globulin Ratio 1.6 (1.0-2.8); Alkaline Phosphatase 96 U/L (38-126); Aspartate Aminotransferase 31 IU/L (17-59); BUN Creatinine Ratio 9.8 (6-22); Blood Urea Nitrogen 18 mg/dL (9-20); Calcium 9.1 mg/dL (8.4-10.2); Carbon Dioxide 25 mmol/L (22-32); Chloride 103 mmol/L (98-107); Estimated Glomerular Filt Rate 38 mL/min (>60); Globulin 2.8 g/dL (1.7-4.1); Glucose 110 mg/dL (80-110); HEMOLYSIS < 15 (0-50); Potassium 3.8 mmol/L (3.4-5.1); Sodium 139 mmol/L (137-145); Total Protein 7.2 g/dL (6.3-8.2)
[2021-12-19 17:09] LABS: Prostate Specific Antigen Scrn 0.323 ng/mL (0.1-4.0)
[2021-12-26 12:41] LABS: Percent Free Testosterone 5.28 % (1.50-4.20); Testosterone Free 52.32 ng/dL (5.00-21.00)
== END ==
PROVIDERS: PCP Family Medicine; Referring Provider Family Medicine; Visit Provider Family Medicine
DX: E11.49 Type 2 diabetes mellitus with other diabetic neurological complication (principal); E34.9 Endocrine disorder, unspecified; G40.909 Epilepsy, unspecified, not intractable, without status epilepticus; I10 Essential (primary) hypertension; Z12.5 Encounter for screening for malignant neoplasm of prostate
CPT/HCPCS: 36415; 80053; 83036; 84402; 84403; G0103

== ENCOUNTER → 2021-12-27 09:12 | Outpatient (CLI) | payer OTHER, SELFPAY ==
[2021-12-11 14:10] VITALS: BMI 28.7
[2021-12-27 10:25] LABS: Hematocrit 38.2 % (41-53); Hemoglobin 13.5 g/dL (13.5-17.5)
[2021-12-27 10:46] LABS: Creatinine Urine Random 174.5 mg/dL; Protein (Total) Urine Random 15 mg/dL (0-12); Protein Creatinine Ratio Urine 0.08 GRAM/24H
[2021-12-27 10:51] LABS: BUN Creatinine Ratio 8.8 (6-22); Blood Urea Nitrogen 15 mg/dL (9-20); Calcium 9.2 mg/dL (8.4-10.2); Carbon Dioxide 30 mmol/L (22-32); Chloride 101 mmol/L (98-107); Estimated Glomerular Filt Rate 42 mL/min (>60); Glucose 182 mg/dL (80-110); HEMOLYSIS < 15 (0-50); Potassium 4.2 mmol/L (3.4-5.1); Sodium 138 mmol/L (137-145)
[2021-12-28 05:26] LABS: Parathyroid Hormone Int 68 pg/mL (15-65)
== END ==
PROVIDERS: PCP Family Medicine; Referring Provider Student in an Organized Health Care Education/Training Program; Visit Provider Student in an Organized Health Care Education/Training Program
DX: N05.9 Unspecified nephritic syndrome with unspecified morphologic changes (principal); D64.9 Anemia, unspecified; N25.81 Secondary hyperparathyroidism of renal origin; R80.9 Proteinuria, unspecified
CPT/HCPCS: 36415; 80048; 82570; 83970; 84156; 85014; 85018

== ENCOUNTER → 2022-03-14 08:23 | Outpatient (CLI) | payer OTHER, SELFPAY ==
[2021-12-11 14:10] VITALS: BMI 28.7
[2022-03-14 09:34] LABS: Hematocrit 37.7 % (41-53); Hemoglobin 13.7 g/dL (13.5-17.5)
[2022-03-14 10:54] LABS: HEMOLYSIS < 15 (0-50); Potassium 4.5 mmol/L (3.4-5.1)
[2022-03-14 10:55] LABS: BUN Creatinine Ratio 16.2 (6-22); Blood Urea Nitrogen 27 mg/dL (9-20); Calcium 9.8 mg/dL (8.4-10.2); Carbon Dioxide 26 mmol/L (22-32); Chloride 105 mmol/L (98-107); Estimated Glomerular Filt Rate 42 mL/min (>60); Glucose 112 mg/dL (80-110); Sodium 140 mmol/L (137-145)
[2022-03-14 11:35] LABS: Creatinine Urine Random 81.7 mg/dL
[2022-03-14 11:41] LABS: Microalbumi Creatinin Ratio Ur 19.5 ug/mg CR (<30); Microalbumin Urine Random 1.6 mg/dL (0-1.6)
[2022-03-15 05:12] LABS: Parathyroid Hormone Int 47 pg/mL (15-65)
== END ==
PROVIDERS: PCP Family Medicine; Referring Provider Student in an Organized Health Care Education/Training Program; Visit Provider Student in an Organized Health Care Education/Training Program
DX: N05.9 Unspecified nephritic syndrome with unspecified morphologic changes (principal); D64.9 Anemia, unspecified; N25.81 Secondary hyperparathyroidism of renal origin; R80.9 Proteinuria, unspecified
CPT/HCPCS: 36415; 80048; 82043; 82570; 83970; 85014; 85018

== ENCOUNTER → 2022-04-04 15:06 | Outpatient (CLI) | payer OTHER, SELFPAY ==
[2021-12-11 14:10] VITALS: BMI 28.7
--- NOTE | 2022-04-04 15:38 | DI.MRI.S_ITS ---
PROCEDURE: MR LUMBAR SPINE WO CON INDICATIONS: Radiculopathy, lumbar region TECHNIQUE: Noncontrast sagittal T1 spin echo and T2 fast echo, sagittal STIR, and T2 fast spin echo through the lumbar spine. In cases with scoliosis, additional coronal T2 fast spin echo may be performed. COMPARISON: [facility], MR, L-SPINE WITHOUT CONTRAST, 01/20/2015, 17:58. [facility], MR, MR LUMBAR SPINE WO CON, 05/10/2021, 11:29. [facility], CR, XR LUMBAR SPINE 2 OR 3 VIEWS, 10/21/2018, 14:16. [facility], MR, MR LUMBAR SPINE WO CON, 03/19/2018, 14:18. FINDINGS: Image quality: This examination is limited by involuntary motion artifact. Alignment and Curvature: There is minimal retrolisthesis seen at L3-L4, L4-L5, and at L5-S1. There is overall straightening of the normal lumbar lordosis. Bone Marrow: Marrow is of normal overall signal. No acute vertebral body compression fractures. Spinal Cord: Conus medullaris terminates at the T12-L1 level. Visualized cord demonstrates normal signal and size. Paraspinous Soft Tissues: No paravertebral masses. T12-L1: Normal appearance. L1-L2: Bridging anterior osteophytes are seen. The disc height is well-preserved. Loss of disc signal is seen at this level. No significant neural foraminal or central canal narrowing can be seen. No significant change from the prior. L2-L3: The disc height is well-preserved. Loss of disc signal is seen at this level. Mild generalized disc bulge is seen. There is a focal annular fissure seen posteriorly. No significant neural foraminal or central canal narrowing can be seen. L3-L4: The disc height is well-preserved. Loss of disc signal is seen at this level. Moderate generalized disc bulge is seen. There is a superimposed central disc protrusion. Mild facet joint hypertrophy is seen. Fluid is seen within the facet joints themselves. Mild to moderate bilateral neural foraminal narrowing can be seen. Moderate central canal narrowing is seen. When comparison is made with the prior images, these findings are similar. L4-L5: Moderate loss of disc height is seen. Loss of disc signal is seen. At least moderate disc bulge is seen, with a mild central disc protrusion. There is a focal annular fissure seen posteriorly. Mild to moderate facet hypertrophy is seen. Moderate bilateral neural foraminal narrowing is seen. Moderate central canal narrowing is seen. When comparison is made with the prior images, these findings are similar. L5-S1: The disc height is well-preserved. Loss of disc signal is seen at this level. Mild to moderate disc bulge is seen, which is eccentric to the left. Mild to moderate facet hypertrophy is seen. Mild to moderate bilateral neural foraminal narrowing is seen. Mild central canal narrowing is seen. When comparison is made with the prior images, these findings are similar. IMPRESSION: Multiple levels of lumbar spine degenerative change are seen, which are worst at the L4-L5 level. The degenerative changes are similar to 202. Dictated by: Teo Blandon M.D. on 04/04/2022 at 15:46 Approved by: Teo Blandon M.D. on 04/04/2022 at 15:50
== END ==
PROVIDERS: PCP Family Medicine; Referring Provider Psychiatry & Neurology Neurology; Visit Provider Psychiatry & Neurology Neurology
DX: M51.16 Intervertebral disc disorders with radiculopathy, lumbar region (principal); M48.061 Spinal stenosis, lumbar region without neurogenic claudication; R29.898 Other symptoms and signs involving the musculoskeletal system; R20.2 Paresthesia of skin
CPT/HCPCS: 72148

== ENCOUNTER → 2022-04-11 08:38 | Outpatient (CLI) | payer OTHER, SELFPAY ==
[2021-12-11 14:10] VITALS: BMI 28.7
[2022-04-11 11:14] LABS: Hemoglobin A1C% w Est Avg Glu 5.6 % (4.0-6.0)
[2022-04-11 11:42] LABS: Alanine Aminotransferase 25 IU/L (<50); Albumin 4.2 g/dL (3.5-5.0); Albumin Globulin Ratio 1.7 (1.0-2.8); Alkaline Phosphatase 107 U/L (38-126); Aspartate Aminotransferase 26 IU/L (17-59); Bilirubin Total 0.9 mg/dL (0.2-1.3); Blood Urea Nitrogen 22 mg/dL (9-20); Calcium 9.5 mg/dL (8.4-10.2); Carbon Dioxide 26 mmol/L (22-32); Chloride 104 mmol/L (98-107); Cholesterol 101 mg/dL (140-199); Estimated Glomerular Filt Rate 38 mL/min (>60); Globulin 2.5 g/dL (1.7-4.1); Glucose 124 mg/dL (80-110); HDL Cholesterol 19 mg/dL (40-60); HEMOLYSIS < 15 (0-50); Potassium 4.5 mmol/L (3.4-5.1); Sodium 139 mmol/L (137-145); Total Protein 6.7 g/dL (6.3-8.2); Triglycerides 486 mg/dL (35-150)
== END ==
PROVIDERS: PCP Family Medicine; Referring Provider Family Medicine; Visit Provider Family Medicine
DX: E11.49 Type 2 diabetes mellitus with other diabetic neurological complication (principal); E34.9 Endocrine disorder, unspecified; E78.2 Mixed hyperlipidemia; F31.30 Bipolar disorder, current episode depressed, mild or moderate severity, unspecified; G40.909 Epilepsy, unspecified, not intractable, without status epilepticus; I10 Essential (primary) hypertension
CPT/HCPCS: 36415; 80053; 80061; 83036

== ENCOUNTER → 2022-04-19 13:18 | Outpatient (CLI) | payer OTHER, SELFPAY ==
[2021-12-11 14:10] VITALS: BMI 28.7
== END ==
PROVIDERS: Family Provider Family Medicine; PCP Family Medicine; Referring Provider Psychiatry & Neurology Neurology; Visit Provider Psychiatry & Neurology Neurology
DX: R29.898 Other symptoms and signs involving the musculoskeletal system (principal); G14 Postpolio syndrome
CPT/HCPCS: 95886; 95909

== ENCOUNTER 2022-07-10 09:45 | Outpatient (RCR) | payer OTHER, SELFPAY ==
[2021-12-11 14:10] VITALS: BMI 28.7
--- NOTE | 2022-05-08 17:07 | PT.OIE ---
Current Diagnoses Postpolio syndrome (05/08/22) Other symptoms and signs involving the musculoskeletal system (05/08/22) Past Medical History (Last Reviewed 04/12/22 @ 14:35 by Esequiel Armstrong DO) Acute GI bleeding [id number] kidney injury Asthma Barretts esophagus Bipolar disorder CKD (chronic kidney disease) Closed head injury Community acquired pneumonia Degenerative joint disease of left hip Depression Diabetes mellitus Diverticular disease DJD of right shoulder Gout Herniated nucleus pulposus, L4-5 left History of prostate cancer Hyperlipidemia Hypersomnia Hypertension Idiopathic peripheral neuropathy Impotence Low back pain Lumbosacral radiculopathy at L4 Obstructive sleep apnea of adult Personal history of radiation therapy Polio Syncope TIA (transient ischemic attack) Past Surgical History (Last Reviewed 04/12/22 @ 14:35 by Esequiel Armstrong DO) Anesthesia History of incision and drainage History of prostate surgery Inguinal hernia Status post eye surgery Status post tonsillectomy and adenoidectomy Surgical procedure planned Visit Care Team Role Provider Type Esequiel Armstrong DO Family Provider Physician Primary Care Provider Specialty: Family Practice Address: [address] [place] [address], [id number] Email: [email or web address] Nahum Pablo MD Attending Provider Non-Staff Referring Provider Specialty: Neurology Address: [address] [place] [address], [phone] Email: Physical Therapy Initial Evaluation PT-OP-A Visit Information Start: 05/07/22 18:02 Freq: Status: Active Protocol: Document 05/08/22 12:26 LRN (Rec: 05/08/22 17:04 LRN [id number]) Out-Patient Physical Therapy Visit Information Visit Information Visit Type Initial Evaluation Visit Start Time 13:45 Visit Stop Time 14:39 Total Visit Minutes 54 Visit Number 08/10 Evaluation Information Evaluation Date 05/08/22 Precautions Precautions L LE gives out, recent fall history 1x in past week, Diabetes type II. PT-OP-B Current Condition Start: 05/07/22 18:02 Freq: Status: Active Protocol: Document 05/08/22 12:26 LRN (Rec: 05/08/22 17:04 LRN [id number]) Current Condition History of Current Condition Onset Date 1 month ago. 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 Was in [facility] for 8 months due to falling and head injury. One month ago was sent to neurologist and had a nerve conduction study. He was told all the weakness was contributed to post polio flare up. The low back primarily on the L side was effected by polio (was in [facility]). Also is in higher end of Stage III Kidney Disease. Walking his leg gives out causing him to fall, occurred last week. Uses cane with flare ups. Prior Treatments and Tests Has had PT 2-3 times previously for Low back and LE weakness. 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 Was going to have a stimulator placed, but is waiting until all the tests are done. He hasn't been back to discuss stimulator with neurologist. Treatment Goals Patient/Caregiver Goals Goal is to: - strengthen the leg in the legs L>R so that he will be able to stand with equal WBing on sit<>stand. - Being able to bend over gardening without loss of balance. Prior Functional Status Baseline Function- ADL's Independent Baseline Function- Mobility Independent Baseline Function- Gait 8 yrs ago was able to walk w/o leg giving out Current Functional Impairments (Reported) Functional Limitations- ADL's Leg (L>R) gives out on him with walking from sitting. Personal Factors Other Personal Factors That May Effect Post polio, pt in higher end Therapy/Recovery of Stage III Kidney Disease, patient falling due to L leg giving out. PT-OP-E Functional Tests Start: 05/07/22 18:02 Freq: Status: Active Protocol: Document 05/08/22 12:26 LRN (Rec: 05/08/22 17:04 LRN [id number]) Functional Tests Timed Up and Go (TUG) Score 23 Comments Webbed chair, no use of hands. TUG Impairment Rating 100% Impaired (Score 20) PT-OP-G Mobility & Gait Start: 05/07/22 18:02 Freq: Status: Active Protocol: Document 05/08/22 12:26 LRN (Rec: 05/08/22 17:04 LRN [id number]) OP Gait Assessment Gait Gait Assistance Required: Independent Distance (Feet) 100 Able to Maintain Weight Bearing Status Yes During Gait Assistive Devices Assistive Device None Factors Limiting Gait Function Factors Limiting Gait Function Decreased Strength,Poor Balance Comments Gait Comments L LE partially collapses with gait, but pt able to maintain standing posture. Increased trunk sway with gait. PT-OP-J Posture/Palpation/Skin Start: 05/07/22 18:02 Freq: Status: Active Protocol: Document 05/08/22 12:26 LRN (Rec: 05/08/22 17:04 LRN [id number]) Posture Evaluation Position Standing Head/C-Spine Posture Neutral Position T-Spine Posture Increased Kyphosis L-Spine Posture Decreased Lordosis Shoulder Posture Neutral Pelvis Posture Posterior Tilted Weight Distribution Weight Shifted Right Ankle/Foot Posture (L) Forefoot Abducted,(R) Forefoot Abducted Foot Arch (L) High Arch,(R) High Arch Palpation Assessment Location Low Back Palpation Location L Low back radiating to lateral thigh Palpation Findings Tenderness PT-OP-K Range of Motion Start: 05/07/22 18:02 Freq: Status: Active Protocol: Document 05/08/22 12:26 LRN (Rec: 05/08/22 17:04 LRN [id number]) Lumbar Spine Range of Motion Lumbar Spine Active Percentage Testing Position Standing ROM Limitations Muscle Weakness Comments Deferred due to pt standing instability. PT-OP-M Strength Start: 05/07/22 18:02 Freq: Status: Active Protocol: Document 05/08/22 12:26 LRN (Rec: 05/08/22 17:04 LRN [id number]) Trunk Strength Trunk Manual Muscle Testing Rotation Left 3+ Fair+ Lateral Flexion Left 4- Good- Lateral Flexion Right 4- Good- Core Stabilization Strength is 5/5 except as mentioned above. Hip Strength Hip Manual Muscle Testing Right Adduction 4- Good- Internal Rotation 4 Good Comments Strength is 5/5 except as indicated above. Left Flexion (L2) 4 Good Extension (S1) 4+ Good+ Abduction 2+ Poor+ Adduction 3- Fair- External Rotation 3+ Fair+ Internal Rotation 3 Fair Knee Strength Knee Manual Muscle Testing Left Flexion (S2) 4+ Good+ Extension (L3) 4+ Good+ Ankle/Foot Strength Ankle and Foot Manual Muscle Testing Right Dorsiflexion (L4) 5 Normal Plantarflexion (S1) 5 Normal Inversion 4+ Good+ Eversion (S1) 4+ Good+ Left Dorsiflexion (L4) 4 Good Plantarflexion (S1) 3+ Fair+ Inversion 3+ Fair+ Eversion (S1) 3 Fair PT-OP-Q Treatments Start: 05/07/22 18:02 Freq: Status: Active Protocol: Document 05/08/22 12:26 LRN (Rec: 05/08/22 17:04 LRN [id number]) Therapeutic Exercises Sitting Exercises Ankle AROM Sitting Exercise Name Ankle PF/DF/IV/EV Side bilateral Reps/Minutes 5x each Self-Care/Home Management Treatment Education Other Education Discussed results of evaluation, goals, and plan of care (POC). Pt agreeable to goals and POC. Activities Self-Care/Home Management Activities I/S pt in HEP: Ankle Ex's PF, DF, EV, IV. PT-OP-T Assessment and Plan Start: 05/07/22 18:02 Freq: Status: Active Protocol: Document 05/08/22 12:26 LRN (Rec: 05/08/22 17:04 [facility] [id number]) Physical Therapy Assessment Rehab Potential Rehabilitation Potential Good Evaluation Complexity Number of Personal Factors/Comorbidities 1-2 Number of Body Systems Impaired 4 or More Clinical Presentation at Evaluation Evolving Impairments Impairments Activity Tolerance,Balance, Gait,Pain,Posture,ROM,Soft Tissue Mobility,Strength Goals Three Impairment Decreased stability with standing and gait. Impairment Standing: LOB bending forward (gardening) in standing. Gait: TUG score 23 secs, 100% impaired, score 20 or more. Short Term Goal (STG) Improve stability with gait with TUG score of 15-16 (50% impaired) STG Duration 06/24/22 Mcc Goal (LTG) In standing, the pt will be able to bend forward to perform gardening activities without loss of balance. LTG Duration 08/06/22 One Impairment Currently has HEP of leg ex's and Jefry-Chi. Polisher Dial Goal (LTG) Up date and modify HEP as needed. LTG Duration 08/06/22 Two Impairment Decreased LE strength Impairment Hip Ankles Short Term Goal (STG) Strengthen the legs so that he will be able to stand with equal WBing on sit<>stand. STG Duration 06/24/22 Mcc Goal (LTG) Strengthen LE's with pt able to take first few steps after sitting withou the legs giving out on him. LTG Duration 08/06/22 Assessment Summary Assessment Pt presents with L>R LE weakness due to history of Polio and L LBP with L hip/ lateral thigh pain that appears neurological in nature with + PSLR and + manual lumbar traction. The pt will benefit from skilled physical therapy to reduce L LBP and radicular pain as well as improve LE strength for improved stability with standing, gait and balance. Physical Therapy Plan Frequency and Duration Frequency of Treatment 2x/Week Plan of Care Start Date 05/08/22 Plan of Care End Date 08/06/22 Therapeutic Interventions Therapeutic Interventions Balance Training,Gait Training ,Home Exercise Program, Neuromuscular Re-education, Patient/Caregiver Education, Self-Care/Home Management, Therapeutic Activities, Therapeutic Exercises Modalities Cold Pack/Ice Massage,Electric Stimulation,Hot Packs Next Visit Focus/Plan Next Note Type Treatment Note Next Visit Plan Post Polio and LBP (for possible hernia) rehab. Ther Ex: LE/core strengthening, and when safe, balance and gait training. Start with LE neural stretch, ankle strengthening and ECC knee strengthening. Modality: MH/IFES> LB and assess response to manual L/S traction.
--- NOTE | 2022-05-08 17:09 | PT.OPPOC ---
Physical, Occupational & Speech Therapy At [facility] Current Diagnoses Postpolio syndrome (05/08/22) Muscle weakness (generalized) (05/08/22) Unsteadiness on feet (05/08/22) Other abnormalities of gait and mobility (05/08/22) Other symptoms and signs involving the musculoskeletal system (05/08/22) Visit Care Team Role Provider Type Esequiel Armstrong DO Family Provider Physician Primary Care Provider Specialty: Family Practice Address: [address] [place] [address], [id number] Email: [email or web address] Nahum Pablo MD Attending Provider Non-Staff Referring Provider Specialty: Neurology Address: [address] [place] [address], [phone] Email: Plan Of Care PT-OP-T Assessment and Plan Start: 05/07/22 18:02 Freq: Status: Active Protocol: Document 05/08/22 12:26 LRN (Rec: 05/08/22 17:04 LRN [id number]) Physical Therapy Assessment Rehab Potential Rehabilitation Potential Good Evaluation Complexity Number of Personal Factors/Comorbidities 1-2 Number of Body Systems Impaired 4 or More Clinical Presentation at Evaluation Evolving Impairments Impairments Activity Tolerance,Balance, Gait,Pain,Posture,ROM,Soft Tissue Mobility,Strength Goals Three Impairment Decreased stability with standing and gait. Impairment Standing: LOB bending forward (gardening) in standing. Gait: TUG score 23 secs, 100% impaired, score 20 or more. Short Term Goal (STG) Improve stability with gait with TUG score of 15-16 (50% impaired) STG Duration 06/24/22 Jail Goal (LTG) In standing, the pt will be able to bend forward to perform gardening activities without loss of balance. LTG Duration 08/06/22 One Impairment Currently has HEP of leg ex's and Jefry-Chi. Jail Goal (LTG) Up date and modify HEP as needed. LTG Duration 08/06/22 Two Impairment Decreased LE strength Impairment Hip Ankles Short Term Goal (STG) Strengthen the legs so that he will be able to stand with equal WBing on sit<>stand. STG Duration 06/24/22 Jail Goal (LTG) Strengthen LE's with pt able to take first few steps after sitting withou the legs giving out on him. LTG Duration 08/06/22 Assessment Summary Assessment Pt presents with L>R LE weakness due to history of Polio and L LBP with L hip/ lateral thigh pain that appears neurological in nature with + PSLR and + manual lumbar traction. The pt will benefit from skilled physical therapy to reduce L LBP and radicular pain as well as improve LE strength for improved stability with standing, gait and balance. Physical Therapy Plan Frequency and Duration Frequency of Treatment 2x/Week Plan of Care Start Date 05/08/22 Plan of Care End Date 08/06/22 Therapeutic Interventions Therapeutic Interventions Balance Training,Gait Training ,Home Exercise Program, Neuromuscular Re-education, Patient/Caregiver Education, Self-Care/Home Management, Therapeutic Activities, Therapeutic Exercises Modalities Cold Pack/Ice Massage,Electric Stimulation,Hot Packs Next Visit Focus/Plan Next Note Type Treatment Note Next Visit Plan Post Polio and LBP (for possible hernia) rehab. Ther Ex: LE/core strengthening, and when safe, balance and gait training. Start with LE neural stretch, ankle strengthening and ECC knee strengthening. Modality: MH/IFES> LB and assess response to manual L/S traction. Plan of Care Dates Plan of Care Start Date 05/08/22 Plan of Care End Date 08/06/22 Electronically Signed by: Debbie Singh, PT 05/08/22 9184 If you are in agreement with this Plan of Care, please return a signed and dated copy. I have reviewed this Plan of Care and certify that the skilled therapy services above are required to meet the patient?s needs. Physician Signature Date Printed Name and Credentials Clinical Instructor Signature Printed Name and Credentials
--- NOTE | 2022-05-14 16:10 | PT.OTN ---
Current Diagnoses Postpolio syndrome (05/14/22) Muscle weakness (generalized) (05/14/22) Unsteadiness on feet (05/14/22) Other abnormalities of gait and mobility (05/14/22) Other symptoms and signs involving the musculoskeletal system (05/14/22) Physical Therapy Treatment Note PT-OP-A Visit Information Start: 05/07/22 18:02 Freq: Status: Active Protocol: Document 05/14/22 13:50 LRN (Rec: 05/14/22 14:33 LRN [id number]) Out-Patient Physical Therapy Visit Information Visit Information Visit Type Progress Note Visit Start Time 13:50 Visit Stop Time 14:30 Total Visit Minutes 40 Visit Number 2/6 PT-OP-B Current Condition Start: 05/07/22 18:02 Freq: Status: Active Protocol: Document 05/08/22 12:26 LRN (Rec: 05/08/22 17:04 LRN [id number]) Current Condition History of Current Condition Onset Date 1 month ago. 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 Was in [facility] for 8 months due to falling and head injury. One month ago was sent to neurologist and had a nerve conduction study. He was told all the weakness was contributed to post polio flare up. 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 Also is in higher end of Stage III Kidney Disease. Walking his leg gives out causing him to fall, occurred last week. Uses cane with flare ups. Prior Treatments and Tests Has had PT 2-3 times previously for Low back and LE weakness. 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 Was going to have a stimulator placed, but is waiting until all the tests are done. He hasn't been back to discuss stimulator with neurologist. Treatment Goals Patient/Caregiver Goals Goal is to: - strengthen the leg in the legs L>R so that he will be able to stand with equal WBing on sit<>stand. - Being able to bend over gardening without loss of balance. Prior Functional Status Baseline Function- ADL's Independent Baseline Function- Mobility Independent Baseline Function- Gait 8 yrs ago was able to walk w/o leg giving out Current Functional Impairments (Reported) Functional Limitations- ADL's Leg (L>R) gives out on him with walking from sitting. Personal Factors Other Personal Factors That May Effect Post polio, pt in higher end Therapy/Recovery of Stage III Kidney Disease, patient falling due to L leg giving out. PT-OP-C Subjective Start: 05/07/22 18:02 Freq: Status: Active Protocol: Document 05/14/22 13:50 LRN (Rec: 05/14/22 14:33 LRN [id number]) OP-PT Subjective Patient Comments Patient Comments Just had laser surgery of eye and wasn't told of any restrictions. No change with pain. LBP on R side 02/11. PT-OP-E Functional Tests Start: 05/07/22 18:02 Freq: Status: Active Protocol: Document 05/08/22 12:26 LRN (Rec: 05/08/22 17:04 LRN [id number]) Functional Tests Timed Up and Go (TUG) Score 23 Comments Webbed chair, no use of hands. TUG Impairment Rating 100% Impaired (Score 20) PT-OP-G Mobility & Gait Start: 05/07/22 18:02 Freq: Status: Active Protocol: Document 05/08/22 12:26 LRN (Rec: 05/08/22 17:04 LRN [id number]) OP Gait Assessment Gait Gait Assistance Required: Independent Distance (Feet) 100 Able to Maintain Weight Bearing Status Yes During Gait Assistive Devices Assistive Device None Factors Limiting Gait Function Factors Limiting Gait Function Decreased Strength,Poor Balance Comments Gait Comments L LE partially collapses with gait, but pt able to maintain standing posture. Increased trunk sway with gait. PT-OP-J Posture/Palpation/Skin Start: 05/07/22 18:02 Freq: Status: Active Protocol: Document 05/08/22 12:26 LRN (Rec: 05/08/22 17:04 LRN [id number]) Posture Evaluation Position Standing Head/C-Spine Posture Neutral Position T-Spine Posture Increased Kyphosis L-Spine Posture Decreased Lordosis Shoulder Posture Neutral Pelvis Posture Posterior Tilted Weight Distribution Weight Shifted Right Ankle/Foot Posture (L) Forefoot Abducted,(R) Forefoot Abducted Foot Arch (L) High Arch,(R) High Arch Palpation Assessment Location Low Back Palpation Location L Low back radiating to lateral thigh Palpation Findings Tenderness PT-OP-K Range of Motion Start: 05/07/22 18:02 Freq: Status: Active Protocol: Document 05/08/22 12:26 LRN (Rec: 05/08/22 17:04 LRN [id number]) Lumbar Spine Range of Motion Lumbar Spine Active Percentage Testing Position Standing ROM Limitations Muscle Weakness Comments Deferred due to pt standing instability. PT-OP-L Special Tests Start: 05/14/22 16:07 Freq: Status: Active Protocol: Document 05/14/22 13:50 LRN (Rec: 05/14/22 16:09 LRN [id number]) Special Tests Lumbar Spine Special Tests Manual Traction Test Results negative Comments Increased LBP with radicular anterior thigh pain Straight Leg Raise Test Results + left Comments PSLR: 45 deg's left, 50 deg's right PT-OP-M Strength Start: 05/07/22 18:02 Freq: Status: Active Protocol: Document 05/08/22 12:26 LRN (Rec: 05/08/22 17:04 LRN [id number]) Trunk Strength Trunk Manual Muscle Testing Rotation Left 3+ Fair+ Lateral Flexion Left 4- Good- Lateral Flexion Right 4- Good- Core Stabilization Strength is 5/5 except as mentioned above. Hip Strength Hip Manual Muscle Testing Right Adduction 4- Good- Internal Rotation 4 Good Comments Strength is 5/5 except as indicated above. Left Flexion (L2) 4 Good Extension (S1) 4+ Good+ Abduction 2+ Poor+ Adduction 3- Fair- External Rotation 3+ Fair+ Internal Rotation 3 Fair Knee Strength Knee Manual Muscle Testing Left Flexion (S2) 4+ Good+ Extension (L3) 4+ Good+ Ankle/Foot Strength Ankle and Foot Manual Muscle Testing Right Dorsiflexion (L4) 5 Normal Plantarflexion (S1) 5 Normal Inversion 4+ Good+ Eversion (S1) 4+ Good+ Left Dorsiflexion (L4) 4 Good Plantarflexion (S1) 3+ Fair+ Inversion 3+ Fair+ Eversion (S1) 3 Fair PT-OP-Q Treatments Start: 05/07/22 18:02 Freq: Status: Active Protocol: Document 05/14/22 13:50 LRN (Rec: 05/14/22 14:33 LRN [id number]) Therapeutic Exercises Supine Exercises Hamstring/LE neural stretch Supine Exercise Name Hamstring/LE neural stretch Side bilateral Reps/Minutes 8' Comments Extra time needed to find max tolerated stretch position. Sitting Exercises Sit To Stand Sitting Exercise Name STS with extra time taken for proper training with hip hinging. Reps/Minutes 10' Ankle AROM Sitting Exercise Name Ankle PF/DF/IV/EV Side bilateral Equipment Used Lev 1 TBand Reps/Minutes 10x each Comments Extra time needed for training with use of TBand. Standing Exercises Heel taps Standing Exercise Name VMO strengthening: Heel taps Side bilateral Reps/Minutes 3' Ankle PF Standing Exercise Name Ankle PF strengthening Side bilateral Reps/Minutes 20x Self-Care/Home Management Treatment Education Other Education Discussed POC and goals for LBP. Activities Self-Care/Home Management Activities Issued & reviewed HEP for ankle strengthening with Lev 1 TB issued. PT-OP-T Assessment and Plan Start: 05/07/22 18:02 Freq: Status: Active Protocol: Document 05/14/22 13:50 LRN (Rec: 05/14/22 14:33 LRN [id number]) Physical Therapy Assessment Rehab Potential Rehabilitation Potential Good Evaluation Complexity Number of Personal Factors/Comorbidities 1-2 Number of Body Systems Impaired 4 or More Clinical Presentation at Evaluation Evolving Impairments Impairments Activity Tolerance,Balance, Gait,Pain,Posture,ROM,Soft Tissue Mobility,Strength Goals Four Impairment LBP rated 7/10 Short Term Goal (STG) Decrease LBP to improve ability to get in/out of bed. STG Duration 06/24/22 Facilities Flight Check Pilot Goal (LTG) No pain with moving in bed. LTG Duration 08/06/22 Three Impairment Decreased stability with standing and gait. Impairment Standing: LOB bending forward (gardening) in standing. Gait: TUG score 23 secs, 100% impaired, score 20 or more. Short Term Goal (STG) Improve stability with gait with TUG score of 15-16 (50% impaired) STG Duration 06/24/22 Custodial Goal (LTG) In standing, the pt will be able to bend forward to perform gardening activities without loss of balance. LTG Duration 08/06/22 One Impairment Currently has HEP of leg ex's and Jefry-Chi. Facilities Flight Check Pilot Goal (LTG) Up date and modify HEP as needed. LTG Duration 08/06/22 Two Impairment Decreased LE strength Impairment Hip Ankles Short Term Goal (STG) Strengthen the legs so that he will be able to stand with equal WBing on sit<>stand. STG Duration 06/24/22 Custodial Goal (LTG) Strengthen LE's with pt able to take first few steps after sitting withou the legs giving out on him. LTG Duration 08/06/22 Assessment Summary Assessment Pt presents with L>R LE weakness due to history of Polio and L LBP with L hip/ lateral thigh pain that increases with manual lumbar traction. Improved mechanics with sit<>stand after training with slight lessening of back pain after training. Pt having back pain that limits his transfer and bed mobility; therefore adding LBP goal to his rehab program. Physical Therapy Plan Frequency and Duration Frequency of Treatment 2x/Week Plan of Care Start Date 05/08/22 Plan of Care End Date 08/06/22 Therapeutic Interventions Therapeutic Interventions Balance Training,Gait Training ,Home Exercise Program, Neuromuscular Re-education, Patient/Caregiver Education, Self-Care/Home Management, Therapeutic Activities, Therapeutic Exercises Modalities Cold Pack/Ice Massage,Electric Stimulation,Hot Packs Next Visit Focus/Plan Next Note Type Treatment Note Next Visit Plan Post Polio and LBP (for possible hernia) rehab. Ther Ex: LE/core strengthening, balance and gait training. Progress to ECC knee strengthening. Modality: MH/IFES> LB and assess response to manual L/S traction.
--- NOTE | 2022-05-14 16:11 | PT.OPPOC ---
Physical, Occupational & Speech Therapy At [facility] Current Diagnoses Postpolio syndrome (05/14/22) Muscle weakness (generalized) (05/14/22) Unsteadiness on feet (05/14/22) Other abnormalities of gait and mobility (05/14/22) Other symptoms and signs involving the musculoskeletal system (05/14/22) Visit Care Team Role Provider Type Esequiel Armstrong DO Family Provider Physician Primary Care Provider Specialty: Family Practice Address: [address] [place] [address], [phone] Email: [email or web address] Nahum Pablo MD Attending Provider Non-Staff Referring Provider Specialty: Neurology Address: [address] [place] [address], [phone] Email: Plan Of Care PT-OP-T Assessment and Plan Start: 05/07/22 18:02 Freq: Status: Active Protocol: Document 05/14/22 13:50 LRN (Rec: 05/14/22 14:33 LRN [id number]) Physical Therapy Assessment Rehab Potential Rehabilitation Potential Good Evaluation Complexity Number of Personal Factors/Comorbidities 1-2 Number of Body Systems Impaired 4 or More Clinical Presentation at Evaluation Evolving Impairments Impairments Activity Tolerance,Balance, Gait,Pain,Posture,ROM,Soft Tissue Mobility,Strength Goals Four Impairment LBP rated 7/10 Short Term Goal (STG) Decrease LBP to improve ability to get in/out of bed. STG Duration 06/24/22 Physical Therapy Aide Goal (LTG) No pain with moving in bed. LTG Duration 08/06/22 Three Impairment Decreased stability with standing and gait. Impairment Standing: LOB bending forward (gardening) in standing. Gait: TUG score 23 secs, 100% impaired, score 20 or more. Short Term Goal (STG) Improve stability with gait with TUG score of 15-16 (50% impaired) STG Duration 06/24/22 Physical Therapy Aide Goal (LTG) In standing, the pt will be able to bend forward to perform gardening activities without loss of balance. LTG Duration 08/06/22 One Impairment Currently has HEP of leg ex's and Jefry-Chi. Physical Therapy Aide Goal (LTG) Up date and modify HEP as needed. LTG Duration 08/06/22 Two Impairment Decreased LE strength Impairment Hip Ankles Short Term Goal (STG) Strengthen the legs so that he will be able to stand with equal WBing on sit<>stand. STG Duration 06/24/22 Residential Goal (LTG) Strengthen LE's with pt able to take first few steps after sitting withou the legs giving out on him. LTG Duration 08/06/22 Assessment Summary Assessment Pt presents with L>R LE weakness due to history of Polio and L LBP with L hip/ lateral thigh pain that increases with manual lumbar traction. Improved mechanics with sit<>stand after training with slight lessening of back pain after training. Pt having back pain that limits his transfer and bed mobility; therefore adding LBP goal to his rehab program. Physical Therapy Plan Frequency and Duration Frequency of Treatment 2x/Week Plan of Care Start Date 05/08/22 Plan of Care End Date 08/06/22 Therapeutic Interventions Therapeutic Interventions Balance Training,Gait Training ,Home Exercise Program, Neuromuscular Re-education, Patient/Caregiver Education, Self-Care/Home Management, Therapeutic Activities, Therapeutic Exercises Modalities Cold Pack/Ice Massage,Electric Stimulation,Hot Packs Next Visit Focus/Plan Next Note Type Treatment Note Next Visit Plan Post Polio and LBP (for possible hernia) rehab. Ther Ex: LE/core strengthening, balance and gait training. Progress to ECC knee strengthening. Modality: MH/IFES> LB and assess response to manual L/S traction. Plan of Care Dates Plan of Care Start Date 05/08/22 Plan of Care End Date 08/06/22 Electronically Signed by: Debbie Singh, PT 05/14/22 0837 If you are in agreement with this Plan of Care, please return a signed and dated copy. I have reviewed this Plan of Care and certify that the skilled therapy services above are required to meet the patient?s needs. Physician Signature Date Printed Name and Credentials Clinical Instructor Signature Printed Name and Credentials
--- NOTE | 2022-05-18 09:05 | PT.OTN ---
Current Diagnoses Postpolio syndrome (05/18/22) Muscle weakness (generalized) (05/18/22) Unsteadiness on feet (05/18/22) Other abnormalities of gait and mobility (05/18/22) Other symptoms and signs involving the musculoskeletal system (05/18/22) Physical Therapy Treatment Note PT-OP-A Visit Information Start: 05/07/22 18:02 Freq: Status: Active Protocol: Document 05/18/22 08:15 LRN (Rec: 05/18/22 08:55 LRN [id number]) Out-Patient Physical Therapy Visit Information Visit Information Visit Type Treatment Note Visit Start Time 08:15 Visit Stop Time 09:00 Total Visit Minutes 45 Visit Number 3/6 Evaluation Information Evaluation Date 05/08/22 Precautions Precautions L LE gives out, recent fall history 1x in past week, Diabetes type II. PT-OP-B Current Condition Start: 05/07/22 18:02 Freq: Status: Active Protocol: Document 05/08/22 12:26 LRN (Rec: 05/08/22 17:04 LRN [id number]) Current Condition History of Current Condition Onset Date 1 month ago. 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 Was in [facility] for 8 months due to falling and head injury. One month ago was sent to neurologist and had a nerve conduction study. He was told all the weakness was contributed to post polio flare up. 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 Also is in higher end of Stage III Kidney Disease. Walking his leg gives out causing him to fall, occurred last week. Uses cane with flare ups. Prior Treatments and Tests Has had PT 2-3 times previously for Low back and LE weakness. 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 Was going to have a stimulator placed, but is waiting until all the tests are done. He hasn't been back to discuss stimulator with neurologist. Treatment Goals Patient/Caregiver Goals Goal is to: - strengthen the leg in the legs L>R so that he will be able to stand with equal WBing on sit<>stand. - Being able to bend over gardening without loss of balance. Prior Functional Status Baseline Function- ADL's Independent Baseline Function- Mobility Independent Baseline Function- Gait 8 yrs ago was able to walk w/o leg giving out Current Functional Impairments (Reported) Functional Limitations- ADL's Leg (L>R) gives out on him with walking from sitting. Personal Factors Other Personal Factors That May Effect Post polio, pt in higher end Therapy/Recovery of Stage III Kidney Disease, patient falling due to L leg giving out. PT-OP-C Subjective Start: 05/07/22 18:02 Freq: Status: Active Protocol: Document 05/18/22 08:15 LRN (Rec: 05/18/22 08:55 LRN [id number]) OP-PT Subjective Patient Comments Patient Comments Back is better than it was. LBP Mid to R side 4-5/10. Pain decreased to 3-4/10 after EStim. PT-OP-E Functional Tests Start: 05/07/22 18:02 Freq: Status: Active Protocol: Document 05/08/22 12:26 LRN (Rec: 05/08/22 17:04 LRN [id number]) Functional Tests Timed Up and Go (TUG) Score 23 Comments Webbed chair, no use of hands. TUG Impairment Rating 100% Impaired (Score 20) PT-OP-G Mobility & Gait Start: 05/07/22 18:02 Freq: Status: Active Protocol: Document 05/08/22 12:26 LRN (Rec: 05/08/22 17:04 LRN [id number]) OP Gait Assessment Gait Gait Assistance Required: Independent Distance (Feet) 100 Able to Maintain Weight Bearing Status Yes During Gait Assistive Devices Assistive Device None Factors Limiting Gait Function Factors Limiting Gait Function Decreased Strength,Poor Balance Comments Gait Comments L LE partially collapses with gait, but pt able to maintain standing posture. Increased trunk sway with gait. PT-OP-J Posture/Palpation/Skin Start: 05/07/22 18:02 Freq: Status: Active Protocol: Document 05/08/22 12:26 LRN (Rec: 05/08/22 17:04 LRN [id number]) Posture Evaluation Position Standing Head/C-Spine Posture Neutral Position T-Spine Posture Increased Kyphosis L-Spine Posture Decreased Lordosis Shoulder Posture Neutral Pelvis Posture Posterior Tilted Weight Distribution Weight Shifted Right Ankle/Foot Posture (L) Forefoot Abducted,(R) Forefoot Abducted Foot Arch (L) High Arch,(R) High Arch Palpation Assessment Location Low Back Palpation Location L Low back radiating to lateral thigh Palpation Findings Tenderness PT-OP-K Range of Motion Start: 05/07/22 18:02 Freq: Status: Active Protocol: Document 05/08/22 12:26 LRN (Rec: 05/08/22 17:04 LRN [id number]) Lumbar Spine Range of Motion Lumbar Spine Active Percentage Testing Position Standing ROM Limitations Muscle Weakness Comments Deferred due to pt standing instability. PT-OP-L Special Tests Start: 05/14/22 16:07 Freq: Status: Active Protocol: Document 05/14/22 13:50 LRN (Rec: 05/14/22 16:09 LRN [id number]) Special Tests Lumbar Spine Special Tests Manual Traction Test Results negative Comments Increased LBP with radicular anterior thigh pain Straight Leg Raise Test Results + left Comments PSLR: 45 deg's left, 50 deg's right PT-OP-M Strength Start: 05/07/22 18:02 Freq: Status: Active Protocol: Document 05/08/22 12:26 LRN (Rec: 05/08/22 17:04 LRN [id number]) Trunk Strength Trunk Manual Muscle Testing Rotation Left 3+ Fair+ Lateral Flexion Left 4- Good- Lateral Flexion Right 4- Good- Core Stabilization Strength is 5/5 except as mentioned above. Hip Strength Hip Manual Muscle Testing Right Adduction 4- Good- Internal Rotation 4 Good Comments Strength is 5/5 except as indicated above. Left Flexion (L2) 4 Good Extension (S1) 4+ Good+ Abduction 2+ Poor+ Adduction 3- Fair- External Rotation 3+ Fair+ Internal Rotation 3 Fair Knee Strength Knee Manual Muscle Testing Left Flexion (S2) 4+ Good+ Extension (L3) 4+ Good+ Ankle/Foot Strength Ankle and Foot Manual Muscle Testing Right Dorsiflexion (L4) 5 Normal Plantarflexion (S1) 5 Normal Inversion 4+ Good+ Eversion (S1) 4+ Good+ Left Dorsiflexion (L4) 4 Good Plantarflexion (S1) 3+ Fair+ Inversion 3+ Fair+ Eversion (S1) 3 Fair PT-OP-Q Treatments Start: 05/07/22 18:02 Freq: Status: Active Protocol: Document 05/18/22 08:15 LRN (Rec: 05/18/22 08:55 LRN [id number]) Cardio Equipment Recumbent Stepper (Sci-Fit) Duration (Minutes) 6 Resistance 3 Seat Position 11 Other No hitting stop at feet. Therapeutic Exercises Sitting Exercises Sit To Stand Sitting Exercise Name STS sit backs. Reps/Minutes 10' Comments Extra time taken to teach, best cuing was sitting on toilet motion. Ankle AROM Sitting Exercise Name Ankle PF/DF/IV/EV Side bilateral Equipment Used Lev 1 TBand Reps/Minutes 10x 3 each Comments Extra time needed for training with use of TBand. Standing Exercises Ankle PF Standing Exercise Name Ankle PF strengthening Side bilateral Reps/Minutes 30x PT-OP-R Modalities Start: 05/18/22 08:55 Freq: Status: Active Protocol: Document 05/18/22 08:15 LRN (Rec: 05/18/22 08:56 N [id number]) Electric Stimulation Electric Stimulation Interferential Current (IFC) Body Location Low back (L/S>Upper gluts) Duration (Minutes) 10 Intensity 22 Target/Sweep Sweep Patient Position Hooklying Combined With Heat/Cold Hot Pack PT-OP-T Assessment and Plan Start: 05/07/22 18:02 Freq: Status: Active Protocol: Document 05/18/22 08:15 LRN (Rec: 05/18/22 08:55 N [id number]) Physical Therapy Assessment Goals Four Impairment LBP rated 7/10 Short Term Goal (STG) Decrease LBP to improve ability to get in/out of bed. STG Duration 06/24/22 Penitentiary Goal (LTG) No pain with moving in bed. LTG Duration 08/06/22 Three Impairment Decreased stability with standing and gait. Impairment Standing: LOB bending forward (gardening) in standing. Gait: TUG score 23 secs, 100% impaired, score 20 or more. Short Term Goal (STG) Improve stability with gait with TUG score of 15-16 (50% impaired) STG Duration 06/24/22 Online Trader Goal (LTG) In standing, the pt will be able to bend forward to perform gardening activities without loss of balance. LTG Duration 08/06/22 One Impairment Currently has HEP of leg ex's and Jefry-Chi. Online Trader Goal (LTG) Up date and modify HEP as needed. LTG Duration 08/06/22 Two Impairment Decreased LE strength Impairment Hip Ankles Short Term Goal (STG) Strengthen the legs so that he will be able to stand with equal WBing on sit<>stand. STG Duration 06/24/22 Online Trader Goal (LTG) Strengthen LE's with pt able to take first few steps after sitting withou the legs giving out on him. LTG Duration 08/06/22 Assessment Summary Assessment Pt not able to sit back with sit<>stands well. He repeatedly let his knees go over toes, probably due to gluteal weakness. Physical Therapy Plan Frequency and Duration Frequency of Treatment 2x/Week Plan of Care Start Date 05/08/22 Plan of Care End Date 08/06/22 Next Visit Focus/Plan Next Note Type Treatment Note Next Visit Plan Post Polio and LBP (for possible hernia) rehab. Assess response to MH/IFES> LB . Manual L/S traction for back pain as needed for LBP. Ther Ex: LE/core strengthening, balance and gait training. Progress to ECC knee strengthening.
--- NOTE | 2022-05-22 14:30 | PT.OTN ---
Current Diagnoses Postpolio syndrome (05/22/22) Muscle weakness (generalized) (05/22/22) Unsteadiness on feet (05/22/22) Other abnormalities of gait and mobility (05/22/22) Other symptoms and signs involving the musculoskeletal system (05/22/22) Physical Therapy Treatment Note PT-OP-A Visit Information Start: 05/07/22 18:02 Freq: Status: Active Protocol: Document 05/22/22 13:52 SP (Rec: 05/22/22 14:35 SP [id number]) Out-Patient Physical Therapy Visit Information Visit Information Visit Type Treatment Note Visit Start Time 13:52 Visit Stop Time 14:30 Total Visit Minutes 38 Visit Number 4/6 Number of GOVERNMENT AFFAIRS RESEARCHER Visits 1 Evaluation Information Evaluation Date 05/08/22 Precautions Precautions L LE gives out, recent fall history 1x in past week, Diabetes type II. PT-OP-B Current Condition Start: 05/07/22 18:02 Freq: Status: Active Protocol: Document 05/08/22 12:26 LRN (Rec: 05/08/22 17:04 LRN [id number]) Current Condition History of Current Condition Onset Date 1 month ago. 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 Was in [facility] for 8 months due to falling and head injury. One month ago was sent to neurologist and had a nerve conduction study. He was told all the weakness was contributed to post polio flare up. 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 Also is in higher end of Stage III Kidney Disease. Walking his leg gives out causing him to fall, occurred last week. Uses cane with flare ups. Prior Treatments and Tests Has had PT 2-3 times previously for Low back and LE weakness. 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 Was going to have a stimulator placed, but is waiting until all the tests are done. He hasn't been back to discuss stimulator with neurologist. Treatment Goals Patient/Caregiver Goals Goal is to: - strengthen the leg in the legs L>R so that he will be able to stand with equal WBing on sit<>stand. - Being able to bend over gardening without loss of balance. Prior Functional Status Baseline Function- ADL's Independent Baseline Function- Mobility Independent Baseline Function- Gait 8 yrs ago was able to walk w/o leg giving out Current Functional Impairments (Reported) Functional Limitations- ADL's Leg (L>R) gives out on him with walking from sitting. Personal Factors Other Personal Factors That May Effect Post polio, pt in higher end Therapy/Recovery of Stage III Kidney Disease, patient falling due to L leg giving out. PT-OP-C Subjective Start: 05/07/22 18:02 Freq: Status: Active Protocol: Document 05/22/22 13:52 SP (Rec: 05/22/22 14:35 SP [id number]) OP-PT Subjective Patient Comments Patient Comments Pt stated doing his ankle exercises and sometimes 2x/day . PT-OP-E Functional Tests Start: 05/07/22 18:02 Freq: Status: Active Protocol: Document 05/08/22 12:26 LRN (Rec: 05/08/22 17:04 LRN [id number]) Functional Tests Timed Up and Go (TUG) Score 23 Comments Webbed chair, no use of hands. TUG Impairment Rating 100% Impaired (Score 20) PT-OP-G Mobility & Gait Start: 05/07/22 18:02 Freq: Status: Active Protocol: Document 05/08/22 12:26 LRN (Rec: 05/08/22 17:04 LRN [id number]) OP Gait Assessment Gait Gait Assistance Required: Independent Distance (Feet) 100 Able to Maintain Weight Bearing Status Yes During Gait Assistive Devices Assistive Device None Factors Limiting Gait Function Factors Limiting Gait Function Decreased Strength,Poor Balance Comments Gait Comments L LE partially collapses with gait, but pt able to maintain standing posture. Increased trunk sway with gait. PT-OP-J Posture/Palpation/Skin Start: 05/07/22 18:02 Freq: Status: Active Protocol: Document 05/08/22 12:26 LRN (Rec: 05/08/22 17:04 LRN [id number]) Posture Evaluation Position Standing Head/C-Spine Posture Neutral Position T-Spine Posture Increased Kyphosis L-Spine Posture Decreased Lordosis Shoulder Posture Neutral Pelvis Posture Posterior Tilted Weight Distribution Weight Shifted Right Ankle/Foot Posture (L) Forefoot Abducted,(R) Forefoot Abducted Foot Arch (L) High Arch,(R) High Arch Palpation Assessment Location Low Back Palpation Location L Low back radiating to lateral thigh Palpation Findings Tenderness PT-OP-K Range of Motion Start: 05/07/22 18:02 Freq: Status: Active Protocol: Document 05/08/22 12:26 LRN (Rec: 05/08/22 17:04 LRN [id number]) Lumbar Spine Range of Motion Lumbar Spine Active Percentage Testing Position Standing ROM Limitations Muscle Weakness Comments Deferred due to pt standing instability. PT-OP-L Special Tests Start: 05/14/22 16:07 Freq: Status: Active Protocol: Document 05/14/22 13:50 LRN (Rec: 05/14/22 16:09 LRN [id number]) Special Tests Lumbar Spine Special Tests Manual Traction Test Results negative Comments Increased LBP with radicular anterior thigh pain Straight Leg Raise Test Results + left Comments PSLR: 45 deg's left, 50 deg's right PT-OP-M Strength Start: 05/07/22 18:02 Freq: Status: Active Protocol: Document 05/08/22 12:26 LRN (Rec: 05/08/22 17:04 LRN [id number]) Trunk Strength Trunk Manual Muscle Testing Rotation Left 3+ Fair+ Lateral Flexion Left 4- Good- Lateral Flexion Right 4- Good- Core Stabilization Strength is 5/5 except as mentioned above. Hip Strength Hip Manual Muscle Testing Right Adduction 4- Good- Internal Rotation 4 Good Comments Strength is 5/5 except as indicated above. Left Flexion (L2) 4 Good Extension (S1) 4+ Good+ Abduction 2+ Poor+ Adduction 3- Fair- External Rotation 3+ Fair+ Internal Rotation 3 Fair Knee Strength Knee Manual Muscle Testing Left Flexion (S2) 4+ Good+ Extension (L3) 4+ Good+ Ankle/Foot Strength Ankle and Foot Manual Muscle Testing Right Dorsiflexion (L4) 5 Normal Plantarflexion (S1) 5 Normal Inversion 4+ Good+ Eversion (S1) 4+ Good+ Left Dorsiflexion (L4) 4 Good Plantarflexion (S1) 3+ Fair+ Inversion 3+ Fair+ Eversion (S1) 3 Fair PT-OP-Q Treatments Start: 05/07/22 18:02 Freq: Status: Active Protocol: Document 05/22/22 13:52 SP (Rec: 05/22/22 14:35 SP [id number]) Cardio Equipment Recumbent Stepper (Sci-Fit) Duration (Minutes) 6 Resistance 3 Seat Position 11 Other No hitting stop at feet. Therapeutic Exercises Supine Exercises bridge Supine Exercise Name added to HEP: segmental bridge holds Equipment Used doesn't want HO Reps/Minutes 2x5 reps Comments cued knees apart hip abd fac, TA facilitation and neutral pelvis decr LB LS, hip stretching Supine Exercise Name added am warm up: LTR, piriformis stretch Resistance added to HEP doesn't want HO Reps/Minutes 10 sec hold, 30 sec hold stret Comments good feedback stretch Hamstring/LE neural stretch Supine Exercise Name Hamstring/LE neural stretch- HEP review Side bilateral Reps/Minutes 10 x APs Comments good form, stretch felt Sidelying Exercises open book Sidelying Exercise Name added to HEP Side bilateral Reps/Minutes 5 reps Comments xcued scap glide, head turn with arm TS rotation Sitting Exercises Sit To Stand Sitting Exercise Name STS sit backs. Reps/Minutes x10 arms across chest Comments occaional cues hip hinge back, improved keeping knees back but not use tabl Gait Training Gait Activity SPC Description sequence SPC patterning with LLE, only UE needed bal, posture/core/quad fac Device Used none and SPC Level of Assistance S Treatment Focus sequence SPC patterning with LLE, only UE needed bal, posture/core/quad fac Comments improved neutral posturing patterning SPC in RUE with LLE , decreased UE WB needed post malena stepping. Neuro Re-Education Treatment Balance Activities malena stepping Details added: forward, lateral Surface Rail nearby as needed Equipment 4 hurdles Reps/Duration 2 laps each Comments 1. single malena step over wt shift and back 2. step to patterning 4 hurdles 3. step over step malena Cued tall posturing over stance LE, scap/TA engagement, slow eccentric heel strike Improved stability Self-Care/Home Management Treatment Education Patient Education Body Mechanics,Pain Management ,Posture Other Education warm up suine: LTR, bridge, LE stretching, open book to HEP: no HOs due to pt declined. PT-OP-R Modalities Start: 05/18/22 08:55 Freq: Status: Active Protocol: Document 05/18/22 08:15 LRN (Rec: 05/18/22 08:56 LRN [id number]) Electric Stimulation Electric Stimulation Interferential Current (IFC) Body Location Low back (L/S>Upper gluts) Duration (Minutes) 10 Intensity 22 Target/Sweep Sweep Patient Position Hooklying Combined With Heat/Cold Hot Pack PT-OP-T Assessment and Plan Start: 05/07/22 18:02 Freq: Status: Active Protocol: Document 05/22/22 13:52 SP (Rec: 05/22/22 14:35 SP [id number]) Physical Therapy Assessment Goals Four Impairment LBP rated 7/10 Short Term Goal (STG) Decrease LBP to improve ability to get in/out of bed. STG Duration 06/24/22 Longterm Goal (LTG) No pain with moving in bed. LTG Duration 08/06/22 Three Impairment Decreased stability with standing and gait. Impairment Standing: LOB bending forward (gardening) in standing. Gait: TUG score 23 secs, 100% impaired, score 20 or more. Short Term Goal (STG) Improve stability with gait with TUG score of 15-16 (50% impaired) STG Duration 06/24/22 Longterm Goal (LTG) In standing, the pt will be able to bend forward to perform gardening activities without loss of balance. LTG Duration 08/06/22 One Impairment Currently has HEP of leg ex's and Jefry-Chi. Director Of Undergraduate Admissions Goal (LTG) Up date and modify HEP as needed. LTG Duration 08/06/22 Two Impairment Decreased LE strength Impairment Hip Ankles Short Term Goal (STG) Strengthen the legs so that he will be able to stand with equal WBing on sit<>stand. STG Duration 06/24/22 Longterm Goal (LTG) Strengthen LE's with pt able to take first few steps after sitting withou the legs giving out on him. LTG Duration 08/06/22 Assessment Summary Assessment Pt demonstrated improved trunk posturing post ther ex and cues for trunk alignment throughout mobility with awareness of quad facilitation to decrease risk for knee buckling. Physical Therapy Plan Frequency and Duration Frequency of Treatment 2x/Week Plan of Care Start Date 05/08/22 Plan of Care End Date 08/06/22 Therapeutic Interventions Therapeutic Interventions Balance Training,Gait Training ,Home Exercise Program, Neuromuscular Re-education, Patient/Caregiver Education, Self-Care/Home Management, Therapeutic Activities, Therapeutic Exercises Modalities Cold Pack/Ice Massage,Electric Stimulation,Hot Packs Next Visit Focus/Plan Next Note Type Treatment Note Next Visit Plan REcheck: ankle HEP, shuttle recovery, balance, hurdles. POC: Post Polio and LBP (for possible hernia) rehab. Assess response to MH/IFES> LB . Manual L/S traction for back pain as needed for LBP. Ther Ex: LE/core strengthening, balance and gait training. Progress to ECC knee strengthening.
--- NOTE | 2022-05-30 11:18 | PT.OTN ---
Current Diagnoses Postpolio syndrome (05/30/22) Muscle weakness (generalized) (05/30/22) Unsteadiness on feet (05/30/22) Other abnormalities of gait and mobility (05/30/22) Other symptoms and signs involving the musculoskeletal system (05/30/22) Physical Therapy Treatment Note PT-OP-A Visit Information Start: 05/07/22 18:02 Freq: Status: Active Protocol: Document 05/30/22 10:35 SP (Rec: 05/30/22 11:33 SP [id number]) Out-Patient Physical Therapy Visit Information Visit Information Visit Type Treatment Note Visit Note SPTA Isaias assist with ther ex to pt whle under direct supervision and guidence of [employer] Nerissa. Visit Start Time 10:35 Visit Stop Time 11:18 Total Visit Minutes 43 Visit Number 5/6 Number of [employer] Visits 2 PT-OP-B Current Condition Start: 05/07/22 18:02 Freq: Status: Active Protocol: Document 05/08/22 12:26 LRN (Rec: 05/08/22 17:04 LRN [id number]) Current Condition History of Current Condition Onset Date 1 month ago. 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 Was in [facility] for 8 months due to falling and head injury. One month ago was sent to neurologist and had a nerve conduction study. He was told all the weakness was contributed to post polio flare up. 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 Also is in higher end of Stage III Kidney Disease. Walking his leg gives out causing him to fall, occurred last week. Uses cane with flare ups. Prior Treatments and Tests Has had PT 2-3 times previously for Low back and LE weakness. 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 Was going to have a stimulator placed, but is waiting until all the tests are done. He hasn't been back to discuss stimulator with neurologist. Treatment Goals Patient/Caregiver Goals Goal is to: - strengthen the leg in the legs L>R so that he will be able to stand with equal WBing on sit<>stand. - Being able to bend over gardening without loss of balance. Prior Functional Status Baseline Function- ADL's Independent Baseline Function- Mobility Independent Baseline Function- Gait 8 yrs ago was able to walk w/o leg giving out Current Functional Impairments (Reported) Functional Limitations- ADL's Leg (L>R) gives out on him with walking from sitting. Personal Factors Other Personal Factors That May Effect Post polio, pt in higher end Therapy/Recovery of Stage III Kidney Disease, patient falling due to L leg giving out. PT-OP-C Subjective Start: 05/07/22 18:02 Freq: Status: Active Protocol: Document 05/30/22 10:35 SP (Rec: 05/30/22 11:33 SP [id number]) OP-PT Subjective Patient Comments Patient Comments Pt reports he spoke with neurologist he needs to continue to work with PT. Pt stated sugar 103 this am, after breakfast but didn't recheck. PT-OP-E Functional Tests Start: 05/07/22 18:02 Freq: Status: Active Protocol: Document 05/08/22 12:26 LRN (Rec: 05/08/22 17:04 LRN [id number]) Functional Tests Timed Up and Go (TUG) Score 23 Comments Webbed chair, no use of hands. TUG Impairment Rating 100% Impaired (Score 20) PT-OP-G Mobility & Gait Start: 05/07/22 18:02 Freq: Status: Active Protocol: Document 05/08/22 12:26 LRN (Rec: 05/08/22 17:04 LRN [id number]) OP Gait Assessment Gait Gait Assistance Required: Independent Distance (Feet) 100 Able to Maintain Weight Bearing Status Yes During Gait Assistive Devices Assistive Device None Factors Limiting Gait Function Factors Limiting Gait Function Decreased Strength,Poor Balance Comments Gait Comments L LE partially collapses with gait, but pt able to maintain standing posture. Increased trunk sway with gait. PT-OP-J Posture/Palpation/Skin Start: 05/07/22 18:02 Freq: Status: Active Protocol: Document 05/08/22 12:26 LRN (Rec: 05/08/22 17:04 LRN [id number]) Posture Evaluation Position Standing Head/C-Spine Posture Neutral Position T-Spine Posture Increased Kyphosis L-Spine Posture Decreased Lordosis Shoulder Posture Neutral Pelvis Posture Posterior Tilted Weight Distribution Weight Shifted Right Ankle/Foot Posture (L) Forefoot Abducted,(R) Forefoot Abducted Foot Arch (L) High Arch,(R) High Arch Palpation Assessment Location Low Back Palpation Location L Low back radiating to lateral thigh Palpation Findings Tenderness PT-OP-K Range of Motion Start: 05/07/22 18:02 Freq: Status: Active Protocol: Document 05/08/22 12:26 LRN (Rec: 05/08/22 17:04 LRN [id number]) Lumbar Spine Range of Motion Lumbar Spine Active Percentage Testing Position Standing ROM Limitations Muscle Weakness Comments Deferred due to pt standing instability. PT-OP-L Special Tests Start: 05/14/22 16:07 Freq: Status: Active Protocol: Document 05/14/22 13:50 LRN (Rec: 05/14/22 16:09 LRN [id number]) Special Tests Lumbar Spine Special Tests Manual Traction Test Results negative Comments Increased LBP with radicular anterior thigh pain Straight Leg Raise Test Results + left Comments PSLR: 45 deg's left, 50 deg's right PT-OP-M Strength Start: 05/07/22 18:02 Freq: Status: Active Protocol: Document 05/08/22 12:26 LRN (Rec: 05/08/22 17:04 LRN [id number]) Trunk Strength Trunk Manual Muscle Testing Rotation Left 3+ Fair+ Lateral Flexion Left 4- Good- Lateral Flexion Right 4- Good- Core Stabilization Strength is 5/5 except as mentioned above. Hip Strength Hip Manual Muscle Testing Right Adduction 4- Good- Internal Rotation 4 Good Comments Strength is 5/5 except as indicated above. Left Flexion (L2) 4 Good Extension (S1) 4+ Good+ Abduction 2+ Poor+ Adduction 3- Fair- External Rotation 3+ Fair+ Internal Rotation 3 Fair Knee Strength Knee Manual Muscle Testing Left Flexion (S2) 4+ Good+ Extension (L3) 4+ Good+ Ankle/Foot Strength Ankle and Foot Manual Muscle Testing Right Dorsiflexion (L4) 5 Normal Plantarflexion (S1) 5 Normal Inversion 4+ Good+ Eversion (S1) 4+ Good+ Left Dorsiflexion (L4) 4 Good Plantarflexion (S1) 3+ Fair+ Inversion 3+ Fair+ Eversion (S1) 3 Fair PT-OP-Q Treatments Start: 05/07/22 18:02 Freq: Status: Active Protocol: Document 05/30/22 10:35 SP (Rec: 05/30/22 11:33 SP [id number]) Gym Equipment Shuttle Recovery Bilateral Heel Raises Resistance 62lbs Shuttle Recovery Platform Stable Reps/Time 1x10 Unilateral Squats Resistance 62 lbs Shuttle Recovery Platform Unstable Reps/Time 2x10 each LE Bilateral Squats Resistance 112 lbs Shuttle Recovery Platform Unstable Reps/Time 1x15 Therapeutic Exercises Sitting Exercises Sit To Stand Sitting Exercise Name STS sit backs. Resistance ? height table, arms across chest Equipment Used floor and blue foam Reps/Minutes x10 arms across chest total Comments occaional cues hip hinge back, improved keeping knees back but not use tabl Standing Exercises Ankle PF Standing Exercise Name Ankle PF, DF, IV, EV strengthening Side bilateral Resistance Lv 1> 2 TB Equipment Used therapist anchored initially then cues self set up Reps/Minutes increased 15 reps each direction Comments min> occasional cues for set up Therapeutic Activity Therapeutic Activity bed mobility Comments cues for sequencing and TA engagement: cues for mechanics sequencing sit<>on elbow, LE elevate to bed w/ core engaged <> LR to back. Weak upperbody rotation to L >R. Gait Training Gait Activity SPC Description sequence SPC patterning with LLE, only UE needed bal, posture/core/quad fac Device Used none and SPC Level of Assistance SBA> S Treatment Focus sequence SPC patterning with LLE, only UE needed bal, posture/core/quad fac Comments improved neutral posturing patterning SPC in RUE with LLE , off balance coming to standing in waiting room, improved with cues for core facilitaiton and postura corrections by end tx. Self-Care/Home Management Treatment Education Patient Education Body Mechanics,Home Exercise Program,Posture Other Education added serratus press, cross body serratus and upper body rotation strengthening for bed mobility, bed mobility education withTA for decrease LB recruitment and pain. PT-OP-R Modalities Start: 05/18/22 08:55 Freq: Status: Active Protocol: Document 05/18/22 08:15 LRN (Rec: 05/18/22 08:56 LRN [id number]) Electric Stimulation Electric Stimulation Interferential Current (IFC) Body Location Low back (L/S>Upper gluts) Duration (Minutes) 10 Intensity 22 Target/Sweep Sweep Patient Position Hooklying Combined With Heat/Cold Hot Pack PT-OP-T Assessment and Plan Start: 05/07/22 18:02 Freq: Status: Active Protocol: Document 05/30/22 10:35 SP (Rec: 05/30/22 11:33 SP [id number]) Physical Therapy Assessment Goals Four Impairment LBP rated 7/10 Short Term Goal (STG) Decrease LBP to improve ability to get in/out of bed. 05/30/22: progressing: cues for mechanics sequencing sit<> on elbow, LE elevate to bed w/ core engaged<> LR to back. Weak upperbody rotation to L > R. STG Duration 06/24/22 progressin05/30/22 Legal Arbitrator Goal (LTG) No pain with moving in bed. LTG Duration 08/06/22 Three Impairment Decreased stability with standing and gait. Impairment Standing: LOB bending forward (gardening) in standing. Gait: TUG score 23 secs, 100% impaired, score 20 or more. Short Term Goal (STG) Improve stability with gait with TUG score of 15-16 (50% impaired) STG Duration 06/24/22 Longterm Goal (LTG) In standing, the pt will be able to bend forward to perform gardening activities without loss of balance. LTG Duration 08/06/22 One Impairment Currently has HEP of leg ex's and Jefry-Chi. Longterm Goal (LTG) Up date and modify HEP as needed. LTG Duration 08/06/22 Two Impairment Decreased LE strength Impairment Hip Ankles Short Term Goal (STG) Strengthen the legs so that he will be able to stand with equal WBing on sit<>stand. STG Duration 06/24/22 Longterm Goal (LTG) Strengthen LE's with pt able to take first few steps after sitting withou the legs giving out on him. LTG Duration 08/06/22 Assessment Summary Assessment Pt improved TA facilitation post serratus press, cross body ther ex added to HEP and less momentum to LR during bed mobility education/ performance. Improved stability gait post cues for TA and posturing by end tx. Was ableto perform STS from table on uneven surface SBA arms across chest. Physical Therapy Plan Frequency and Duration Frequency of Treatment 2x/Week Plan of Care Start Date 05/08/22 Plan of Care End Date 08/06/22 Therapeutic Interventions Therapeutic Interventions Balance Training,Gait Training ,Home Exercise Program, Neuromuscular Re-education, Patient/Caregiver Education, Self-Care/Home Management, Therapeutic Activities, Therapeutic Exercises Modalities Cold Pack/Ice Massage,Electric Stimulation,Hot Packs Next Visit Focus/Plan Next Note Type Treatment Note Next Visit Plan REcheck: ankle HEP, shuttle recovery, balance, hurdles. POC: Post Polio and LBP (for possible hernia) rehab. Assess response to MH/IFES> LB . Manual L/S traction for back pain as needed for LBP. Ther Ex: LE/core strengthening, balance and gait training. Progress to ECC knee strengthening.
--- NOTE | 2022-06-01 07:30 | PT-OP ANOTE ---
Pt's appt cancelled today, will see PT next tx 06/05 for reassessment and fillout required insurance forms.
--- NOTE | 2022-06-01 17:11 | PT.OTN ---
Current Diagnoses Postpolio syndrome (06/01/22) Muscle weakness (generalized) (06/01/22) Unsteadiness on feet (06/01/22) Other abnormalities of gait and mobility (06/01/22) Other symptoms and signs involving the musculoskeletal system (06/01/22) Physical Therapy Treatment Note PT-OP-A Visit Information Start: 05/07/22 18:02 Freq: Status: Active Protocol: Document 06/01/22 13:56 LRN (Rec: 06/01/22 14:40 LRN [id number]) Out-Patient Physical Therapy Visit Information Visit Information Visit Type Treatment Note Visit Start Time 13:56 Visit Stop Time 14:39 Total Visit Minutes 43 Visit Number 01/08 Evaluation Information Evaluation Date 05/08/22 Precautions Precautions L LE gives out, recent fall history 1x in past week, Diabetes type II. PT-OP-B Current Condition Start: 05/07/22 18:02 Freq: Status: Active Protocol: Document 05/08/22 12:26 LRN (Rec: 05/08/22 17:04 LRN [id number]) Current Condition History of Current Condition Onset Date 1 month ago. 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 Was in [facility] for 8 months due to falling and head injury. One month ago was sent to neurologist and had a nerve conduction study. He was told all the weakness was contributed to post polio flare up. 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 Also is in higher end of Stage III Kidney Disease. Walking his leg gives out causing him to fall, occurred last week. Uses cane with flare ups. Prior Treatments and Tests Has had PT 2-3 times previously for Low back and LE weakness. 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 Was going to have a stimulator placed, but is waiting until all the tests are done. He hasn't been back to discuss stimulator with neurologist. Treatment Goals Patient/Caregiver Goals Goal is to: - strengthen the leg in the legs L>R so that he will be able to stand with equal WBing on sit<>stand. - Being able to bend over gardening without loss of balance. Prior Functional Status Baseline Function- ADL's Independent Baseline Function- Mobility Independent Baseline Function- Gait 8 yrs ago was able to walk w/o leg giving out Current Functional Impairments (Reported) Functional Limitations- ADL's Leg (L>R) gives out on him with walking from sitting. Personal Factors Other Personal Factors That May Effect Post polio, pt in higher end Therapy/Recovery of Stage III Kidney Disease, patient falling due to L leg giving out. PT-OP-C Subjective Start: 05/07/22 18:02 Freq: Status: Active Protocol: Document 06/01/22 13:56 LRN (Rec: 06/01/22 14:40 LRN [id number]) OP-PT Subjective Patient Comments Patient Comments Doing ex's for leg and back. L leg gives out some. PT-OP-E Functional Tests Start: 05/07/22 18:02 Freq: Status: Active Protocol: Document 06/01/22 13:56 LRN (Rec: 06/01/22 14:40 LRN [id number]) Functional Tests Timed Up and Go (TUG) Score 19 Comments Webbed chair, no use of hands. TUG Impairment Rating 80 to <100% Impaired (Score 18 -19) PT-OP-G Mobility & Gait Start: 05/07/22 18:02 Freq: Status: Active Protocol: Document 05/08/22 12:26 LRN (Rec: 05/08/22 17:04 LRN [id number]) OP Gait Assessment Gait Gait Assistance Required: Independent Distance (Feet) 100 Able to Maintain Weight Bearing Status Yes During Gait Assistive Devices Assistive Device None Factors Limiting Gait Function Factors Limiting Gait Function Decreased Strength,Poor Balance Comments Gait Comments L LE partially collapses with gait, but pt able to maintain standing posture. Increased trunk sway with gait. PT-OP-J Posture/Palpation/Skin Start: 05/07/22 18:02 Freq: Status: Active Protocol: Document 05/08/22 12:26 LRN (Rec: 05/08/22 17:04 LRN [id number]) Posture Evaluation Position Standing Head/C-Spine Posture Neutral Position T-Spine Posture Increased Kyphosis L-Spine Posture Decreased Lordosis Shoulder Posture Neutral Pelvis Posture Posterior Tilted Weight Distribution Weight Shifted Right Ankle/Foot Posture (L) Forefoot Abducted,(R) Forefoot Abducted Foot Arch (L) High Arch,(R) High Arch Palpation Assessment Location Low Back Palpation Location L Low back radiating to lateral thigh Palpation Findings Tenderness PT-OP-K Range of Motion Start: 05/07/22 18:02 Freq: Status: Active Protocol: Document 05/08/22 12:26 LRN (Rec: 05/08/22 17:04 LRN [id number]) Lumbar Spine Range of Motion Lumbar Spine Active Percentage Testing Position Standing ROM Limitations Muscle Weakness Comments Deferred due to pt standing instability. PT-OP-L Special Tests Start: 05/14/22 16:07 Freq: Status: Active Protocol: Document 05/14/22 13:50 LRN (Rec: 05/14/22 16:09 LRN [id number]) Special Tests Lumbar Spine Special Tests Manual Traction Test Results negative Comments Increased LBP with radicular anterior thigh pain Straight Leg Raise Test Results + left Comments PSLR: 45 deg's left, 50 deg's right PT-OP-M Strength Start: 05/07/22 18:02 Freq: Status: Active Protocol: Document 06/01/22 13:56 LRN (Rec: 06/01/22 14:40 LRN [id number]) Hip Strength Hip Manual Muscle Testing Right Adduction 4- Good- Internal Rotation 4+ Good+ Comments Strength is 5/5 except as indicated above. Left Flexion (L2) 4 Good Extension (S1) 4+ Good+ Abduction 3+ Fair+ Adduction 3 Fair External Rotation 3+ Fair+ Internal Rotation 3 Fair Knee Strength Knee Manual Muscle Testing Right Flexion (S2) 5 Normal Extension (L3) 5 Normal Left Flexion (S2) 4+ Good+ Extension (L3) 4+ Good+ Comments 5/5 for first 4 reps, 4+/5 the rest of the following reps. Ankle/Foot Strength Ankle and Foot Manual Muscle Testing Right Dorsiflexion (L4) 5 Normal Plantarflexion (S1) 5 Normal Inversion 5 Normal Eversion (S1) 5 Normal Left Dorsiflexion (L4) 5 Normal Plantarflexion (S1) 4+ Good+ Inversion 4 Good Eversion (S1) 4 Good PT-OP-Q Treatments Start: 05/07/22 18:02 Freq: Status: Active Protocol: Document 06/01/22 13:56 LRN (Rec: 06/01/22 14:40 LRN [id number]) Therapeutic Exercises Prone Exercises Hip Ext Prone Exercise Name Hip Ext strengthening Side bilateral Reps/Minutes 10x ea Comments MMT taken Knee flex Prone Exercise Name Knee flexion strengthening Side bilateral Equipment Used 2# Reps/Minutes 15x Comments MMT taken Sidelying Exercises Hip AD Sidelying Exercise Name Hip AD Side bilateral Comments MMT taken Hip AB Sidelying Exercise Name Hip AB Side bilateral Comments MMT taken Sitting Exercises Hip ER/IR Sitting Exercise Name Hip ER/IR AROM Side bilateral Comments MMT taken Knee ext Sitting Exercise Name Knee ext strengthening Side left Equipment Used 5# Reps/Minutes 10x Comments MMT taken Ankle AROM Sitting Exercise Name Ankle AROM (DF, PF, EV, IV) Side bilateral Comments MMT taken Standing Exercises Ankle PF Standing Exercise Name Ankle PF 3 different positions (IV, EV, Neutral) Side bilateral Resistance Lv 1> 2 TB Reps/Minutes 10x 3 each Comments cues for set up Gait Training Gait Activity TUG Description TUG Device Used None Level of Assistance CGA Surface Level Distance/Duration 20' x 3 with rest in between bouts Treatment Focus Increasing speed of gait safely Comments Modified way of turning around by walking around vs turning. PT-OP-R Modalities Start: 05/18/22 08:55 Freq: Status: Active Protocol: Document 05/18/22 08:15 LRN (Rec: 05/18/22 08:56 LRN [id number]) Electric Stimulation Electric Stimulation Interferential Current (IFC) Body Location Low back (L/S>Upper gluts) Duration (Minutes) 10 Intensity 22 Target/Sweep Sweep Patient Position Hooklying Combined With Heat/Cold Hot Pack PT-OP-T Assessment and Plan Start: 05/07/22 18:02 Freq: Status: Active Protocol: Document 06/01/22 13:56 LRN (Rec: 06/01/22 14:40 LRN [id number]) Physical Therapy Assessment Rehab Potential Rehabilitation Potential Good Evaluation Complexity Number of Personal Factors/Comorbidities 1-2 Number of Body Systems Impaired 4 or More Clinical Presentation at Evaluation Evolving Impairments Impairments Activity Tolerance,Balance, Gait,Pain,Posture,ROM,Soft Tissue Mobility,Strength Goals Four Impairment LBP rated /10 Short Term Goal (STG) Decrease LBP to improve ability to get in/out of bed. 05/30/22: progressing: cues for mechanics sequencing sit<> on elbow, LE elevate to bed w/ core engaged<> LR to back. Weak upperbody rotation to L > R. STG Duration 06/24/22 progressin05/30/22 Nursing Home Goal (LTG) No pain with moving in bed. LTG Duration 08/06/22 Three Impairment Decreased stability with standing and gait. Impairment Standing: LOB bending forward (gardening) in standing. Gait: TUG score 23 secs, 100% impaired, score 20 or more. Short Term Goal (STG) Improve stability with gait with TUG score of 15-16 (50% impaired). 06/01/22: TUG score 19 secs. STG Duration 06/24/22 (06/01/22: Improving) Psychiatric Therapist Goal (LTG) In standing, the pt will be able to bend forward to perform gardening activities without loss of balance. LTG Duration 08/06/22 One Impairment Currently has HEP of leg ex's and Jefry-Chi. Psychiatric Therapist Goal (LTG) Up date and modify HEP as needed. LTG Duration 08/06/22 Two Impairment Decreased LE strength Impairment Hip Ankles Short Term Goal (STG) Strengthen the legs so that he will be able to stand with equal WBing on sit<>stand. STG Duration 06/24/22 Nursing Home Goal (LTG) Strengthen LE's with pt able to take first few steps after sitting withour the legs giving out on him. 06/01/22: TUG x 3 pt was able to take first few steps after sitting without legs giving out. LTG Duration 08/06/22 (06/01/22: MET GOAL ) Progress Towards Goals Progress Comments Improved bilateral ankle strength (R ankle IV/EV 1/s grade; L ankle 1 grade except IV 1/2 grade). R hip IR & AD strength 1/2 grade (worse AB 1/2 grade), L hip AB 1 grade, AD 1/2 grade . Improved TUG score from 23 secs (100% impaired) to 19 secs (80<100 % impaired) Assessment Summary Assessment Improved stability with gait per TUG score from 23 secs to 19 secs. Improved ankle and hip strength (see above). The pt has made very good progress in LE strengthening as focus has been on mainly ankle and most recently quadriceps strengthening. The pt therefore has improved in gait stability and function, but per TUG score is 80<100% impaired as a fall risk; therefore I would recommend the pt continue physical therapy to add focus of strengthening on his hips and core with continued balance and gait training. Physical Therapy Plan Frequency and Duration Frequency of Treatment 2x/Week Plan of Care Start Date 05/08/22 Plan of Care End Date 08/06/22 Therapeutic Interventions Therapeutic Interventions Balance Training,Gait Training ,Home Exercise Program, Neuromuscular Re-education, Patient/Caregiver Education, Self-Care/Home Management, Therapeutic Activities, Therapeutic Exercises Modalities Cold Pack/Ice Massage,Electric Stimulation,Hot Packs Next Visit Focus/Plan Next Note Type Treatment Note Next Visit Plan Focus hip and core strengthening to decrease back pain and improve safety with standing and gait and progress knee flex > Ext strengtening on left side (including ECC knee strengthening). Cont shuttle recovery, balance , hurdles. POC: Post Polio and LBP (for possible hernia) rehab. Assess response to MH/IFES> LB. Manual L/S traction for back pain as needed for LBP.
--- NOTE | 2022-06-12 14:35 | PT.OTN ---
Current Diagnoses Postpolio syndrome (06/12/22) Muscle weakness (generalized) (06/12/22) Unsteadiness on feet (06/12/22) Other abnormalities of gait and mobility (06/12/22) Other symptoms and signs involving the musculoskeletal system (06/12/22) Physical Therapy Treatment Note PT-OP-A Visit Information Start: 05/07/22 18:02 Freq: Status: Active Protocol: Document 06/12/22 13:51 TS (Rec: 06/12/22 14:58 TS [id number]) Out-Patient Physical Therapy Visit Information Visit Information Visit Type Treatment Note Visit Note SPTA Isaias lead treatment under the supervision of SAÚL Reynoso. Visit Start Time 13:52 Visit Stop Time 14:35 Total Visit Minutes 43 Visit Number 7 Number of FOOD SERVICE DRIVER Visits 1 PT-OP-B Current Condition Start: 05/07/22 18:02 Freq: Status: Active Protocol: Document 05/08/22 12:26 LRN (Rec: 05/08/22 17:04 LRN [id number]) Current Condition History of Current Condition Onset Date 1 month ago. 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 Was in [facility] for 8 months due to falling and head injury. One month ago was sent to neurologist and had a nerve conduction study. He was told all the weakness was contributed to post polio flare up. The low back primarily on the L side was effected by polio (was in iron lung in 195). Also is in higher end of Stage III Kidney Disease. Walking his leg gives out causing him to fall, occurred last week. Uses cane with flare ups. Prior Treatments and Tests Has had PT 2-3 times previously for Low back and LE weakness. 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 Was going to have a stimulator placed, but is waiting until all the tests are done. He hasn't been back to discuss stimulator with neurologist. Treatment Goals Patient/Caregiver Goals Goal is to: - strengthen the leg in the legs L>R so that he will be able to stand with equal WBing on sit<>stand. - Being able to bend over gardening without loss of balance. Prior Functional Status Baseline Function- ADL's Independent Baseline Function- Mobility Independent Baseline Function- Gait 8 yrs ago was able to walk w/o leg giving out Current Functional Impairments (Reported) Functional Limitations- ADL's Leg (L>R) gives out on him with walking from sitting. Personal Factors Other Personal Factors That May Effect Post polio, pt in higher end Therapy/Recovery of Stage III Kidney Disease, patient falling due to L leg giving out. PT-OP-C Subjective Start: 05/07/22 18:02 Freq: Status: Active Protocol: Document 06/12/22 13:51 TS (Rec: 06/12/22 14:58 TS [id number]) OP-PT Subjective Patient Comments Patient Comments Pt reports having trouble clearing left LE. HE is compliant for HEP. PT-OP-E Functional Tests Start: 05/07/22 18:02 Freq: Status: Active Protocol: Document 06/01/22 13:56 LRN (Rec: 06/01/22 14:40 LRN [id number]) Functional Tests Timed Up and Go (TUG) Score 19 Comments Webbed chair, no use of hands. TUG Impairment Rating 80 to <100% Impaired (Score 18 -19) PT-OP-G Mobility & Gait Start: 05/07/22 18:02 Freq: Status: Active Protocol: Document 05/08/22 12:26 LRN (Rec: 05/08/22 17:04 LRN [id number]) OP Gait Assessment Gait Gait Assistance Required: Independent Distance (Feet) 100 Able to Maintain Weight Bearing Status Yes During Gait Assistive Devices Assistive Device None Factors Limiting Gait Function Factors Limiting Gait Function Decreased Strength,Poor Balance Comments Gait Comments L LE partially collapses with gait, but pt able to maintain standing posture. Increased trunk sway with gait. PT-OP-J Posture/Palpation/Skin Start: 05/07/22 18:02 Freq: Status: Active Protocol: Document 05/08/22 12:26 LRN (Rec: 05/08/22 17:04 LRN [id number]) Posture Evaluation Position Standing Head/C-Spine Posture Neutral Position T-Spine Posture Increased Kyphosis L-Spine Posture Decreased Lordosis Shoulder Posture Neutral Pelvis Posture Posterior Tilted Weight Distribution Weight Shifted Right Ankle/Foot Posture (L) Forefoot Abducted,(R) Forefoot Abducted Foot Arch (L) High Arch,(R) High Arch Palpation Assessment Location Low Back Palpation Location L Low back radiating to lateral thigh Palpation Findings Tenderness PT-OP-K Range of Motion Start: 05/07/22 18:02 Freq: Status: Active Protocol: Document 05/08/22 12:26 LRN (Rec: 05/08/22 17:04 LRN [id number]) Lumbar Spine Range of Motion Lumbar Spine Active Percentage Testing Position Standing ROM Limitations Muscle Weakness Comments Deferred due to pt standing instability. PT-OP-L Special Tests Start: 05/14/22 16:07 Freq: Status: Active Protocol: Document 05/14/22 13:50 LRN (Rec: 05/14/22 16:09 LRN [id number]) Special Tests Lumbar Spine Special Tests Manual Traction Test Results negative Comments Increased LBP with radicular anterior thigh pain Straight Leg Raise Test Results + left Comments PSLR: 45 deg's left, 50 deg's right PT-OP-M Strength Start: 05/07/22 18:02 Freq: Status: Active Protocol: Document 06/01/22 13:56 LRN (Rec: 06/01/22 14:40 LRN [id number]) Hip Strength Hip Manual Muscle Testing Right Adduction 4- Good- Internal Rotation 4+ Good+ Comments Strength is 5/5 except as indicated above. Left Flexion (L2) 4 Good Extension (S1) 4+ Good+ Abduction 3+ Fair+ Adduction 3 Fair External Rotation 3+ Fair+ Internal Rotation 3 Fair Knee Strength Knee Manual Muscle Testing Right Flexion (S2) 5 Normal Extension (L3) 5 Normal Left Flexion (S2) 4+ Good+ Extension (L3) 4+ Good+ Comments 5/5 for first 4 reps, 4+/5 the rest of the following reps. Ankle/Foot Strength Ankle and Foot Manual Muscle Testing Right Dorsiflexion (L4) 5 Normal Plantarflexion (S1) 5 Normal Inversion 5 Normal Eversion (S1) 5 Normal Left Dorsiflexion (L4) 5 Normal Plantarflexion (S1) 4+ Good+ Inversion 4 Good Eversion (S1) 4 Good PT-OP-Q Treatments Start: 05/07/22 18:02 Freq: Status: Active Protocol: Document 06/12/22 13:51 TS (Rec: 06/12/22 14:58 TS [id number]) Cardio Equipment Recumbent Stepper (Sci-Fit) Duration (Minutes) 5 Resistance 3 Seat Position 11 Other No hitting stop at feet. Gym Equipment Shuttle Recovery Bilateral Heel Raises Resistance 75lbs Shuttle Recovery Platform Stable Reps/Time 1x15 Unilateral Squats Resistance 62 lbs>75lbs Shuttle Recovery Platform Unstable Reps/Time 1x15 62lbs 1x15 75lbs RLE, 1x15 62lbs, 1x15 75lbs LLE Bilateral Squats Resistance 112 lbs Shuttle Recovery Platform Unstable Reps/Time 1x20 Shuttle Balance Shuttle balance Red Details Shuttle with HT's Reps/Duration 8 mins Comments Initally had trouble finding balance, provided cues for hip , glute and core activation. Required ModA for balance. Neuro Re-Education Treatment Balance Activities Obstacle course with ball cigar packer and picker Surface uneven Equipment yoga mat, foam, pods Reps/Duration 10 mins Comments Required cues for bending at hips and upright posture. SLS Details SLS Surface flat Equipment handrail Comments LLE- 4 secs, RLE- 15 secs. Cues for hip and core activation. Patient demonstrates weakness in keeping knee straight. PT-OP-R Modalities Start: 05/18/22 08:55 Freq: Status: Active Protocol: Document 05/18/22 08:15 LRN (Rec: 05/18/22 08:56 LRN [id number]) Electric Stimulation Electric Stimulation Interferential Current (IFC) Body Location Low back (L/S>Upper gluts) Duration (Minutes) 10 Intensity 22 Target/Sweep Sweep Patient Position Hooklying Combined With Heat/Cold Hot Pack PT-OP-T Assessment and Plan Start: 05/07/22 18:02 Freq: Status: Active Protocol: Document 06/12/22 13:51 TS (Rec: 06/12/22 14:58 TS [id number]) Physical Therapy Assessment Goals Four Impairment LBP rated 7/10 Short Term Goal (STG) Decrease LBP to improve ability to get in/out of bed. 05/30/22: progressing: cues for mechanics sequencing sit<> on elbow, LE elevate to bed w/ core engaged<> LR to back. Weak upperbody rotation to L > R. STG Duration 06/24/22 progressin05/30/22 Auto Electrician Goal (LTG) No pain with moving in bed. LTG Duration 08/06/22 Three Impairment Decreased stability with standing and gait. Impairment Standing: LOB bending forward (gardening) in standing. Gait: TUG score 23 secs, 100% impaired, score 20 or more. Short Term Goal (STG) Improve stability with gait with TUG score of 15-16 (50% impaired). 06/01/22: TUG score 19 secs. STG Duration 06/24/22 (06/01/22: Improving) Group Home Goal (LTG) In standing, the pt will be able to bend forward to perform gardening activities without loss of balance. LTG Duration 08/06/22 06/12/22- progressing One Impairment Currently has HEP of leg ex's and Jefry-Chi. Group Home Goal (LTG) Up date and modify HEP as needed. LTG Duration 08/06/22 Two Impairment Decreased LE strength Impairment Hip Ankles Short Term Goal (STG) Strengthen the legs so that he will be able to stand with equal WBing on sit<>stand. STG Duration 06/24/22 Group Home Goal (LTG) Strengthen LE's with pt able to take first few steps after sitting withour the legs giving out on him. 06/01/22: TUG x 3 pt was able to take first few steps after sitting without legs giving out. LTG Duration 08/06/22 (06/01/22: MET GOAL ) Assessment Summary Assessment Pt improved stability with reaching out of LISANDRA for ball placement on pods during obstacle course. He progressed his strength on shuttle recovery increasing unilateral and heel raises to 75lbs. Pt would continue to benefit from intervention to improve shuttle balance and strengthening of BLEs. Physical Therapy Plan Frequency and Duration Frequency of Treatment 2x/Week Plan of Care Start Date 05/08/22 Plan of Care End Date 08/06/22 Therapeutic Interventions Therapeutic Interventions Balance Training,Gait Training ,Home Exercise Program, Neuromuscular Re-education, Patient/Caregiver Education, Self-Care/Home Management, Therapeutic Activities, Therapeutic Exercises Modalities Cold Pack/Ice Massage,Electric Stimulation,Hot Packs Next Visit Focus/Plan Next Note Type Treatment Note Next Visit Plan Trial weighted gym equipment, update feedback to goals. Focus hip and core strengthening to decrease back pain and improve safety with standing and gait and progress knee flex > Ext strengthening on left side ( including ECC knee strengthening). Cont shuttle recovery, balance , hurdles. POC: Post Polio and LBP (for possible hernia) rehab. Assess response to MH/IFES> LB. Manual L/S traction for back pain as needed for LBP.
--- NOTE | 2022-06-14 13:00 | PT.OTN ---
Current Diagnoses Postpolio syndrome (06/14/22) Muscle weakness (generalized) (06/14/22) Unsteadiness on feet (06/14/22) Other abnormalities of gait and mobility (06/14/22) Other symptoms and signs involving the musculoskeletal system (06/14/22) Physical Therapy Treatment Note PT-OP-A Visit Information Start: 05/07/22 18:02 Freq: Status: Active Protocol: Document 06/14/22 12:12 TS (Rec: 06/14/22 13:06 TS [id number]) Out-Patient Physical Therapy Visit Information Visit Information Visit Type Treatment Note Visit Note SPTA Isaias lead treatment under the supervision of SAÚL Reynoso. Visit Start Time 12:15 Visit Stop Time 13:00 Total Visit Minutes 45 Visit Number 8 Number of COAGULATOR Visits 2 PT-OP-B Current Condition Start: 05/07/22 18:02 Freq: Status: Active Protocol: Document 05/08/22 12:26 LRN (Rec: 05/08/22 17:04 LRN [id number]) Current Condition History of Current Condition Onset Date 1 month ago. 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 Was in [facility] for 8 months due to falling and head injury. One month ago was sent to neurologist and had a nerve conduction study. He was told all the weakness was contributed to post polio flare up. The low back primarily on the L side was effected by polio (was in [facility] in 195). Also is in higher end of Stage III Kidney Disease. Walking his leg gives out causing him to fall, occurred last week. Uses cane with flare ups. Prior Treatments and Tests Has had PT 2-3 times previously for Low back and LE weakness. 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 Was going to have a stimulator placed, but is waiting until all the tests are done. He hasn't been back to discuss stimulator with neurologist. Treatment Goals Patient/Caregiver Goals Goal is to: - strengthen the leg in the legs L>R so that he will be able to stand with equal WBing on sit<>stand. - Being able to bend over gardening without loss of balance. Prior Functional Status Baseline Function- ADL's Independent Baseline Function- Mobility Independent Baseline Function- Gait 8 yrs ago was able to walk w/o leg giving out Current Functional Impairments (Reported) Functional Limitations- ADL's Leg (L>R) gives out on him with walking from sitting. Personal Factors Other Personal Factors That May Effect Post polio, pt in higher end Therapy/Recovery of Stage III Kidney Disease, patient falling due to L leg giving out. PT-OP-C Subjective Start: 05/07/22 18:02 Freq: Status: Active Protocol: Document 06/14/22 12:12 TS (Rec: 06/14/22 13:06 TS [id number]) OP-PT Subjective Patient Comments Patient Comments Continues to have difficulty clearing LLE and buckling of LEs when walking. PT-OP-E Functional Tests Start: 05/07/22 18:02 Freq: Status: Active Protocol: Document 06/01/22 13:56 LRN (Rec: 06/01/22 14:40 LRN [id number]) Functional Tests Timed Up and Go (TUG) Score 19 Comments Webbed chair, no use of hands. TUG Impairment Rating 80 to <100% Impaired (Score 18 -19) PT-OP-G Mobility & Gait Start: 05/07/22 18:02 Freq: Status: Active Protocol: Document 05/08/22 12:26 LRN (Rec: 05/08/22 17:04 LRN [id number]) OP Gait Assessment Gait Gait Assistance Required: Independent Distance (Feet) 100 Able to Maintain Weight Bearing Status Yes During Gait Assistive Devices Assistive Device None Factors Limiting Gait Function Factors Limiting Gait Function Decreased Strength,Poor Balance Comments Gait Comments L LE partially collapses with gait, but pt able to maintain standing posture. Increased trunk sway with gait. PT-OP-J Posture/Palpation/Skin Start: 05/07/22 18:02 Freq: Status: Active Protocol: Document 05/08/22 12:26 LRN (Rec: 05/08/22 17:04 LRN [id number]) Posture Evaluation Position Standing Head/C-Spine Posture Neutral Position T-Spine Posture Increased Kyphosis L-Spine Posture Decreased Lordosis Shoulder Posture Neutral Pelvis Posture Posterior Tilted Weight Distribution Weight Shifted Right Ankle/Foot Posture (L) Forefoot Abducted,(R) Forefoot Abducted Foot Arch (L) High Arch,(R) High Arch Palpation Assessment Location Low Back Palpation Location L Low back radiating to lateral thigh Palpation Findings Tenderness PT-OP-K Range of Motion Start: 05/07/22 18:02 Freq: Status: Active Protocol: Document 05/08/22 12:26 LRN (Rec: 05/08/22 17:04 LRN [id number]) Lumbar Spine Range of Motion Lumbar Spine Active Percentage Testing Position Standing ROM Limitations Muscle Weakness Comments Deferred due to pt standing instability. PT-OP-L Special Tests Start: 05/14/22 16:07 Freq: Status: Active Protocol: Document 05/14/22 13:50 LRN (Rec: 05/14/22 16:09 LRN [id number]) Special Tests Lumbar Spine Special Tests Manual Traction Test Results negative Comments Increased LBP with radicular anterior thigh pain Straight Leg Raise Test Results + left Comments PSLR: 45 deg's left, 50 deg's right PT-OP-M Strength Start: 05/07/22 18:02 Freq: Status: Active Protocol: Document 06/01/22 13:56 LRN (Rec: 06/01/22 14:40 LRN [id number]) Hip Strength Hip Manual Muscle Testing Right Adduction 4- Good- Internal Rotation 4+ Good+ Comments Strength is 5/5 except as indicated above. Left Flexion (L2) 4 Good Extension (S1) 4+ Good+ Abduction 3+ Fair+ Adduction 3 Fair External Rotation 3+ Fair+ Internal Rotation 3 Fair Knee Strength Knee Manual Muscle Testing Right Flexion (S2) 5 Normal Extension (L3) 5 Normal Left Flexion (S2) 4+ Good+ Extension (L3) 4+ Good+ Comments 5/5 for first 4 reps, 4+/5 the rest of the following reps. Ankle/Foot Strength Ankle and Foot Manual Muscle Testing Right Dorsiflexion (L4) 5 Normal Plantarflexion (S1) 5 Normal Inversion 5 Normal Eversion (S1) 5 Normal Left Dorsiflexion (L4) 5 Normal Plantarflexion (S1) 4+ Good+ Inversion 4 Good Eversion (S1) 4 Good PT-OP-Q Treatments Start: 05/07/22 18:02 Freq: Status: Active Protocol: Document 06/14/22 12:12 TS (Rec: 06/14/22 13:06 TS [id number]) Cardio Equipment Recumbent Stepper (Sci-Fit) Duration (Minutes) 5 Resistance 3 Seat Position 11 Other No hitting stop at feet. Gym Equipment Cable Column (Body Solid) Pull downs/row Resistance 40lbs pull down, 60lbs row Reps/Time 2x12 LE ADD/ABD Resistance ABD 2x12 reps 40lbs, ADD 2x12 reps 40lbs Hamstring Curl Resistance 50lbs, 70lbs Bilateral, SL 30lbs Reps/Time 50lbs, 70lbs Bilateral, SL 30lbs Leg Ext Resistance [id number], [id number], [id number] Shuttle Balance Shuttle balance Red Details Shuttle blue, HT's, EC Reps/Duration 8 mins Comments Demonstrates posterior lean with staggered stance on blue, Zofia-ModA. EC-30 secs. Recommend blue balance. Self-Care/Home Management Treatment Education Caregiver Education Time spent on education of gym equipment and recommended continued education on gym equipment with staff at [facility]. PT-OP-R Modalities Start: 05/18/22 08:55 Freq: Status: Active Protocol: Document 05/18/22 08:15 LRN (Rec: 05/18/22 08:56 LRN [id number]) Electric Stimulation Electric Stimulation Interferential Current (IFC) Body Location Low back (L/S>Upper gluts) Duration (Minutes) 10 Intensity 22 Target/Sweep Sweep Patient Position Hooklying Combined With Heat/Cold Hot Pack PT-OP-T Assessment and Plan Start: 05/07/22 18:02 Freq: Status: Active Protocol: Document 06/14/22 12:12 TS (Rec: 06/14/22 13:06 TS [id number]) Physical Therapy Assessment Goals Four Impairment LBP rated 7/10 Short Term Goal (STG) Decrease LBP to improve ability to get in/out of bed. 05/30/22: progressing: cues for mechanics sequencing sit<> on elbow, LE elevate to bed w/ core engaged<> LR to back. Weak upperbody rotation to L > R. STG Duration 06/24/22 progressin05/30/22 Change Number Operator Goal (LTG) No pain with moving in bed. LTG Duration 08/06/22 Three Impairment Decreased stability with standing and gait. Impairment Standing: LOB bending forward (gardening) in standing. Gait: TUG score 23 secs, 100% impaired, score 20 or more. Short Term Goal (STG) Improve stability with gait with TUG score of 15-16 (50% impaired). 10/28/22: TUG score 19 secs. STG Duration 06/24/22 (06/01/22: Improving) Change Number Operator Goal (LTG) In standing, the pt will be able to bend forward to perform gardening activities without loss of balance. LTG Duration 08/06/22 06/12/22- progressing One Impairment Currently has HEP of leg ex's and Jefry-Chi. Change Number Operator Goal (LTG) Up date and modify HEP as needed. LTG Duration 08/06/22 Two Impairment Decreased LE strength Impairment Hip Ankles Short Term Goal (STG) Strengthen the legs so that he will be able to stand with equal WBing on sit<>stand. STG Duration 06/24/22 Change Number Operator Goal (LTG) Strengthen LE's with pt able to take first few steps after sitting withour the legs giving out on him. 06/01/22: TUG x 3 pt was able to take first few steps after sitting without legs giving out. LTG Duration 08/06/22 (06/01/22: MET GOAL ) Assessment Summary Assessment Pt continues to demonstrate difficulty with balance on shuttle balance with staggered stance requring Zofia-ModA for posterior lean. Recommend scaling back to Blue on balance board. Education per pt's request on gym equipment and operation. Pt will continue to benefit form intervention to imporve balance and strength in LEs. Physical Therapy Plan Frequency and Duration Frequency of Treatment 2x/Week Plan of Care Start Date 05/08/22 Plan of Care End Date 08/06/22 Therapeutic Interventions Therapeutic Interventions Balance Training,Gait Training ,Home Exercise Program, Neuromuscular Re-education, Patient/Caregiver Education, Self-Care/Home Management, Therapeutic Activities, Therapeutic Exercises Modalities Cold Pack/Ice Massage,Electric Stimulation,Hot Packs Next Visit Focus/Plan Next Visit Plan Assess TUG and goals. Continue stagger stance on shuttle balance blue to improve posterior lean and even distribution of weight. Hurdles/ step ups for LLE clearing.
--- NOTE | 2022-06-19 17:55 | PT.OTN ---
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) Muscle weakness (generalized) (06/19/22) Unsteadiness on feet (06/19/22) Other abnormalities of gait and mobility (06/19/22) Other symptoms and signs involving the musculoskeletal system (06/19/22) Physical Therapy Treatment Note PT-OP-A Visit Information Start: 05/07/22 18:02 Freq: Status: Active Protocol: Document 06/19/22 14:35 LRN (Rec: 06/19/22 17:33 LRN [id number]) Out-Patient Physical Therapy Visit Information Visit Information Visit Type Progress Note Visit Start Time 14:35 Visit Stop Time 15:17 Total Visit Minutes 42 Visit Number 9 Evaluation Information Evaluation Date 05/08/22 Precautions Precautions L LE gives out, recent fall history 1x in past week, Diabetes type II. PT-OP-B Current Condition Start: 05/07/22 18:02 Freq: Status: Active Protocol: Document 05/08/22 12:26 LRN (Rec: 05/08/22 17:04 LRN [id number]) Current Condition History of Current Condition Onset Date 1 month ago. 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 Was in [facility] for 8 months due to falling and head injury. One month ago was sent to neurologist and had a nerve conduction study. He was told all the weakness was contributed to post polio flare up. 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 Also is in higher end of Stage III Kidney Disease. Walking his leg gives out causing him to fall, occurred last week. Uses cane with flare ups. Prior Treatments and Tests Has had PT 2-3 times previously for Low back and LE weakness. 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 Was going to have a stimulator placed, but is waiting until all the tests are done. He hasn't been back to discuss stimulator with neurologist. Treatment Goals Patient/Caregiver Goals Goal is to: - strengthen the leg in the legs L>R so that he will be able to stand with equal WBing on sit<>stand. - Being able to bend over gardening without loss of balance. Prior Functional Status Baseline Function- ADL's Independent Baseline Function- Mobility Independent Baseline Function- Gait 8 yrs ago was able to walk w/o leg giving out Current Functional Impairments (Reported) Functional Limitations- ADL's Leg (L>R) gives out on him with walking from sitting. Personal Factors Other Personal Factors That May Effect Post polio, pt in higher end Therapy/Recovery of Stage III Kidney Disease, patient falling due to L leg giving out. PT-OP-C Subjective Start: 05/07/22 18:02 Freq: Status: Active Protocol: Document 06/19/22 14:35 LRN (Rec: 06/19/22 17:33 LRN [id number]) OP-PT Subjective Patient Comments Patient Comments States he will be starting to go to a gym for LE strengthening this week. Patient Questionnaires Lower Extremity Functional Scale LEFS Score 34 LEFS Impairment 40 to 59% Impaired (Score 32- 47) PT-OP-E Functional Tests Start: 05/07/22 18:02 Freq: Status: Active Protocol: Document 06/19/22 14:35 LRN (Rec: 06/19/22 17:33 LRN [id number]) Functional Tests Timed Up and Go (TUG) Score 21 Comments Webbed chair, no use of AD or UE's. TUG Impairment Rating 100% Impaired (Score 20) PT-OP-G Mobility & Gait Start: 05/07/22 18:02 Freq: Status: Active Protocol: Document 05/08/22 12:26 LRN (Rec: 05/08/22 17:04 LRN [id number]) OP Gait Assessment Gait Gait Assistance Required: Independent Distance (Feet) 100 Able to Maintain Weight Bearing Status Yes During Gait Assistive Devices Assistive Device None Factors Limiting Gait Function Factors Limiting Gait Function Decreased Strength,Poor Balance Comments Gait Comments L LE partially collapses with gait, but pt able to maintain standing posture. Increased trunk sway with gait. PT-OP-J Posture/Palpation/Skin Start: 05/07/22 18:02 Freq: Status: Active Protocol: Document 05/08/22 12:26 LRN (Rec: 05/08/22 17:04 LRN [id number]) Posture Evaluation Position Standing Head/C-Spine Posture Neutral Position T-Spine Posture Increased Kyphosis L-Spine Posture Decreased Lordosis Shoulder Posture Neutral Pelvis Posture Posterior Tilted Weight Distribution Weight Shifted Right Ankle/Foot Posture (L) Forefoot Abducted,(R) Forefoot Abducted Foot Arch (L) High Arch,(R) High Arch Palpation Assessment Location Low Back Palpation Location L Low back radiating to lateral thigh Palpation Findings Tenderness PT-OP-K Range of Motion Start: 05/07/22 18:02 Freq: Status: Active Protocol: Document 05/08/22 12:26 LRN (Rec: 05/08/22 17:04 LRN [id number]) Lumbar Spine Range of Motion Lumbar Spine Active Percentage Testing Position Standing ROM Limitations Muscle Weakness Comments Deferred due to pt standing instability. PT-OP-L Special Tests Start: 05/14/22 16:07 Freq: Status: Active Protocol: Document 05/14/22 13:50 LRN (Rec: 05/14/22 16:09 LRN [id number]) Special Tests Lumbar Spine Special Tests Manual Traction Test Results negative Comments Increased LBP with radicular anterior thigh pain Straight Leg Raise Test Results + left Comments PSLR: 45 deg's left, 50 deg's right PT-OP-M Strength Start: 05/07/22 18:02 Freq: Status: Active Protocol: Document 06/19/22 14:35 LRN (Rec: 06/19/22 17:33 LRN [id number]) Knee Strength Knee Manual Muscle Testing Right Flexion (S2) 5 Normal Extension (L3) 5 Normal Left Flexion (S2) 4+ Good+ Extension (L3) 4+ Good+ Ankle/Foot Strength Ankle and Foot Manual Muscle Testing Right Dorsiflexion (L4) 5 Normal Plantarflexion (S1) 5 Normal Inversion 5 Normal Eversion (S1) 5 Normal Left Dorsiflexion (L4) 5 Normal Plantarflexion (S1) 4+ Good+ Inversion 4+ Good+ Eversion (S1) 4+ Good+ PT-OP-Q Treatments Start: 05/07/22 18:02 Freq: Status: Active Protocol: Document 06/19/22 14:35 LRN (Rec: 06/19/22 17:38 LRN [id number]) Therapeutic Exercises Sitting Exercises Knee flex Sitting Exercise Name Knee flex Side bilateral Reps/Minutes 2x Comments MMT taken Ankle strengthening Sitting Exercise Name 3-way ankle strengthening (DF, IV, EV) Side bilateral Equipment Used Lev 2 TB Reps/Minutes 22' 10x 3 each with initial review needed for TB placement Comments MMT taken Knee ext Sitting Exercise Name Knee ext/ Side bilateral Reps/Minutes 2x Comments MMT taken Sit To Stand Sitting Exercise Name Sit<>Stand with and without use of UE's Reps/Minutes 3' Gait Training Gait Activity TUG Description TUG Device Used None, webbed chair Level of Assistance SBA>CGA with gait belt Surface Level Distance/Duration 20' x 2 with rest in between bouts Treatment Focus Increasing speed of gait safely Comments Cone used for pt to go around. Pt knees would break occasionally with gait. One episode of increased sway to the right that the pt was able to independently regain balance. PT-OP-R Modalities Start: 05/18/22 08:55 Freq: Status: Active Protocol: Document 05/18/22 08:15 LRN (Rec: 05/18/22 08:56 LRN [id number]) Electric Stimulation Electric Stimulation Interferential Current (IFC) Body Location Low back (L/S>Upper gluts) Duration (Minutes) 10 Intensity 22 Target/Sweep Sweep Patient Position Hooklying Combined With Heat/Cold Hot Pack PT-OP-T Assessment and Plan Start: 05/07/22 18:02 Freq: Status: Active Protocol: Document 06/19/22 14:35 LRN (Rec: 06/19/22 17:33 LRN [id number]) Physical Therapy Assessment Rehab Potential Rehabilitation Potential Good Evaluation Complexity Number of Personal Factors/Comorbidities 1-2 Number of Body Systems Impaired 4 or More Clinical Presentation at Evaluation Evolving Impairments Impairments Activity Tolerance,Balance, Gait,Pain,ROM,Strength Goals Four Impairment LBP rated 7/10 Short Term Goal (STG) Decrease LBP to improve ability to get in/out of bed. 05/30/22: progressing: cues for mechanics sequencing sit<> on elbow, LE elevate to bed w/ core engaged<> LR to back. Weak upperbody rotation to L > R. 06/19/22: LBP getting in/out of bed is 4/10. STG Duration 06/24/22 (06/19/22: MET GOAL ) Teletype Clerk Goal (LTG) No pain with moving in bed. 06/19/22: No pain going side to side if moving really slow. LTG Duration 08/06/22 (06/19/22: Mostly met goal, no pain if moving slowly). Three Impairment Decreased stability with standing and gait. Impairment Standing: LOB bending forward (gardening) in standing. Gait: TUG score 23 secs, 100% impaired, score 20 or more. Short Term Goal (STG) Improve stability with gait with TUG score of 15-16 (50% impaired). 06/01/22: TUG score 19 secs. 06/19/22: TUG score is 21 secs . STG Duration 06/24/22 (06/19/22: Improving) Residential Goal (LTG) In standing, the pt will be able to bend forward to perform gardening activities without loss of balance. 06/19/22: Bend knees and squats to do gardening activities or picking things up in the house, not able to bend forward due to back pain. Legs still weak. LTG Duration 08/06/22 06/12/22- progressing One Impairment Currently has HEP of leg ex's and Jefry-Chi. Teletype Clerk Goal (LTG) Up date and modify HEP as needed. LTG Duration 08/06/22 (06/19/22: ongoing) Two Impairment Decreased LE strength Impairment Hip Ankles Short Term Goal (STG) Strengthen the legs so that he will be able to stand with equal WBing on sit<>stand. 06/19/22: Pt able to equally WB through LE's with sti<> stand. STG Duration 06/24/22 (06/19/22: MET GOAL ). Residential Goal (LTG) Strengthen LE's with pt able to take first few steps after sitting withour the legs giving out on him. 06/01/22: TUG x 3 pt was able to take first few steps after sitting without legs giving out. LTG Duration 08/06/22 (06/01/22: MET GOAL ) Progress Towards Goals Progress Towards Goals Progressing Toward Goals Assessment Summary Assessment Pt demonstrates slow, but overall improvement in LE strength and stability/safety with gait. L ankle IV/EV strength has improved from 4/5 to 4+/5; L ankle PF remains at 4+/5. R ankle strength is 5/5. Pt shows improved gait stability with TUG score 21 secs (initially was 23 secs). His low back pain is not bothering him as much and he is able to transfer in /out bed with less pain and can move in bed without pain if moving slowly. Use of EStim appeared to help the pt overcome the initial pain and back spasm he was experiencing that was hindering his mobility due to pain. The pt would benefit from continued skilled physical therapy to promote increased LE/core strength and endurance, improve stability and balance with gait for improved safety. Physical Therapy Plan Frequency and Duration Frequency of Treatment 1x/Week Plan of Care Start Date 05/08/22 Plan of Care End Date 08/06/22 Therapeutic Interventions Therapeutic Interventions Balance Training,Gait Training ,Neuromuscular Re-education, Patient/Caregiver Education, Self-Care/Home Management, Therapeutic Activities, Therapeutic Exercises Modalities Cold Pack/Ice Massage,Electric Stimulation,Hot Packs Next Visit Focus/Plan Next Note Type Treatment Note Next Visit Plan Continue stagger stance on shuttle balance blue to improve posterior lean and even distribution of weight. Hurdles/step ups for LLE clearing. LE (hip/knees) and core strengthening: knee flex > Ext strengtening on left side (including ECC knee strengthening). POC: Post Polio and LBP (for possible hernia) rehab. Manual L/S traction for back pain as needed for LBP.
--- NOTE | 2022-06-26 16:54 | PT.OTN ---
Current Diagnoses Postpolio syndrome (06/26/22) Muscle weakness (generalized) (06/26/22) Unsteadiness on feet (06/26/22) Other abnormalities of gait and mobility (06/26/22) Other symptoms and signs involving the musculoskeletal system (06/26/22) Physical Therapy Treatment Note PT-OP-A Visit Information Start: 05/07/22 18:02 Freq: Status: Active Protocol: Document 06/26/22 14:32 LRN (Rec: 06/26/22 15:15 LRN [id number]) Out-Patient Physical Therapy Visit Information Visit Information Visit Type Treatment Note Visit Note 1 after PN Visit Start Time 14:32 Visit Stop Time 15:12 Total Visit Minutes 40 Visit Number 10 Evaluation Information Evaluation Date 05/08/22 Precautions Precautions L LE gives out, recent fall history 1x in past week, Diabetes type II. PT-OP-B Current Condition Start: 05/07/22 18:02 Freq: Status: Active Protocol: Document 05/08/22 12:26 LRN (Rec: 05/08/22 17:04 LRN [id number]) Current Condition History of Current Condition Onset Date 1 month ago. 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 Was in [facility] for 8 months due to falling and head injury. One month ago was sent to neurologist and had a nerve conduction study. He was told all the weakness was contributed to post polio flare up. 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 Also is in higher end of Stage III Kidney Disease. Walking his leg gives out causing him to fall, occurred last week. Uses cane with flare ups. Prior Treatments and Tests Has had PT 2-3 times previously for Low back and LE weakness. 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 Was going to have a stimulator placed, but is waiting until all the tests are done. He hasn't been back to discuss stimulator with neurologist. Treatment Goals Patient/Caregiver Goals Goal is to: - strengthen the leg in the legs L>R so that he will be able to stand with equal WBing on sit<>stand. - Being able to bend over gardening without loss of balance. Prior Functional Status Baseline Function- ADL's Independent Baseline Function- Mobility Independent Baseline Function- Gait 8 yrs ago was able to walk w/o leg giving out Current Functional Impairments (Reported) Functional Limitations- ADL's Leg (L>R) gives out on him with walking from sitting. Personal Factors Other Personal Factors That May Effect Post polio, pt in higher end Therapy/Recovery of Stage III Kidney Disease, patient falling due to L leg giving out. PT-OP-C Subjective Start: 05/07/22 18:02 Freq: Status: Active Protocol: Document 06/26/22 14:32 LRN (Rec: 06/26/22 15:15 LRN [id number]) OP-PT Subjective Patient Comments Patient Comments Exercising at fitness center 4 -5x/week. PT-OP-E Functional Tests Start: 05/07/22 18:02 Freq: Status: Active Protocol: Document 06/19/22 14:35 LRN (Rec: 06/19/22 17:33 LRN [id number]) Functional Tests Timed Up and Go (TUG) Score 21 Comments Webbed chair, no use of AD or UE's. TUG Impairment Rating 100% Impaired (Score 20) PT-OP-G Mobility & Gait Start: 05/07/22 18:02 Freq: Status: Active Protocol: Document 05/08/22 12:26 LRN (Rec: 05/08/22 17:04 LRN [id number]) OP Gait Assessment Gait Gait Assistance Required: Independent Distance (Feet) 100 Able to Maintain Weight Bearing Status Yes During Gait Assistive Devices Assistive Device None Factors Limiting Gait Function Factors Limiting Gait Function Decreased Strength,Poor Balance Comments Gait Comments L LE partially collapses with gait, but pt able to maintain standing posture. Increased trunk sway with gait. PT-OP-J Posture/Palpation/Skin Start: 05/07/22 18:02 Freq: Status: Active Protocol: Document 05/08/22 12:26 LRN (Rec: 05/08/22 17:04 LRN [id number]) Posture Evaluation Position Standing Head/C-Spine Posture Neutral Position T-Spine Posture Increased Kyphosis L-Spine Posture Decreased Lordosis Shoulder Posture Neutral Pelvis Posture Posterior Tilted Weight Distribution Weight Shifted Right Ankle/Foot Posture (L) Forefoot Abducted,(R) Forefoot Abducted Foot Arch (L) High Arch,(R) High Arch Palpation Assessment Location Low Back Palpation Location L Low back radiating to lateral thigh Palpation Findings Tenderness PT-OP-K Range of Motion Start: 05/07/22 18:02 Freq: Status: Active Protocol: Document 05/08/22 12:26 LRN (Rec: 05/08/22 17:04 LRN [id number]) Lumbar Spine Range of Motion Lumbar Spine Active Percentage Testing Position Standing ROM Limitations Muscle Weakness Comments Deferred due to pt standing instability. PT-OP-L Special Tests Start: 05/14/22 16:07 Freq: Status: Active Protocol: Document 05/14/22 13:50 LRN (Rec: 05/14/22 16:09 LRN [id number]) Special Tests Lumbar Spine Special Tests Manual Traction Test Results negative Comments Increased LBP with radicular anterior thigh pain Straight Leg Raise Test Results + left Comments PSLR: 45 deg's left, 50 deg's right PT-OP-M Strength Start: 05/07/22 18:02 Freq: Status: Active Protocol: Document 06/19/22 14:35 LRN (Rec: 06/19/22 17:33 LRN [id number]) Knee Strength Knee Manual Muscle Testing Right Flexion (S2) 5 Normal Extension (L3) 5 Normal Left Flexion (S2) 4+ Good+ Extension (L3) 4+ Good+ Ankle/Foot Strength Ankle and Foot Manual Muscle Testing Right Dorsiflexion (L4) 5 Normal Plantarflexion (S1) 5 Normal Inversion 5 Normal Eversion (S1) 5 Normal Left Dorsiflexion (L4) 5 Normal Plantarflexion (S1) 4+ Good+ Inversion 4+ Good+ Eversion (S1) 4+ Good+ PT-OP-Q Treatments Start: 05/07/22 18:02 Freq: Status: Active Protocol: Document 06/26/22 14:32 LRN (Rec: 06/26/22 15:15 LRN [id number]) Gym Equipment Shuttle Recovery Unilateral Squats Details Unilateral Squats - Bilaterally Resistance 62 lbs>75lbs Shuttle Recovery Platform Unstable Reps/Time RLE: 1x15 62lbs 1x15 75lbs LLE: 1x13 62lbs, 1x15 75lbs Bilateral Squats Details Art Squats Resistance 112 lbs Shuttle Recovery Platform Unstable Reps/Time 2x15 Shuttle Balance Shuttle Balance Blue Details Shuttle blue, HT's Reps/Duration 28 mins Comments Stand feet apart & wgt shifting, Facing Sideways feet apart and wgt shifting, staggered stance-bilateraly. Stagger stance on shuttle balance blue for improving posterior lean balance and even distribution of weight in LE's. Blue balance-Tight cords. Therapeutic Exercises Sitting Exercises Sit To Stand Sitting Exercise Name Sit<>Stand without use of UE's Reps/Minutes 3' PT-OP-R Modalities Start: 05/18/22 08:55 Freq: Status: Active Protocol: Document 05/18/22 08:15 LRN (Rec: 05/18/22 08:56 LRN [id number]) Electric Stimulation Electric Stimulation Interferential Current (IFC) Body Location Low back (L/S>Upper gluts) Duration (Minutes) 10 Intensity 22 Target/Sweep Sweep Patient Position Hooklying Combined With Heat/Cold Hot Pack PT-OP-T Assessment and Plan Start: 05/07/22 18:02 Freq: Status: Active Protocol: Document 06/26/22 14:32 LRN (Rec: 06/26/22 15:15 LRN [id number]) Physical Therapy Assessment Goals Four Impairment LBP rated 7/10 Short Term Goal (STG) Decrease LBP to improve ability to get in/out of bed. 05/30/22: progressing: cues for mechanics sequencing sit<> on elbow, LE elevate to bed w/ core engaged<> LR to back. Weak upperbody rotation to L > R. 06/19/22: LBP getting in/out of bed is 4/10. STG Duration 06/24/22 (06/19/22: MET GOAL ) Travel Pta Goal (LTG) No pain with moving in bed. 06/19/22: No pain going side to side if moving really slow. LTG Duration 08/06/22 (06/19/22: Mostly met goal, no pain if moving slowly). Three Impairment Decreased stability with standing and gait. Impairment Standing: LOB bending forward (gardening) in standing. Gait: TUG score 23 secs, 100% impaired, score 20 or more. Short Term Goal (STG) Improve stability with gait with TUG score of 15-16 (50% impaired). 06/01/22: TUG score 19 secs. 06/19/22: TUG score is 21 secs . STG Duration 06/24/22 (11/15/22: Improving) Retirement Goal (LTG) In standing, the pt will be able to bend forward to perform gardening activities without loss of balance. 06/19/22: Bend knees and squats to do gardening activities or picking things up in the house, not able to bend forward due to back pain. Legs still weak. LTG Duration 08/06/22 06/12/22- progressing One Impairment Currently has HEP of leg ex's and Jefry-Chi. Retirement Goal (LTG) Up date and modify HEP as needed. LTG Duration 08/06/22 (06/19/22: ongoing) Two Impairment Decreased LE strength Impairment Hip Ankles Short Term Goal (STG) Strengthen the legs so that he will be able to stand with equal WBing on sit<>stand. 06/19/22: Pt able to equally WB through LE's with sti<> stand. STG Duration 06/24/22 (06/19/22: MET GOAL ). Retirement Goal (LTG) Strengthen LE's with pt able to take first few steps after sitting withour the legs giving out on him. 06/01/22: TUG x 3 pt was able to take first few steps after sitting without legs giving out. LTG Duration 08/06/22 (06/01/22: MET GOAL ) Assessment Summary Assessment Pt able to perform Art shuttle recovery for squats with good knee control and no hyper extension of the knees. Pt fatigued after Balance shuttle , requiring a long sit rest. Posterior lean with staggered stance on blue, Zofia. Physical Therapy Plan Frequency and Duration Frequency of Treatment 1x/Week Plan of Care Start Date 05/08/22 Plan of Care End Date 08/06/22 Next Visit Focus/Plan Next Note Type Treatment Note Next Visit Plan Cont Shuttle Balance, & Hurdles/step ups for LLE clearing. LE (hip/knees) and core strengthening: knee flex > Ext strengtening on left side (including ECC knee strengthening). POC: Post Polio and LBP (for possible hernia) rehab. Manual L/S traction for back pain as needed for LBP.
--- NOTE | 2022-07-03 16:55 | PT.OTN ---
Current Diagnoses Postpolio syndrome (07/03/22) Muscle weakness (generalized) (07/03/22) Unsteadiness on feet (07/03/22) Other abnormalities of gait and mobility (07/03/22) Other symptoms and signs involving the musculoskeletal system (07/03/22) Physical Therapy Treatment Note PT-OP-A Visit Information Start: 05/07/22 18:02 Freq: Status: Active Protocol: Document 07/03/22 14:40 LRN (Rec: 07/03/22 15:21 LRN [id number]) Out-Patient Physical Therapy Visit Information Visit Information Visit Type Treatment Note Visit Note 6 visits approved (17 total) Visit Start Time 14:40 Visit Stop Time 15:19 Total Visit Minutes 39 Visit Number 06/21 Evaluation Information Evaluation Date 05/08/22 Precautions Precautions L LE gives out, recent fall history 1x in past week, Diabetes type II. PT-OP-B Current Condition Start: 05/07/22 18:02 Freq: Status: Active Protocol: Document 05/08/22 12:26 LRN (Rec: 05/08/22 17:04 LRN [id number]) Current Condition History of Current Condition Onset Date 1 month ago. 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 Was in [facility] for 8 months due to falling and head injury. One month ago was sent to neurologist and had a nerve conduction study. He was told all the weakness was contributed to post polio flare up. 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 Also is in higher end of Stage III Kidney Disease. Walking his leg gives out causing him to fall, occurred last week. Uses cane with flare ups. Prior Treatments and Tests Has had PT 2-3 times previously for Low back and LE weakness. 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 Was going to have a stimulator placed, but is waiting until all the tests are done. He hasn't been back to discuss stimulator with neurologist. Treatment Goals Patient/Caregiver Goals Goal is to: - strengthen the leg in the legs L>R so that he will be able to stand with equal WBing on sit<>stand. - Being able to bend over gardening without loss of balance. Prior Functional Status Baseline Function- ADL's Independent Baseline Function- Mobility Independent Baseline Function- Gait 8 yrs ago was able to walk w/o leg giving out Current Functional Impairments (Reported) Functional Limitations- ADL's Leg (L>R) gives out on him with walking from sitting. Personal Factors Other Personal Factors That May Effect Post polio, pt in higher end Therapy/Recovery of Stage III Kidney Disease, patient falling due to L leg giving out. PT-OP-C Subjective Start: 05/07/22 18:02 Freq: Status: Active Protocol: Document 07/03/22 14:40 LRN (Rec: 07/03/22 15:21 LRN [id number]) OP-PT Subjective Patient Comments Patient Comments No changes to report. PT-OP-E Functional Tests Start: 05/07/22 18:02 Freq: Status: Active Protocol: Document 06/19/22 14:35 LRN (Rec: 06/19/22 17:33 LRN [id number]) Functional Tests Timed Up and Go (TUG) Score 21 Comments Webbed chair, no use of AD or UE's. TUG Impairment Rating 100% Impaired (Score 20) PT-OP-G Mobility & Gait Start: 05/07/22 18:02 Freq: Status: Active Protocol: Document 05/08/22 12:26 LRN (Rec: 05/08/22 17:04 LRN [id number]) OP Gait Assessment Gait Gait Assistance Required: Independent Distance (Feet) 100 Able to Maintain Weight Bearing Status Yes During Gait Assistive Devices Assistive Device None Factors Limiting Gait Function Factors Limiting Gait Function Decreased Strength,Poor Balance Comments Gait Comments L LE partially collapses with gait, but pt able to maintain standing posture. Increased trunk sway with gait. PT-OP-J Posture/Palpation/Skin Start: 05/07/22 18:02 Freq: Status: Active Protocol: Document 05/08/22 12:26 LRN (Rec: 05/08/22 17:04 LRN [id number]) Posture Evaluation Position Standing Head/C-Spine Posture Neutral Position T-Spine Posture Increased Kyphosis L-Spine Posture Decreased Lordosis Shoulder Posture Neutral Pelvis Posture Posterior Tilted Weight Distribution Weight Shifted Right Ankle/Foot Posture (L) Forefoot Abducted,(R) Forefoot Abducted Foot Arch (L) High Arch,(R) High Arch Palpation Assessment Location Low Back Palpation Location L Low back radiating to lateral thigh Palpation Findings Tenderness PT-OP-K Range of Motion Start: 05/07/22 18:02 Freq: Status: Active Protocol: Document 05/08/22 12:26 LRN (Rec: 05/08/22 17:04 LRN [id number]) Lumbar Spine Range of Motion Lumbar Spine Active Percentage Testing Position Standing ROM Limitations Muscle Weakness Comments Deferred due to pt standing instability. PT-OP-L Special Tests Start: 05/14/22 16:07 Freq: Status: Active Protocol: Document 05/14/22 13:50 LRN (Rec: 05/14/22 16:09 LRN [id number]) Special Tests Lumbar Spine Special Tests Manual Traction Test Results negative Comments Increased LBP with radicular anterior thigh pain Straight Leg Raise Test Results + left Comments PSLR: 45 deg's left, 50 deg's right PT-OP-M Strength Start: 05/07/22 18:02 Freq: Status: Active Protocol: Document 06/19/22 14:35 LRN (Rec: 06/19/22 17:33 LRN [id number]) Knee Strength Knee Manual Muscle Testing Right Flexion (S2) 5 Normal Extension (L3) 5 Normal Left Flexion (S2) 4+ Good+ Extension (L3) 4+ Good+ Ankle/Foot Strength Ankle and Foot Manual Muscle Testing Right Dorsiflexion (L4) 5 Normal Plantarflexion (S1) 5 Normal Inversion 5 Normal Eversion (S1) 5 Normal Left Dorsiflexion (L4) 5 Normal Plantarflexion (S1) 4+ Good+ Inversion 4+ Good+ Eversion (S1) 4+ Good+ PT-OP-Q Treatments Start: 05/07/22 18:02 Freq: Status: Active Protocol: Document 07/03/22 14:40 LRN (Rec: 07/03/22 15:21 LRN [id number]) Therapeutic Exercises Sitting Exercises Hamstring/LE neural stretch Sitting Exercise Name Hamstring/LE neural stretch Side bilateral Reps/Minutes 10 x APs Comments good form, stretch felt Gait Training Gait Activity Gait // bars Description Gait for heel strike & toe off Device Used // bars and L side rail/ hoovering R side. Level of Assistance V. cuing Neuro Re-Education Treatment Balance Activities malena stepping Details added: forward, lateral Surface 5 hurdles Equipment // bars, railing on L, hoovering over R. Reps/Duration 30 laps each Comments 1. single malena step over wt shift and back 2. step to patterning 4 hurdles 3. step over step malena Cued tall posturing over stance LE, scap/TA engagement, Foot neutral position, slow eccentric heel strike PT-OP-R Modalities Start: 05/18/22 08:55 Freq: Status: Active Protocol: Document 05/18/22 08:15 LRN (Rec: 05/18/22 08:56 LRN [id number]) Electric Stimulation Electric Stimulation Interferential Current (IFC) Body Location Low back (L/S>Upper gluts) Duration (Minutes) 10 Intensity 22 Target/Sweep Sweep Patient Position Hooklying Combined With Heat/Cold Hot Pack PT-OP-T Assessment and Plan Start: 05/07/22 18:02 Freq: Status: Active Protocol: Document 07/03/22 14:40 LRN (Rec: 07/03/22 15:21 LRN [id number]) Physical Therapy Assessment Goals Four Impairment LBP rated 7/10 Short Term Goal (STG) Decrease LBP to improve ability to get in/out of bed. 05/30/22: progressing: cues for mechanics sequencing sit<> on elbow, LE elevate to bed w/ core engaged<> LR to back. Weak upperbody rotation to L > R. 06/19/22: LBP getting in/out of bed is 4/10. STG Duration 06/24/22 (06/19/22: MET GOAL ) Snf Goal (LTG) No pain with moving in bed. 06/19/22: No pain going side to side if moving really slow. LTG Duration 08/06/22 (06/19/22: Mostly met goal, no pain if moving slowly). Three Impairment Decreased stability with standing and gait. Impairment Standing: LOB bending forward (gardening) in standing. Gait: TUG score 23 secs, 100% impaired, score 20 or more. Short Term Goal (STG) Improve stability with gait with TUG score of 15-16 (50% impaired). 06/01/22: TUG score 19 secs. 06/19/22: TUG score is 21 secs . STG Duration 06/24/22 (06/19/22: Improving) Industrial Machine System Technician Goal (LTG) In standing, the pt will be able to bend forward to perform gardening activities without loss of balance. 06/19/22: Bend knees and squats to do gardening activities or picking things up in the house, not able to bend forward due to back pain. Legs still weak. LTG Duration 08/06/22 06/12/22- progressing One Impairment Currently has HEP of leg ex's and Jefry-Chi. Industrial Machine System Technician Goal (LTG) Up date and modify HEP as needed. LTG Duration 08/06/22 (06/19/22: ongoing) Two Impairment Decreased LE strength Impairment Hip Ankles Short Term Goal (STG) Strengthen the legs so that he will be able to stand with equal WBing on sit<>stand. 06/19/22: Pt able to equally WB through LE's with sti<> stand. STG Duration 06/24/22 (06/19/22: MET GOAL ). Snf Goal (LTG) Strengthen LE's with pt able to take first few steps after sitting withour the legs giving out on him. 06/01/22: TUG x 3 pt was able to take first few steps after sitting without legs giving out. LTG Duration 08/06/22 (06/01/22: MET GOAL ) Assessment Summary Assessment Pt ambs with habitual excessive bending of knees on stance phase from what he indicates is from his years of doing Jefry Chi or Jefry Chi type exercises. Pt has been taught to use cane on opposite side of his weak leg (would be R side), but for many years he has walked with it on his weak side (L side); therefore pt feels more safe to use SPC on L side. Further assessment is needed to see which side would be best for the patient. Much cuing is needed during gait training. L LE is notably weak during gait. Physical Therapy Plan Frequency and Duration Frequency of Treatment 1x/Week Plan of Care Start Date 05/08/22 Plan of Care End Date 08/06/22 Next Visit Focus/Plan Next Note Type Treatment Note Next Visit Plan Cont Shuttle Balance, & Hurdles/step ups for LLE clearing. LE (hip/knees) and core strengthening: knee flex > Ext strengtening on left side (including ECC knee strengthening). POC: Post Polio and LBP (for possible hernia) rehab. Manual L/S traction for back pain as needed for LBP.
--- NOTE | 2022-07-10 12:08 | PT.OTN ---
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) Muscle weakness (generalized) (07/10/22) Unsteadiness on feet (07/10/22) Other abnormalities of gait and mobility (07/10/22) Other symptoms and signs involving the musculoskeletal system (07/10/22) Physical Therapy Treatment Note PT-OP-A Visit Information Start: 05/07/22 18:02 Freq: Status: Active Protocol: Document 07/10/22 09:49 LRN (Rec: 07/10/22 10:35 LRN [id number]) Out-Patient Physical Therapy Visit Information Visit Information Visit Type Treatment Note Visit Note 3 after PN Visit Start Time 09:49 Visit Stop Time 10:28 Total Visit Minutes 39 Visit Number 07/21 Evaluation Information Evaluation Date 05/08/22 Precautions Precautions L LE gives out, recent fall history 1x in past week, Diabetes type II. PT-OP-B Current Condition Start: 05/07/22 18:02 Freq: Status: Active Protocol: Document 05/08/22 12:26 LRN (Rec: 05/08/22 17:04 LRN [id number]) Current Condition History of Current Condition Onset Date 1 month ago. 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 Was in [facility] for 8 months due to falling and head injury. One month ago was sent to neurologist and had a nerve conduction study. He was told all the weakness was contributed to post polio flare up. 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 Also is in higher end of Stage III Kidney Disease. Walking his leg gives out causing him to fall, occurred last week. Uses cane with flare ups. Prior Treatments and Tests Has had PT 2-3 times previously for Low back and LE weakness. 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 Was going to have a stimulator placed, but is waiting until all the tests are done. He hasn't been back to discuss stimulator with neurologist. Treatment Goals Patient/Caregiver Goals Goal is to: - strengthen the leg in the legs L>R so that he will be able to stand with equal WBing on sit<>stand. - Being able to bend over gardening without loss of balance. Prior Functional Status Baseline Function- ADL's Independent Baseline Function- Mobility Independent Baseline Function- Gait 8 yrs ago was able to walk w/o leg giving out Current Functional Impairments (Reported) Functional Limitations- ADL's Leg (L>R) gives out on him with walking from sitting. Personal Factors Other Personal Factors That May Effect Post polio, pt in higher end Therapy/Recovery of Stage III Kidney Disease, patient falling due to L leg giving out. PT-OP-C Subjective Start: 05/07/22 18:02 Freq: Status: Active Protocol: Document 07/10/22 09:49 LRN (Rec: 07/10/22 10:35 LRN [id number]) OP-PT Subjective Patient Comments Patient Comments No changes to report. Exercising more, daily. PT-OP-E Functional Tests Start: 05/07/22 18:02 Freq: Status: Active Protocol: Document 06/19/22 14:35 LRN (Rec: 06/19/22 17:33 LRN [id number]) Functional Tests Timed Up and Go (TUG) Score 21 Comments Webbed chair, no use of AD or UE's. TUG Impairment Rating 100% Impaired (Score 20) PT-OP-G Mobility & Gait Start: 05/07/22 18:02 Freq: Status: Active Protocol: Document 05/08/22 12:26 LRN (Rec: 05/08/22 17:04 LRN [id number]) OP Gait Assessment Gait Gait Assistance Required: Independent Distance (Feet) 100 Able to Maintain Weight Bearing Status Yes During Gait Assistive Devices Assistive Device None Factors Limiting Gait Function Factors Limiting Gait Function Decreased Strength,Poor Balance Comments Gait Comments L LE partially collapses with gait, but pt able to maintain standing posture. Increased trunk sway with gait. PT-OP-J Posture/Palpation/Skin Start: 05/07/22 18:02 Freq: Status: Active Protocol: Document 05/08/22 12:26 LRN (Rec: 05/08/22 17:04 LRN [id number]) Posture Evaluation Position Standing Head/C-Spine Posture Neutral Position T-Spine Posture Increased Kyphosis L-Spine Posture Decreased Lordosis Shoulder Posture Neutral Pelvis Posture Posterior Tilted Weight Distribution Weight Shifted Right Ankle/Foot Posture (L) Forefoot Abducted,(R) Forefoot Abducted Foot Arch (L) High Arch,(R) High Arch Palpation Assessment Location Low Back Palpation Location L Low back radiating to lateral thigh Palpation Findings Tenderness PT-OP-K Range of Motion Start: 05/07/22 18:02 Freq: Status: Active Protocol: Document 05/08/22 12:26 LRN (Rec: 05/08/22 17:04 LRN [id number]) Lumbar Spine Range of Motion Lumbar Spine Active Percentage Testing Position Standing ROM Limitations Muscle Weakness Comments Deferred due to pt standing instability. PT-OP-L Special Tests Start: 05/14/22 16:07 Freq: Status: Active Protocol: Document 05/14/22 13:50 LRN (Rec: 05/14/22 16:09 LRN [id number]) Special Tests Lumbar Spine Special Tests Manual Traction Test Results negative Comments Increased LBP with radicular anterior thigh pain Straight Leg Raise Test Results + left Comments PSLR: 45 deg's left, 50 deg's right PT-OP-M Strength Start: 05/07/22 18:02 Freq: Status: Active Protocol: Document 06/19/22 14:35 LRN (Rec: 06/19/22 17:33 LRN [id number]) Knee Strength Knee Manual Muscle Testing Right Flexion (S2) 5 Normal Extension (L3) 5 Normal Left Flexion (S2) 4+ Good+ Extension (L3) 4+ Good+ Ankle/Foot Strength Ankle and Foot Manual Muscle Testing Right Dorsiflexion (L4) 5 Normal Plantarflexion (S1) 5 Normal Inversion 5 Normal Eversion (S1) 5 Normal Left Dorsiflexion (L4) 5 Normal Plantarflexion (S1) 4+ Good+ Inversion 4+ Good+ Eversion (S1) 4+ Good+ PT-OP-Q Treatments Start: 05/07/22 18:02 Freq: Status: Active Protocol: Document 07/10/22 09:49 LRN (Rec: 07/10/22 10:35 LRN [id number]) Gym Equipment Shuttle Balance Shuttle Balance Blue Details Shuttle red, lowTension Reps/Duration 28 mins Comments Cuing to incr WBing on RLE. Stand feet apart (max 10 sec, 16x2 secs), & wgt shifting (9 each max), Facing Sideways feet apart (max 5 secs) and wgt shifting (max 5x), staggered stance-bilateraly ( Max 9 secs). Stagger stance on shuttle balance for improving posterior lean balance and even distribution of weight in LE's. Therapeutic Exercises Sitting Exercises Hamstring/LE neural stretch Sitting Exercise Name Hamstring/LE neural stretch Side bilateral Reps/Minutes 10 SH f/b 10 APs, x 3 each Comments Extra time needed for review of positioning and cuing for no pain w/ex. Gait Training Gait Activity Lifting legs w/gait Description Gait for lifting legs, R knee control, heel strike & toe off Device Used Single Bar Level of Assistance CGA> Indep w/railing Distance/Duration 8' PT-OP-R Modalities Start: 05/18/22 08:55 Freq: Status: Active Protocol: Document 05/18/22 08:15 LRN (Rec: 05/18/22 08:56 LRN [id number]) Electric Stimulation Electric Stimulation Interferential Current (IFC) Body Location Low back (L/S>Upper gluts) Duration (Minutes) 10 Intensity 22 Target/Sweep Sweep Patient Position Hooklying Combined With Heat/Cold Hot Pack PT-OP-T Assessment and Plan Start: 05/07/22 18:02 Freq: Status: Active Protocol: Document 07/10/22 09:49 LRN (Rec: 07/10/22 10:35 LRN [id number]) Physical Therapy Assessment Goals Four Impairment LBP rated 7/10 Short Term Goal (STG) Decrease LBP to improve ability to get in/out of bed. 05/30/22: progressing: cues for mechanics sequencing sit<> on elbow, LE elevate to bed w/ core engaged<> LR to back. Weak upperbody rotation to L > R. 06/19/22: LBP getting in/out of bed is 4/10. STG Duration 06/24/22 (06/19/22: MET GOAL ) Long-Term Goal (LTG) No pain with moving in bed. 06/19/22: No pain going side to side if moving really slow. LTG Duration 08/06/22 (06/19/22: Mostly met goal, no pain if moving slowly). Three Impairment Decreased stability with standing and gait. Impairment Standing: LOB bending forward (gardening) in standing. Gait: TUG score 23 secs, 100% impaired, score 20 or more. Short Term Goal (STG) Improve stability with gait with TUG score of 15-16 (50% impaired). 06/01/22: TUG score 19 secs. 06/19/22: TUG score is 21 secs . STG Duration 06/24/22 (06/19/22: Improving) Lab Tester Goal (LTG) In standing, the pt will be able to bend forward to perform gardening activities without loss of balance. 06/19/22: Bend knees and squats to do gardening activities or picking things up in the house, not able to bend forward due to back pain. Legs still weak. LTG Duration 08/06/22 06/12/22- progressing One Impairment Currently has HEP of leg ex's and Jefry-Chi. Long-Term Goal (LTG) Up date and modify HEP as needed. LTG Duration 08/06/22 (06/19/22: ongoing) Assessment Summary Assessment Pt very challenged with Shuttle Balance with support on RED and low tension with pt needing one sit rest. Pt shows more L knee control with gait, less knee flex on L LE WBing. Physical Therapy Plan Frequency and Duration Frequency of Treatment 1x/Week Plan of Care Start Date 05/08/22 Plan of Care End Date 08/06/22 Next Visit Focus/Plan Next Note Type Treatment Note Next Visit Plan Assess progress to goals next week. Cont Shuttle Balance, & Hurdles/step ups for LLE clearing. EX: LE (hip/knees) and core strengthening: knee flex > Ext strengtening on left side (including ECC knee strengthening). POC: Post Polio and LBP (for possible hernia) rehab. Manual L/S traction for back pain as needed for LBP.
--- NOTE | 2022-08-16 16:40 | PT.OPDS ---
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) Muscle weakness (generalized) (07/10/22) Unsteadiness on feet (07/10/22) Other abnormalities of gait and mobility (07/10/22) Other symptoms and signs involving the musculoskeletal system (07/10/22) Visit Care Team Role Provider Type Esequiel Armstrong DO Family Provider Physician Primary Care Provider Specialty: Family Practice Address: [address] [place] [address], [id number] Email: [email or web address] [place] Nahum Pablo MD Attending Provider Non-Staff Referring Provider Specialty: Neurology Address: [address] [place], [address] Email: Visit Number Visit Number 07/21 Discharge Summary PT-OP-B Current Condition Start: 05/07/22 18:02 Freq: Status: Active Protocol: Document 05/08/22 12:26 LRN (Rec: 05/08/22 17:04 LRN [id number]) Current Condition History of Current Condition Onset Date 1 month ago. 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 Was in [facility] for 8 months due to falling and head injury. One month ago was sent to neurologist and had a nerve conduction study. He was told all the weakness was contributed to post polio flare up. 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 Also is in higher end of Stage III Kidney Disease. Walking his leg gives out causing him to fall, occurred last week. Uses cane with flare ups. Prior Treatments and Tests Has had PT 2-3 times previously for Low back and LE weakness. 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 Was going to have a stimulator placed, but is waiting until all the tests are done. He hasn't been back to discuss stimulator with neurologist. Treatment Goals Patient/Caregiver Goals Goal is to: - strengthen the leg in the legs L>R so that he will be able to stand with equal WBing on sit<>stand. - Being able to bend over gardening without loss of balance. Prior Functional Status Baseline Function- ADL's Independent Baseline Function- Mobility Independent Baseline Function- Gait 8 yrs ago was able to walk w/o leg giving out Current Functional Impairments (Reported) Functional Limitations- ADL's Leg (L>R) gives out on him with walking from sitting. Personal Factors Other Personal Factors That May Effect Post polio, pt in higher end Therapy/Recovery of Stage III Kidney Disease, patient falling due to L leg giving out. PT-OP-C Subjective Start: 05/07/22 18:02 Freq: Status: Active Protocol: Document 08/16/22 16:19 LRN (Rec: 08/16/22 16:40 LRN [id number]) OP-PT Subjective Patient Comments Patient Comments Per phone conversation, pt is having a little LBP, rated 1/ 10, but able to move in bed with a little LBP and no pain rolling side to side if moves slowly. Walking okay without use of assistive device, just walks slow. Pt modified his gardening activity by getting down on his knees to garden. States he is now exercising 4- 5 x/week at local gym and doing his taught HEP. Pt feels no further therapy is needed as is okay to DC to HEP . PT-OP-E Functional Tests Start: 05/07/22 18:02 Freq: Status: Active Protocol: Document 06/19/22 14:35 LRN (Rec: 06/19/22 17:33 LRN [id number]) Functional Tests Timed Up and Go (TUG) Score 21 Comments Webbed chair, no use of AD or UE's. TUG Impairment Rating 100% Impaired (Score 20) PT-OP-G Mobility & Gait Start: 05/07/22 18:02 Freq: Status: Active Protocol: Document 05/08/22 12:26 LRN (Rec: 05/08/22 17:04 LRN [id number]) OP Gait Assessment Gait Gait Assistance Required: Independent Distance (Feet) 100 Able to Maintain Weight Bearing Status Yes During Gait Assistive Devices Assistive Device None Factors Limiting Gait Function Factors Limiting Gait Function Decreased Strength,Poor Balance Comments Gait Comments L LE partially collapses with gait, but pt able to maintain standing posture. Increased trunk sway with gait. PT-OP-J Posture/Palpation/Skin Start: 05/07/22 18:02 Freq: Status: Active Protocol: Document 05/08/22 12:26 LRN (Rec: 05/08/22 17:04 LRN [id number]) Posture Evaluation Position Standing Head/C-Spine Posture Neutral Position T-Spine Posture Increased Kyphosis L-Spine Posture Decreased Lordosis Shoulder Posture Neutral Pelvis Posture Posterior Tilted Weight Distribution Weight Shifted Right Ankle/Foot Posture (L) Forefoot Abducted,(R) Forefoot Abducted Foot Arch (L) High Arch,(R) High Arch Palpation Assessment Location Low Back Palpation Location L Low back radiating to lateral thigh Palpation Findings Tenderness PT-OP-K Range of Motion Start: 05/07/22 18:02 Freq: Status: Active Protocol: Document 05/08/22 12:26 LRN (Rec: 05/08/22 17:04 LRN [id number]) Lumbar Spine Range of Motion Lumbar Spine Active Percentage Testing Position Standing ROM Limitations Muscle Weakness Comments Deferred due to pt standing instability. PT-OP-L Special Tests Start: 05/14/22 16:07 Freq: Status: Active Protocol: Document 05/14/22 13:50 LRN (Rec: 05/14/22 16:09 LRN [id number]) Special Tests Lumbar Spine Special Tests Manual Traction Test Results negative Comments Increased LBP with radicular anterior thigh pain Straight Leg Raise Test Results + left Comments PSLR: 45 deg's left, 50 deg's right PT-OP-M Strength Start: 05/07/22 18:02 Freq: Status: Active Protocol: Document 06/19/22 14:35 LRN (Rec: 06/19/22 17:33 LRN [id number]) Knee Strength Knee Manual Muscle Testing Right Flexion (S2) 5 Normal Extension (L3) 5 Normal Left Flexion (S2) 4+ Good+ Extension (L3) 4+ Good+ Ankle/Foot Strength Ankle and Foot Manual Muscle Testing Right Dorsiflexion (L4) 5 Normal Plantarflexion (S1) 5 Normal Inversion 5 Normal Eversion (S1) 5 Normal Left Dorsiflexion (L4) 5 Normal Plantarflexion (S1) 4+ Good+ Inversion 4+ Good+ Eversion (S1) 4+ Good+ PT-OP-T Assessment and Plan Start: 05/07/22 18:02 Freq: Status: Active Protocol: Document 08/16/22 16:19 LRN (Rec: 08/16/22 16:40 LRN [id number]) Physical Therapy Assessment Goals Four Impairment LBP rated 7/10 Short Term Goal (STG) Decrease LBP to improve ability to get in/out of bed. 05/30/22: progressing: cues for mechanics sequencing sit<> on elbow, LE elevate to bed w/ core engaged<> LR to back. Weak upperbody rotation to L > R. 06/19/22: LBP getting in/out of bed is 4/10. STG Duration 06/24/22 (06/19/22: MET GOAL ) Aircraft Instrument Mechanic Goal (LTG) No pain with moving in bed. 06/19/22: No pain going side to side if moving really slow. 08/16/22: No pain going side to side if moving really slow. LTG Duration 08/06/22 (08/16/22: MET GOAL to pt satifaction). Three Impairment Decreased stability with standing and gait. Impairment Standing: LOB bending forward (gardening) in standing. Gait: TUG score 23 secs, 100% impaired, score 20 or more. Short Term Goal (STG) Improve stability with gait with TUG score of 15-16 (50% impaired). 06/01/22: TUG score 19 secs. 06/19/22: TUG score is 21 secs . STG Duration 06/24/22 (08/16/22: Pt not available for final assessment ) Aircraft Instrument Mechanic Goal (LTG) In standing, the pt will be able to bend forward to perform gardening activities without loss of balance. 06/19/22: Bend knees and squats to do gardening activities or picking things up in the house, not able to bend forward due to back pain. Legs still weak. 08/16/22: Modified method to be able to do gardening, gets down on knees to do gardening. LTG Duration 08/06/22 (08/16/22: MET GOAL through modification of activity) One Impairment Currently has HEP of leg ex's and Jefry-Chi. Intermediate Goal (LTG) Up date and modify HEP as needed. Fitness center 4-5x/week LTG Duration 08/06/22 (08/16/22: MET GOAL ) Two Impairment Decreased LE strength Impairment Hip Ankles Short Term Goal (STG) Strengthen the legs so that he will be able to stand with equal WBing on sit<>stand. 06/19/22: Pt able to equally WB through LE's with sti<> stand. STG Duration 06/24/22 (06/19/22: MET GOAL ). Intermediate Goal (LTG) Strengthen LE's with pt able to take first few steps after sitting withour the legs giving out on him. 06/01/22: TUG x 3 pt was able to take first few steps after sitting without legs giving out. LTG Duration 08/06/22 (06/01/22: MET GOAL ) Assessment Summary Assessment Pt was not able to be tested for TUG score for stability with gait due to cancellation of his last 3 scheduled appointments. Per phone conversation with the patient, he apears to be doing his HEP and is now joined a local gym and is exercising 4-5x/week. He was receptive to using an assistive device for gait if he feels his legs are weak; otherwise the pt feels confident with his walking without the use of walking sticks or cane. He is having very little LBP and has minimal moving around in bed. The pt appears to have met most of his goals, and is appropriate for DC to his independent self care HEP. Physical Therapy Plan Discharge Physical Therapy Discharge Reasons No Longer Attending PT Discharge Comments Pt understands if he will need a new referral if he has need for physical therapy in the future. Thank you for your referral.
== END 2022-08-17 07:51 | disposition home or self-care (01) ==
LOC: PHYS 09:45
PROVIDERS: Family Provider Family Medicine; PCP Family Medicine; Referring Provider Psychiatry & Neurology Neurology; Visit Provider Psychiatry & Neurology Neurology
DX: R29.898 Other symptoms and signs involving the musculoskeletal system (principal); G14 Postpolio syndrome; M62.81 Muscle weakness (generalized); R26.81 Unsteadiness on feet; R26.89 Other abnormalities of gait and mobility
CPT/HCPCS: 97014; 97110; 97112; 97116; 97162; 97530; 97535; G0283

== ENCOUNTER → 2022-08-07 08:30 | Outpatient (CLI) | payer OTHER, SELFPAY ==
[2021-12-11 14:10] VITALS: BMI 28.7
[2022-08-07 09:28] LABS: Cholesterol 89 mg/dL (140-199); HDL Cholesterol 21 mg/dL (40-60); LDL Cholesterol Calculated 23 mg/dL (<100); Triglycerides 224 mg/dL (35-150)
== END ==
PROVIDERS: Family Provider Family Medicine; PCP Family Medicine; Referring Provider Internal Medicine Endocrinology, Diabetes & Metabolism; Visit Provider Internal Medicine Endocrinology, Diabetes & Metabolism
DX: E11.65 Type 2 diabetes mellitus with hyperglycemia (principal); E78.2 Mixed hyperlipidemia
CPT/HCPCS: 36415; 80061; 83036

== ENCOUNTER 2022-09-01 17:45 | Emergency (ER) | payer OTHER, SELFPAY ==
[2021-12-11 14:10] VITALS: BMI 28.7
[2022-09-01] VITALS (27 sets, daily range): BP systolic 101–118; BP diastolic 55–71; PULSE 70–102; RESP 18–29; TEMP 37.8; O2SAT 94–98
--- NOTE | 2022-09-01 17:51 | DI.RAD.S_ITS ---
PROCEDURE: XR CHEST 1V INDICATIONS: fever TECHNIQUE: One view of the chest was acquired. COMPARISON: [facility], , CHEST 1 VIEW, 10/20/2016, 13:15. FINDINGS: Surgical changes and devices: None. Lungs and pleura: On this semiupright portable chest examination, no large pneumothorax or large pleural effusions are seen. No focal infiltrates are seen. Low lung volumes are noted. This causes a crowded appearance to the lung markings and limits evaluation. Mediastinum: Mediastinal contours appear normal. Heart size is mildly enlarged. Bones and chest wall: No suspicious bony lesions. Age-appropriate bony degenerative changes are seen. Overlying soft tissues appear unremarkable. IMPRESSION: Limited portable chest examination, without a significant cardiopulmonary abnormality identified. If clinically appropriate, a short-term followup chest series (with PA and lateral views) performed in deep inspiration is suggested for further evaluation. Dictated by: Teo Blandon M.D. on 09/01/2022 at 17:19 Approved by: Teo Blandon M.D. on 09/01/2022 at 17:19
[2022-09-01 18:10] LABS: Add Manual Diff / Slide Review NO; Basophils Absolute Auto 0 /uL (0-100); Basophils Percent Auto 0.1 % (0-2); Eosinophils Absolute Auto 0 /uL (0-450); Eosinophils Percent Auto 0.2 % (2-4); Hematocrit 42.3 % (41-53); Hemoglobin 14.3 g/dL (13.5-17.5); Lymphocytes Absolute Auto 500 /uL (1100-4500); Lymphocytes Percent Auto 4.7 % (25-40); Mean Corpuscular HGB Conc 33.8 % (30-36); Mean Corpuscular Hemoglobin 30.6 PG (26-34); Mean Corpuscular Volume 90.7 fL (80-100); Monocytes Absolute Auto 800 /uL (0-900); Monocytes Percent Auto 6.7 % (3-14); Neutrophils Absolute Auto 10200 /uL (1500-7000); Neutrophils Percent Auto 88.3 % (50-75); Platelet Count 149 X10^3/uL (150-400); Red Blood Cell Count 4.67 X10^6/uL (4.5-5.9); Red Cell Distribution Width 13.2 % (11.6-14.8); White Blood Cell Count 11.6 X10^3/uL (4.5-11.0)
--- NOTE | 2022-09-01 18:17 | ED_ITS ---
HPI - General Adult <Alessandro Gutierrez DO - Last Filed: 09/02/22 07:35> General Chief complaint: Fever Stated complaint: Weakness Time Seen by Provider: 09/01/22 17:51 Source: patient, family () and EMS Mode of arrival: EMS Limitations: no limitations History of Present Illness HPI narrative: Patient is a 77-year-old male is here for evaluation of generalized weakness. He stated that yesterday he had some right upper quadrant/right rib pain. Was off and on yesterday. It seems to have improved today. He is no rash over the area. Did not take anything for it. This morning he woke up feeling at his baseline. He had breakfast with his daughter. He stated he started to not feel very well. He slept most of the day. He woke up from sleeping and was very weak. He tried to get out of bed but could not. He was assisted to the floor. He is a ity-clzwacy-nioskphuy diabetic. He checked his blood sugar. It was 70. He drank some orange juice. EMS was called. EMS found the patient hypotensive with systolic blood pressure in the 80s over 90s. He received fluids prior to arrival. He was also reported to be febrile by EMS. He has been taking all of his medications as directed. No chest pain. No shortness of breath. No upper respiratory infection like symptoms. No urinary symptoms. No change in bowel habits. No prior abdominal surgeries. At the time of my evaluation he stated that he felt better than what he did when EMS was called but not as good as what he did yesterday. Related Data Home Medications Medication Instructions Recorded Confirmed [employer] Dreamstation BIPAP #1 ea 11/27/18 07/25/22 pregabalin 150 mg capsule 150 mg PO BID 06/16/20 09/02/22 flash glucose scanning reader 02/07/21 07/25/22 (FreeStyle Sudheer 14 Day Pritchett) flash glucose sensor (XOR.MOTORSyle 02/07/21 07/25/22 Sudheer 14 Day Sensor kit) atorvastatin 10 mg tablet 10 mg PO BEDTIME 09/02/22 09/02/22 hydralazine 25 mg tablet 25 mg PO BID 09/02/22 09/02/22 lamotrigine 200 mg tablet 200 mg PO DAILY 09/02/22 09/02/22 levetiracetam 750 mg tablet 750 mg PO BID 09/02/22 09/02/22 lisinopril 2.5 mg tablet 2.5 mg PO DAILY 09/02/22 09/02/22 montelukast 10 mg tablet 10 mg PO BEDTIME 09/02/22 omeprazole 20 mg capsule,delayed 20 mg PO DAILY 09/02/22 09/02/22 release prazosin 2 mg capsule 2 mg PO BEDTIME 09/02/22 09/02/22 tamsulosin 0.4 mg capsule 0.4 mg PO BEDTIME 09/02/22 vortioxetine 20 mg tablet 20 mg PO DAILY 09/02/22 09/02/22 (Trintellix) Previous Rx's Medication Instructions Recorded lancets #100 ea 07/17/18 blood sugar diagnostic (Blood #100 ea 08/20/19 Glucose Test strips) disabled parking permit #1 ea 10/28/19 aspirin 325 mg tablet 325 mg PO DAILY #90 tabs 06/22/20 clobetasol 0.05 % topical ointment 1 applic topical BID #45 grams 07/21/20 omeprazole 20 mg capsule,delayed 20 mg PO DAILY barretts esophagus 07/13/21 release #90 caps albuterol sulfate 90 mcg/actuation See Rx Instructions .Route 11/27/21 aerosol inhaler (Ventolin HFA) .COMPLEX #18 grams amlodipine 5 mg tablet 5 mg PO BID #180 tabs 04/12/22 glimepiride 1 mg tablet 1 mg PO ONCE #90 tabs 04/12/22 semaglutide 1 mg/dose (2 mg/1.5 1 mg (0.75 mL) SUBCUT QWEEK #3 mL 04/12/22 mL) subcutaneous pen injector (Ozempic) vortioxetine 20 mg tablet 20 mg PO DAILY #90 tabs 08/08/22 testosterone cypionate 200 mg/mL 80 mg (0.4 mL) IM Q2W #1 mL 08/22/22 intramuscular oil (Depo-Testosterone) Allergies Allergy/AdvReac Type Severity Reaction Status Date / Time ibuprofen [IBUPROFEN] Allergy Severe LARGE Verified 09/01/22 19:16 HIVES, ALL OVER BODY Iodine and Iodide Containing Allergy Severe THROAT Verified 09/01/22 19:16 Produc SWELLING [IODINE AND IODIDE AND WELTS CONTAINING PRODUC] shellfish derived Allergy Severe SEAFOOD, Verified 09/01/22 19:16 [SHELLFISH DERIVED] THROAT SWELLING Review of Systems <Alessandro Gutierrez DO - Last Filed: 09/02/22 07:35> Review of Systems ROS Unobtainable: All systems reviewed & are unremarkable except as noted in HPI and below Patient History <Alessandro Gutierrez DO - Last Filed: 09/02/22 07:35> Medical History Acute GI bleeding Rdkfo-[id number]-nmvlyic kidney injury Asthma Barretts esophagus Bipolar disorder CKD (chronic kidney disease) Closed head injury Community acquired pneumonia Degenerative joint disease of left hip Depression Diabetes mellitus Diverticular disease DJD of right shoulder Gout Herniated nucleus pulposus, L4-5 left History of prostate cancer Hyperlipidemia Hypersomnia Hypertension Idiopathic peripheral neuropathy Impotence Low back pain Lumbosacral radiculopathy at L4 Obstructive sleep apnea of adult Personal history of radiation therapy Polio Syncope TIA (transient ischemic attack) Surgical History Anesthesia History of incision and drainage History of prostate surgery Inguinal hernia Status post eye surgery Status post tonsillectomy and adenoidectomy Surgical procedure planned Family History Father Prostate cancer Mother CAD (coronary artery disease) Social History marital status: details: to , lives in [place] household members: spouse lives independently: Yes caregiver/support person: No housing: house education level: master's degree Previous occupational history: law enforcement Smoking Status: Never smoker alcohol intake: current substance use type: does not use eating out: 4 or more times/week Type(s) of exercise: weight lifting and resistance training Smoking Status: Never smoker alcohol intake frequency: holidays/special occasions only Substance Use Type: does not use Exam <Alessandro Gutierrez DO - Last Filed: 09/02/22 07:35> Initial Vital Signs Initial Vital Signs: Vital Signs Temperature 100.0 F H 09/01/22 17:45 Pulse Rate 100 H 09/01/22 17:45 Respiratory Rate 24 09/01/22 17:45 Blood Pressure 116/64 09/01/22 17:45 Pulse Oximetry 97 09/01/22 17:45 Oxygen Delivery Method 09/01/22 17:45 Const General: cooperative, comfortable and No ill appearing HENMT Head: normal to inspection and normocephalic Resp Effort & Inspection: normal respiratory effort Auscultation: clear to auscultation bilaterally Cardio Rate: regular rate Rhythm: regular rhythm GI Inspection: normal to inspection and non-distended Palpation: soft and tender (Right upper quadrant with positive Pak sign) Back/Spine/Pelvis Back: No CVA tenderness Skin General: no rashes or lesions noted Neuro General: patient alert, patient awake, patient oriented x3 and moves all extremities Extrem General: normal to inspection and capillary refill normal Psych Appearance: grossly normal and well kempt <Viviane Schmitt DO - Last Filed: 09/02/22 19:45> Initial Vital Signs Initial Vital Signs: Vital Signs Temperature 100.0 F H 09/01/22 17:45 Pulse Rate 100 H 09/01/22 17:45 Respiratory Rate 24 09/01/22 17:45 Blood Pressure 116/64 09/01/22 17:45 Pulse Oximetry 97 09/01/22 17:45 Oxygen Delivery Method 09/01/22 17:45 Scores <Alessandro Gutierrez DO - Last Filed: 09/02/22 07:35> GCS [place] coma scale eye opening: Spontaneous Naz coma scale verbal response: Orientated Naz coma scale motor response: Obey commands Naz coma scale total score: 15 <Viviane Schmitt DO - Last Filed: 09/02/22 19:45> GCS [place] coma scale total score: 15 Course <DO Cristi Dyson Last Filed: 09/02/22 07:35> Orders Ordered: Discontinued Medications Sodium Chloride (Normal Saline 0.9%) 1,000 mls @ 125 mls/hr IV CONT LIZBETH Last Infusion: 09/02/22 14:24 Dose: 0 mls/hr Documented By: Admin: 09/02/22 02:55 Dose: 125 mls/hr Documented By: Infusion: 09/02/22 02:52 Dose: 0 mls/hr Documented By: Admin: 09/01/22 18:52 Dose: 125 mls/hr Documented By: DONNA Piperacillin Sod/Tazobactam (Sod 4.5 gm/ Sodium Chloride) 100 mls @ 200 mls/hr IV NOW ONE Stop: 09/01/22 18:30 Last Infusion: 09/01/22 19:47 Dose: 0 mls/hr Documented By: RLS(2) Admin: 09/01/22 18:52 Dose: 200 mls/hr Documented By: RLS Sodium Chloride (Normal Saline 0.9%) 1,000 mls @ 1,000 mls/hr IV BOLUS ONE Stop: 09/01/22 20:30 Last Infusion: 09/01/22 20:57 Dose: 0 mls/hr Documented By: Admin: 09/01/22 19:47 Dose: 1,000 mls/hr Documented By: RLS(2) Metronidazole (Flagyl) 500 mg in 100 mls @ 100 mls/hr IV Q8H [facility] Last Infusion: 09/02/22 12:18 Dose: 0 mls/hr Documented By: Admin: 09/02/22 11:05 Dose: 100 mls/hr Documented By: Infusion: 09/02/22 05:15 Dose: 0 mls/hr Documented By: Admin: 09/02/22 04:00 Dose: 100 mls/hr Documented By: Infusion: 09/01/22 20:55 Dose: 0 mls/hr Documented By: Admin: 09/01/22 19:48 Dose: 100 mls/hr Documented By: RLS(2) Piperacillin Sod/Tazobactam (Sod 3.375 gm/ Sodium Chloride) 100 mls @ 25 mls/hr IV Q8H [facility] Last Infusion: 09/02/22 16:51 Dose: 0 mls/hr Documented By: Admin: 09/02/22 12:19 Dose: 25 mls/hr Documented By: Infusion: 09/02/22 08:45 Dose: 0 mls/hr Documented By: Admin: 09/02/22 04:00 Dose: 25 mls/hr Documented By: MARJAN Lidocaine HCl (Lidocaine 2% (Glydo) 6 Ml Gel) 6 ml TOP NOW ONE Stop: 09/01/22 21:49 Last Admin: 09/01/22 22:05 Dose: 6 ml Documented By: RLS(2) Vital Signs Vital signs: Vital Signs - 8 hr 09/02/22 12:00 09/02/22 12:01 09/02/22 12:01 Pulse Rate 60 47 L Respiratory Rate 22 21 Blood Pressure 131/64 Pulse Oximetry 95 95 09/02/22 13:00 09/02/22 13:01 09/02/22 13:01 Pulse Rate 44 L 53 L Respiratory Rate 15 15 Blood Pressure 140/63 Pulse Oximetry 95 95 09/02/22 14:00 09/02/22 14:01 09/02/22 14:01 Pulse Rate 40 L 45 L Respiratory Rate 17 16 Blood Pressure 137/65 Pulse Oximetry 94 95 09/02/22 15:00 09/02/22 15:01 09/02/22 15:01 Pulse Rate 46 L 43 L Respiratory Rate 20 20 Blood Pressure 141/67 H Pulse Oximetry 96 95 09/02/22 16:00 09/02/22 16:00 09/02/22 17:00 Pulse Rate 46 L Respiratory Rate 20 Blood Pressure 135/64 143/66 H Pulse Oximetry 96 09/02/22 17:00 Pulse Rate 52 L Respiratory Rate 19 Blood Pressure Pulse Oximetry 96 <Viviane Schmitt, DO - Last Filed: 09/02/22 19:45> Orders Ordered: Discontinued Medications Sodium Chloride (Normal Saline 0.9%) 1,000 mls @ 125 mls/hr IV CONT LIZBETH Last Infusion: 09/02/22 14:24 Dose: 0 mls/hr Documented By: Admin: 09/02/22 02:55 Dose: 125 mls/hr Documented By: Infusion: 09/02/22 02:52 Dose: 0 mls/hr Documented By: Admin: 09/01/22 18:52 Dose: 125 mls/hr Documented By: DONNA Piperacillin Sod/Tazobactam (Sod 4.5 gm/ Sodium Chloride) 100 mls @ 200 mls/hr IV NOW ONE Stop: 09/01/22 18:30 Last Infusion: 09/01/22 19:47 Dose: 0 mls/hr Documented By: DONNA(2) Admin: 09/01/22 18:52 Dose: 200 mls/hr Documented By: DONNA Sodium Chloride (Normal Saline 0.9%) 1,000 mls @ 1,000 mls/hr IV BOLUS ONE Stop: 09/01/22 20:30 Last Infusion: 09/01/22 20:57 Dose: 0 mls/hr Documented By: Admin: 09/01/22 19:47 Dose: 1,000 mls/hr Documented By: RLS(2) Metronidazole (Flagyl) 500 mg in 100 mls @ 100 mls/hr IV Q8H [facility] Last Infusion: 09/02/22 12:18 Dose: 0 mls/hr Documented By: Admin: 09/02/22 11:05 Dose: 100 mls/hr Documented By: Infusion: 09/02/22 05:15 Dose: 0 mls/hr Documented By: Admin: 09/02/22 04:00 Dose: 100 mls/hr Documented By: Infusion: 09/01/22 20:55 Dose: 0 mls/hr Documented By: Admin: 09/01/22 19:48 Dose: 100 mls/hr Documented By: RLS(2) Piperacillin Sod/Tazobactam (Sod 3.375 gm/ Sodium Chloride) 100 mls @ 25 mls/hr IV Q8H [facility] Last Infusion: 09/02/22 16:51 Dose: 0 mls/hr Documented By: Admin: 09/02/22 12:19 Dose: 25 mls/hr Documented By: Infusion: 09/02/22 08:45 Dose: 0 mls/hr Documented By: Admin: 09/02/22 04:00 Dose: 25 mls/hr Documented By: MARJAN Lidocaine HCl (Lidocaine 2% (Glydo) 6 Ml Gel) 6 ml TOP NOW ONE Stop: 09/01/22 21:49 Last Admin: 09/01/22 22:05 Dose: 6 ml Documented By: RLS(2) Vital Signs Vital signs: Vital Signs - 8 hr 09/02/22 12:00 09/02/22 12:01 09/02/22 12:01 Pulse Rate 60 47 L Respiratory Rate 22 21 Blood Pressure 131/64 Pulse Oximetry 95 95 09/02/22 13:00 09/02/22 13:01 09/02/22 13:01 Pulse Rate 44 L 53 L Respiratory Rate 15 15 Blood Pressure 140/63 Pulse Oximetry 95 95 09/02/22 14:00 09/02/22 14:01 09/02/22 14:01 Pulse Rate 40 L 45 L Respiratory Rate 17 16 Blood Pressure 137/65 Pulse Oximetry 94 95 09/02/22 15:00 09/02/22 15:01 09/02/22 15:01 Pulse Rate 46 L 43 L Respiratory Rate 20 20 Blood Pressure 141/67 H Pulse Oximetry 96 95 09/02/22 16:00 09/02/22 16:00 09/02/22 17:00 Pulse Rate 46 L Respiratory Rate 20 Blood Pressure 135/64 143/66 H Pulse Oximetry 96 09/02/22 17:00 Pulse Rate 52 L Respiratory Rate 19 Blood Pressure Pulse Oximetry 96 Medical Decision Making <Alessandro Gutierrez, - Last Filed: 09/02/22 07:35> Differential Diagnosis Differential Diagnosis: Diverticulitis, appy, pyelo, cholecystitis, obstruction, perforation, pneum Condition is:: Well Controlled Discussed with:: Dr. Ardon with General surgery Lab Data Lab results reviewed: Yes I reviewed the patient's lab results. 09/01/22 17:35 09/01/22 17:35 Labs: Lab Results 09/01/22 09/01/22 09/01/22 Range/Units 17:35 17:35 17:35 WBC 11.6 H (4.5-11.0) X10^3/uL RBC 4.67 (4.5-5.9) X10^6/uL Hgb 14.3 (13.5-17.5) g/dL Hct 42.3 (41-53) % MCV 90.7 (80-100) fL MCH 30.6 (26-34) PG MCHC 33.8 (30-36) % RDW 13.2 (11.6-14.8) % Plt Count 149 L (150-400) X10^3/uL Neut % (Auto) 88.3 H (50-75) % Lymph % (Auto) 4.7 L (25-40) % Davidson % (Auto) 6.7 (3-14) % Eos % (Auto) 0.2 L (2-4) % Baso % (Auto) 0.1 (0-2) % Neut # (Auto) 50256 H (2933-4072) /uL Lymph # (Auto) 500 L (2277-6512) /uL Davidson # (Auto) 800 (0-900) /uL Eos # (Auto) 0 (0-450) /uL Baso # (Auto) 0 (0-100) /uL Sodium 141 (137-145) mmol/L Potassium 4.0 (3.4-5.1) mmol/L Chloride 103 (98-107) mmol/L Carbon Dioxide 26 (22-32) mmol/L BUN 22 H (9-20) mg/dL Creatinine 1.85 H (0.66-1.25) mg/dL Estimated GFR 37 L (>60) mL/min BUN/Creatinine Ratio 11.9 (6-22) Glucose 92 (80-110) mg/dL Lactate 2.9 H (0.7-2.1) mmol/L Calcium 10.0 (8.4-10.2) mg/dL Magnesium (1.6-2.3) mg/dL Total Bilirubin 3.1 H (0.2-1.3) mg/dL AST 425 H (17-59) IU/L ALT 298 H (<50) IU/L Alkaline Phosphatase 254 H (38-126) U/L Total Creatine Kinase 86 (55-170) U/L CK-MB (CK-2) TNP CK-MB (CK-2) Rel Index TNP Troponin I < 0.012 (0.01-0.034) ng/mL Total Protein 7.8 (6.3-8.2) g/dL Albumin 4.6 (3.5-5.0) g/dL Globulin 3.2 (1.7-4.1) g/dL Albumin/Globulin Ratio 1.4 (1.0-2.8) Lipase (23-300) U/L Procalcitonin 1.09 H (<0.5) ng/mL Urine Color Urine Appearance Urine pH (4.5-8.0) Ur Specific [place] (1.000-1.035) Urine Protein (Negative) Urine Glucose (UA) (Negative) g/dL Urine Ketones (NEGATIVE) Urine Occult Blood (Negative) Urine Nitrate (Negative) Urine Bilirubin (NEGATIVE) Urine Urobilinogen (0.2) E.U./dL Ur Leukocyte Esterase (NEGATIVE) Urine RBC (0-5/HPF) Urine WBC (0-5/HPF) Urine Bacteria (None) Ur Culture Indicated? SARS-CoV-2 (PCR) (Negative) Influenza A (RT-PCR) (NEGATIVE) Influenza B (RT-PCR) (NEGATIVE) RSV (PCR) (Negative) 09/01/22 09/01/22 09/01/22 Range/Units 17:56 21:47 21:50 WBC (4.5-11.0) X10^3/uL RBC (4.5-5.9) X10^6/uL Hgb (13.5-17.5) g/dL Hct (41-53) % MCV (80-100) fL MCH (26-34) PG MCHC (30-36) % RDW (11.6-14.8) % Plt Count (150-400) X10^3/uL Neut % (Auto) (50-75) % Lymph % (Auto) (25-40) % Davidson % (Auto) (3-14) % Eos % (Auto) (2-4) % Baso % (Auto) (0-2) % Neut # (Auto) (8598-3233) /uL Lymph # (Auto) (3676-5530) /uL Davidson # (Auto) (0-900) /uL Eos # (Auto) (0-450) /uL Baso # (Auto) (0-100) /uL Sodium (137-145) mmol/L Potassium (3.4-5.1) mmol/L Chloride (98-107) mmol/L Carbon Dioxide (22-32) mmol/L BUN (9-20) mg/dL Creatinine (0.66-1.25) mg/dL Estimated GFR (>60) mL/min BUN/Creatinine Ratio (6-22) Glucose (80-110) mg/dL Lactate 1.3 (0.7-2.1) mmol/L Calcium (8.4-10.2) mg/dL Magnesium (1.6-2.3) mg/dL Total Bilirubin (0.2-1.3) mg/dL AST (17-59) IU/L ALT (<50) IU/L Alkaline Phosphatase (38-126) U/L Total Creatine Kinase (55-170) U/L CK-MB (CK-2) CK-MB (CK-2) Rel Index Troponin I (0.01-0.034) ng/mL Total Protein (6.3-8.2) g/dL Albumin (3.5-5.0) g/dL Globulin (1.7-4.1) g/dL Albumin/Globulin Ratio (1.0-2.8) Lipase (23-300) U/L Procalcitonin (<0.5) ng/mL Urine Color Yellow Urine Appearance Clear Urine pH 6.0 (4.5-8.0) Ur Specific [place] 1.010 (1.000-1.035) Urine Protein Negative (Negative) Urine Glucose (UA) Negative (Negative) g/dL Urine Ketones Negative (NEGATIVE) Urine Occult Blood Negative (Negative) Urine Nitrate Negative (Negative) Urine Bilirubin Negative (NEGATIVE) Urine Urobilinogen Normal (0.2) E.U./dL Ur Leukocyte Esterase Negative (NEGATIVE) Urine RBC None seen (0-5/HPF) Urine WBC None seen (0-5/HPF) Urine Bacteria None seen (None) Ur Culture Indicated? Cult not indicated SARS-CoV-2 (PCR) Negative (Negative) Influenza A (RT-PCR) Flu a negative (NEGATIVE) Influenza B (RT-PCR) Flu b negative (NEGATIVE) RSV (PCR) Negative (Negative) 09/02/22 09/02/22 09/02/22 Range/Units 07:55 07:55 07:55 WBC 11.6 H (4.5-11.0) X10^3/uL RBC 3.77 L (4.5-5.9) X10^6/uL Hgb 11.7 L (13.5-17.5) g/dL Hct 34.2 L (41-53) % MCV 90.8 (80-100) fL MCH 31.0 (26-34) PG MCHC 34.1 (30-36) % RDW 13.2 (11.6-14.8) % Plt Count 115 L (150-400) X10^3/uL Neut % (Auto) 87.3 H (50-75) % Lymph % (Auto) 5.3 L (25-40) % Davidson % (Auto) 6.9 (3-14) % Eos % (Auto) 0.3 L (2-4) % Baso % (Auto) 0.2 (0-2) % Neut # (Auto) 07980 H (6517-1387) /uL Lymph # (Auto) 600 L (0360-5723) /uL Davidson # (Auto) 800 (0-900) /uL Eos # (Auto) 0 (0-450) /uL Baso # (Auto) 0 (0-100) /uL Sodium 138 (137-145) mmol/L Potassium 4.3 (3.4-5.1) mmol/L Chloride 108 H (98-107) mmol/L Carbon Dioxide 22 (22-32) mmol/L BUN 23 H (9-20) mg/dL Creatinine 1.74 H (0.66-1.25) mg/dL Estimated GFR 40 L (>60) mL/min BUN/Creatinine Ratio 13.2 (6-22) Glucose 67 L (80-110) mg/dL Lactate (0.7-2.1) mmol/L Calcium 8.6 (8.4-10.2) mg/dL Magnesium (1.6-2.3) mg/dL Total Bilirubin 3.7 H (0.2-1.3) mg/dL AST 167 H (17-59) IU/L ALT 223 H (<50) IU/L Alkaline Phosphatase 153 H (38-126) U/L Total Creatine Kinase 152 (55-170) U/L CK-MB (CK-2) 0.95 CK-MB (CK-2) Rel Index 0.6 L Troponin I 0.235 H* (0.01-0.034) ng/mL Total Protein 6.0 L (6.3-8.2) g/dL Albumin 3.4 L (3.5-5.0) g/dL Globulin 2.6 (1.7-4.1) g/dL Albumin/Globulin Ratio 1.3 (1.0-2.8) Lipase 1851 H (23-300) U/L Procalcitonin (<0.5) ng/mL Urine Color Urine Appearance Urine pH (4.5-8.0) Ur Specific [place] (1.000-1.035) Urine Protein (Negative) Urine Glucose (UA) (Negative) g/dL Urine Ketones (NEGATIVE) Urine Occult Blood (Negative) Urine Nitrate (Negative) Urine Bilirubin (NEGATIVE) Urine Urobilinogen (0.2) E.U./dL Ur Leukocyte Esterase (NEGATIVE) Urine RBC (0-5/HPF) Urine WBC (0-5/HPF) Urine Bacteria (None) Ur Culture Indicated? SARS-CoV-2 (PCR) (Negative) Influenza A (RT-PCR) (NEGATIVE) Influenza B (RT-PCR) (NEGATIVE) RSV (PCR) (Negative) 09/02/22 09/02/22 Range/Units 07:55 10:00 WBC (4.5-11.0) X10^3/uL RBC (4.5-5.9) X10^6/uL Hgb (13.5-17.5) g/dL Hct (41-53) % MCV (80-100) fL MCH (26-34) PG MCHC (30-36) % RDW (11.6-14.8) % Plt Count (150-400) X10^3/uL Neut % (Auto) (50-75) % Lymph % (Auto) (25-40) % Davidson % (Auto) (3-14) % Eos % (Auto) (2-4) % Baso % (Auto) (0-2) % Neut # (Auto) (4931-5397) /uL Lymph # (Auto) (3513-4946) /uL Davidson # (Auto) (0-900) /uL Eos # (Auto) (0-450) /uL Baso # (Auto) (0-100) /uL Sodium (137-145) mmol/L Potassium (3.4-5.1) mmol/L Chloride (98-107) mmol/L Carbon Dioxide (22-32) mmol/L BUN (9-20) mg/dL Creatinine (0.66-1.25) mg/dL Estimated GFR (>60) mL/min BUN/Creatinine Ratio (6-22) Glucose (80-110) mg/dL Lactate (0.7-2.1) mmol/L Calcium (8.4-10.2) mg/dL Magnesium 2.0 (1.6-2.3) mg/dL Total Bilirubin (0.2-1.3) mg/dL AST (17-59) IU/L ALT (<50) IU/L Alkaline Phosphatase (38-126) U/L Total Creatine Kinase (55-170) U/L CK-MB (CK-2) CK-MB (CK-2) Rel Index Troponin I 0.225 H* (0.01-0.034) ng/mL Total Protein (6.3-8.2) g/dL Albumin (3.5-5.0) g/dL Globulin (1.7-4.1) g/dL Albumin/Globulin Ratio (1.0-2.8) Lipase (23-300) U/L Procalcitonin (<0.5) ng/mL Urine Color Urine Appearance Urine pH (4.5-8.0) Ur Specific [place] (1.000-1.035) Urine Protein (Negative) Urine Glucose (UA) (Negative) g/dL Urine Ketones (NEGATIVE) Urine Occult Blood (Negative) Urine Nitrate (Negative) Urine Bilirubin (NEGATIVE) Urine Urobilinogen (0.2) E.U./dL Ur Leukocyte Esterase (NEGATIVE) Urine RBC (0-5/HPF) Urine WBC (0-5/HPF) Urine Bacteria (None) Ur Culture Indicated? SARS-CoV-2 (PCR) (Negative) Influenza A (RT-PCR) (NEGATIVE) Influenza B (RT-PCR) (NEGATIVE) RSV (PCR) (Negative) Imaging Data Chest x-ray: Radiologist's Impression: [address] [address] XRay Report Signed Patient: Hemanth Murphy MR#: [id number] : 1945 Acct:[id number] Age/Sex: 77 / M Date of Service: 09/01/22 Loc: Accession Number: [id number] ?? Procedure: XR chest 1V Ordering Provider: Viviane Schmitt D.O. PROCEDURE:? XR CHEST 1V ? INDICATIONS:? fever ? TECHNIQUE:? One view of the chest was acquired.? ? COMPARISON:? [facility], , CHEST 1 VIEW, 10/20/2016, 13:15. ? FINDINGS:? ? Surgical changes and devices:? None.? ? Lungs and pleura:? On this semiupright portable chest examination, no large pn eumothorax or large pleural effusions are seen.? No focal infiltrates are seen.? Low lung volumes are noted. This causes a crowded appearance to the lung markings and limits evaluation.? ? Mediastinum:? Mediastinal contours appear normal.? Heart size is mildly enlarged.? ? Bones and chest wall:? No suspicious bony lesions.? Age-appropriate bony degenerative changes are seen. ? Overlying soft tissues appear unremarkable.? ? ? IMPRESSION:? ? Limited portable chest examination, without a significant cardiopulmonary abnormality identified.? ? If clinically appropriate, a short-term followup chest series (with PA and lateral views) performed in deep inspiration is suggested for further evaluation.? ? ? Dictated by: Teo Blandon M.D. on 09/01/2022 at 17:19 ? ? Approved by: Teo Blandon M.D. on 09/01/2022 at 17:19?? US - abdomen: Radiologist's Impression: [place] [address] Ultrasound Report Signed Patient: Hemanth Murphy MR#: [id number] : 1945 Acct:[id number] Age/Sex: 77 / M Date of Service: 09/01/22 Loc: ED Accession Number: [id number] ?? Procedure: US abdomen limited Ordering Provider: Alessandro Gutierrez D.O. PROCEDURE:? US ABDOMEN LIMITED ? INDICATIONS:? RUQ PAIN ? TECHNIQUE:? Real-time scanning was performed of the abdominal and retroperitoneal organs, with image documentation.? ? COMPARISON:? None. ? FINDINGS:? ? Liver:? Liver is normal in size and homogeneous in echotexture.? ? Gallbladder:? Multiple mobile gallstones are noted within the gallbladder measuring up to 1.2 cm in size.? There is mild wall thickening measuring 4.4 mm.? No significant pericholecystic fluid identified.? There is an abnormal/positive sonographic Pak sign. ? ? Biliary ducts:? Intrahepatic bile ducts are non-dilated.? Extrahepatic bile duct caliber measures 4 mm.? Normal is 6-7 mm or less in diameter, or 10 mm or less post-cholecystectomy.? ? Pancreas:? Pancreas is not well visualized secondary to moderate overlying bowel gas. ? Miscellaneous:? No free abdominal fluid in the imaged portions of the abdomen.? ? ? IMPRESSION:? ? 1. Cholelithiasis with findings suggestive of acute cholecystitis. ? 2. Normal appearance of the liver.? Dictated by: Jeremiah Owens M.D. on 09/01/2022 at 19:24 ? ? Approved by: Jeremiah Owens M.D. on 09/01/2022 at 19:26?? ECG Data Attestation: I personally reviewed and interpreted this ECG as follows: Interpretation: Sinus rhythm Sinus arrhythmia Ventricular rate 89 First-degree AV block MI interval 480 milliseconds Normal QRS Normal QTC No ST T wave changes Repeat EKG No second-degree type 2 block Ventricular rate of [address] T wave changes MDM Narrative Medical decision making narrative: Patient not hypotensive here in the emergency department. He did receive fluids and his heart rate improved and his blood pressure improved. Because of the response will hold on given the full 30 cc/kilos. Patient was tachycardic. Febrile. Blood cultures obtained. Lactate ordered was initially elevated. This improved after fluids. Procalcitonin is elevated. Antibiotics administered. He does have right upper quadrant pain with a Pak's sign. Initially plan was to order a CT scan however he does have an allergy to iodine. He states he has had a CT scan in the past with contrast but received medications prior to this. His labs resulted in his shows that he does have an elevated bilirubin and also elevated LFTs. His lipase is unremarkable. Right upper quadrant ultrasound concern for acute cholecystitis. He is not jaundiced however given his fever and right upper quadrant pain and lab findings there is concern for cholangitis. He was given Zosyn and Flagyl. I did discuss the case with Dr. Ardon on-call for General surgery who recommended that an MRCP be obtained for evaluation of common bile duct stone given his elevation in bilirubin. We are unable to get an MRCP at this time a day out of the emergency department so he will stay in the ER until morning. The plan to be is that if he does have a common bile duct stone that he should be transferred for an ERCP otherwise will be admitted to General surgery for cholecystectomy. I discussed this with the patient who expressed understanding and agreement. Care turned over to Dr. Schmitt to follow-up on MRCP results and disposition. During his stay he was noticed that the patient was becoming bradycardic. He reports no symptoms from this. EKG shows a Mobitz type 2. He appears to be going in and out of this rhythm. <Viviane Schmitt, DO - Last Filed: 09/02/22 19:45> Lab Data Labs: Lab Results 09/01/22 09/01/22 09/01/22 Range/Units 17:35 17:35 17:35 WBC 11.6 H (4.5-11.0) X10^3/uL RBC 4.67 (4.5-5.9) X10^6/uL Hgb 14.3 (13.5-17.5) g/dL Hct 42.3 (41-53) % MCV 90.7 (80-100) fL MCH 30.6 (26-34) PG MCHC 33.8 (30-36) % RDW 13.2 (11.6-14.8) % Plt Count 149 L (150-400) X10^3/uL Neut % (Auto) 88.3 H (50-75) % Lymph % (Auto) 4.7 L (25-40) % Davidson % (Auto) 6.7 (3-14) % Eos % (Auto) 0.2 L (2-4) % Baso % (Auto) 0.1 (0-2) % Neut # (Auto) 75412 H (0920-2601) /uL Lymph # (Auto) 500 L (4997-2581) /uL Davidson # (Auto) 800 (0-900) /uL Eos # (Auto) 0 (0-450) /uL Baso # (Auto) 0 (0-100) /uL Sodium 141 (137-145) mmol/L Potassium 4.0 (3.4-5.1) mmol/L Chloride 103 (98-107) mmol/L Carbon Dioxide 26 (22-32) mmol/L BUN 22 H (9-20) mg/dL Creatinine 1.85 H (0.66-1.25) mg/dL Estimated GFR 37 L (>60) mL/min BUN/Creatinine Ratio 11.9 (6-22) Glucose 92 (80-110) mg/dL Lactate 2.9 H (0.7-2.1) mmol/L Calcium 10.0 (8.4-10.2) mg/dL Magnesium (1.6-2.3) mg/dL Total Bilirubin 3.1 H (0.2-1.3) mg/dL AST 425 H (17-59) IU/L ALT 298 H (<50) IU/L Alkaline Phosphatase 254 H (38-126) U/L Total Creatine Kinase 86 (55-170) U/L CK-MB (CK-2) TNP CK-MB (CK-2) Rel Index TNP Troponin I < 0.012 (0.01-0.034) ng/mL Total Protein 7.8 (6.3-8.2) g/dL Albumin 4.6 (3.5-5.0) g/dL Globulin 3.2 (1.7-4.1) g/dL Albumin/Globulin Ratio 1.4 (1.0-2.8) Lipase (23-300) U/L Procalcitonin 1.09 H (<0.5) ng/mL Urine Color Urine Appearance Urine pH (4.5-8.0) Ur Specific [place] (1.000-1.035) Urine Protein (Negative) Urine Glucose (UA) (Negative) g/dL Urine Ketones (NEGATIVE) Urine Occult Blood (Negative) Urine Nitrate (Negative) Urine Bilirubin (NEGATIVE) Urine Urobilinogen (0.2) E.U./dL Ur Leukocyte Esterase (NEGATIVE) Urine RBC (0-5/HPF) Urine WBC (0-5/HPF) Urine Bacteria (None) Ur Culture Indicated? SARS-CoV-2 (PCR) (Negative) Influenza A (RT-PCR) (NEGATIVE) Influenza B (RT-PCR) (NEGATIVE) RSV (PCR) (Negative) 09/01/22 09/01/22 09/01/22 Range/Units 17:56 21:47 21:50 WBC (4.5-11.0) X10^3/uL RBC (4.5-5.9) X10^6/uL Hgb (13.5-17.5) g/dL Hct (41-53) % MCV (80-100) fL MCH (26-34) PG MCHC (30-36) % RDW (11.6-14.8) % Plt Count (150-400) X10^3/uL Neut % (Auto) (50-75) % Lymph % (Auto) (25-40) % Davidson % (Auto) (3-14) % Eos % (Auto) (2-4) % Baso % (Auto) (0-2) % Neut # (Auto) (1956-8218) /uL Lymph # (Auto) (2373-9719) /uL Davidson # (Auto) (0-900) /uL Eos # (Auto) (0-450) /uL Baso # (Auto) (0-100) /uL Sodium (137-145) mmol/L Potassium (3.4-5.1) mmol/L Chloride (98-107) mmol/L Carbon Dioxide (22-32) mmol/L BUN (9-20) mg/dL Creatinine (0.66-1.25) mg/dL Estimated GFR (>60) mL/min BUN/Creatinine Ratio (6-22) Glucose (80-110) mg/dL Lactate 1.3 (0.7-2.1) mmol/L Calcium (8.4-10.2) mg/dL Magnesium (1.6-2.3) mg/dL Total Bilirubin (0.2-1.3) mg/dL AST (17-59) IU/L ALT (<50) IU/L Alkaline Phosphatase (38-126) U/L Total Creatine Kinase (55-170) U/L CK-MB (CK-2) CK-MB (CK-2) Rel Index Troponin I (0.01-0.034) ng/mL Total Protein (6.3-8.2) g/dL Albumin (3.5-5.0) g/dL Globulin (1.7-4.1) g/dL Albumin/Globulin Ratio (1.0-2.8) Lipase (23-300) U/L Procalcitonin (<0.5) ng/mL Urine Color Yellow Urine Appearance Clear Urine pH 6.0 (4.5-8.0) Ur Specific [place] 1.010 (1.000-1.035) Urine Protein Negative (Negative) Urine Glucose (UA) Negative (Negative) g/dL Urine Ketones Negative (NEGATIVE) Urine Occult Blood Negative (Negative) Urine Nitrate Negative (Negative) Urine Bilirubin Negative (NEGATIVE) Urine Urobilinogen Normal (0.2) E.U./dL Ur Leukocyte Esterase Negative (NEGATIVE) Urine RBC None seen (0-5/HPF) Urine WBC None seen (0-5/HPF) Urine Bacteria None seen (None) Ur Culture Indicated? Cult not indicated SARS-CoV-2 (PCR) Negative (Negative) Influenza A (RT-PCR) Flu a negative (NEGATIVE) Influenza B (RT-PCR) Flu b negative (NEGATIVE) RSV (PCR) Negative (Negative) 09/02/22 09/02/22 09/02/22 Range/Units 07:55 07:55 07:55 WBC 11.6 H (4.5-11.0) X10^3/uL RBC 3.77 L (4.5-5.9) X10^6/uL Hgb 11.7 L (13.5-17.5) g/dL Hct 34.2 L (41-53) % MCV 90.8 (80-100) fL MCH 31.0 (26-34) PG MCHC 34.1 (30-36) % RDW 13.2 (11.6-14.8) % Plt Count 115 L (150-400) X10^3/uL Neut % (Auto) 87.3 H (50-75) % Lymph % (Auto) 5.3 L (25-40) % Davidson % (Auto) 6.9 (3-14) % Eos % (Auto) 0.3 L (2-4) % Baso % (Auto) 0.2 (0-2) % Neut # (Auto) 41407 H (9034-2696) /uL Lymph # (Auto) 600 L (5978-5005) /uL Davidson # (Auto) 800 (0-900) /uL Eos # (Auto) 0 (0-450) /uL Baso # (Auto) 0 (0-100) /uL Sodium 138 (137-145) mmol/L Potassium 4.3 (3.4-5.1) mmol/L Chloride 108 H (98-107) mmol/L Carbon Dioxide 22 (22-32) mmol/L BUN 23 H (9-20) mg/dL Creatinine 1.74 H (0.66-1.25) mg/dL Estimated GFR 40 L (>60) mL/min BUN/Creatinine Ratio 13.2 (6-22) Glucose 67 L (80-110) mg/dL Lactate (0.7-2.1) mmol/L Calcium 8.6 (8.4-10.2) mg/dL Magnesium (1.6-2.3) mg/dL Total Bilirubin 3.7 H (0.2-1.3) mg/dL AST 167 H (17-59) IU/L ALT 223 H (<50) IU/L Alkaline Phosphatase 153 H (38-126) U/L Total Creatine Kinase 152 (55-170) U/L CK-MB (CK-2) 0.95 CK-MB (CK-2) Rel Index 0.6 L Troponin I 0.235 H* (0.01-0.034) ng/mL Total Protein 6.0 L (6.3-8.2) g/dL Albumin 3.4 L (3.5-5.0) g/dL Globulin 2.6 (1.7-4.1) g/dL Albumin/Globulin Ratio 1.3 (1.0-2.8) Lipase 1851 H (23-300) U/L Procalcitonin (<0.5) ng/mL Urine Color Urine Appearance Urine pH (4.5-8.0) Ur Specific [place] (1.000-1.035) Urine Protein (Negative) Urine Glucose (UA) (Negative) g/dL Urine Ketones (NEGATIVE) Urine Occult Blood (Negative) Urine Nitrate (Negative) Urine Bilirubin (NEGATIVE) Urine Urobilinogen (0.2) E.U./dL Ur Leukocyte Esterase (NEGATIVE) Urine RBC (0-5/HPF) Urine WBC (0-5/HPF) Urine Bacteria (None) Ur Culture Indicated? SARS-CoV-2 (PCR) (Negative) Influenza A (RT-PCR) (NEGATIVE) Influenza B (RT-PCR) (NEGATIVE) RSV (PCR) (Negative) 09/02/22 09/02/22 Range/Units 07:55 10:00 WBC (4.5-11.0) X10^3/uL RBC (4.5-5.9) X10^6/uL Hgb (13.5-17.5) g/dL Hct (41-53) % MCV (80-100) fL MCH (26-34) PG MCHC (30-36) % RDW (11.6-14.8) % Plt Count (150-400) X10^3/uL Neut % (Auto) (50-75) % Lymph % (Auto) (25-40) % Davidson % (Auto) (3-14) % Eos % (Auto) (2-4) % Baso % (Auto) (0-2) % Neut # (Auto) (4538-6437) /uL Lymph # (Auto) (8635-5613) /uL Davidson # (Auto) (0-900) /uL Eos # (Auto) (0-450) /uL Baso # (Auto) (0-100) /uL Sodium (137-145) mmol/L Potassium (3.4-5.1) mmol/L Chloride (98-107) mmol/L Carbon Dioxide (22-32) mmol/L BUN (9-20) mg/dL Creatinine (0.66-1.25) mg/dL Estimated GFR (>60) mL/min BUN/Creatinine Ratio (6-22) Glucose (80-110) mg/dL Lactate (0.7-2.1) mmol/L Calcium (8.4-10.2) mg/dL Magnesium 2.0 (1.6-2.3) mg/dL Total Bilirubin (0.2-1.3) mg/dL AST (17-59) IU/L ALT (<50) IU/L Alkaline Phosphatase (38-126) U/L Total Creatine Kinase (55-170) U/L CK-MB (CK-2) CK-MB (CK-2) Rel Index Troponin I 0.225 H* (0.01-0.034) ng/mL Total Protein (6.3-8.2) g/dL Albumin (3.5-5.0) g/dL Globulin (1.7-4.1) g/dL Albumin/Globulin Ratio (1.0-2.8) Lipase (23-300) U/L Procalcitonin (<0.5) ng/mL Urine Color Urine Appearance Urine pH (4.5-8.0) Ur Specific [place] (1.000-1.035) Urine Protein (Negative) Urine Glucose (UA) (Negative) g/dL Urine Ketones (NEGATIVE) Urine Occult Blood (Negative) Urine Nitrate (Negative) Urine Bilirubin (NEGATIVE) Urine Urobilinogen (0.2) E.U./dL Ur Leukocyte Esterase (NEGATIVE) Urine RBC (0-5/HPF) Urine WBC (0-5/HPF) Urine Bacteria (None) Ur Culture Indicated? SARS-CoV-2 (PCR) (Negative) Influenza A (RT-PCR) (NEGATIVE) Influenza B (RT-PCR) (NEGATIVE) RSV (PCR) (Negative) [facility] Narrative Medical decision making narrative: Patient not hypotensive here in the emergency department. He did receive fluids and his heart rate improved and his blood pressure improved. Because of the response will hold on given the full 30 cc/kilos. Patient was tachycardic. Febrile. Blood cultures obtained. Lactate ordered was initially elevated. This improved after fluids. Procalcitonin is elevated. Antibiotics administered. He does have right upper quadrant pain with a Pak's sign. Initially plan was to order a CT scan however he does have an allergy to iodine. He states he has had a CT scan in the past with contrast but received medications prior to this. His labs resulted in his shows that he does have an elevated bilirubin and also elevated LFTs. His lipase is unremarkable. Right upper quadrant ultrasound concern for acute cholecystitis. He is not jaundiced however given his fever and right upper quadrant pain and lab findings there is concern for cholangitis. He was given Zosyn and Flagyl. I did discuss the case with Dr. Ardon on-call for General surgery who recommended that an MRCP be obtained for evaluation of common bile duct stone given his elevation in biliru bin. We are unable to get an MRCP at this time a day out of the emergency department so he will stay in the ER until morning. The plan to be is that if he does have a common bile duct stone that he should be transferred for an ERCP otherwise will be admitted to General surgery for cholecystectomy. I discussed this with the patient who expressed understanding and agreement. Care turned over to Dr. Schmitt to follow-up on MRCP results and disposition. During his stay he was noticed that the patient was becoming bradycardic. He reports no symptoms from this. EKG shows a Mobitz type 2. He appears to be going in and out of this rhythm. 08/23/22 Dr. Schmitt Patient is signed out to me by Dr. Gutierrez. I have seen evaluated patient. He has really no right upper quadrant pain at all. He is noted to have some chest discomfort. MRCP does show no biliary ductal dilation possible to to 3 mm stone at the downstream extrahepatic bile. Lipase today is elevated at 1800. Liver enzymes have improved however bilirubin is elevated at 3.7. Troponin was also rechecked this morning last night it was negative however based on last night's events it was rechecked and now is positive at 0.235. I do not appreciate any ST elevations were signs of ischemia. However patient is having some chest discomfort but overall appears comfortable. Patient's repeat troponin that his decreased 0 point 225. Discussion with Cardiology Dr. Ramirez who states that elevated troponin and Mobitz type 2 is probably related to current infection. Agrees with no anticoagulation but close monitoring Patient continues to have intermittent bradycardia in the Mobitz type 2 but is completely asymptomatic. Pain is relatively controlled. 1300 Dr. Sellers, GI doctor at [facility] updated on patient's symptoms test results and kindly agrees that patient needs to be transferred. 1515 Dr. Renee, hospitalist at [facility] updated on patient's symptoms test results cardiology and GI recommendations and kindly accepts patient for transfer. <Viviane Schmitt, DO - Last Filed: 09/02/22 19:45> Critical Care Time Critical Care Time: Yes Total Critical Care Time: 120 Attestation: The high probability of a clinically significant, sudden or life threatening deterioration of the [cardiovascular] system(s) required my full and direct attention, intervention and personal management. The aggregate critical care time was 120 minutes. This time is in addition to time spent performing reported procedures but includes the following: [x] Data Review and interpretation [x] Patient assessment and monitoring of vital signs [x] Documentation [x] Medication orders and management Discharge Plan Departure Patient Disposition: [facility] Clinical Impression: Choledocholithiasis with acute cholecystitis with obstruction, Acute non-ST elevation myocardial infarction (NSTEMI), Atrioventricular block, Mobitz type 2 Prescriptions: No Action (DME) lancets misc See Dose Instructions .ROUTE .MEDSUPPLY Qty: 100 11RF Dose Instruction: As directed Rx Instructions: Test Blood Glucose Three Times Daily (DME) Blood Glucose Test Strip See Dose Instructions .ROUTE .MEDSUPPLY Qty: 100 11RF Dose Instruction: As directed Rx Instructions: Test Blood Glucose Three Times Daily (DME) disabled parking permit See Rx Instructions .ROUTE .MEDSUPPLY Qty: 1 0RF Rx Instructions: As directed. patient qualifies for disabled parking as per attached form. aspirin 325 mg tablet 325 mg PO DAILY Qty: 90 3RF omeprazole 20 mg capsule,delayed release(DR/EC) 20 mg PO DAILY Qty: 90 3RF albuterol sulfate [Ventolin HFA] 90 mcg/actuation HFA aerosol inhaler See Rx Instructions .ROUTE .COMPLEX Qty: 18 4RF Dose Instruction: INHALE 1 PUFF BY MOUTH EVERY 6 HOURS NEEDED FOR SHORTNESS OF BREATH OR WHEEZING Rx Instructions: INHALE 1 PUFF BY MOUTH EVERY 6 HOURS NEEDED FOR SHORTNESS OF BREATH OR WHEEZING vortioxetine 20 mg tablet 20 mg PO DAILY Qty: 90 0RF testosterone cypionate [Depo-Testosterone] 200 mg/mL oil 80 mg IM Q2W Qty: 1 5RF Rx Instructions: Inject 0.5 ml every two weeks. Ozempic 1 mg/dose (2 mg/1.5 mL) pen injector 1 mg SUBCUT QWEEK Qty: 3 5RF amlodipine 5 mg tablet 5 mg PO BID Qty: 180 3RF glimepiride 1 mg tablet 1 mg PO ONCE Qty: 90 3RF Rx Instructions: take with dinner clobetasol 0.05 % ointment 1 applic topical BID Qty: 45 5RF (DME) CellmaxStyle Sudheer 14 Day Pritchett Misc See Rx Instructions .Route Rx Instructions: As directed (DME) FreeStyle Sudheer 14 Day Sensor Kit See Rx Instructions .Route Rx Instructions: As directed hydralazine 25 mg tablet 25 mg PO BID omeprazole 20 mg Capsule,Delayed Release(Dr/Ec) 20 mg PO DAILY lisinopril 2.5 mg Tablet 2.5 mg PO DAILY Trintellix 20 mg tablet 20 mg PO DAILY lamotrigine 200 mg tablet 200 mg PO DAILY Rx Instructions: TAKE 1 TABLET BY MOUTH DAILY atorvastatin 10 mg tablet 10 mg PO BEDTIME tamsulosin 0.4 mg capsule 0.4 mg PO BEDTIME Rx Instructions: TAKE 1 CAPSULE BY MOUTH EVERY NIGHT AT BEDTIME montelukast 10 mg tablet 10 mg PO BEDTIME Rx Instructions: TAKE 1 TABLET BY MOUTH EVERY EVENING levetiracetam 750 mg tablet 750 mg PO BID Rx Instructions: TAKE 1 TABLET BY MOUTH TWICE DAILY prazosin 2 mg capsule 2 mg PO BEDTIME Rx Instructions: TAKE 1 CAPSULE BY MOUTH EVERY NIGHT AT BEDTIME (DME) Respironics Dreamstation BIPAP Qty: 1 Dose Instruction: As directed Label Comments: Pressure: IPAP 13 EPAP 8 DME: [facility] Rx Instructions: As directed pregabalin 150 mg capsule 150 mg PO BID Referrals: Esequiel Armstrong, [Primary Care Provider] -
[2022-09-01 18:18] LABS: Lactate (Lactic Acid) 2.9 mmol/L (0.7-2.1)
[2022-09-01 18:20] LABS: Aspartate Aminotransferase 425 IU/L (17-59); BUN Creatinine Ratio 11.9 (6-22); Bilirubin Total 3.1 mg/dL (0.2-1.3); Blood Urea Nitrogen 22 mg/dL (9-20); Carbon Dioxide 26 mmol/L (22-32); Chloride 103 mmol/L (98-107); Creatine Kinase 86 U/L (55-170); Estimated Glomerular Filt Rate 37 mL/min (>60); Glucose 92 mg/dL (80-110); HEMOLYSIS < 15 (0-50); Sodium 141 mmol/L (137-145)
[2022-09-01 18:21] LABS: Alanine Aminotransferase 298 IU/L (<50); Albumin 4.6 g/dL (3.5-5.0); Albumin Globulin Ratio 1.4 (1.0-2.8); Alkaline Phosphatase 254 U/L (38-126); Globulin 3.2 g/dL (1.7-4.1); Total Protein 7.8 g/dL (6.3-8.2)
--- NOTE | 2022-09-01 18:25 | DI.US.S_ITS ---
PROCEDURE: US ABDOMEN LIMITED INDICATIONS: RUQ PAIN TECHNIQUE: Real-time scanning was performed of the abdominal and retroperitoneal organs, with image documentation. COMPARISON: None. FINDINGS: Liver: Liver is normal in size and homogeneous in echotexture. Gallbladder: Multiple mobile gallstones are noted within the gallbladder measuring up to 1.2 cm in size. There is mild wall thickening measuring 4.4 mm. No significant pericholecystic fluid identified. There is an abnormal/positive sonographic Pak sign. Biliary ducts: Intrahepatic bile ducts are non-dilated. Extrahepatic bile duct caliber measures 4 mm. Normal is 6-7 mm or less in diameter, or 10 mm or less post-cholecystectomy. Pancreas: Pancreas is not well visualized secondary to moderate overlying bowel gas. Miscellaneous: No free abdominal fluid in the imaged portions of the abdomen. IMPRESSION: 1. Cholelithiasis with findings suggestive of acute cholecystitis. 2. Normal appearance of the liver. Dictated by: Jeremiah Owens M.D. on 09/01/2022 at 19:24 Approved by: Jeremiah Owens M.D. on 09/01/2022 at 19:26
[2022-09-01 18:31] LABS: Troponin I < 0.012 ng/mL (0.01-0.034)
[2022-09-01 18:35] LABS: Procalcitonin 1.09 ng/mL (<0.5)
[2022-09-01 18:42] LABS: Influenza A - CEPHEID Flu A NEGATIVE (NEGATIVE); Influenza B - CEPHEID Flu B NEGATIVE (NEGATIVE); Respiratory Syncytial Virus Negative (Negative)
[2022-09-01] MEDS: SODIUM CHLORIDE 0.9% 1,000 ML 125 ML IV (18:52)
[2022-09-01] MEDS: PIPERACILLIN/TAZO 4.5 GM in SODIUM CHLORIDE 0.9% 100 ML IV (18:52)
[2022-09-01 18:54] LABS: COVID-19 CEPHEID 4-PLEX PCR Negative (Negative)
[2022-09-01] MEDS: SODIUM CHLORIDE 0.9% 1,000 ML 1000 ML IV (19:47)
[2022-09-01] MEDS: metroNIDAZOLE 500 MG/100 ML PIGGYBACK 100 MG IV (19:48)
[2022-09-01 20:01] LABS: Reflexed Lactate in 2 Hours Y
--- NOTE | 2022-09-01 20:26 | DI.MRI.S_ITS ---
PROCEDURE: MR ABDOMEN WO/W CON INDICATIONS: Eval for CBD stone TECHNIQUE: Coronal HASTE, axial 2D FLASH in- and [id number]; axial breath-hold T2 FSE with fat saturation from the hepatic dome to the iliac crests. Oblique coronal thin-slice and radial thick slab HASTE through the biliary system. Dynamic axial VIBE during administration of contrast. Post-contrast coronal VIBE or 2D FLASH with fat saturation from the hepatic dome to the iliac crests. Optional diffusion weighted imaging and ADC may be performed. COMPARISON: [facility], US, US ABDOMEN LIMITED, 09/01/2022, 18:57. [facility], MR, MR ABDOMEN WO/W CON, 07/30/2018, 15:18. FINDINGS: Image quality: Adequate Pancreas and biliary system: No biliary ductal dilation. Possible 2-3 mm stone at the distal extrahepatic duct (for example series 5, image 24). No dilation of the main pancreatic duct. Few subcentimeter pancreatic cysts present. Cholelithiasis present as before. Solid organs: Liver is normal in size and enhancement. Spleen is normal in size and enhancement. No adrenal nodules. Kidneys are normal in size and enhancement, without hydronephrosis. Nodes and vessels: No retroperitoneal or mesenteric adenopathy by size criteria. Aorta and inferior vena cava are normal in size. Bowel and peritoneum: Unenhanced bowel loops are normal in caliber throughout. Possible 1.1 cm polypoid structure/mass at the 2nd portion of the duodenum (for example series 3, image 20). No substantial free fluid. Lung bases: No basal pleural effusions. IMPRESSION: 1. No biliary ductal dilation demonstrated. Possible 2-3 mm stone at the downstream extrahepatic bile duct. 2. Cholelithiasis as before. 3. Few small pancreatic cysts present, nonspecific, potential side-branch IPMNs but other etiologies are not excluded. Per ACR incidental findings guidelines, imaging follow-up is recommended in 2 years. 4. Possible 1.1 cm polypoid structure/mass within the lumen of the 2nd portion of the duodenum versus artifact. Upper endoscopy might be helpful for further evaluation. Dictated by: Errol Sumner M.D. on 09/02/2022 at 8:31 Approved by: Errol Sumner M.D. on 09/02/2022 at 8:43
[2022-09-01] MEDS: LIDOCAINE 2% (GLYDO) 6 ML GEL TOP (22:05)
[2022-09-01 22:06] LABS: Lactate 2HR (Lactic Acid Rflx) 1.3 mmol/L (0.7-2.1)
[2022-09-01 22:15] LABS: Appearance Urine UA CLEAR; Bilirubin Urine UA NEGATIVE (NEGATIVE); Color Urine UA YELLOW; Glucose Urine UA NEGATIVE (Negative); Ketones Urine UA NEGATIVE (NEGATIVE); Leukocyte Esterase Urine UA NEGATIVE (NEGATIVE); Nitrite Urine UA NEGATIVE (Negative); Occult Blood Urine UA NEGATIVE (Negative); Protein Urine UA NEGATIVE (Negative)
[2022-09-01 22:18] LABS: Urobilinogen Urine UA Normal E.U./dL (0.2)
[2022-09-01 22:42] LABS: Bacteria Urine None Seen; Culture Indicated Urine Cult Not Indicated; RBC Urine None Seen (0-5/HPF); WBC Urine None Seen (0-5/HPF)
[2022-09-02] VITALS (53 sets, daily range): BP systolic 84–167; BP diastolic 50–75; PULSE 0–79; RESP 7–30; O2SAT 94–98
[2022-09-02] MEDS: SODIUM CHLORIDE 0.9% 1,000 ML 125 ML IV (02:55)
[2022-09-02] MEDS: metroNIDAZOLE 500 MG/100 ML PIGGYBACK 100 MG IV ×2 (04:00→11:05)
[2022-09-02] MEDS: PIPERACILLIN/TAZO 3.375 GM in SODIUM CHLORIDE 0.9% 100 ML IV ×2 (04:00→12:19)
[2022-09-02 08:12] LABS: Add Manual Diff / Slide Review NO; Basophils Absolute Auto 0 /uL (0-100); Basophils Percent Auto 0.2 % (0-2); Eosinophils Absolute Auto 0 /uL (0-450); Eosinophils Percent Auto 0.3 % (2-4); Hematocrit 34.2 % (41-53); Hemoglobin 11.7 g/dL (13.5-17.5); Lymphocytes Absolute Auto 600 /uL (1100-4500); Lymphocytes Percent Auto 5.3 % (25-40); Mean Corpuscular HGB Conc 34.1 % (30-36); Mean Corpuscular Volume 90.8 fL (80-100); Monocytes Absolute Auto 800 /uL (0-900); Monocytes Percent Auto 6.9 % (3-14); Neutrophils Absolute Auto 10100 /uL (1500-7000); Neutrophils Percent Auto 87.3 % (50-75); Platelet Count 115 X10^3/uL (150-400); Red Blood Cell Count 3.77 X10^6/uL (4.5-5.9); Red Cell Distribution Width 13.2 % (11.6-14.8); White Blood Cell Count 11.6 X10^3/uL (4.5-11.0)
[2022-09-02 08:24] LABS: Alanine Aminotransferase 223 IU/L (<50); Albumin 3.4 g/dL (3.5-5.0); Albumin Globulin Ratio 1.3 (1.0-2.8); Alkaline Phosphatase 153 U/L (38-126); Aspartate Aminotransferase 167 IU/L (17-59); BUN Creatinine Ratio 13.2 (6-22); Bilirubin Total 3.7 mg/dL (0.2-1.3); Blood Urea Nitrogen 23 mg/dL (9-20); Calcium 8.6 mg/dL (8.4-10.2); Carbon Dioxide 22 mmol/L (22-32); Chloride 108 mmol/L (98-107); Creatine Kinase 152 U/L (55-170); Estimated Glomerular Filt Rate 40 mL/min (>60); Globulin 2.6 g/dL (1.7-4.1); Glucose 67 mg/dL (80-110); HEMOLYSIS 17 (0-50); Lipase 1851 U/L (23-300); Potassium 4.3 mmol/L (3.4-5.1); Sodium 138 mmol/L (137-145)
[2022-09-02 08:40] LABS: CKMB % Relative Index 0.6 % (1.5-5.0); Creatine Kinase MB 0.95 ng/mL (<2.37)
[2022-09-02 08:59] LABS: Troponin I 0.235 ng/mL (0.01-0.034)
[2022-09-02 10:35] LABS: Troponin I 0.225 ng/mL (0.01-0.034)
--- NOTE | 2022-09-02 15:58 | PC.NURSE ---
A&Ox4, VSS, denies chest pain/ SOB. Chaudhari in place draining walter/orange urine.
== END 2022-09-02 17:50 | disposition short-term general hospital (02) ==
PROVIDERS: Emergency Medicine; Emergency Provider Emergency Medicine; Family Provider Family Medicine; PCP Family Medicine
DX: K80.43 Calculus of bile duct with acute cholecystitis with obstruction (principal); I21.4 Non-ST elevation (NSTEMI) myocardial infarction; I44.1 Atrioventricular block, second degree; R10.811 Right upper quadrant abdominal tenderness; Z20.822 Contact with and (suspected) exposure to COVID-19
CPT/HCPCS: 0241U; 36415; 71045; 74183; 76705; 80053; 81001; 82550; 82553; 83605; 83690; 83735; 84145; 84484; 85025; 87040; 93005; 94660; 96365; 96366; 96367; 99285; 99291; 99292; J2543

== ENCOUNTER → 2022-09-19 13:14 | Outpatient (CLI) | payer OTHER, SELFPAY ==
[2021-12-11 14:10] VITALS: BMI 28.7
[2022-09-19 13:44] LABS: Add Manual Diff / Slide Review NO; Basophils Absolute Auto 100 /uL (0-100); Basophils Percent Auto 1.4 % (0-2); Eosinophils Absolute Auto 1600 /uL (0-450); Eosinophils Percent Auto 16.9 % (2-4); Hematocrit 33.8 % (41-53); Hemoglobin 11.7 g/dL (13.5-17.5); Lymphocytes Absolute Auto 1500 /uL (1100-4500); Lymphocytes Percent Auto 15.8 % (25-40); Mean Corpuscular HGB Conc 34.7 % (30-36); Mean Corpuscular Volume 89.3 fL (80-100); Monocytes Absolute Auto 500 /uL (0-900); Neutrophils Absolute Auto 5800 /uL (1500-7000); Neutrophils Percent Auto 60.9 % (50-75); Platelet Count 246 X10^3/uL (150-400); Red Blood Cell Count 3.79 X10^6/uL (4.5-5.9); Red Cell Distribution Width 12.9 % (11.6-14.8); White Blood Cell Count 9.5 X10^3/uL (4.5-11.0)
[2022-09-19 14:28] LABS: Alanine Aminotransferase 36 IU/L (<50); Albumin 3.6 g/dL (3.5-5.0); Albumin Globulin Ratio 1.4 (1.0-2.8); Alkaline Phosphatase 178 U/L (38-126); Aspartate Aminotransferase 28 IU/L (17-59); BUN Creatinine Ratio 8.8 (6-22); Bilirubin Total 0.6 mg/dL (0.2-1.3); Blood Urea Nitrogen 15 mg/dL (9-20); Calcium 9.3 mg/dL (8.4-10.2); Carbon Dioxide 27 mmol/L (22-32); Chloride 104 mmol/L (98-107); Estimated Glomerular Filt Rate 41 mL/min (>60); Globulin 2.6 g/dL (1.7-4.1); Glucose 144 mg/dL (80-110); HEMOLYSIS < 15 (0-50); Lipase 330 U/L (23-300); Potassium 4.4 mmol/L (3.4-5.1); Sodium 138 mmol/L (137-145); Total Protein 6.2 g/dL (6.3-8.2)
[2022-09-19 14:47] LABS: Hemoglobin A1C% w Est Avg Glu 5.7 % (4.0-6.0)
[2022-09-19 15:01] LABS: Prostate Specific Antigen Scrn 0.609 ng/mL (0.1-4.0)
[2022-10-01 16:00] LABS: Percent Free Testosterone 2.95 % (1.50-4.20); Testosterone Free 50.74 ng/dL (5.00-21.00); Testosterone Total 1719.9 ng/dL (264.0-916.0)
== END ==
PROVIDERS: Family Provider Family Medicine; PCP Family Medicine; Referring Provider Family Medicine; Visit Provider Family Medicine
DX: E34.9 Endocrine disorder, unspecified (principal); R79.89 Other specified abnormal findings of blood chemistry; Z12.5 Encounter for screening for malignant neoplasm of prostate; E78.2 Mixed hyperlipidemia; I10 Essential (primary) hypertension; N18.4 Chronic kidney disease, stage 4 (severe); K85.10 Biliary acute pancreatitis without necrosis or infection; N18.9 Chronic kidney disease, unspecified
CPT/HCPCS: 36415; 80053; 83036; 83690; 84402; 84403; 85025; G0103

== ENCOUNTER → 2022-11-05 13:17 | Outpatient (CLI) | payer OTHER, SELFPAY ==
[2021-12-11 14:10] VITALS: BMI 28.7
[2022-11-05 14:12] LABS: Hematocrit 36.7 % (41-53); Hemoglobin 12.7 g/dL (13.5-17.5)
[2022-11-05 14:42] LABS: BUN Creatinine Ratio 8.2 (6-22); Blood Urea Nitrogen 14 mg/dL (9-20); Calcium 9.4 mg/dL (8.4-10.2); Carbon Dioxide 27 mmol/L (22-32); Chloride 104 mmol/L (98-107); Estimated Glomerular Filt Rate 41 mL/min (>60); Glucose 59 mg/dL (80-110); HEMOLYSIS < 15 (0-50); Potassium 4.1 mmol/L (3.4-5.1); Sodium 141 mmol/L (137-145)
[2022-11-05 15:52] LABS: Creatinine Urine Random 181.5 mg/dL; Protein (Total) Urine Random 14 mg/dL (0-12); Protein Creatinine Ratio Urine 0.07 GRAM/24H
[2022-11-07 07:59] LABS: Parathyroid Hormone Int 54 pg/mL (15-65)
== END ==
PROVIDERS: Family Provider Family Medicine; PCP Family Medicine; Referring Provider Student in an Organized Health Care Education/Training Program; Visit Provider Student in an Organized Health Care Education/Training Program
DX: N05.9 Unspecified nephritic syndrome with unspecified morphologic changes (principal); D64.9 Anemia, unspecified; R80.9 Proteinuria, unspecified; N25.81 Secondary hyperparathyroidism of renal origin
CPT/HCPCS: 36415; 80048; 82570; 83970; 84156; 85014; 85018

== ENCOUNTER → 2022-11-22 10:09 | Outpatient (CLI) | payer OTHER, SELFPAY ==
[2021-12-11 14:10] VITALS: BMI 28.7
--- NOTE | 2022-11-23 02:09 | DI.NM.S_ITS ---
DATE OF SERVICE: 11/22/2022 PROCEDURE PERFORMED: Pharmacologic vasodilator stress and rest myocardial perfusion imaging with gating to assess ejection fraction and regional wall motion. ORDERING PROVIDER: Deni Figueroa MD. 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 CARDIAC STRESS: Per protocol, 0.4 mg of regadenoson was infused, augmented with walking. With this, he had a normal hemodynamic response and had no chest discomfort or other anginal symptoms. His resting ECG is normal with normal ST segments and there are no significant ST-segment shifts with stress. He had occasional isolated PVCs, but no complex ectopy. Per protocol, 25.6 millicuries of technetium-99m Myoview was injected. He was imaged 20 minutes later using a gated SPECT acquisition protocol. Earlier in the day while at rest, he had been injected with 12.9 millicuries of technetium- 99m Myoview and was imaged 20 minutes later, again using a gated SPECT acquisition protocol. FINDINGS: 1. Raw data: There is fair myocardial tracer uptake with some evidence for diaphragmatic attenuation. The lung/heart ratio is normal at 0.22 with a normal TID ratio of 0.86. 2. Quantitated gated SPECT: Post-stress ejection fraction is estimated at 74% without any focal wall motion abnormality and specifically the inferior wall appears to have normal contractility. The resting ejection fraction is 72% with a moderately increased resting end-diastolic volume of 172 mL. 3. Myocardial perfusion imaging: Post-stress supine images shows a fairly normal myocardial perfusion pattern with the exception of a subtle defect in the proximal to mid inferior wall in a pattern that would be consistent with diaphragmatic attenuation although the defect persists to a slight degree on the prone images. There are no other perfusion defects. The resting images show an identical perfusion pattern without any improvement in the inferior defect. IMPRESSION: 1. Probable normal myocardial perfusion study for ischemia. 2. Mild, fixed inferior wall perfusion defect that most likely reflects diaphragmatic attenuation artifact given the absence of any wall motion abnormality in this distribution, although the defect persists to a slight degree on the prone images and thus, a previous nontransmural infarction cannot be entirely excluded but there is no evidence for any myocardial ischemia. 3. Normal left ventricular systolic function without any focal wall motion abnormality, but with mild to moderately increased left ventricular volumes. 4. No angina or ECG evidence of ischemia with pharmacologic vasodilator stress. He had occasional isolated PVCs but no complex ectopy. Jeffrey Hemanth - POORNIMA/blaine/luis doc#: [id number]/job#: [id number] dd: 11/22/2022 17:09:00 dt: 11/23/2022 02:02:00 DICTATING MD/COPIES TO: Ovidio Gruber MD; Deni Figueroa MD COPIES MNE: LUX;
== END ==
PROVIDERS: Family Provider Family Medicine; PCP Family Medicine; Referring Provider Internal Medicine Cardiovascular Disease; Visit Provider Internal Medicine Cardiovascular Disease
DX: R07.9 Chest pain, unspecified (principal); R93.1 Abnormal findings on diagnostic imaging of heart and coronary circulation; E11.9 Type 2 diabetes mellitus without complications; G14 Postpolio syndrome
CPT/HCPCS: 78452; 93017; A9502; J2785

== ENCOUNTER → 2023-01-11 16:17 | Outpatient (CLI) | payer OTHER, SELFPAY ==
[2021-12-11 14:10] VITALS: BMI 28.7
[2023-01-11 16:43] LABS: Hematocrit 34.8 % (41-53); Hemoglobin 11.6 g/dL (13.5-17.5)
[2023-01-11 16:58] LABS: BUN Creatinine Ratio 13.7 (6-22); Blood Urea Nitrogen 34 mg/dL (9-20); Calcium 9.6 mg/dL (8.4-10.2); Carbon Dioxide 23 mmol/L (22-32); Chloride 99 mmol/L (98-107); Estimated Glomerular Filt Rate 26 mL/min (>60); Glucose 166 mg/dL (80-110); HEMOLYSIS < 15 (0-50); Sodium 138 mmol/L (137-145)
[2023-01-11 18:39] LABS: Creatinine Urine Random 266.1 mg/dL; Protein (Total) Urine Random 21 mg/dL (0-12); Protein Creatinine Ratio Urine 0.07 GRAM/24H
[2023-01-13 07:45] LABS: Parathyroid Hormone Int 79 pg/mL (15-65)
== END ==
PROVIDERS: Family Provider Family Medicine; PCP Family Medicine; Referring Provider Student in an Organized Health Care Education/Training Program; Visit Provider Student in an Organized Health Care Education/Training Program
DX: N05.9 Unspecified nephritic syndrome with unspecified morphologic changes (principal); D64.9 Anemia, unspecified; N25.81 Secondary hyperparathyroidism of renal origin; R80.9 Proteinuria, unspecified
CPT/HCPCS: 36415; 80048; 82570; 83970; 84156; 85014; 85018

== ENCOUNTER 2023-01-11 16:43 | Emergency (ER) | payer OTHER, SELFPAY ==
[2021-12-11 14:10] VITALS: BMI 28.7
[2023-01-11 16:50] VITALS: BP 129/60; PULSE 73; RESP 20; TEMP 36.6; O2SAT 96; BMI 25.5
--- NOTE | 2023-01-11 16:58 | DI.RAD.S_ITS ---
PROCEDURE: XR CHEST 1V INDICATIONS: chest pain TECHNIQUE: One view of the chest was acquired. COMPARISON: [facility], CR, XR CHEST 1V, 09/01/2022, 17:52. FINDINGS: Surgical changes and devices: None. Lungs and pleura: Lungs are clear. No pleural effusions or pneumothorax. Mediastinum: Mediastinal contours appear normal. Heart size is normal. Bones and chest wall: Old healed left 7th rib fracture is noted. No suspicious bony lesions. Overlying soft tissues appear unremarkable. IMPRESSION: No acute cardiopulmonary disease. Dictated by: Mariann Marie M.D. on 01/11/2023 at 17:40 Approved by: Mariann Marie M.D. on 01/11/2023 at 17:41
[2023-01-11] MEDS: ASPIRIN 81 MG CHEW TAB 324 MG PO (17:01)
[2023-01-11] MEDS: ONDANSETRON 4 MG/2 ML INJ IV (17:01)
--- NOTE | 2023-01-11 17:17 | ED_ITS ---
HPI - Chest Pain General Chief Complaint: Chest Pain Stated Complaint: Vomiting, Chest pain Time Seen by Provider: 01/11/23 17:00 Source: patient and family Mode of arrival: Wheelchair Limitations: no limitations History of Present Illness HPI narrative: 77-year-old male with history of coronary artery disease including NSTEMI in August, AV block, hypertension, hyperlipidemia presents with his with weakness, chest pain shortness of breath, nausea and diaphoresis that started yesterday. Any exertion worsens his symptoms. He denies obvious radiation of his symptoms. He was seen and evaluated at our facility in August and during workup for gallbladder disease developed NSTEMI and was transferred to [facility] that was unable to be stented (per the patient's ) due to being generally unwell. Related Data Home Medications Medication Instructions Recorded Confirmed [employer] Dreamstation BIPAP #1 ea 11/27/18 12/28/22 pregabalin 150 mg capsule 150 mg PO BID 06/16/20 12/28/22 flash glucose scanning reader 02/07/21 12/28/22 (FreeStyle Sudheer 14 Day [place]) flash glucose sensor (FreeStyle 02/07/21 12/28/22 Sudheer 14 Day Sensor kit) atorvastatin 10 mg tablet 10 mg PO BEDTIME 09/02/22 12/28/22 hydralazine 25 mg tablet 25 mg PO BID 09/02/22 12/28/22 lisinopril 2.5 mg tablet 2.5 mg PO DAILY 09/02/22 12/28/22 vortioxetine 20 mg tablet 20 mg PO DAILY 09/02/22 12/28/22 (Trintellix) semaglutide 1 mg/dose (2 mg/1.5 0.5 mg SUBCUT QWEEK 11/09/22 12/28/22 mL) subcutaneous pen injector (Ozempic) testosterone cypionate 200 mg/mL 80 mg IM Q2W 11/09/22 12/28/22 intramuscular oil (Depo-Testosterone) acetaminophen 80 mg chewable tablet 80 mg PO .qd 12/28/22 12/28/22 calcipotriene 0.005 % topical cream 1 applic topical BEDTIME 12/28/22 12/28/22 semaglutide 0.25 mg or 0.5 mg (2 0.25 mg SUBCUT QWEEK 12/28/22 12/28/22 mg/3 mL) subcutaneous pen injector (Ozempic) Previous Rx's Medication Instructions Recorded lancets #100 ea 07/17/18 blood sugar diagnostic (Blood #100 ea 08/20/19 Glucose Test strips) disabled parking permit #1 ea 10/28/19 clobetasol 0.05 % topical ointment 1 applic topical BID #45 grams 07/21/20 albuterol sulfate 90 mcg/actuation See Rx Instructions .Route 11/27/21 aerosol inhaler (Ventolin HFA) .COMPLEX #18 grams amlodipine 5 mg tablet 5 mg PO BID #180 tabs 04/12/22 omeprazole 20 mg capsule,delayed 20 mg PO DAILY barretts esophagus 09/25/22 release #90 caps levetiracetam 750 mg tablet See Rx Instructions .Route 09/26/22 .COMPLEX #180 tabs lidocaine 5 % topical ointment 1 applic topical DAILY PRN pain 10/05/22 #50 grams mupirocin 2 % topical ointment 1 applic topical BID #22 grams 10/15/22 triamcinolone acetonide 0.5 % 1 applic topical BID PRN 10/15/22 topical cream Inflammatory rash #15 grams valacyclovir 1 gram tablet 1,000 mg PO TID Shingles #21 tabs 10/15/22 lamotrigine 200 mg tablet See Rx Instructions .Route 11/21/22 .COMPLEX #90 tabs prazosin 2 mg capsule See Rx Instructions .Route 11/21/22 .COMPLEX #90 caps vortioxetine 20 mg tablet 20 mg PO DAILY #90 tabs 11/27/22 meloxicam 15 mg tablet 15 mg PO DAILY #30 tabs 12/28/22 montelukast 10 mg tablet See Rx Instructions .Route 01/07/23 .COMPLEX #90 tabs tamsulosin 0.4 mg capsule 0.4 mg PO BEDTIME #90 caps 01/09/23 Allergies Allergy/AdvReac Type Severity Reaction Status Date / Time ibuprofen [IBUPROFEN] Allergy Severe LARGE Verified 01/11/23 16:56 HIVES, ALL OVER BODY Iodine and Iodide Containing Allergy Severe THROAT Verified 01/11/23 16:56 Produc SWELLING [IODINE AND IODIDE AND WELTS CONTAINING PRODUC] shellfish derived Allergy Severe SEAFOOD, Verified 01/11/23 16:56 [SHELLFISH DERIVED] THROAT SWELLING Review of Systems Review of Systems Narrative: GENERAL: See HPI HEENT: Denies sinus pain, ear pain, sore throat, difficulty swallowing, dizziness. RESPIRATORY: Denies dyspnea, cough, wheezing, hemoptysis, sputum. CARDIOVASCULAR: See HPI GASTROINTESTINAL: See HPI : Denies dysuria, frequency, incontinence, hematuria, urinary retention. MUSCULOSKELETAL: denies weakness, joint pain, or bony pain SKIN: Denies rash, skin lesions, or other NEUROLOGIC: Denies weakness, headache, numbness, change in speech, confusion, seizures, incoordination. PSYCHIATRIC: No concerning psychosocial issues. 12 point review of systems is negative except for those stated above Patient History Medical History Acute biliary pancreatitis Acute GI bleeding [id number] kidney injury Asthma Barretts esophagus Bipolar disorder Cholecystitis CKD (chronic kidney disease) Closed head injury Community acquired pneumonia Degenerative joint disease of left hip Depression Diabetes mellitus Diverticular disease DJD of right shoulder Elevated LFTs Gout Herniated nucleus pulposus, L4-5 left History of prostate cancer Hyperlipidemia Hypersomnia Hypertension Idiopathic peripheral neuropathy Impotence Low back pain Lumbosacral radiculopathy at L4 NSTEMI (non-ST elevated myocardial infarction) Obstructive sleep apnea of adult Personal history of radiation therapy Polio Shingles (herpes zoster) polyneuropathy Syncope TIA (transient ischemic attack) Surgical History Anesthesia History of incision and drainage History of prostate surgery Inguinal hernia Status post eye surgery Status post tonsillectomy and adenoidectomy Surgical procedure planned Family History Father Prostate cancer Mother CAD (coronary artery disease) Social History marital status: details: to , lives in [place] household members: spouse lives independently: Yes caregiver/support person: No housing: house education level: master's degree Previous occupational history: law enforcement Smoking Status: Never smoker alcohol intake: current substance use type: does not use eating out: 4 or more times/week Type(s) of exercise: weight lifting and resistance training Smoking Status: Never smoker alcohol intake frequency: holidays/special occasions only Substance Use Type: does not use Exam Narrative Exam Narrative: GENERAL: [77] year old patient appears stated age. Well-developed patient, in mild distress. Clearly uncomfortable but stable HEAD: Atraumatic. Normocephalic. EYES: Pupils equal round and reactive. Extraocular motions intact. No scleral icterus. No injection or drainage. ENT: Nose without bleeding, purulent drainage. Throat without erythema, tonsillar hypertrophy or exudate. Airway patent. NECK: Trachea midline. Non tender CARDIOVASCULAR: Regular rate and rhythm without murmurs, gallops, or rubs. RESPIRATORY: Clear to auscultation. Breath sounds equal bilaterally. No wheezes, rales, or rhonchi. GASTROINTESTINAL: Abdomen soft, non-tender, nondistended. EXTREMITIES: No edema or joint tenderness. BACK: Nontender without deformity or crepitance. No flank tenderness. NEURO: AOx3. SKIN: No rash or erythema of visible areas Initial Vital Signs Initial Vital Signs: Vital Signs Temperature 98 F 01/11/23 16:50 Pulse Rate 73 01/11/23 16:50 Respiratory Rate 20 01/11/23 16:50 Blood Pressure 129/60 01/11/23 16:50 Pulse Oximetry 96 01/11/23 16:50 Oxygen Delivery Method Room Air 01/11/23 16:50 Course Orders Ordered: ED Orders 01/11/23 16:58 XR chest 1V Stat 01/11/23 17:00 Complete Blood Count AUTO DIFF Stat Comprehensive Metabolic Panel Stat Lipase Stat Magnesium Stat PTT Partial Thromboplastin Rodolfo Stat Prothrombin Time INR Stat Troponin & CK Cardiac Panel Stat 01/11/23 17:08 EKG-12 Lead Stat Nitroglycerin (Nitroglycerin 0.4 Mg Sl Tab) 0.4 mg SL [id number] PRN PRN Reason: Chest Pain Ondansetron HCl (Ondansetron 4 Mg/2 Ml Inj) 4 mg IV NOW PRN PRN Reason: Nausea And Vomiting Last Admin: 01/11/23 17:01 Dose: 4 mg Documented By: AMU Discontinued Medications Aspirin (Aspirin 81 Mg Chew Tab) 324 mg PO NOW ONE Stop: 01/11/23 16:58 Last Admin: 01/11/23 17:01 Dose: 324 mg Documented By: AMU Consultations Consultation #1: Discussed with Dr. Bennett, ED at [facility], happy to accept patient STEMI transfer Vital Signs Vital signs: Vital Signs - 8 hr 01/11/23 16:50 Temperature 98 F Pulse Rate 73 Respiratory Rate 20 Blood Pressure 129/60 Pulse Oximetry 96 Oxygen Delivery Method Room Air MDM - Chest Pain Lab Data 01/11/23 17:00 01/11/23 17:00 Labs: Lab Results 01/11/23 01/11/23 Range/Units 17:00 17:00 WBC 8.5 (4.5-11.0) X10^3/uL RBC 4.04 L (4.5-5.9) X10^6/uL Hgb 11.6 L (13.5-17.5) g/dL Hct 34.5 L (41-53) % MCV 85.4 (80-100) fL MCH 28.7 (26-34) PG MCHC 33.6 (30-36) % RDW 15.2 H (11.6-14.8) % Plt Count 204 (150-400) X10^3/uL Neut % (Auto) 77.1 H (50-75) % Lymph % (Auto) 9.4 L (25-40) % [place] % (Auto) 13.0 (3-14) % Eos % (Auto) 0.3 L (2-4) % Baso % (Auto) 0.2 (0-2) % Neut # (Auto) 6500 (3078-7431) /uL Lymph # (Auto) 800 L (2887-9958) /uL [place] # (Auto) 1100 H (0-900) /uL Eos # (Auto) 0 (0-450) /uL Baso # (Auto) 0 (0-100) /uL Sodium 137 (137-145) mmol/L Potassium 4.0 (3.4-5.1) mmol/L Chloride 99 (98-107) mmol/L Carbon Dioxide 23 (22-32) mmol/L BUN 35 H (9-20) mg/dL Creatinine 2.43 H (0.66-1.25) mg/dL Estimated GFR 27 L (>60) mL/min BUN/Creatinine Ratio 14.4 (6-22) Glucose 163 H (80-110) mg/dL Calcium 9.6 (8.4-10.2) mg/dL Magnesium 2.1 (1.6-2.3) mg/dL Total Bilirubin 0.9 (0.2-1.3) mg/dL AST 21 (17-59) IU/L ALT 21 (<50) IU/L Alkaline Phosphatase 94 (38-126) U/L Total Creatine Kinase 69 (55-170) U/L CK-MB (CK-2) TNP CK-MB (CK-2) Rel Index TNP Total Protein 7.8 (6.3-8.2) g/dL Albumin 4.8 (3.5-5.0) g/dL Globulin 3.0 (1.7-4.1) g/dL Albumin/Globulin Ratio 1.6 (1.0-2.8) Lipase 169 (23-300) U/L ECG Data Interpretation: ST elevations in inferior leads with slightly wide QRS, no obvious reciprocal change as yet. Sinus rate 71 MDM Narrative Medical decision making narrative: 77-year-old male with prior cardiac history presents with chest pain and multiple cardiac equivalent symptoms, EKG notes STEMI in inferior leads. Patient given aspirin, beta-blockers, NG held given relatively stable presentation. Patient requires stat transfer to [facility] Discharge Plan Departure Patient Disposition: [facility] Clinical Impression: ST elevation (STEMI) myocardial infarction Prescriptions: No Action (DME) lancets misc See Dose Instructions .ROUTE .MEDSUPPLY Qty: 100 11RF Dose Instruction: As directed Rx Instructions: Test Blood Glucose Three Times Daily (DME) Blood Glucose Test Strip See Dose Instructions .ROUTE .MEDSUPPLY Qty: 100 11RF Dose Instruction: As directed Rx Instructions: Test Blood Glucose Three Times Daily (DME) disabled parking permit See Rx Instructions .ROUTE .MEDSUPPLY Qty: 1 0RF Rx Instructions: As directed. patient qualifies for disabled parking as per attached form. albuterol sulfate [Ventolin HFA] 90 mcg/actuation HFA aerosol inhaler See Rx Instructions .ROUTE .COMPLEX Qty: 18 4RF Dose Instruction: INHALE 1 PUFF BY MOUTH EVERY 6 HOURS NEEDED FOR SHORTNESS OF BREATH OR WHEEZING Rx Instructions: INHALE 1 PUFF BY MOUTH EVERY 6 HOURS NEEDED FOR SHORTNESS OF BREATH OR WHEEZING omeprazole 20 mg capsule,delayed release(DR/EC) 20 mg PO DAILY Qty: 90 3RF levetiracetam 750 mg tablet See Rx Instructions .ROUTE .COMPLEX Qty: 180 0RF Dose Instruction: TAKE 1 TABLET BY MOUTH TWICE DAILY Rx Instructions: TAKE 1 TABLET BY MOUTH TWICE DAILY lidocaine 5 % ointment 1 applic topical DAILY PRN (Reason: pain) Qty: 50 0RF Rx Instructions: For use only when lesions are dry and scabbed. Do not use for new or erupting shingles lesions prazosin 2 mg capsule See Rx Instructions .ROUTE .COMPLEX Qty: 90 1RF Dose Instruction: TAKE 1 CAPSULE BY MOUTH EVERY NIGHT AT BEDTIME Rx Instructions: TAKE 1 CAPSULE BY MOUTH EVERY NIGHT AT BEDTIME lamotrigine 200 mg tablet See Rx Instructions .ROUTE .COMPLEX Qty: 90 1RF Dose Instruction: TAKE 1 TABLET BY MOUTH DAILY Rx Instructions: TAKE 1 TABLET BY MOUTH DAILY vortioxetine 20 mg tablet 20 mg PO DAILY Qty: 90 1RF montelukast 10 mg tablet See Rx Instructions .ROUTE .COMPLEX Qty: 90 0RF Dose Instruction: TAKE 1 TABLET BY MOUTH EVERY EVENING Rx Instructions: TAKE 1 TABLET BY MOUTH EVERY EVENING tamsulosin 0.4 mg capsule 0.4 mg PO BEDTIME Qty: 90 1RF Rx Instructions: TAKE 1 CAPSULE BY MOUTH EVERY NIGHT AT BEDTIME amlodipine 5 mg tablet 5 mg PO BID Qty: 180 3RF testosterone cypionate [Depo-Testosterone] 200 mg/mL oil 80 mg IM Q2W Rx Instructions: Inject 0.4 ml every two weeks. Ozempic 1 mg/dose (2 mg/1.5 mL) pen injector 0.5 mg SUBCUT QWEEK valacyclovir 1 gram tablet 1,000 mg PO TID Qty: 21 1RF mupirocin 2 % ointment 1 applic topical BID Qty: 22 1RF triamcinolone acetonide 0.5 % cream 1 applic topical BID PRN (Reason: Inflammatory rash) Qty: 15 0RF clobetasol 0.05 % ointment 1 applic topical BID Qty: 45 5RF (DME) FreeStyle Sudheer 14 Day [place] Misc See Rx Instructions .Route Rx Instructions: As directed (DME) FreeStyle Sudheer 14 Day Sensor Kit See Rx Instructions .Route Rx Instructions: As directed hydralazine 25 mg tablet 25 mg PO BID lisinopril 2.5 mg Tablet 2.5 mg PO DAILY Trintellix 20 mg tablet 20 mg PO DAILY atorvastatin 10 mg tablet 10 mg PO BEDTIME Ozempic 0.25 mg or 0.5 mg (2 mg/3 mL) pen injector 0.25 mg SUBCUT QWEEK calcipotriene 0.005 % cream 1 applic topical BEDTIME meloxicam 15 mg tablet 15 mg PO DAILY Qty: 30 2RF acetaminophen 80 mg tablet,chewable 80 mg PO .qd (DME) [employer] Dreamstation BIPAP Qty: 1 Dose Instruction: As directed Patient Comments: Pressure: IPAP 13 EPAP 8 DME: [facility] Rx Instructions: As directed pregabalin 150 mg capsule 150 mg PO BID Referrals: Esequiel Armstrong DO [Primary Care Provider] -
[2023-01-11 17:18] LABS: Add Manual Diff / Slide Review NO; Basophils Absolute Auto 0 /uL (0-100); Basophils Percent Auto 0.2 % (0-2); Eosinophils Absolute Auto 0 /uL (0-450); Eosinophils Percent Auto 0.3 % (2-4); Hematocrit 34.5 % (41-53); Hemoglobin 11.6 g/dL (13.5-17.5); Lymphocytes Absolute Auto 800 /uL (1100-4500); Lymphocytes Percent Auto 9.4 % (25-40); Mean Corpuscular HGB Conc 33.6 % (30-36); Mean Corpuscular Hemoglobin 28.7 PG (26-34); Mean Corpuscular Volume 85.4 fL (80-100); Monocytes Absolute Auto 1100 /uL (0-900); Neutrophils Absolute Auto 6500 /uL (1500-7000); Neutrophils Percent Auto 77.1 % (50-75); Platelet Count 204 X10^3/uL (150-400); Red Blood Cell Count 4.04 X10^6/uL (4.5-5.9); Red Cell Distribution Width 15.2 % (11.6-14.8); White Blood Cell Count 8.5 X10^3/uL (4.5-11.0)
[2023-01-11 17:20] LABS: INR 1.1 (0.9-1.3); Prothrombin Time 12.3 SECONDS (10.1-12.7)
[2023-01-11 17:23] LABS: PTT Partial Thromboplastin Tim 27 SECONDS (26-36)
[2023-01-11 17:25] LABS: Alanine Aminotransferase 21 IU/L (<50); Albumin 4.8 g/dL (3.5-5.0); Albumin Globulin Ratio 1.6 (1.0-2.8); Alkaline Phosphatase 94 U/L (38-126); Aspartate Aminotransferase 21 IU/L (17-59); BUN Creatinine Ratio 14.4 (6-22); Bilirubin Total 0.9 mg/dL (0.2-1.3); Blood Urea Nitrogen 35 mg/dL (9-20); Calcium 9.6 mg/dL (8.4-10.2); Carbon Dioxide 23 mmol/L (22-32); Chloride 99 mmol/L (98-107); Creatine Kinase 69 U/L (55-170); Estimated Glomerular Filt Rate 27 mL/min (>60); Glucose 163 mg/dL (80-110); HEMOLYSIS < 15 (0-50); Lipase 169 U/L (23-300); Magnesium 2.1 mg/dL (1.6-2.3); Sodium 137 mmol/L (137-145); Total Protein 7.8 g/dL (6.3-8.2)
[2023-01-11] MEDS: METOPROLOL IR 25 MG TABLET PO (17:32)
[2023-01-11 17:36] LABS: Troponin I < 0.012 ng/mL (0.01-0.034)
== END 2023-01-11 17:41 | disposition short-term general hospital (02) ==
PROVIDERS: Emergency Provider Emergency Medicine; Family Provider Family Medicine; PCP Family Medicine
DX: I21.3 ST elevation (STEMI) myocardial infarction of unspecified site (principal); R11.2 Nausea with vomiting, unspecified; Z79.899 Other long term (current) drug therapy
CPT/HCPCS: 36415; 71045; 80048; 80053; 82550; 82570; 83690; 83735; 83970; 84156; 84484; 85014; 85018; 85025; 85610; 85730; 93005; 93010; 96374; 99284; J2405

== ENCOUNTER → 2023-01-29 13:14 | Outpatient (CLI) | payer OTHER, SELFPAY ==
[2021-12-11 14:10] VITALS: BMI 28.7
[2023-01-29 14:27] LABS: HEMOLYSIS < 15 (0-50); Potassium 5.1 mmol/L (3.4-5.1)
== END ==
PROVIDERS: Family Provider Family Medicine; PCP Family Medicine; Referring Provider Student in an Organized Health Care Education/Training Program; Visit Provider Student in an Organized Health Care Education/Training Program
DX: E87.5 Hyperkalemia (principal)
CPT/HCPCS: 36415; 84132

== ENCOUNTER 2023-02-01 13:20 | Emergency (ER) | payer OTHER, SELFPAY ==
[2021-12-11 14:10] VITALS: BMI 28.7
[2023-02-01] VITALS (7 sets, daily range): BP systolic 101–121; BP diastolic 62–67; PULSE 66–77; RESP 15–17; TEMP 36.6; O2SAT 97–99; BMI 24.3
[2023-02-01] MEDS: SODIUM CHLORIDE 0.9% 1,000 ML 1000 ML IV (13:35)
--- NOTE | 2023-02-01 14:55 | PC.NURSE ---
Patient reports he cannot provide urine specimen after 1L of Normal Saline finished infusing. I checked his bladder and it has 250ml per the scanner. I encouraged him to try again to provide urine specimen.
[2023-02-01 15:05] LABS: Alanine Aminotransferase 20 IU/L (<50); Albumin 3.6 g/dL (3.5-5.0); Albumin Globulin Ratio 1.4 (1.0-2.8); Alkaline Phosphatase 106 U/L (38-126); Aspartate Aminotransferase 21 IU/L (17-59); BUN Creatinine Ratio 8.9 (6-22); Bilirubin Total 0.6 mg/dL (0.2-1.3); Blood Urea Nitrogen 18 mg/dL (9-20); Calcium 8.7 mg/dL (8.4-10.2); Carbon Dioxide 22 mmol/L (22-32); Chloride 106 mmol/L (98-107); Creatine Kinase 54 U/L (55-170); Estimated Glomerular Filt Rate 34 mL/min (>60); Globulin 2.5 g/dL (1.7-4.1); Glucose 120 mg/dL (80-110); HEMOLYSIS 25 (0-50); Potassium 4.8 mmol/L (3.4-5.1); Sodium 135 mmol/L (137-145); Total Protein 6.1 g/dL (6.3-8.2)
[2023-02-01 15:10] LABS: Add Manual Diff / Slide Review NO; Basophils Absolute Auto 0 /uL (0-100); Basophils Percent Auto 0.7 % (0-2); Eosinophils Absolute Auto 300 /uL (0-450); Hematocrit 31.9 % (41-53); Hemoglobin 10.9 g/dL (13.5-17.5); Lymphocytes Absolute Auto 1100 /uL (1100-4500); Lymphocytes Percent Auto 14.6 % (25-40); Mean Corpuscular HGB Conc 34.1 % (30-36); Mean Corpuscular Hemoglobin 28.9 PG (26-34); Mean Corpuscular Volume 84.6 fL (80-100); Monocytes Absolute Auto 500 /uL (0-900); Monocytes Percent Auto 6.2 % (3-14); Neutrophils Absolute Auto 5500 /uL (1500-7000); Neutrophils Percent Auto 74.5 % (50-75); Platelet Count 181 X10^3/uL (150-400); Red Blood Cell Count 3.77 X10^6/uL (4.5-5.9); Red Cell Distribution Width 15.8 % (11.6-14.8); White Blood Cell Count 7.4 X10^3/uL (4.5-11.0)
[2023-02-01 15:15] LABS: Troponin I < 0.012 ng/mL (0.01-0.034)
--- NOTE | 2023-02-01 15:15 | PC.NURSE ---
Patient able to empty bladder fully at this time. Specimen obtained for collection.
--- NOTE | 2023-02-01 15:28 | PC.NURSE ---
Denies any dizziness upon standing and ambulating to the bathroom.
--- NOTE | 2023-02-01 16:39 | ED.DIZZY ---
HPI - Dizziness General Chief Complaint: Dizziness Stated Complaint: Dizziness Time Seen by Provider: 02/01/23 16:38 Source: EMS Mode of arrival: EMS History of Present Illness HPI Narrative: Patient 77-year-old male history of chronic kidney disease, NSTEMI August 2022, hypertension, hyperlipidemia, STEMI January 11 2023, presents today with fall. He reports that he was exercising he was moving from to a different machine he turned too quickly and fell over to the left side. He has no injuries from the fall. He denies hitting his head losing consciousness. He does take a baby aspirin daily. It is warm outside thought to be mildly dehydrated. He denies any chest pain palpitations shortness of breath fever chills. He has already had 1 L of fluid he has urinated and is overall feeling better. He previously was in his normal state of health. He reports that when he was transferred to [facility] on January 11 he had a cardiac catheterization but no stents were placed. He reports that he did not have a heart attack and he is only taking a baby aspirin. Related Data Home Medications Medication Instructions Recorded Confirmed RespirIFTTTs Dreamstation BIPAP #1 ea 11/27/18 12/28/22 pregabalin 150 mg capsule 150 mg PO BID 06/16/20 12/28/22 flash glucose scanning reader 02/07/21 12/28/22 (Richard Pauer - 3PStyle Sudheer 14 Day [place]) flash glucose sensor (CytRxyle 02/07/21 12/28/22 Sudheer 14 Day Sensor kit) atorvastatin 10 mg tablet 10 mg PO BEDTIME 09/02/22 12/28/22 hydralazine 25 mg tablet 25 mg PO BID 09/02/22 12/28/22 lisinopril 2.5 mg tablet 2.5 mg PO DAILY 09/02/22 12/28/22 vortioxetine 20 mg tablet 20 mg PO DAILY 09/02/22 12/28/22 (Trintellix) semaglutide 1 mg/dose (2 mg/1.5 0.5 mg SUBCUT QWEEK 11/09/22 12/28/22 mL) subcutaneous pen injector (Ozempic) acetaminophen 80 mg chewable tablet 80 mg PO .qd 12/28/22 12/28/22 calcipotriene 0.005 % topical cream 1 applic topical BEDTIME 12/28/22 12/28/22 semaglutide 0.25 mg or 0.5 mg (2 0.25 mg SUBCUT QWEEK 12/28/22 12/28/22 mg/3 mL) subcutaneous pen injector ([employer]) Previous Rx's Medication Instructions Recorded lancets #100 ea 07/17/18 blood sugar diagnostic (Blood #100 ea 08/20/19 Glucose Test strips) disabled parking permit #1 ea 10/28/19 clobetasol 0.05 % topical ointment 1 applic topical BID #45 grams 07/21/20 albuterol sulfate 90 mcg/actuation See Rx Instructions .Route 11/27/21 aerosol inhaler (Ventolin HFA) .COMPLEX #18 grams amlodipine 5 mg tablet 5 mg PO BID #180 tabs 04/12/22 omeprazole 20 mg capsule,delayed 20 mg PO DAILY barretts esophagus 09/25/22 release #90 caps levetiracetam 750 mg tablet See Rx Instructions .Route 09/26/22 .COMPLEX #180 tabs lidocaine 5 % topical ointment 1 applic topical DAILY PRN pain 10/05/22 #50 grams mupirocin 2 % topical ointment 1 applic topical BID #22 grams 10/15/22 triamcinolone acetonide 0.5 % 1 applic topical BID PRN 10/15/22 topical cream Inflammatory rash #15 grams valacyclovir 1 gram tablet 1,000 mg PO TID Shingles #21 tabs 10/15/22 lamotrigine 200 mg tablet See Rx Instructions .Route 11/21/22 .COMPLEX #90 tabs prazosin 2 mg capsule See Rx Instructions .Route 11/21/22 .COMPLEX #90 caps vortioxetine 20 mg tablet 20 mg PO DAILY #90 tabs 11/27/22 meloxicam 15 mg tablet 15 mg PO DAILY #30 tabs 12/28/22 montelukast 10 mg tablet See Rx Instructions .Route 01/07/23 .COMPLEX #90 tabs tamsulosin 0.4 mg capsule 0.4 mg PO BEDTIME #90 caps 01/09/23 testosterone cypionate 200 mg/mL 80 mg (0.4 mL) IM Q2W #1 mL 02/01/23 intramuscular oil Allergies Allergy/AdvReac Type Severity Reaction Status Date / Time ibuprofen [IBUPROFEN] Allergy Severe LARGE Verified 01/11/23 16:56 HIVES, ALL OVER BODY Iodine and Iodide Containing Allergy Severe THROAT Verified 02/01/23 13:40 Produc SWELLING [IODINE AND IODIDE AND WELTS CONTAINING PRODUC] shellfish derived Allergy Severe SEAFOOD, Verified 02/01/23 13:40 [SHELLFISH DERIVED] THROAT SWELLING Review of Systems Review of Systems ROS Unobtainable: All systems reviewed & are unremarkable except as noted in HPI and below Patient History Medical History Acute biliary pancreatitis Acute GI bleeding [id number] kidney injury Asthma Barretts esophagus Bipolar disorder Cholecystitis CKD (chronic kidney disease) Closed head injury Community acquired pneumonia Degenerative joint disease of left hip Depression Diabetes mellitus Diverticular disease DJD of right shoulder Elevated LFTs Gout Herniated nucleus pulposus, L4-5 left History of prostate cancer Hyperlipidemia Hypersomnia Hypertension Idiopathic peripheral neuropathy Impotence Low back pain Lumbosacral radiculopathy at L4 NSTEMI (non-ST elevated myocardial infarction) Obstructive sleep apnea of adult Personal history of radiation therapy Polio Shingles (herpes zoster) polyneuropathy Syncope TIA (transient ischemic attack) Surgical History Anesthesia History of incision and drainage History of prostate surgery Inguinal hernia Status post eye surgery Status post tonsillectomy and adenoidectomy Surgical procedure planned Family History Father Prostate cancer Mother CAD (coronary artery disease) Social History marital status: details: to NEGAR, lives in [place] household members: spouse lives independently: Yes caregiver/support person: No housing: house education level: master's degree Previous occupational history: law enforcement Smoking Status: Never smoker alcohol intake: current substance use type: does not use eating out: 4 or more times/week Type(s) of exercise: weight lifting and resistance training Smoking Status: Never smoker alcohol intake frequency: holidays/special occasions only Substance Use Type: does not use Exam Initial Vital Signs Initial Vital Signs: Vital Signs Temperature 98 F 02/01/23 13:32 Pulse Rate 75 02/01/23 13:32 Respiratory Rate 17 02/01/23 13:32 Blood Pressure 102/66 02/01/23 13:32 Pulse Oximetry 98 02/01/23 13:32 Oxygen Delivery Method Room Air 02/01/23 13:32 GENERAL: Alert pleasant 77-year-old male HEENT: Head atraumatic,EOMI, pupils reactive, face symmetric, moist mucous membranes CARDIOVASCULAR: Regular rate and rhythm without murmurs, rubs or gallops. RESPIRATORY: Breath sounds equal bilaterally, no wheezes rales or rhonchi. ABDOMEN: Soft, nontender. Normoactive bowel sounds all 4 quadrants. No guarding or rebound. EXTREMITIES: Normal range of motion, no clubbing or edema. Neurovascularly intact NEUROLOGICAL: Alert and oriented x4. SKIN: Warm, dry, no laceration, no petechiae, no rashes or lesions. Course Orders Ordered: ED Orders 02/01/23 14:07 EKG-12 Lead Stat 02/01/23 14:40 Complete Blood Count AUTO DIFF Stat Comprehensive Metabolic Panel Stat Troponin & CK Cardiac Panel Stat Discontinued Medications Sodium Chloride (Normal Saline 0.9%) 1,000 mls @ 1,000 mls/hr IV BOLUS ONE Stop: 02/01/23 15:55 Last Infusion: 02/01/23 14:35 Dose: 0 mls/hr Documented By: Admin: 02/01/23 13:35 Dose: 1,000 mls/hr Documented By: LEE Vital Signs Vital signs: Vital Signs - 8 hr 02/01/23 13:32 02/01/23 14:00 02/01/23 15:28 Temperature 98 F Pulse Rate 75 71 Pulse Rate [Orthostatic Sitting] 66 Pulse Rate [Orthostatic Standing] 67 Respiratory Rate 17 15 Blood Pressure 102/66 110/65 Blood Pressure [Orthostatic Sitting] 111/67 Blood Pressure [Orthostatic Standing] 101/62 Pulse Oximetry 98 99 Oxygen Delivery Method Room Air Room Air 02/01/23 14:30 02/01/23 15:00 02/01/23 17:03 Temperature Pulse Rate 70 67 77 Pulse Rate [Orthostatic Sitting] Pulse Rate [Orthostatic Standing] Respiratory Rate 16 16 17 Blood Pressure 121/65 111/67 120/67 Blood Pressure [Orthostatic Sitting] Blood Pressure [Orthostatic Standing] Pulse Oximetry 97 98 99 Oxygen Delivery Method Room Air Room Air Room Air 02/01/23 16:00 Temperature Pulse Rate 67 Pulse Rate [Orthostatic Sitting] Pulse Rate [Orthostatic Standing] Respiratory Rate 15 Blood Pressure 110/66 Blood Pressure [Orthostatic Sitting] Blood Pressure [Orthostatic Standing] Pulse Oximetry 98 Oxygen Delivery Method Room Air MDM - Dizziness Lab Data 02/01/23 14:40 02/01/23 14:40 Labs: Lab Results 02/01/23 02/01/23 Range/Units 14:40 14:40 WBC 7.4 (4.5-11.0) X10^3/uL RBC 3.77 L (4.5-5.9) X10^6/uL Hgb 10.9 L (13.5-17.5) g/dL Hct 31.9 L (41-53) % MCV 84.6 (80-100) fL MCH 28.9 (26-34) PG MCHC 34.1 (30-36) % RDW 15.8 H (11.6-14.8) % Plt Count 181 (150-400) X10^3/uL Neut % (Auto) 74.5 (50-75) % Lymph % (Auto) 14.6 L (25-40) % [place] % (Auto) 6.2 (3-14) % Eos % (Auto) 4.0 (2-4) % Baso % (Auto) 0.7 (0-2) % Neut # (Auto) 5500 (6226-4655) /uL Lymph # (Auto) 1100 (6848-3060) /uL [place] # (Auto) 500 (0-900) /uL Eos # (Auto) 300 (0-450) /uL Baso # (Auto) 0 (0-100) /uL Sodium 135 L (137-145) mmol/L Potassium 4.8 (3.4-5.1) mmol/L Chloride 106 (98-107) mmol/L Carbon Dioxide 22 (22-32) mmol/L BUN 18 (9-20) mg/dL Creatinine 2.02 H (0.66-1.25) mg/dL Estimated GFR 34 L (>60) mL/min BUN/Creatinine Ratio 8.9 (6-22) Glucose 120 H (80-110) mg/dL Calcium 8.7 (8.4-10.2) mg/dL Total Bilirubin 0.6 (0.2-1.3) mg/dL AST 21 (17-59) IU/L ALT 20 (<50) IU/L Alkaline Phosphatase 106 (38-126) U/L Total Creatine Kinase 54 L (55-170) U/L Troponin I < 0.012 (0.01-0.034) ng/mL Total Protein 6.1 L (6.3-8.2) g/dL Albumin 3.6 (3.5-5.0) g/dL Globulin 2.5 (1.7-4.1) g/dL Albumin/Globulin Ratio 1.4 (1.0-2.8) Point of Care Testing Glucose POC 180 Urine Dip Bedside Urine Glucose Negative Bedside Urine Bilirubin - Negative Bedside Urine Ketone - Negative Urine Specific [place] 1.005 Bedside Urine Occult Blood - Negative Bedside Urine pH 6.0 Bedside Urine Protein - Negative Bedside Urine Urobilinogen - Negative Bedside Urine Nitrite - Negative Bedside Urine Leukocytes - Negative Esterase ECG Data Interpretation: Sinus rhythm rate 68 GA interval 464 QRS [address] changes Q-waves noted in inferior leads without change, significant improvement from previous EKGs MDM Narrative Medical decision making narrative: Patient is 77-year-old male with cardiac history NSTEMI, chronic kidney disease presents today after a fall. Reports that he was exercising at the gym he went from 1 machine to the next turned too fast and fell over. Since then he is had a L of fluid and has been ambulated and urinating in the ED. Chronic kidney disease is stable he is a negative troponin EKGs certainly looks much improved from his previous EKGs another blood work is stable without clinical significant abnormalities. It sounds as though patient almost had a mechanical fall. He is adamant he has no chest pain or shortness of breath. Does not sound as though he had a stent placed even though his EKG did show STEMI previously today it does not. Today's episode was thought to be due mechanical fall possibly secondary to he possibly over exertion. At this time no need for any further workup or evaluation. He is not having any intracranial hemorrhage signs or symptoms no need for head CT. Discharge Plan Departure Patient Disposition: Home Clinical Impression: Fall Instructions: How to Prevent Falls Activity Restrictions/Additional Instructions: *You have been diagnosed with fall *What to do: At this time blood work is reassuring. Please follow your cardiology instructions. *Continue to take medications as directed *Follow up with your primary care provider in 2-3 days or call [phone] *Return to ER if you should have increased falls chest pain weakness numbness tingling or any new, worsening or concerning symptoms Prescriptions: No Action (DME) lancets misc See Dose Instructions .ROUTE .MEDSUPPLY Qty: 100 11RF Dose Instruction: As directed Rx Instructions: Test Blood Glucose Three Times Daily (DME) Blood Glucose Test Strip See Dose Instructions .ROUTE .MEDSUPPLY Qty: 100 11RF Dose Instruction: As directed Rx Instructions: Test Blood Glucose Three Times Daily (DME) disabled parking permit See Rx Instructions .ROUTE .MEDSUPPLY Qty: 1 0RF Rx Instructions: As directed. patient qualifies for disabled parking as per attached form. albuterol sulfate [Ventolin HFA] 90 mcg/actuation HFA aerosol inhaler See Rx Instructions .ROUTE .COMPLEX Qty: 18 4RF Dose Instruction: INHALE 1 PUFF BY MOUTH EVERY 6 HOURS NEEDED FOR SHORTNESS OF BREATH OR WHEEZING Rx Instructions: INHALE 1 PUFF BY MOUTH EVERY 6 HOURS NEEDED FOR SHORTNESS OF BREATH OR WHEEZING omeprazole 20 mg capsule,delayed release(DR/EC) 20 mg PO DAILY Qty: 90 3RF levetiracetam 750 mg tablet See Rx Instructions .ROUTE .COMPLEX Qty: 180 0RF Dose Instruction: TAKE 1 TABLET BY MOUTH TWICE DAILY Rx Instructions: TAKE 1 TABLET BY MOUTH TWICE DAILY lidocaine 5 % ointment 1 applic topical DAILY PRN (Reason: pain) Qty: 50 0RF Rx Instructions: For use only when lesions are dry and scabbed. Do not use for new or erupting shingles lesions prazosin 2 mg capsule See Rx Instructions .ROUTE .COMPLEX Qty: 90 1RF Dose Instruction: TAKE 1 CAPSULE BY MOUTH EVERY NIGHT AT BEDTIME Rx Instructions: TAKE 1 CAPSULE BY MOUTH EVERY NIGHT AT BEDTIME lamotrigine 200 mg tablet See Rx Instructions .ROUTE .COMPLEX Qty: 90 1RF Dose Instruction: TAKE 1 TABLET BY MOUTH DAILY Rx Instructions: TAKE 1 TABLET BY MOUTH DAILY vortioxetine 20 mg tablet 20 mg PO DAILY Qty: 90 1RF montelukast 10 mg tablet See Rx Instructions .ROUTE .COMPLEX Qty: 90 0RF Dose Instruction: TAKE 1 TABLET BY MOUTH EVERY EVENING Rx Instructions: TAKE 1 TABLET BY MOUTH EVERY EVENING tamsulosin 0.4 mg capsule 0.4 mg PO BEDTIME Qty: 90 1RF Rx Instructions: TAKE 1 CAPSULE BY MOUTH EVERY NIGHT AT BEDTIME testosterone cypionate 200 mg/mL oil 80 mg IM Q2W Qty: 1 1RF amlodipine 5 mg tablet 5 mg PO BID Qty: 180 3RF Ozempic 1 mg/dose (2 mg/1.5 mL) pen injector 0.5 mg SUBCUT QWEEK valacyclovir 1 gram tablet 1,000 mg PO TID Qty: 21 1RF mupirocin 2 % ointment 1 applic topical BID Qty: 22 1RF triamcinolone acetonide 0.5 % cream 1 applic topical BID PRN (Reason: Inflammatory rash) Qty: 15 0RF clobetasol 0.05 % ointment 1 applic topical BID Qty: 45 5RF (DME) Richard Pauer - 3PStyle Sudheer 14 Day [place] Misc See Rx Instructions .Route Rx Instructions: As directed (DME) FreeStyle Sudheer 14 Day Sensor Kit See Rx Instructions .Route Rx Instructions: As directed hydralazine 25 mg tablet 25 mg PO BID lisinopril 2.5 mg Tablet 2.5 mg PO DAILY Trintellix 20 mg tablet 20 mg PO DAILY atorvastatin 10 mg tablet 10 mg PO BEDTIME Ozempic 0.25 mg or 0.5 mg (2 mg/3 mL) pen injector 0.25 mg SUBCUT QWEEK calcipotriene 0.005 % cream 1 applic topical BEDTIME meloxicam 15 mg tablet 15 mg PO DAILY Qty: 30 2RF acetaminophen 80 mg tablet,chewable 80 mg PO .qd (DME) Respironics Dreamstation BIPAP Qty: 1 Dose Instruction: As directed Patient Comments: Pressure: IPAP 13 EPAP 8 DME: [facility] Rx Instructions: As directed pregabalin 150 mg capsule 150 mg PO BID Referrals: Esequiel Armstrong DO [Primary Care Provider] - Stand Alone Forms: Patient Portal/API
== END 2023-02-01 17:06 | disposition home or self-care (01) ==
PROVIDERS: Emergency Provider Emergency Medicine; Family Provider Family Medicine; PCP Family Medicine
DX: R42 Dizziness and giddiness (principal); N18.9 Chronic kidney disease, unspecified; R07.9 Chest pain, unspecified; W18.30XA Fall on same level, unspecified, initial encounter
CPT/HCPCS: 51798; 80053; 81003; 82550; 84484; 85025; 93005; 93010; 99284

== ENCOUNTER → 2023-02-21 12:16 | Outpatient (CLI) | payer OTHER, SELFPAY ==
[2021-12-11 14:10] VITALS: BMI 28.7
--- NOTE | 2023-02-21 12:17 | DI.MRI.S_ITS ---
PROCEDURE: MR HEAD/BRAIN WO CON INDICATIONS: Symptoms and signs involving cognitive function TECHNIQUE: Non-contrast axial T1 spin echo, axial T2 fast spin echo, sagittal and axial FLAIR, coronal T2 fast spin echo, axial gradient echo, axial diffusion and ADC through the brain. COMPARISON: [facility], MR, BRAIN WITHOUT CONTRAST, 06/21/2014, 20:04. FINDINGS: Image quality: Excellent. CSF spaces: Ventricles appear symmetric in size and shape. Basal cisterns are patent. No extra-axial fluid collections. Brain: No intracranial bleeds or mass effects. There is cerebral volume loss for age. There are periventricular and deep white matter chronic small vessel ischemic changes. Brainstem appears normal. Diffusion-weighted images show no acute ischemic insults. No chronic ischemic insults. Normal intravascular flow voids are present. Skull and face: Calvarial bone marrow is normal in signal. Orbits are normal. Sinuses: There is mild left maxillary sinus mucosal thickening. Sinuses and mastoids are otherwise clear. IMPRESSION: 1. Mild volume loss and small vessel ischemic disease. 2. No acute process. No recent infarct. 3. Sinus disease. Dictated by: Licha Miranda M.D. on 02/21/2023 at 12:58 Approved by: Licha Miranda M.D. on 02/21/2023 at 12:59
== END ==
PROVIDERS: Family Provider Family Medicine; PCP Family Medicine; Referring Provider Family Medicine; Visit Provider Family Medicine
DX: J32.0 Chronic maxillary sinusitis (principal); R41.89 Other symptoms and signs involving cognitive functions and awareness; R26.81 Unsteadiness on feet
CPT/HCPCS: 70551

== ENCOUNTER → 2023-03-11 16:43 | Outpatient (CLI) | payer OTHER, SELFPAY ==
[2021-12-11 14:10] VITALS: BMI 28.7
[2023-03-11 18:21] LABS: Blood Urea Nitrogen 24 mg/dL (9-20); Calcium 9.6 mg/dL (8.4-10.2); Carbon Dioxide 23 mmol/L (22-32); Chloride 104 mmol/L (98-107); Estimated Glomerular Filt Rate 34 mL/min (>60); Glucose 106 mg/dL (80-110); HEMOLYSIS < 15 (0-50); Potassium 4.2 mmol/L (3.4-5.1); Sodium 136 mmol/L (137-145)
== END ==
PROVIDERS: Family Provider Family Medicine; PCP Family Medicine; Referring Provider Student in an Organized Health Care Education/Training Program; Visit Provider Student in an Organized Health Care Education/Training Program
DX: N05.9 Unspecified nephritic syndrome with unspecified morphologic changes (principal)
CPT/HCPCS: 36415; 80048

== ENCOUNTER → 2023-04-24 13:36 | Outpatient (CLI) | payer OTHER, SELFPAY ==
[2021-12-11 14:10] VITALS: BMI 28.7
[2023-04-24 15:24] LABS: Testosterone 65.2 ng/dL (71.8-623)
== END ==
PROVIDERS: Family Provider Family Medicine; PCP Family Medicine; Referring Provider Family Medicine; Visit Provider Family Medicine
DX: E34.9 Endocrine disorder, unspecified (principal); E11.9 Type 2 diabetes mellitus without complications
CPT/HCPCS: 36415; 84403

== ENCOUNTER 2023-06-24 12:30 | Outpatient (RCR) | payer OTHER, SELFPAY ==
[2021-12-11 14:10] VITALS: BMI 28.7
== END 2023-06-24 14:12 ==
LOC: CAR 12:30
PROVIDERS: Family Provider Family Medicine; PCP Family Medicine; Referring Provider Family Medicine; Visit Provider Family Medicine
DX: I21.4 Non-ST elevation (NSTEMI) myocardial infarction (principal)
CPT/HCPCS: 93798

== ENCOUNTER → 2023-07-08 13:18 | Outpatient (CLI) | payer OTHER, SELFPAY ==
[2021-12-11 14:10] VITALS: BMI 28.7
[2023-07-08 14:25] LABS: Add Manual Diff / Slide Review NO; Basophils Absolute Auto 0 /uL (0-100); Basophils Percent Auto 0.6 % (0-2); Eosinophils Absolute Auto 200 /uL (0-450); Hematocrit 36.2 % (41-53); Hemoglobin 12.7 g/dL (13.5-17.5); Lymphocytes Absolute Auto 1300 /uL (1100-4500); Lymphocytes Percent Auto 18.2 % (25-40); Mean Corpuscular HGB Conc 34.9 % (30-36); Mean Corpuscular Hemoglobin 31.8 PG (26-34); Mean Corpuscular Volume 91.1 fL (80-100); Monocytes Absolute Auto 600 /uL (0-900); Monocytes Percent Auto 8.5 % (3-14); Neutrophils Absolute Auto 4800 /uL (1500-7000); Neutrophils Percent Auto 69.7 % (50-75); Platelet Count 195 X10^3/uL (150-400); Red Blood Cell Count 3.98 X10^6/uL (4.5-5.9); Red Cell Distribution Width 13.2 % (11.6-14.8)
[2023-07-08 14:27] LABS: Hematocrit 36.2 % (41-53); Hemoglobin 12.7 g/dL (13.5-17.5)
[2023-07-08 14:34] LABS: Hemoglobin A1C% w Est Avg Glu 6.7 % (4.0-6.0)
[2023-07-08 14:50] LABS: Alanine Aminotransferase 19 IU/L (<50); Albumin 4.1 g/dL (3.5-5.0); Albumin Globulin Ratio 1.6 (1.0-2.8); Alkaline Phosphatase 104 U/L (38-126); Aspartate Aminotransferase 22 IU/L (17-59); BUN Creatinine Ratio 12.7 (6-22); Bilirubin Total 0.8 mg/dL (0.2-1.3); Blood Urea Nitrogen 24 mg/dL (9-20); Calcium 9.8 mg/dL (8.4-10.2); Carbon Dioxide 22 mmol/L (22-32); Chloride 108 mmol/L (98-107); Estimated Glomerular Filt Rate 36 mL/min (>60); Globulin 2.6 g/dL (1.7-4.1); Glucose 130 mg/dL (80-110); HEMOLYSIS < 15 (0-50); Potassium 4.9 mmol/L (3.4-5.1); Sodium 138 mmol/L (137-145); Total Protein 6.7 g/dL (6.3-8.2)
[2023-07-08 17:10] LABS: Creatinine Urine Random 154.7 mg/dL
[2023-07-08 17:15] LABS: Microalbumi Creatinin Ratio Ur 22.6 ug/mg CR (<30); Microalbumin Urine Random 3.5 mg/dL (0-1.6)
[2023-07-10 10:43] LABS: Parathyroid Hormone Int 65 pg/mL (15-65)
== END ==
PROVIDERS: Family Provider Family Medicine; PCP Family Medicine; Referring Provider Student in an Organized Health Care Education/Training Program; Visit Provider Student in an Organized Health Care Education/Training Program
DX: N05.9 Unspecified nephritic syndrome with unspecified morphologic changes (principal); E11.9 Type 2 diabetes mellitus without complications; D70.9 Neutropenia, unspecified; D63.1 Anemia in chronic kidney disease; N25.81 Secondary hyperparathyroidism of renal origin; R80.9 Proteinuria, unspecified; E78.2 Mixed hyperlipidemia; I10 Essential (primary) hypertension; E34.9 Endocrine disorder, unspecified; N18.9 Chronic kidney disease, unspecified
CPT/HCPCS: 36415; 80053; 82043; 82570; 83036; 83970; 85014; 85018; 85025

== ENCOUNTER → 2023-09-06 13:14 | Outpatient (CLI) | payer OTHER, SELFPAY ==
[2023-07-19 13:47] VITALS: BMI 28.7
[2023-09-06 14:02] LABS: Alanine Aminotransferase 18 IU/L (<50); Albumin 4.1 g/dL (3.5-5.0); Albumin Globulin Ratio 1.5 (1.0-2.8); Alkaline Phosphatase 95 U/L (38-126); Aspartate Aminotransferase 22 IU/L (17-59); BUN Creatinine Ratio 12.8 (6-22); Bilirubin Total 1.1 mg/dL (0.2-1.3); Blood Urea Nitrogen 25 mg/dL (9-20); Calcium 9.4 mg/dL (8.4-10.2); Carbon Dioxide 25 mmol/L (22-32); Chloride 105 mmol/L (98-107); Cholesterol 96 mg/dL (140-199); Estimated Glomerular Filt Rate 35 mL/min (>60); Globulin 2.7 g/dL (1.7-4.1); Glucose 99 mg/dL (80-110); HDL Cholesterol 26 mg/dL (40-60); HEMOLYSIS < 15 (0-50); LDL Cholesterol Calculated 26 mg/dL (<100); Potassium 4.6 mmol/L (3.4-5.1); Sodium 137 mmol/L (137-145); Total Protein 6.8 g/dL (6.3-8.2); Triglycerides 222 mg/dL (35-150)
== END ==
LOC: LAB 13:17
PROVIDERS: Family Provider Family Medicine; PCP Family Medicine; Referring Provider Internal Medicine Endocrinology, Diabetes & Metabolism; Visit Provider Internal Medicine Endocrinology, Diabetes & Metabolism
DX: E11.42 Type 2 diabetes mellitus with diabetic polyneuropathy (principal)
CPT/HCPCS: 36415; 80053; 80061; 83036

== ENCOUNTER → 2023-09-09 13:20 | Outpatient (CLI) | payer OTHER, SELFPAY ==
[2023-07-19 13:47] VITALS: BMI 28.7
[2023-09-10 19:03] LABS: Creatinine Urine Random 95.2 mg/dL
[2023-09-10 19:29] LABS: Microalbumin Urine Random 2.1 mg/dL (0-1.6)
== END ==
PROVIDERS: Family Provider Family Medicine; PCP Family Medicine; Referring Provider Internal Medicine Endocrinology, Diabetes & Metabolism; Visit Provider Internal Medicine Endocrinology, Diabetes & Metabolism
DX: E11.42 Type 2 diabetes mellitus with diabetic polyneuropathy (principal)
CPT/HCPCS: 82043; 82570

== ENCOUNTER 2023-09-10 17:54 | Emergency (ER) | payer OTHER, SELFPAY ==
[2023-07-19 13:47] VITALS: BMI 28.7
[2023-09-10] VITALS (51 sets, daily range): BP systolic 79–144; BP diastolic 50–78; PULSE 59–84; RESP 8–27; TEMP 36.6; O2SAT 95–100
--- NOTE | 2023-09-10 18:00 | ED_ITS ---
HPI - Syncope General Chief Complaint: Syncope Stated Complaint: syncope Time Seen by Provider: 09/10/23 18:00 History of Present Illness HPI narrative: Patient is a 78-year-old male with history of hypertension who presents today with a syncopal episode. He reports that he was in his normal state of health this morning he did his normal things he got up to go the bathroom when he felt dizzy and lightheaded. He then had excruciating abdominal pain in his suprapubic area radiating up into his chest EMS arrived and found him to be very hypotensive with a blood pressure in the 60s. He has been given IV fluids he is cold and shaky now. Denies any chest pain. Is still having severe abdominal pain. Patient has been on testosterone for what looks like long time he received testosterone yesterday Related Data Home Medications Medication Instructions Recorded Confirmed flash glucose scanning reader 02/07/21 08/13/23 ([employer] Sudheer 14 Day Proctor) flash glucose sensor (FreeStyle 02/07/21 08/13/23 Sudheer 14 Day Sensor kit) hydralazine 25 mg tablet 25 mg PO BID 09/02/22 08/13/23 acetaminophen 80 mg chewable tablet 80 mg PO .qd 12/28/22 08/13/23 aspirin 325 mg tablet,delayed 325 mg PO DAILY 04/11/23 08/13/23 release lisinopril 2.5 mg tablet 2.5 mg PO DAILY 04/11/23 08/13/23 semaglutide 1 mg/dose (2 mg/1.5 1 mg SUBCUT QWEEK 04/11/23 08/13/23 mL) subcutaneous pen injector (Ozempic) Previous Rx's Medication Instructions Recorded lancets #100 ea 07/17/18 blood sugar diagnostic (Blood #100 ea 08/20/19 Glucose Test strips) disabled parking permit #1 ea 10/28/19 omeprazole 20 mg capsule,delayed 20 mg PO DAILY barretts esophagus 09/25/22 release #90 caps triamcinolone acetonide 0.5 % 1 applic topical BID PRN 10/15/22 topical cream Inflammatory rash #15 grams valacyclovir 1 gram tablet 1,000 mg PO TID Shingles #21 tabs 10/15/22 Respironics Dreamstation BIPAP #1 ea 04/16/23 amlodipine 5 mg tablet 5 mg PO BID #180 tabs 04/19/23 lamotrigine 200 mg tablet See Rx Instructions .Route 05/16/23 .COMPLEX #90 tabs vortioxetine 20 mg tablet 20 mg PO DAILY #90 tabs 05/24/23 (Trintellix) levetiracetam 750 mg tablet See Rx Instructions .Route 06/13/23 .COMPLEX #180 tabs albuterol sulfate 90 mcg/actuation 1 inh inhalation Q6H PRN shortness 06/21/23 aerosol inhaler (Ventolin HFA) of breath or wheezing #8.5 grams meloxicam 15 mg tablet 15 mg PO DAILY #30 tabs 06/25/23 montelukast 10 mg tablet 10 mg PO QPM #90 tabs 07/12/23 prazosin 2 mg capsule See Rx Instructions .Route 07/12/23 .COMPLEX #90 caps tamsulosin 0.4 mg capsule 0.4 mg PO BEDTIME #90 caps 07/12/23 atorvastatin 10 mg tablet 10 mg PO BEDTIME #90 tabs 08/12/23 ferrous gluconate 324 mg (38 mg 324 mg PO DAILY #90 tabs 08/12/23 iron) tablet testosterone cypionate 200 mg/mL 60 mg (0.3 mL) IM Q2W #1 mL 08/27/23 intramuscular oil Allergies Allergy/AdvReac Type Severity Reaction Status Date / Time ibuprofen [IBUPROFEN] Allergy Severe LARGE Verified 08/13/23 14:05 HIVES, ALL OVER BODY Iodine and Iodide Containing Allergy Severe THROAT Verified 08/13/23 14:05 Produc SWELLING [IODINE AND IODIDE AND WELTS CONTAINING PRODUC] shellfish derived Allergy Severe SEAFOOD, Verified 08/13/23 14:05 [SHELLFISH DERIVED] THROAT SWELLING Patient History Medical History BPH (benign prostatic hyperplasia) Anemia Shingles (herpes zoster) polyneuropathy Cholecystitis NSTEMI (non-ST elevated myocardial infarction) Acute biliary pancreatitis Elevated LFTs CKD (chronic kidney disease) Barretts esophagus [id number] kidney injury Idiopathic peripheral neuropathy Obstructive sleep apnea of adult Hypersomnia 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 Lumbosacral radiculopathy at L4 Herniated nucleus pulposus, L4-5 left Personal history of radiation therapy Acute GI bleeding History of prostate cancer Low back pain Asthma Gout Polio Impotence Diverticular disease Diabetes mellitus Hypertension Hyperlipidemia Depression Bipolar disorder Community acquired pneumonia TIA (transient ischemic attack) Closed head injury Syncope Surgical History History of prostate surgery Anesthesia Surgical procedure planned History of incision and drainage Inguinal hernia Status post tonsillectomy and adenoidectomy Status post eye surgery Family History Father Prostate cancer Mother CAD (coronary artery disease) Social History marital status: details: to NEGAR, lives in [place] household members: spouse lives independently: Yes caregiver/support person: No housing: house education level: master's degree Previous occupational history: law enforcement Smoking Status: Never smoker alcohol intake: current substance use type: does not use eating out: 4 or more times/week Type(s) of exercise: weight lifting and resistance training Smoking Status: Never smoker alcohol intake frequency: holidays/special occasions only Substance Use Type: does not use Exam Initial Vital Signs Initial Vital Signs: Vital Signs Temperature 97.9 F 09/10/23 17:52 Pulse Rate 59 L 09/10/23 17:52 Respiratory Rate 20 09/10/23 17:52 Blood Pressure 109/61 09/10/23 17:52 Pulse Oximetry 100 09/10/23 17:52 Oxygen Delivery Method Room Air 09/10/23 17:52 GENERAL: Alert shaking 78-year-old male and in no acute distress. HEENT: Head atraumatic,EOMI, pupils reactive, face symmetric, moist mucous membranes CARDIOVASCULAR: Regular rate and rhythm without murmurs, rubs or gallops. RESPIRATORY: Breath sounds equal bilaterally, no wheezes rales or rhonchi. ABDOMEN: Soft, tender suprapubic area no pulsatile masses mild epigastric pain as well EXTREMITIES: Normal range of motion, no clubbing or edema. Neurovascularly intact NEUROLOGICAL: Alert and oriented x4.Normal gait and speech. Cranial nerves II through XII grossly intact. SKIN: Warm, dry, no laceration, no petechiae, no rashes or lesions. Course Orders Ordered: ED Orders 09/10/23 18:00 Complete Blood Count AUTO DIFF Stat Comprehensive Metabolic Panel Stat Lactate (Lactic Acid) Stat Lipase Stat Troponin & CK Cardiac Panel Stat 09/10/23 18:01 CT angio chest abdomen pelvis Stat EKG-12 Lead Stat 09/10/23 18:39 GI Panel (Film Array) Stat Discontinued Medications Sodium Chloride (Normal Saline 0.9%) 1,000 mls @ 1,000 mls/hr IV CONT LIZBETH Last Infusion: 09/10/23 19:03 Dose: Infused Documented By: Admin: 09/10/23 18:15 Dose: 1,000 mls/hr Documented By: MARJAN Vital Signs Vital signs: Vital Signs - 8 hr 09/10/23 17:52 09/10/23 17:58 09/10/23 17:59 Temperature 97.9 F Pulse Rate 59 L 62 Respiratory Rate 20 19 Blood Pressure 109/61 117/56 L Pulse Oximetry 100 100 Oxygen Delivery Method Room Air 09/10/23 17:59 09/10/23 18:00 09/10/23 18:00 Temperature Pulse Rate 61 Respiratory Rate 18 Blood Pressure 109/61 112/61 Pulse Oximetry 100 Oxygen Delivery Method 09/10/23 18:05 09/10/23 18:10 09/10/23 18:15 Temperature Pulse Rate 59 L 60 64 Respiratory Rate 18 17 23 Blood Pressure Pulse Oximetry 100 100 100 Oxygen Delivery Method 09/10/23 18:19 09/10/23 18:19 09/10/23 18:20 Temperature Pulse Rate 59 L 61 Respiratory Rate 19 18 Blood Pressure 86/57 L Pulse Oximetry 100 100 Oxygen Delivery Method 09/10/23 18:20 09/10/23 18:22 09/10/23 18:22 Temperature Pulse Rate 63 Respiratory Rate 12 Blood Pressure 79/50 L 82/52 L Pulse Oximetry 100 Oxygen Delivery Method 09/10/23 18:25 09/10/23 18:25 09/10/23 18:30 Temperature Pulse Rate 70 66 Respiratory Rate 23 19 Blood Pressure 118/59 L Pulse Oximetry 100 100 Oxygen Delivery Method Room Air 09/10/23 18:30 09/10/23 18:34 09/10/23 18:34 Temperature Pulse Rate 78 Respiratory Rate 21 Blood Pressure 121/58 L 104/59 L Pulse Oximetry 100 Oxygen Delivery Method 09/10/23 18:35 09/10/23 18:35 09/10/23 18:40 Temperature Pulse Rate 80 Respiratory Rate 20 Blood Pressure 114/59 L 114/57 L Pulse Oximetry 100 Oxygen Delivery Method 09/10/23 18:40 09/10/23 18:45 09/10/23 18:45 Temperature Pulse Rate 70 65 Respiratory Rate 19 13 Blood Pressure 123/58 L Pulse Oximetry 99 100 Oxygen Delivery Method Room Air 09/10/23 18:50 09/10/23 18:50 09/10/23 18:55 Temperature Pulse Rate 62 Respiratory Rate 12 Blood Pressure 115/66 112/61 Pulse Oximetry 100 Oxygen Delivery Method 09/10/23 18:55 09/10/23 19:00 09/10/23 19:00 Temperature Pulse Rate 60 61 Respiratory Rate 12 14 Blood Pressure 106/67 Pulse Oximetry 100 100 Oxygen Delivery Method 09/10/23 19:05 09/10/23 19:05 09/10/23 19:10 Temperature Pulse Rate 60 60 Respiratory Rate 13 10 L Blood Pressure 104/69 Pulse Oximetry 99 100 Oxygen Delivery Method 09/10/23 19:15 09/10/23 19:15 09/10/23 19:20 Temperature Pulse Rate 65 60 Respiratory Rate 12 8 L Blood Pressure 90/66 Pulse Oximetry 100 100 Oxygen Delivery Method 09/10/23 19:21 09/10/23 19:21 09/10/23 19:25 Temperature Pulse Rate 60 63 Respiratory Rate 9 L 18 Blood Pressure 108/67 Pulse Oximetry 100 100 Oxygen Delivery Method 09/10/23 19:25 09/10/23 19:30 09/10/23 19:30 Temperature Pulse Rate 64 Respiratory Rate 12 Blood Pressure 97/70 105/61 Pulse Oximetry 100 Oxygen Delivery Method 09/10/23 19:35 09/10/23 19:35 09/10/23 19:40 Temperature Pulse Rate 66 61 Respiratory Rate 15 11 L Blood Pressure 123/57 L Pulse Oximetry 98 100 Oxygen Delivery Method 09/10/23 19:41 09/10/23 19:41 09/10/23 19:45 Temperature Pulse Rate 61 64 Respiratory Rate 10 L 15 Blood Pressure 107/66 Pulse Oximetry 100 100 Oxygen Delivery Method Room Air 09/10/23 19:45 09/10/23 19:50 09/10/23 19:50 Temperature Pulse Rate 63 Respiratory Rate 10 L Blood Pressure 106/68 101/64 Pulse Oximetry 100 Oxygen Delivery Method 09/10/23 19:55 09/10/23 19:55 09/10/23 20:00 Temperature Pulse Rate 64 65 Respiratory Rate 14 18 Blood Pressure 93/60 Pulse Oximetry 100 99 Oxygen Delivery Method 09/10/23 20:00 09/10/23 20:05 09/10/23 20:10 Temperature Pulse Rate 62 61 Respiratory Rate 14 20 Blood Pressure 111/67 Pulse Oximetry 100 100 Oxygen Delivery Method 09/10/23 20:15 09/10/23 20:15 09/10/23 20:20 Temperature Pulse Rate 62 61 Respiratory Rate 14 12 Blood Pressure 126/77 Pulse Oximetry 100 100 Oxygen Delivery Method 09/10/23 20:25 09/10/23 20:30 09/10/23 20:30 Temperature Pulse Rate 61 62 Respiratory Rate 13 14 Blood Pressure 133/75 Pulse Oximetry 100 100 Oxygen Delivery Method 09/10/23 20:35 09/10/23 20:40 09/10/23 20:45 Temperature Pulse Rate 62 67 61 Respiratory Rate 15 23 12 Blood Pressure Pulse Oximetry 100 100 100 Oxygen Delivery Method 09/10/23 20:45 09/10/23 20:50 09/10/23 20:55 Temperature Pulse Rate 63 64 Respiratory Rate 21 13 Blood Pressure 144/78 H Pulse Oximetry 100 99 Oxygen Delivery Method 09/10/23 21:00 09/10/23 21:00 09/10/23 21:05 Temperature Pulse Rate 65 64 Respiratory Rate 11 L 22 Blood Pressure 138/75 Pulse Oximetry 99 99 Oxygen Delivery Method 09/10/23 21:10 09/10/23 21:15 09/10/23 21:17 Temperature Pulse Rate 69 75 84 Respiratory Rate 27 H Blood Pressure Pulse Oximetry 98 98 95 Oxygen Delivery Method 09/10/23 21:19 09/10/23 21:32 Temperature Pulse Rate Respiratory Rate Blood Pressure 134/76 118/60 Pulse Oximetry Oxygen Delivery Method MDM - Syncope Lab Data 09/10/23 18:00 09/10/23 18:00 Labs: Lab Results 09/10/23 09/10/23 09/10/23 Range/Units 18:00 18:39 20:00 WBC 11.7 H (4.5-11.0) X10^3/uL RBC 4.24 L (4.5-5.9) X10^6/uL Hgb 13.3 L (13.5-17.5) g/dL Hct 38.2 L (41-53) % MCV 90.1 (80-100) fL MCH 31.4 (26-34) PG MCHC 34.8 (30-36) % RDW 13.2 (11.6-14.8) % Plt Count 233 (150-400) X10^3/uL Neut % (Auto) 71.4 (50-75) % Lymph % (Auto) 19.4 L (25-40) % [place] % (Auto) 6.7 (3-14) % Eos % (Auto) 2.0 (2-4) % Baso % (Auto) 0.5 (0-2) % Neut # (Auto) 8400 H (1641-8157) /uL Lymph # (Auto) 2300 (4902-8544) /uL [place] # (Auto) 800 (0-900) /uL Eos # (Auto) 200 (0-450) /uL Baso # (Auto) 100 (0-100) /uL Sodium 134 L (137-145) mmol/L Potassium 3.8 (3.4-5.1) mmol/L Chloride 102 (98-107) mmol/L Carbon Dioxide 19 L (22-32) mmol/L BUN 29 H (9-20) mg/dL Creatinine 2.33 H (0.66-1.25) mg/dL Estimated GFR 28 L (>60) mL/min BUN/Creatinine Ratio 12.4 (6-22) Glucose 144 H (80-110) mg/dL Lactate 2.4 H 1.8 (0.7-2.1) mmol/L Calcium 10.1 (8.4-10.2) mg/dL Total Bilirubin 1.4 H (0.2-1.3) mg/dL AST 26 (17-59) IU/L ALT 18 (<50) IU/L Alkaline Phosphatase 99 (38-126) U/L Total Creatine Kinase 110 (55-170) U/L Troponin I < 0.012 (0.01-0.034) ng/mL Total Protein 7.1 (6.3-8.2) g/dL Albumin 4.4 (3.5-5.0) g/dL Globulin 2.7 (1.7-4.1) g/dL Albumin/Globulin Ratio 1.6 (1.0-2.8) Lipase 439 H (23-300) U/L Stl C. cayetanensis PCR Not detected (Not Detect) Stool Rotavirus (PCR) Not detected (Not Detect) Stool Adenovirus (PCR) Not detected (Not Detect) Stool Astrovirus (PCR) Not detected (Not Detect) Stool Cryptosporidium PCR Not detected (Not Detect) Stl E.coli Shiga Tox PCR Not detected (Not Detect) St Sh/Enteroin Ecoli PCR Not detected (Not Detect) Stl Enterotoxigenic E PCR Not detected (Not Detect) Stool EPEC (PCR) Not detected (Not Detect) Stl E. histolytica PCR Not detected (Not Detect) Stool Giardia Lamblia PCR Not detected (Not Detect) Stool Sapovirus (PCR) Not detected (Not Detect) Stl P. shigelloides PCR Not detected (Not Detect) St Y.enterocolitica PCR Not detected (Not Detect) Stool Vibrio (PCR) Not detected (Not Detect) Stl Vibrio cholerae PCR Not detected (Not Detect) Stl Enteroaggr Ecoli PCR Not detected (Not Detect) Stl Norovirus GI/GII PCR Not detected (Not Detect) Campylobacter (PCR) Not detected (Not Detect) C. difficile Tox (PCR) Not detected (Not Detect) Salmonella (PCR) Not detected (Not Detect) Imaging Data CT scan - abdomen/pelvis: Radiologist's Impression: PROCEDURE: CT ANGIO CHEST ABDOMEN PELVIS INDICATIONS: syncope with abdominal pain TECHNIQUE: Precontrast 5 mm thick sections acquired from the lung apices to the iliac crests. After the administration of intravenous contrast, 2.5 mm thick sections again acquired from the lung apices to the iliac crests. Maximum intensity projection (MIP) oblique sagittal and coronal reformats were then acquired. For radiation dose reduction, the following was used: automated exposure control. COMPARISON: [facility], CT, CT ABDOMEN PELVIS WITHOUT CONTRAST, 01/11/2023, 19:20. [facility], CT, CT ABDOMEN PELVIS W CON, 07/30/2018, 10:08.A simple cyst. FINDINGS: Image quality: Diagnostic. AORTA: No aortic aneurysm. No acute aortic syndrome. CHEST: Lower Neck: No enlarged lymph nodes. Thyroid: No thyroid nodules which require sonographic evaluation. Axillae: No enlarged lymph nodes. Chest Wall: Unremarkable. Lungs and Pleura: Mild thickening is seen along the right minor fissure, as on series 6, image 42 and on series 9 image 37, which is considered to be benign. No suspicious pulmonary nodules are seen. No focal infiltrates are seen. No pneumothorax or pleural effusions are seen. Mild underlying emphysematous changes are seen. Heart: Heart size is normal. No pericardial effusion. Thoracic Vessels: Pulmonary arteries demonstrate normal size. Mediastinum and Anjali: No enlarged lymph nodes. Esophagus: No wall thickening. There is a small hiatal hernia. ABDOMEN: Liver: There is a low-density lesion seen within the right liver inferiorly, adjacent to the gallbladder fossa, measuring 21 mm. This measures 40 Hounsfield units and cannot be defined as a simple cyst. This area appears improved compared to the prior CT Gallbladder: Cholecystectomy. Biliary ducts: No biliary dilation. Pancreas: No ductal dilation. Spleen: Size is within normal limits. Adrenal Glands: No adrenal nodules. Kidneys and Ureters: No hydronephrosis. No solid mass. No complex renal cystic lesion which requires follow up. Stomach and Bowel: The stomach is fluid distended. No dilated loops of small bowel are seen. However, the demonstrate mild generalized prominence and mild wall thickening. There is liquid stool seen throughout the majority of the colon. Colonic diverticulosis is seen, without findings of active diverticulitis. Peritoneum: No abnormal intraperitoneal fluid. No free air. Ventral Wall: There is a fat containing periumbilical hernia. Abdominal Nodes: No retroperitoneal or mesenteric adenopathy by size criteria. Vessels: Inferior vena cava is normal in size. PELVIS: Pelvic Organs: There is a TURP defect seen. Bladder: Unremarkable. Pelvic Nodes: No enlarged lymph nodes. Miscellaneous: There is a fat containing right inguinal hernia seen, as on series 4, image 121. Bones: Focal L4-L5 degenerative change is seen. Milder degenerative changes are seen elsewhere. IMPRESSION: No acute aortic abnormality can be seen. No aneurysm or dissection can be seen. The stomach is fluid distended and the small bowel demonstrates generalized wall thickening. Liquid stool can be seen throughout the colon. Gastroenteritis is suspected. Low density seen adjacent to the gallbladder fossa, which appears improved compared to the prior. This is most likely related to a benign process. Attention should be paid to this area on any future follow-up studies. Additional findings: Focal thickening along the right minor fissure. Small hiatal hernia Cholecystectomy Diverticulosis, without active diverticulitis Focal L4-L5 degenerative change TURP defect Fat containing right inguinal hernia Dictated by: Teo Blandon M.D. on 09/10/2023 at 18:01 ECG Data Interpretation: Sinus rhythm rate 57 low voltage artifact noted no obvious ST changes MDM Narrative Medical decision making narrative: Patient presents today with hypotension and near syncopal episode while going to the back. Upon arrival he has excruciating abdominal pain. No pulsatile mass is found however with severe abdominal pain and hypotension with a near syncopal event patient went to CT shortly after arrival. Blood pressure improved with IV fluids. CT angio chest abdomen pelvis did not show aneurysm or dissection it shows some chronic hernias along with liquid stool seen without Blood work reviewed WBC 11.7, hemoglobin 13.3, hematocrit 38.2, sodium 134, potassium 3.8, chloride 102, bicarb 19, BUN 29, creatinine 2.3 previously 1.4, lactate 2.4, repeat 1.8, bilirubin Patient returned from CT and had multiple loose episodes of diarrhea. He received 1 L of IV fluid with EMS in the 2nd with us. Blood pressure continue to improve. He has no nausea or vomiting did not require anything for pain. I suspect he had a micturition syncope he had not had diarrhea at that time. Started having pretty severe cramping and abdominal pain upon arrival. CT ruled out dissection and aneurysm. Symptoms consistent with a gastroenteritis and a vasovagal reaction. He does have slight increase in his creatinine 2.3 previously 1.9 he did receive IV contrast today as well. May PCP notified via email about kidney function and to recheck. Patient ambulated well feels significantly better color has improved diarrhea is already slowing. Discharge Plan Departure Patient Disposition: Home Clinical Impression: Gastroenteritis Instructions: DI for Syncope in Adults (Fainting), DI for Viral Gastroenteritis -- Adult Activity Restrictions/Additional Instructions: *You have been diagnosed with gastroenteritis *What to do: At this time I think you passed out due to a vagal reaction but you are having multiple episodes of diarrhea. This should slow down for you in fact you can take Imodium as prescribed [id number]. No need for antibiotics at this time. I am glad that you are feeling better. Please be sure to stay hydrated recommend Pedialyte or Gatorade like product. *Continue to take medications as directed Okay to take Tylenol Motrin as needed Imodium [id number] as directed for diarrhea *Follow up with your primary care provider in 2-3 days or call [phone] *Return to ER if you should have recurrent episode of passing out dizziness lightheadedness, worsening abdominal pain or any new, worsening or concerning symptoms Prescriptions: No Action (DME) lancets misc See Dose Instructions .ROUTE .MEDSUPPLY Qty: 100 11RF Dose Instruction: As directed Rx Instructions: Test Blood Glucose Three Times Daily (DME) Blood Glucose Test Strip See Dose Instructions .ROUTE .MEDSUPPLY Qty: 100 11RF Dose Instruction: As directed Rx Instructions: Test Blood Glucose Three Times Daily (DME) disabled parking permit See Rx Instructions .ROUTE .MEDSUPPLY Qty: 1 0RF Rx Instructions: As directed. patient qualifies for disabled parking as per attached form. omeprazole 20 mg capsule,delayed release(DR/EC) 20 mg PO DAILY Qty: 90 3RF (DME) [employer] Dreamstation BIPAP Qty: 1 0RF Dose Instruction: As directed Rx Instructions: As directed amlodipine 5 mg tablet 5 mg PO BID Qty: 180 3RF lamotrigine 200 mg tablet See Rx Instructions .ROUTE .COMPLEX Qty: 90 1RF Dose Instruction: TAKE 1 TABLET BY MOUTH DAILY Rx Instructions: TAKE 1 TABLET BY MOUTH DAILY Trintellix 20 mg tablet 20 mg PO DAILY Qty: 90 1RF levetiracetam 750 mg tablet See Rx Instructions .ROUTE .COMPLEX Qty: 180 3RF Dose Instruction: TAKE 1 TABLET BY MOUTH TWICE DAILY Rx Instructions: TAKE 1 TABLET BY MOUTH TWICE DAILY albuterol sulfate [Ventolin HFA] 90 mcg/actuation HFA aerosol inhaler 1 inh inhalation Q6H PRN (Reason: shortness of breath or wheezing) Qty: 8.5 1RF tamsulosin 0.4 mg capsule 0.4 mg PO BEDTIME Qty: 90 1RF Rx Instructions: TAKE 1 CAPSULE BY MOUTH EVERY NIGHT AT BEDTIME montelukast 10 mg tablet 10 mg PO QPM Qty: 90 1RF Rx Instructions: Take one tab by mouth every evening prazosin 2 mg capsule See Rx Instructions .ROUTE .COMPLEX Qty: 90 1RF Dose Instruction: TAKE 1 CAPSULE BY MOUTH EVERY NIGHT AT BEDTIME Rx Instructions: TAKE 1 CAPSULE BY MOUTH EVERY NIGHT AT BEDTIME ferrous gluconate 324 mg (38 mg iron) tablet 324 mg PO DAILY Qty: 90 1RF atorvastatin 10 mg tablet 10 mg PO BEDTIME Qty: 90 3RF testosterone cypionate 200 mg/mL oil 60 mg IM Q2W Qty: 1 1RF Ozempic 1 mg/dose (2 mg/1.5 mL) pen injector 1 mg SUBCUT QWEEK valacyclovir 1 gram tablet 1,000 mg PO TID Qty: 21 1RF triamcinolone acetonide 0.5 % cream 1 applic topical BID PRN (Reason: Inflammatory rash) Qty: 15 0RF (DME) FreeStyle Sudheer 14 Day Proctor Misc See Rx Instructions .Route Rx Instructions: As directed (DME) FreeStyle Sudheer 14 Day Sensor Kit See Rx Instructions .Route Rx Instructions: As directed lisinopril 2.5 mg tablet 2.5 mg PO DAILY aspirin 325 mg tablet,delayed release (DR/EC) 325 mg PO DAILY hydralazine 25 mg tablet 25 mg PO BID acetaminophen 80 mg tablet,chewable 80 mg PO .qd meloxicam 15 mg tablet 15 mg PO DAILY Qty: 30 2RF Referrals: Esequiel Armstrong DO [Primary Care Provider] - Stand Alone Forms: Patient Portal/API
[2023-09-10 18:11] LABS: Add Manual Diff / Slide Review NO; Basophils Absolute Auto 100 /uL (0-100); Basophils Percent Auto 0.5 % (0-2); Eosinophils Absolute Auto 200 /uL (0-450); Hematocrit 38.2 % (41-53); Hemoglobin 13.3 g/dL (13.5-17.5); Lymphocytes Absolute Auto 2300 /uL (1100-4500); Lymphocytes Percent Auto 19.4 % (25-40); Mean Corpuscular HGB Conc 34.8 % (30-36); Mean Corpuscular Hemoglobin 31.4 PG (26-34); Mean Corpuscular Volume 90.1 fL (80-100); Monocytes Absolute Auto 800 /uL (0-900); Monocytes Percent Auto 6.7 % (3-14); Neutrophils Absolute Auto 8400 /uL (1500-7000); Neutrophils Percent Auto 71.4 % (50-75); Platelet Count 233 X10^3/uL (150-400); Red Blood Cell Count 4.24 X10^6/uL (4.5-5.9); Red Cell Distribution Width 13.2 % (11.6-14.8); White Blood Cell Count 11.7 X10^3/uL (4.5-11.0)
[2023-09-10] MEDS: SODIUM CHLORIDE 0.9% 1,000 ML 1000 ML IV (18:15)
[2023-09-10 18:23] LABS: Alanine Aminotransferase 18 IU/L (<50); Albumin 4.4 g/dL (3.5-5.0); Albumin Globulin Ratio 1.6 (1.0-2.8); Alkaline Phosphatase 99 U/L (38-126); Aspartate Aminotransferase 26 IU/L (17-59); BUN Creatinine Ratio 12.4 (6-22); Bilirubin Total 1.4 mg/dL (0.2-1.3); Blood Urea Nitrogen 29 mg/dL (9-20); Calcium 10.1 mg/dL (8.4-10.2); Carbon Dioxide 19 mmol/L (22-32); Chloride 102 mmol/L (98-107); Creatine Kinase 110 U/L (55-170); Estimated Glomerular Filt Rate 28 mL/min (>60); Globulin 2.7 g/dL (1.7-4.1); Glucose 144 mg/dL (80-110); HEMOLYSIS 17 (0-50); Lactate (Lactic Acid) 2.4 mmol/L (0.7-2.1); Lipase 439 U/L (23-300); Potassium 3.8 mmol/L (3.4-5.1); Sodium 134 mmol/L (137-145); Total Protein 7.1 g/dL (6.3-8.2)
[2023-09-10 18:34] LABS: Troponin I < 0.012 ng/mL (0.01-0.034)
[2023-09-10 19:50] LABS: Reflexed Lactate in 2 Hours Y
[2023-09-10 20:22] LABS: Lactate 2HR (Lactic Acid Rflx) 1.8 mmol/L (0.7-2.1)
[2023-09-10 20:37] LABS: Adenovirus F 40/41 Not Detected (Not Detect); Astrovirus Not Detected (Not Detect); Campylobacter Not Detected (Not Detect); Clostridium difficile toxin AB Not Detected (Not Detect); Cryptosporidium Not Detected (Not Detect); Cyclospora cayetanensis Not Detected (Not Detect); Entamoeba histolytica Not Detected (Not Detect); Enteroaggregative E.coli Not Detected (Not Detect); Enteropathogenic E.coli Not Detected (Not Detect); Enterotoxigenic E.coli It/st Not Detected (Not Detect); Giardia lamblia Not Detected (Not Detect); Norovirus GI/GII Not Detected (Not Detect); Plesiomonsa shigelloides Not Detected (Not Detect); Rotavirus A Not Detected (Not Detect); Salmonella Not Detected (Not Detect); Sapovirus Not Detected (Not Detect); Shiga-like toxin-prod E.coli Not Detected (Not Detect); Shigella/Enteroinvasive E.coli Not Detected (Not Detect); Vibrio Not Detected (Not Detect); Vibrio cholerae Not Detected (Not Detect); Yersinia enterocolitica Not Detected (Not Detect)
== END 2023-09-10 21:55 | disposition home or self-care (01) ==
PROVIDERS: Emergency Provider Emergency Medicine; Family Provider Family Medicine; PCP Family Medicine
DX: K52.9 Noninfective gastroenteritis and colitis, unspecified (principal); R55 Syncope and collapse; Z79.899 Other long term (current) drug therapy
CPT/HCPCS: 36415; 71275; 74174; 80053; 82550; 83605; 83690; 84484; 85025; 87507; 93005; 93010; 96360; 99284; 99285; Q9967

== ENCOUNTER → 2023-09-17 14:36 | Outpatient (CLI) | payer OTHER, SELFPAY ==
[2023-07-19 13:47] VITALS: BMI 28.7
[2023-09-17 16:20] LABS: Add Manual Diff / Slide Review NO; Basophils Absolute Auto 100 /uL (0-100); Basophils Percent Auto 0.8 % (0-2); Eosinophils Absolute Auto 200 /uL (0-450); Eosinophils Percent Auto 3.8 % (2-4); Hematocrit 35.1 % (41-53); Hemoglobin 12.5 g/dL (13.5-17.5); Lymphocytes Absolute Auto 1300 /uL (1100-4500); Lymphocytes Percent Auto 20.5 % (25-40); Mean Corpuscular HGB Conc 35.5 % (30-36); Mean Corpuscular Hemoglobin 31.9 PG (26-34); Mean Corpuscular Volume 89.8 fL (80-100); Monocytes Absolute Auto 600 /uL (0-900); Monocytes Percent Auto 9.2 % (3-14); Neutrophils Absolute Auto 4300 /uL (1500-7000); Neutrophils Percent Auto 65.7 % (50-75); Platelet Count 183 X10^3/uL (150-400); Red Blood Cell Count 3.91 X10^6/uL (4.5-5.9); White Blood Cell Count 6.5 X10^3/uL (4.5-11.0)
[2023-09-17 16:26] LABS: Alanine Aminotransferase 18 IU/L (<50); Albumin 3.8 g/dL (3.5-5.0); Albumin Globulin Ratio 1.5 (1.0-2.8); Alkaline Phosphatase 92 U/L (38-126); Aspartate Aminotransferase 22 IU/L (17-59); BUN Creatinine Ratio 11.9 (6-22); Bilirubin Total 0.9 mg/dL (0.2-1.3); Blood Urea Nitrogen 21 mg/dL (9-20); Calcium 9.4 mg/dL (8.4-10.2); Carbon Dioxide 24 mmol/L (22-32); Chloride 105 mmol/L (98-107); Estimated Glomerular Filt Rate 39 mL/min (>60); Globulin 2.5 g/dL (1.7-4.1); Glucose 99 mg/dL (80-110); HEMOLYSIS < 15 (0-50); Potassium 4.4 mmol/L (3.4-5.1); Sodium 139 mmol/L (137-145); Total Protein 6.3 g/dL (6.3-8.2)
== END ==
LOC: LAB 14:37
PROVIDERS: Family Provider Family Medicine; PCP Family Medicine; Referring Provider Family Medicine; Visit Provider Family Medicine
DX: I10 Essential (primary) hypertension (principal); K52.9 Noninfective gastroenteritis and colitis, unspecified; N18.9 Chronic kidney disease, unspecified; D64.9 Anemia, unspecified; D72.829 Elevated white blood cell count, unspecified; E78.2 Mixed hyperlipidemia
CPT/HCPCS: 36415; 80053; 85025

== ENCOUNTER → 2023-11-04 10:58 | Outpatient (CLI) | payer OTHER, SELFPAY ==
[2023-07-19 13:47] VITALS: BMI 28.7
[2023-11-04 11:35] LABS: Hematocrit 35.6 % (41-53); Hemoglobin 12.2 g/dL (13.5-17.5)
[2023-11-04 12:07] LABS: Creatinine Urine Random 58.1 mg/dL; Protein (Total) Urine Random 10 mg/dL (0-12); Protein Creatinine Ratio Urine 0.17 GRAM/24H
[2023-11-04 12:09] LABS: BUN Creatinine Ratio 14.5 (6-22); Blood Urea Nitrogen 25 mg/dL (9-20); Calcium 9.6 mg/dL (8.4-10.2); Carbon Dioxide 27 mmol/L (22-32); Chloride 105 mmol/L (98-107); Estimated Glomerular Filt Rate 40 mL/min (>60); Glucose 182 mg/dL (80-110); HEMOLYSIS < 15 (0-50); Potassium 4.7 mmol/L (3.4-5.1); Sodium 138 mmol/L (137-145)
[2023-11-06 09:29] LABS: Parathyroid Hormone Int 54 pg/mL (15-65)
== END ==
PROVIDERS: Family Provider Family Medicine; PCP Family Medicine; Referring Provider Student in an Organized Health Care Education/Training Program; Visit Provider Student in an Organized Health Care Education/Training Program
DX: N05.9 Unspecified nephritic syndrome with unspecified morphologic changes (principal); D70.9 Neutropenia, unspecified; D63.1 Anemia in chronic kidney disease; N25.81 Secondary hyperparathyroidism of renal origin; R80.9 Proteinuria, unspecified
CPT/HCPCS: 36415; 80048; 82570; 83970; 84156; 85014; 85018

== ENCOUNTER → 2023-11-18 17:12 | Outpatient (CLI) | payer OTHER, SELFPAY ==
[2023-07-19 13:47] VITALS: BMI 28.7
--- NOTE | 2023-11-18 17:13 | DI.RAD.S_ITS ---
PROCEDURE: XR CERVICAL SPINE 2V OR 3V INDICATIONS: eval neuropathy TECHNIQUE: 3 view(s) of the cervical spine were acquired. COMPARISON: CT, C-SPINE WITHOUT CONTRAST, 04/05/2016, 16:06. [facility], , CERVICAL SPINE 2 OR 3 VIEWS, 10/17/2012, 9:27. FINDINGS: Bones: No fractures or dislocations to the C7 level. There is grade 1 retrolisthesis of C3 on C4. The lateral masses of C1 appear intact on the odontoid view. No suspicious bony lesions. Multilevel degenerative disc disease, moderate at C3-C4, C4-C5 and C5-C6. Moderate bilateral facet arthropathy throughout in cervical spine. Soft tissues: No prevertebral soft tissue swelling. IMPRESSION: 1. Moderate degenerative disc and facet disease. 2. Grade 1 retrolisthesis of C3 on C4. Dictated by: Mariann Marie M.D. on 11/20/2023 at 13:40 Approved by: Mariann Marie M.D. on 11/20/2023 at 13:42
== END ==
LOC: RAD 17:12
PROVIDERS: Family Provider Family Medicine; PCP Family Medicine; Referring Provider Family Medicine; Visit Provider Family Medicine
DX: M50.31 Other cervical disc degeneration, high cervical region (principal); M47.812 Spondylosis without myelopathy or radiculopathy, cervical region; G56.90 Unspecified mononeuropathy of unspecified upper limb; M43.12 Spondylolisthesis, cervical region
CPT/HCPCS: 72040

== ENCOUNTER → 2024-01-09 11:57 | Outpatient (CLI) | payer OTHER, SELFPAY ==
[2023-07-19 13:47] VITALS: BMI 28.7
== END ==
LOC: PHYS 11:58
PROVIDERS: Family Provider Family Medicine; PCP Family Medicine; Referring Provider Family Medicine; Visit Provider Family Medicine
DX: R20.2 Paresthesia of skin (principal); R20.0 Anesthesia of skin
CPT/HCPCS: 95886; 95912

== ENCOUNTER → 2024-02-25 15:08 | Outpatient (CLI) | payer OTHER, SELFPAY ==
[2023-07-19 13:47] VITALS: BMI 28.7
--- NOTE | 2024-02-25 15:09 | DI.MRI.S_ITS ---
PROCEDURE: MR CERVICAL SPINE WO CON INDICATIONS: Spinal stenosis, cervical region TECHNIQUE: Noncontrast sagittal T1 spin echo and T2 fast spin echo, sagittal STIR, foraminal oblique sagittal T2 fast spin echo, and axial gradient echo or T2 fast spin echo through the cervical spine. COMPARISON: [facility], MR, C-SPINE WITHOUT CONTRAST, 11/16/2014, 19:29. FINDINGS: Image quality: Excellent. Alignment and Curvature: There is normal bony alignment. Bone Marrow: Marrow demonstrates normal overall signal. Spinal Cord: Visualized spinal cord has normal size and signal. No cerebellar tonsillar herniation. Paraspinous Soft Tissues: No paravertebral masses. Prevertebral soft tissues are normal in thickness. Intervertebral discs: Multilevel disc desiccation and height loss. C2-C3: No spinal canal stenosis or foraminal stenosis. Bilateral facet arthropathy. C3-C4: No spinal canal stenosis. Moderate bilateral foraminal stenosis. Bilateral facet arthropathy and uncovertebral joint arthropathy. C4-C5: No spinal canal stenosis. Moderate stenosis of the left foramen. The right foramen is patent. Bilateral facet arthropathy and uncovertebral joint arthropathy, left greater than right. C5-C6: No spinal canal stenosis. Moderate stenosis of the left foramen. The left foramen is patent. Bilateral facet arthropathy and uncovertebral joint arthropathy. C6-C7: No spinal canal stenosis. Moderate left foraminal stenosis. Mild narrowing of the right foramen. Bilateral facet arthropathy and uncovertebral joint arthropathy. C7-T1: No spinal canal stenosis or foraminal stenosis. Bilateral facet arthropathy and uncovertebral joint arthropathy. IMPRESSION: 1. No significant spinal stenosis throughout the cervical spine. 2. Multilevel moderate stenosis of the neural foramina as described above. Dictated by: Jonas Smith M.D. on 02/26/2024 at 9:25 Approved by: Jonas Smith M.D. on 02/26/2024 at 9:38
== END ==
PROVIDERS: Family Provider Family Medicine; PCP Family Medicine; Referring Provider Physical Medicine & Rehabilitation; Visit Provider Physical Medicine & Rehabilitation
DX: M48.02 Spinal stenosis, cervical region (principal)
CPT/HCPCS: 72141

== ENCOUNTER → 2024-03-02 12:13 | Outpatient (CLI) | payer OTHER, SELFPAY ==
[2023-07-19 13:47] VITALS: BMI 28.7
--- NOTE | 2024-03-02 13:30 | DI.MRI.S_ITS ---
PROCEDURE: MR LUMBAR SPINE WO CON INDICATIONS: Spinal stenosis, lumbar region with neurogenic cla TECHNIQUE: Noncontrast sagittal T1 spin echo and T2 fast echo, sagittal STIR, and T2 fast spin echo through the lumbar spine. In cases with scoliosis, additional coronal T2 fast spin echo may be performed. COMPARISON: [facility], MR, MR LUMBAR SPINE WO CON, 05/10/2021, 15:32. FINDINGS: Image quality: Excellent. Alignment and Curvature: There is normal bony alignment. Bone Marrow: There is straightening of lumbar lordosis. Similar minimal retrolisthesis of L5 on S1. No acute vertebral body compression fractures. Schmorl node along the inferior endplate of L5 and L3. Spinal Cord: Conus medullaris terminates at the L1 level. Visualized cord demonstrates normal signal and size. Intervertebral discs: Multilevel disc height loss and disc desiccation. Paraspinous Soft Tissues: No paravertebral masses. T12-L1: No spinal canal stenosis or foraminal stenosis. There is bilateral facet arthropathy. There is ligamentum flavum hypertrophy. L1-L2: No spinal canal stenosis or foraminal stenosis. There is bilateral facet arthropathy and ligamentum flavum hypertrophy. L2-L3: No spinal canal stenosis or foraminal stenosis. Bilateral facet arthropathy and ligamentum flavum hypertrophy. L3-L4: Dorsal disc bulge mildly effaces the ventral thecal sac. Mild bilateral foraminal narrowing. There is bilateral facet arthropathy and ligamentum flavum hypertrophy. L4-L5: Similar dorsal disc bulge with corresponding annular tear mildly flattens the ventral thecal sac. Mild bilateral foraminal narrowing. Bilateral facet arthropathy and ligamentum flavum hypertrophy. L5-S1: Similar dorsal disc bulge and annular tear mildly displace the ventral thecal sac. Mild narrowing of the right foramen. No significant stenosis of the left foramen. There is bilateral facet arthropathy and ligamentum flavum hypertrophy. IMPRESSION: 1. When compared to prior MRI of the lumbar spine dated 05/10/2021, there has been no significant interval change in multilevel degenerative disc disease as described above. No significant spinal canal stenosis or foraminal stenosis. 2. There is straightening of lumbar lordosis. This finding can be seen in patients with muscle spasms. 3. Similar minimal retrolisthesis of L5 on S1. Less common manifestations of disc degeneration: * dorsal epidural disc herniation. * intradural disc herniation (may have beaklike morphology). * symptomatic thoracic herniation: often, calcified, intradural. * far lateral disc herniation. * discal cyst: may have blood-fluid level. * fibrocartilaginous embolism of disc material to spinal cord. * calcified disc or bony spicule causing spinal CSF leak. Lumbar disc nomenclature v2.0: Recommendations of the combined task forces of the [place] [employer], [place] [employer], and [place] [employer]orad[employer] Annular fissures: seen as high intensity zones on MRI. Concentric, radial, transverse. Degeneration encompasses: desiccation, fibrosis, disc narrowing, diffuse bulge, fissuring, mucinous degeneration of annulus, intradiscal gas, vertebral apophyseal osteophytes, end plate defects, inflammatory changes and sclerosis (Modic types I-III). Disc herniation: localized or focal displacement of disc material less than 25% (90 degrees) of disc periphery on axial images. Diffuse bulging and asymmetric bulging (>25%) are not considered herniation. * Protrusion, extrusion, sequestration. * Disc fragment can migrate (refers only to position, not contiguity). * Intravertebral herniations (aka Schmorl nodes). * Herniations may be contained (if covered by intact outer annulus and/or PLL) vs uncontained. Subligamentous is considered synonymous with contained. A sequestered and/or migrated disc fragment can still be contained. Canal and foraminal stenosis: use 2-D measurements at site of most marked compromise. * Mild: canal compromise of less than 1/3. * Moderate: canal compromise of 1/3 to 2/3. * Severe: canal compromise of greater than 2/3. Location descriptors: * Central, right/left central, right/left subarticular, right/left foraminal, right/left extraforaminal or far lateral. Right/left central should supersede paracentral (a more general term). * In sagittal plane: discal, infrapedicular, suprapedicular, or pedicular. >> Dictated by: Jonas Smith M.D. on 03/02/2024 at 16:23 Approved by: Jonas Smith M.D. on 03/02/2024 at 16:40
== END ==
PROVIDERS: Family Provider Family Medicine; PCP Family Medicine; Referring Provider Physical Medicine & Rehabilitation; Visit Provider Physical Medicine & Rehabilitation
DX: M48.062 Spinal stenosis, lumbar region with neurogenic claudication (principal); M48.07 Spinal stenosis, lumbosacral region; M51.36 Other intervertebral disc degeneration, lumbar region; M51.37 Other intervertebral disc degeneration, lumbosacral region; M47.816 Spondylosis without myelopathy or radiculopathy, lumbar region; M47.817 Spondylosis without myelopathy or radiculopathy, lumbosacral region
CPT/HCPCS: 72148

== ENCOUNTER → 2024-03-17 16:37 | Outpatient (CLI) | payer OTHER, SELFPAY ==
[2023-07-19 13:47] VITALS: BMI 28.7
[2024-03-17 17:09] LABS: Add Manual Diff / Slide Review NO; Basophils Absolute Auto 0 /uL (0-100); Basophils Percent Auto 0.6 % (0-2); Eosinophils Absolute Auto 500 /uL (0-450); Eosinophils Percent Auto 6.4 % (2-4); Hematocrit 33.9 % (41-53); Hemoglobin 11.7 g/dL (13.5-17.5); Lymphocytes Absolute Auto 1200 /uL (1100-4500); Lymphocytes Percent Auto 17.6 % (25-40); Mean Corpuscular HGB Conc 34.6 % (30-36); Mean Corpuscular Hemoglobin 30.1 PG (26-34); Mean Corpuscular Volume 87.1 fL (80-100); Monocytes Absolute Auto 500 /uL (0-900); Monocytes Percent Auto 7.5 % (3-14); Neutrophils Absolute Auto 4800 /uL (1500-7000); Neutrophils Percent Auto 67.9 % (50-75); Platelet Count 210 X10^3/uL (150-400); Red Blood Cell Count 3.89 X10^6/uL (4.5-5.9); Red Cell Distribution Width 13.5 % (11.6-14.8); White Blood Cell Count 7.1 X10^3/uL (4.5-11.0)
[2024-03-17 17:33] LABS: HEMOLYSIS < 15 (0-50); Potassium 4.2 mmol/L (3.4-5.1)
[2024-03-17 17:34] LABS: Erythrocyte Sedimentation Rate 14 MM/HR (0-15)
[2024-03-17 17:35] LABS: Alanine Aminotransferase 16 IU/L (<50); Albumin 4.1 g/dL (3.5-5.0); Albumin Globulin Ratio 1.8 (1.0-2.8); Alkaline Phosphatase 116 U/L (38-126); Aspartate Aminotransferase 19 IU/L (17-59); Bilirubin Total 0.9 mg/dL (0.2-1.3); Blood Urea Nitrogen 25 mg/dL (9-20); C-Reactive Protein Quant < 0.5 mg/dL (<1.0); Calcium 9.8 mg/dL (8.4-10.2); Carbon Dioxide 26 mmol/L (22-32); Chloride 104 mmol/L (98-107); Estimated Glomerular Filt Rate 39 mL/min (>60); Globulin 2.3 g/dL (1.7-4.1); Glucose 126 mg/dL (80-110); Sodium 137 mmol/L (137-145); Total Protein 6.4 g/dL (6.3-8.2)
== END ==
PROVIDERS: Family Provider Family Medicine; PCP Family Medicine; Referring Provider Physician Assistant; Visit Provider Physician Assistant
DX: G56.03 Carpal tunnel syndrome, bilateral upper limbs (principal); E34.9 Endocrine disorder, unspecified
CPT/HCPCS: 36415; 80053; 84402; 84403; 85025; 85651; 86140

== ENCOUNTER 2024-05-13 13:45 | Outpatient (RCR) | payer OTHER, SELFPAY ==
[2023-07-19 13:47] VITALS: BMI 28.7
--- NOTE | 2024-04-14 17:16 | PT.OTN ---
Current Diagnoses Pain in right shoulder (04/14/24) Pain in left shoulder (04/14/24) Stiffness of right shoulder, not elsewhere classified (04/14/24) Stiffness of left shoulder, not elsewhere classified (04/14/24) Stiffness of other specified joint, not elsewhere classified (04/14/24) Spinal stenosis, cervical region (04/14/24) Spinal stenosis, lumbar region without neurogenic claudication (04/14/24) Physical Therapy Treatment Note PT-OP-A Visit Information Start: 04/14/24 16:48 Freq: Status: Active Protocol: Document 04/14/24 13:45 DCW (Rec: 04/14/24 17:16 [facility] [id number]) Out-Patient Physical Therapy Visit Information Visit Information Visit Type Initial Evaluation Visit Start Time 13:45 Visit Stop Time 14:30 Visit Number 1 Number of MACHINIST MECHANIC Visits 0 Evaluation Information Evaluation Date 04/14/24 PT-OP-B Current Condition Start: 04/14/24 16:48 Freq: Status: Active Protocol: Document 04/14/24 13:45 DCW (Rec: 04/14/24 17:16 [facility] [id number]) Current Condition History of Current Condition Onset Date Long-standing history Current Complaints Back pain, neck pain, shoulder stiffness, decreased activity tolerance History of Current Condition Pt is a 78 year old male presenting with a multi-year history of C/T/L spine pain, as well as pain and limited ROM in bilateral shoulders. Pt diagnosed with stenosis and osteoarthritis in his spine. Pt notes that he is moving toward spine surgery, but is hoping PT will help put off or eliminate need for surgical intervention. Reports he has difficulty with sit<->stand due to pain in abdomen and across his low back. Increased pain with radicular symptoms when sitting for too long. Does have a history of left- sided rotator cuff repair, reports he was told he might need it on the right side as well. 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 Treatment Goals Patient/Caregiver Goals To get rid of the pain, if possible. PT-OP-C Subjective Start: 04/14/24 16:48 Freq: Status: Active Protocol: Document 04/14/24 13:45 DCW (Rec: 04/14/24 17:16 DCW [id number]) OP-PT Subjective Patient Comments Patient Comments They've done an ablation on the nerve in my back. It helped some, but didn't really last as long as they hoped. Patient Questionnaires Neck Disability Index NDI Score 14/50 = 28% Neck Disability Index Impairment 20 to 39% Impaired (Score 10- 19) Oswestry Low Back Index Oswestry Score 14/50 = 28% Oswestry Impairment 20 to 39% Impaired (Score 20- 39) PT-OP-E Functional Tests Start: 04/14/24 16:49 Freq: Status: Active Protocol: Document 04/14/24 13:45 DCW (Rec: 04/14/24 17:16 DCW [id number]) Functional Tests 30 Second Sit to Stand Test Score x3 Repetitions PT-OP-K Range of Motion Start: 04/14/24 16:48 Freq: Status: Active Protocol: Document 04/14/24 13:45 DCW (Rec: 04/14/24 17:16 DCW [id number]) Cervical Spine Range of Motion Cervical Spine Active Degrees Testing Position Sitting Flexion 22 Extension 26 Rotation Left 33 Rotation Right 56 Lateral Flexion Left 21 Lateral Flexion Right 18 ROM Limitations Soft Tissue Tightness,Muscle Tone,Pain Shoulder Goniometric Range of Motion Shoulder Right Active Shoulder ROM WFL No Testing Position Sitting Flexion 68 Abduction 91 External Rotation at 0 degrees Abduction 63 Internal Rotation Behind Back (text) T12 Left Active Shoulder ROM WFL No Testing Position Sitting Flexion 96 Abduction 90 External Rotation at 0 degrees Abduction 54 Internal Rotation Behind Back (text) T12 PT-OP-Q Treatments Start: 04/14/24 16:48 Freq: Status: Active Protocol: Document 04/14/24 13:45 DCW (Rec: 04/14/24 17:16 DCW [id number]) Therapeutic Exercises Supine Exercises LTR Supine Exercise Name LTR Hip Flexor Supine Exercise Name Hip Flexor stretch - leg off table Sidelying Exercises Open Book Sidelying Exercise Name Open Book Standing Exercises Pallof Press Standing Exercise Name Pallof Press Resistance Lv 3 PT-OP-T Assessment and Plan Start: 04/14/24 16:48 Freq: Status: Active Protocol: Document 04/14/24 13:45 DCW (Rec: 04/14/24 17:16 DCW [id number]) Physical Therapy Assessment Rehab Potential Rehabilitation Potential Good Evaluation Complexity Number of Personal Factors/Comorbidities 3 or More Number of Body Systems Impaired 4 or More Clinical Presentation at Evaluation Evolving Impairments Impairments Activity Tolerance,Functional Activities,Functional Mobility ,Pain,ROM,Soft Tissue Mobility ,Strength,Tone Goals One Impairment Pt does not have an appropriate home exercise program Short Term Goal (STG) Pt to be independent and compliant with an appropriate HEP STG Duration 05/14/24 Three Impairment Significant limitations in shoulder mobility Impairment . [employer] Goal (LTG) Pt to demonstrate increased shoulder flexion and abduction to >120? bilaterally in order to improve ability to perform overhead activities. LTG Duration 06/14/24 Two Impairment Limitations in cervical ROM ( lateral flexion 18?R, 21?L, rotation 33?L) Impairment . Detention Goal (LTG) Pt to exhibit improved cervical mobility by demonstrating increased ROM of lateral flexion to >30? bilaterally and cervical rotation to 60? bilaterally, in order to improve ability to look for cross traffic while driving LTG Duration 06/14/24 Assessment Summary Assessment Pt presents with signs and symptoms consistent with referring diagnosis of spinal stenosis, osteoarthritis, and likely rotator cuff injuries bilaterally. Pt fairly limited with mobility of cervical spine and shoulder. Pt struggles with transfers due to radicular symptoms, leg pain, weakness, and increased tone in hip flexors. Pt only able to perform three repetitions during 30 second Sit to Stand. Pt should benefit from skilled therapeutic intervention focusing on hip, shoulder, and core strengthening, improved activity tolerance, tone management, and increased shoulder and spinal mobility. Physical Therapy Plan Frequency and Duration Frequency of Treatment 2x/Week Plan of Care Start Date 04/14/24 Plan of Care End Date 06/14/24 Therapeutic Interventions Therapeutic Interventions Home Exercise Program,Joint Mobilizations,Manual Therapy, Neuromuscular Re-education, Patient/Caregiver Education, Self-Care/Home Management,Soft Tissue Mobilization, Therapeutic Activities, Therapeutic Exercises Modalities Cold Pack/Ice Massage,Electric Stimulation,Hot Packs Next Visit Focus/Plan Next Note Type Treatment Note Next Visit Plan Core strength, Paraspinal STM, stretching, shoulder PROM
--- NOTE | 2024-04-17 14:38 | PT.OTN ---
Current Diagnoses Pain in right shoulder (04/17/24) Pain in left shoulder (04/17/24) Stiffness of right shoulder, not elsewhere classified (04/17/24) Stiffness of left shoulder, not elsewhere classified (04/17/24) Stiffness of other specified joint, not elsewhere classified (04/17/24) Spinal stenosis, cervical region (04/17/24) Spinal stenosis, lumbar region without neurogenic claudication (04/17/24) Physical Therapy Treatment Note PT-OP-A Visit Information Start: 04/14/24 16:48 Freq: Status: Active Protocol: Document 04/17/24 13:50 DCW (Rec: 04/17/24 14:38 [facility] [id number]) Out-Patient Physical Therapy Visit Information Visit Information Visit Type Treatment Note Visit Start Time 13:50 Visit Stop Time 14:30 Visit Number 2 Number of ALUM OPERATOR Visits 0 Evaluation Information Evaluation Date 04/14/24 PT-OP-B Current Condition Start: 04/14/24 16:48 Freq: Status: Active Protocol: Document 04/14/24 13:45 DCW (Rec: 04/14/24 17:16 [facility] [id number]) Current Condition History of Current Condition Onset Date Long-standing history Current Complaints Back pain, neck pain, shoulder stiffness, decreased activity tolerance History of Current Condition Pt is a 78 year old male presenting with a multi-year history of C/T/L spine pain, as well as pain and limited ROM in bilateral shoulders. Pt diagnosed with stenosis and osteoarthritis in his spine. Pt notes that he is moving toward spine surgery, but is hoping PT will help put off or eliminate need for surgical intervention. Reports he has difficulty with sit<->stand due to pain in abdomen and across his low back. Increased pain with radicular symptoms when sitting for too long. Does have a history of left- sided rotator cuff repair, reports he was told he might need it on the right side as well. 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 Treatment Goals Patient/Caregiver Goals To get rid of the pain, if possible. PT-OP-C Subjective Start: 04/14/24 16:48 Freq: Status: Active Protocol: Document 04/17/24 13:50 DCW (Rec: 04/17/24 14:38 DCW [id number]) OP-PT Subjective Patient Comments Patient Comments Pt feeling alright. PT-OP-E Functional Tests Start: 04/14/24 16:49 Freq: Status: Active Protocol: Document 04/14/24 13:45 DCW (Rec: 04/14/24 17:16 DCW [id number]) Functional Tests 30 Second Sit to Stand Test Score x3 Repetitions PT-OP-K Range of Motion Start: 04/14/24 16:48 Freq: Status: Active Protocol: Document 04/14/24 13:45 DCW (Rec: 04/14/24 17:16 DCW [id number]) Cervical Spine Range of Motion Cervical Spine Active Degrees Testing Position Sitting Flexion 22 Extension 26 Rotation Left 33 Rotation Right 56 Lateral Flexion Left 21 Lateral Flexion Right 18 ROM Limitations Soft Tissue Tightness,Muscle Tone,Pain Shoulder Goniometric Range of Motion Shoulder Right Active Shoulder ROM WFL No Testing Position Sitting Flexion 68 Abduction 91 External Rotation at 0 degrees Abduction 63 Internal Rotation Behind Back (text) T12 Left Active Shoulder ROM WFL No Testing Position Sitting Flexion 96 Abduction 90 External Rotation at 0 degrees Abduction 54 Internal Rotation Behind Back (text) T12 PT-OP-Q Treatments Start: 04/14/24 16:48 Freq: Status: Active Protocol: Document 04/17/24 13:50 DCW (Rec: 04/17/24 14:38 DCW [id number]) Gym Equipment Cable Column (Body Solid) Triceps Details Triceps press Resistance 30# Therapeutic Ball Pelvic tilts Exercise Details Pelvic tilts/circles Ball Size/Color Green - 65 cm Body Position Sitting Hip Flexion Exercise Details Resisted hip/knee flexion Ball Size/Color Red - 55 cm Lv 3 T-band Body Position Supine Bridging Exercise Details Bridging /c feet on ball Ball Size/Color Red - 55 cm Body Position Supine LTR Exercise Details LTR Ball Size/Color Red - 55 cm Body Position Supine Therapeutic Exercises Sitting Exercises Pulleys Sitting Exercise Name Shoulder flexion - Pulleys Manual Therapy Treatment Consent Patient gave verbal consent for manual Yes treatment Soft Tissue Mobilization Paraspinals Body Location B T/L paraspinals, upper trap Mobilization Type Strumming,Sustained Pressure, Trigger Point Release Intensity/Depth Moderate Body Position Sidelying PT-OP-T Assessment and Plan Start: 04/14/24 16:48 Freq: Status: Active Protocol: Document 04/17/24 13:50 DCW (Rec: 04/17/24 14:38 DCW [id number]) Physical Therapy Assessment Impairments Impairments Activity Tolerance,Functional Activities,Functional Mobility ,Pain,ROM,Soft Tissue Mobility ,Strength,Tone Goals One Impairment Pt does not have an appropriate home exercise program Short Term Goal (STG) Pt to be independent and compliant with an appropriate HEP STG Duration 05/14/24 Three Impairment Significant limitations in shoulder mobility Impairment . Shelter Goal (LTG) Pt to demonstrate increased shoulder flexion and abduction to >120? bilaterally in order to improve ability to perform overhead activities. LTG Duration 06/14/24 Two Impairment Limitations in cervical ROM ( lateral flexion 18?R, 21?L, rotation 33?L) Impairment . Engraver Wood Goal (LTG) Pt to exhibit improved cervical mobility by demonstrating increased ROM of lateral flexion to >30? bilaterally and cervical rotation to 60? bilaterally, in order to improve ability to look for cross traffic while driving LTG Duration 06/14/24 Assessment Summary Assessment Pt exhibited good response to treatment today, tolerated all activities without increased pain, good control and abdominal bracing. Continue to work on T/L mobility, shoulder strength, and tone management. Physical Therapy Plan Frequency and Duration Frequency of Treatment 2x/Week Plan of Care Start Date 04/14/24 Plan of Care End Date 06/14/24 Therapeutic Interventions Therapeutic Interventions Home Exercise Program,Joint Mobilizations,Manual Therapy, Neuromuscular Re-education, Patient/Caregiver Education, Self-Care/Home Management,Soft Tissue Mobilization, Therapeutic Activities, Therapeutic Exercises Modalities Cold Pack/Ice Massage,Electric Stimulation,Hot Packs Next Visit Focus/Plan Next Note Type Treatment Note Next Visit Plan Core strength, Paraspinal STM, stretching, shoulder PROM
--- NOTE | 2024-04-21 16:31 | PT.OTN ---
Current Diagnoses Pain in right shoulder (04/21/24) Pain in left shoulder (04/21/24) Stiffness of right shoulder, not elsewhere classified (04/21/24) Stiffness of left shoulder, not elsewhere classified (04/21/24) Stiffness of other specified joint, not elsewhere classified (04/21/24) Spinal stenosis, cervical region (04/21/24) Spinal stenosis, lumbar region without neurogenic claudication (04/21/24) Physical Therapy Treatment Note PT-OP-A Visit Information Start: 04/14/24 16:48 Freq: Status: Active Protocol: Document 04/21/24 13:35 AB (Rec: 04/21/24 16:30 AB [id number]) Out-Patient Physical Therapy Visit Information Visit Information Visit Type Treatment Note Visit Start Time 13:47 Visit Stop Time 14:30 Visit Number 3 Number of ABRASIVE MIXER HELPER Visits 1 Evaluation Information Evaluation Date 04/14/24 PT-OP-B Current Condition Start: 04/14/24 16:48 Freq: Status: Active Protocol: Document 04/14/24 13:45 DCW (Rec: 04/14/24 17:16 DCW [id number]) Current Condition History of Current Condition Onset Date Long-standing history Current Complaints Back pain, neck pain, shoulder stiffness, decreased activity tolerance History of Current Condition Pt is a 78 year old male presenting with a multi-year history of C/T/L spine pain, as well as pain and limited ROM in bilateral shoulders. Pt diagnosed with stenosis and osteoarthritis in his spine. Pt notes that he is moving toward spine surgery, but is hoping PT will help put off or eliminate need for surgical intervention. Reports he has difficulty with sit<->stand due to pain in abdomen and across his low back. Increased pain with radicular symptoms when sitting for too long. Does have a history of left- sided rotator cuff repair, reports he was told he might need it on the right side as well. 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 Treatment Goals Patient/Caregiver Goals To get rid of the pain, if possible. PT-OP-C Subjective Start: 04/14/24 16:48 Freq: Status: Active Protocol: Document 04/21/24 13:35 AB (Rec: 04/21/24 16:30 AB [id number]) OP-PT Subjective Patient Comments Patient Comments Patient rates back pain 6/10 low back right> left. Patient comments he is using cane due to the pain. Patient reports increased pain when he stands up. PT-OP-E Functional Tests Start: 04/14/24 16:49 Freq: Status: Active Protocol: Document 04/14/24 13:45 DCW (Rec: 04/14/24 17:16 DCW [id number]) Functional Tests 30 Second Sit to Stand Test Score x3 Repetitions PT-OP-K Range of Motion Start: 04/14/24 16:48 Freq: Status: Active Protocol: Document 04/14/24 13:45 DCW (Rec: 04/14/24 17:16 DCW [id number]) Cervical Spine Range of Motion Cervical Spine Active Degrees Testing Position Sitting Flexion 22 Extension 26 Rotation Left 33 Rotation Right 56 Lateral Flexion Left 21 Lateral Flexion Right 18 ROM Limitations Soft Tissue Tightness,Muscle Tone,Pain Shoulder Goniometric Range of Motion Shoulder Right Active Shoulder ROM WFL No Testing Position Sitting Flexion 68 Abduction 91 External Rotation at 0 degrees Abduction 63 Internal Rotation Behind Back (text) T12 Left Active Shoulder ROM WFL No Testing Position Sitting Flexion 96 Abduction 90 External Rotation at 0 degrees Abduction 54 Internal Rotation Behind Back (text) T12 PT-OP-Q Treatments Start: 04/14/24 16:48 Freq: Status: Active Protocol: Document 04/21/24 13:35 AB (Rec: 04/21/24 16:30 AB [id number]) Therapeutic Exercises Supine Exercises CS rot Supine Exercise Name AROM on occipital float Reps/Minutes 3 min Comments VC to perform slowly in pain free range, vc breath diaphragm LTR Supine Exercise Name LTR Reps/Minutes 2 min Hip Flexor Supine Exercise Name Hip Flexor stretch - leg off bolster one LE on bolster Side bilateral Reps/Minutes 60 sec Sitting Exercises Pulleys Sitting Exercise Name Shoulder flexion, abd - Pulleys Reps/Minutes one minute each Therapeutic Activity Therapeutic Activity supine to sit Comments Verbal cues to push with knees bent when rolling, for timing with supine to sit, and to scoot back in sitting fully prior to sit to supine. sit to stand Name without UE use, raised seat height Comments Pt ed [facility] sit to stand, Pt ed self tactile cues for hip hinge Manual Therapy Treatment Consent Patient gave verbal consent for manual Yes treatment Soft Tissue Mobilization Paraspinals Body Location bilateral lumbar and cervical paraspinals Mobilization Type Sustained Pressure Intensity/Depth Moderate Body Position Sidelying Comments moderate to superficial PT-OP-T Assessment and Plan Start: 04/14/24 16:48 Freq: Status: Active Protocol: Document 04/21/24 13:35 AB (Rec: 04/21/24 16:30 AB [id number]) Physical Therapy Assessment Goals One Impairment Pt does not have an appropriate home exercise program Short Term Goal (STG) Pt to be independent and compliant with an appropriate HEP STG Duration 05/14/24 Three Impairment Significant limitations in shoulder mobility Impairment . Optical Technician Goal (LTG) Pt to demonstrate increased shoulder flexion and abduction to >120? bilaterally in order to improve ability to perform overhead activities. LTG Duration 06/14/24 Two Impairment Limitations in cervical ROM ( lateral flexion 18?R, 21?L, rotation 33?L) Impairment . Optical Technician Goal (LTG) Pt to exhibit improved cervical mobility by demonstrating increased ROM of lateral flexion to >30? bilaterally and cervical rotation to 60? bilaterally, in order to improve ability to look for cross traffic while driving LTG Duration 06/14/24 Assessment Summary Assessment Patient able to transfer seated to sidelying with decreased effort to position LE's on mat post training. Patient reports decreased back pain end of session. Physical Therapy Plan Frequency and Duration Frequency of Treatment 2x/Week Plan of Care Start Date 04/14/24 Plan of Care End Date 06/14/24 Next Visit Focus/Plan Next Note Type Treatment Note Next Visit Plan Core strength, Paraspinal STM, stretching, shoulder PROM
--- NOTE | 2024-04-24 15:00 | PT.OTN ---
Current Diagnoses Pain in right shoulder (04/24/24) Pain in left shoulder (04/24/24) Stiffness of right shoulder, not elsewhere classified (04/24/24) Stiffness of left shoulder, not elsewhere classified (04/24/24) Stiffness of other specified joint, not elsewhere classified (04/24/24) Spinal stenosis, cervical region (04/24/24) Spinal stenosis, lumbar region without neurogenic claudication (04/24/24) Physical Therapy Treatment Note PT-OP-A Visit Information Start: 04/14/24 16:48 Freq: Status: Active Protocol: Document 04/24/24 13:00 AB (Rec: 04/24/24 14:57 AB [id number]) Out-Patient Physical Therapy Visit Information Visit Information Visit Type Treatment Note Visit Note Visit [email or web address] Access Code: [email or web address] Visit Start Time 13:49 Visit Stop Time 14:33 Visit Number 4 Number of GUEST SERVICES LEAD Visits 2 Evaluation Information Evaluation Date 04/14/24 PT-OP-B Current Condition Start: 04/14/24 16:48 Freq: Status: Active Protocol: Document 04/14/24 13:45 DCW (Rec: 04/14/24 17:16 DCW [id number]) Current Condition History of Current Condition Onset Date Long-standing history Current Complaints Back pain, neck pain, shoulder stiffness, decreased activity tolerance History of Current Condition Pt is a 78 year old male presenting with a multi-year history of C/T/L spine pain, as well as pain and limited ROM in bilateral shoulders. Pt diagnosed with stenosis and osteoarthritis in his spine. Pt notes that he is moving toward spine surgery, but is hoping PT will help put off or eliminate need for surgical intervention. Reports he has difficulty with sit<->stand due to pain in abdomen and across his low back. Increased pain with radicular symptoms when sitting for too long. Does have a history of left- sided rotator cuff repair, reports he was told he might need it on the right side as well. 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 Treatment Goals Patient/Caregiver Goals To get rid of the pain, if possible. PT-OP-C Subjective Start: 04/14/24 16:48 Freq: Status: Active Protocol: Document 04/24/24 13:00 AB (Rec: 04/24/24 14:57 AB [id number]) OP-PT Subjective Patient Comments Patient Comments Patient rates pain 5/10 LS area and neck start of session ambulating into session with SPC. Leeann reports he felt a little better post previous session. PT-OP-E Functional Tests Start: 04/14/24 16:49 Freq: Status: Active Protocol: Document 04/14/24 13:45 DCW (Rec: 04/14/24 17:16 DCW [id number]) Functional Tests 30 Second Sit to Stand Test Score x3 Repetitions PT-OP-K Range of Motion Start: 04/14/24 16:48 Freq: Status: Active Protocol: Document 04/14/24 13:45 DCW (Rec: 04/14/24 17:16 DCW [id number]) Cervical Spine Range of Motion Cervical Spine Active Degrees Testing Position Sitting Flexion 22 Extension 26 Rotation Left 33 Rotation Right 56 Lateral Flexion Left 21 Lateral Flexion Right 18 ROM Limitations Soft Tissue Tightness,Muscle Tone,Pain Shoulder Goniometric Range of Motion Shoulder Right Active Shoulder ROM WFL No Testing Position Sitting Flexion 68 Abduction 91 External Rotation at 0 degrees Abduction 63 Internal Rotation Behind Back (text) T12 Left Active Shoulder ROM WFL No Testing Position Sitting Flexion 96 Abduction 90 External Rotation at 0 degrees Abduction 54 Internal Rotation Behind Back (text) T12 PT-OP-Q Treatments Start: 04/14/24 16:48 Freq: Status: Active Protocol: Document 04/24/24 13:00 AB (Rec: 04/24/24 14:57 AB [id number]) Therapeutic Exercises Supine Exercises shoulder flexion Supine Exercise Name AROM Side bilateral Reps/Minutes 10 sec hold X10 Comments Verbal cues hooklying clamsehell Side bilateral Resistance level one light blue band Reps/Minutes one minute X 1 then X 15 without hold Comments verbal cues, monitored for pain CS rot Supine Exercise Name AROM on occipital float Reps/Minutes 3 min Comments VC to perform slowly in pain free range, vc breath diaphragm Sidelying Exercises Open Book Sidelying Exercise Name Open Book HEP Side bilateral Reps/Minutes 5 X5 Comments Verbal cues Sitting Exercises scalene stretch Sitting Exercise Name HEP Side bilateral Reps/Minutes X3 each side 10-30 sec seated hip abd with band Side bilateral Resistance level 3 and level 1 band Reps/Minutes X1 each band Comments not taylor reports feels it in LS area Manual Therapy Treatment Soft Tissue Mobilization Paraspinals Body Location B T/ paraspinals, upper trap, scalenes at lat clavicle Mobilization Type Cross-Friction,Rolling, Sustained Pressure Intensity/Depth Moderate Body Position Sidelying PT-OP-T Assessment and Plan Start: 04/14/24 16:48 Freq: Status: Active Protocol: Document 04/24/24 13:00 AB (Rec: 04/24/24 14:57 AB [id number]) Physical Therapy Assessment Goals One Impairment Pt does not have an appropriate home exercise program Short Term Goal (STG) Pt to be independent and compliant with an appropriate HEP STG Duration 05/14/24 Three Impairment Significant limitations in shoulder mobility Impairment . Intermediate Goal (LTG) Pt to demonstrate increased shoulder flexion and abduction to >120? bilaterally in order to improve ability to perform overhead activities. LTG Duration 06/14/24 Two Impairment Limitations in cervical ROM ( lateral flexion 18?R, 21?L, rotation 33?L) Impairment . Fountain Worker Goal (LTG) Pt to exhibit improved cervical mobility by demonstrating increased ROM of lateral flexion to >30? bilaterally and cervical rotation to 60? bilaterally, in order to improve ability to look for cross traffic while driving LTG Duration 06/14/24 Assessment Summary Assessment Patient reports having no neck pain, less back pain end of session. AROM bilateral shoulder flexion grossly 120 deg. end of session. Physical Therapy Plan Frequency and Duration Frequency of Treatment 2x/Week Plan of Care Start Date 04/14/24 Plan of Care End Date 06/14/24 Next Visit Focus/Plan Next Note Type Treatment Note Next Visit Plan Core strength, Paraspinal STM, stretching, shoulder PROM/ assess abduction
--- NOTE | 2024-04-30 12:12 | PT.OTN ---
Current Diagnoses Pain in right shoulder (04/30/24) Pain in left shoulder (04/30/24) Stiffness of right shoulder, not elsewhere classified (04/30/24) Stiffness of left shoulder, not elsewhere classified (04/30/24) Stiffness of other specified joint, not elsewhere classified (04/30/24) Spinal stenosis, cervical region (04/30/24) Spinal stenosis, lumbar region without neurogenic claudication (04/30/24) Physical Therapy Treatment Note PT-OP-A Visit Information Start: 04/14/24 16:48 Freq: Status: Active Protocol: Document 04/30/24 08:51 AB (Rec: 04/30/24 09:48 AB [id number]) Out-Patient Physical Therapy Visit Information Visit Information Visit Type Treatment Note Visit Note Visit [email or web address] Access Code: [email or web address] Visit Start Time 09:04 Visit Stop Time 09:47 Visit Number 5 Number of JEEP MECHANIC Visits 3 Evaluation Information Evaluation Date 04/14/24 PT-OP-B Current Condition Start: 04/14/24 16:48 Freq: Status: Active Protocol: Document 04/14/24 13:45 DCW (Rec: 04/14/24 17:16 DCW [id number]) Current Condition History of Current Condition Onset Date Long-standing history Current Complaints Back pain, neck pain, shoulder stiffness, decreased activity tolerance History of Current Condition Pt is a 78 year old male presenting with a multi-year history of C/T/L spine pain, as well as pain and limited ROM in bilateral shoulders. Pt diagnosed with stenosis and osteoarthritis in his spine. Pt notes that he is moving toward spine surgery, but is hoping PT will help put off or eliminate need for surgical intervention. Reports he has difficulty with sit<->stand due to pain in abdomen and across his low back. Increased pain with radicular symptoms when sitting for too long. Does have a history of left- sided rotator cuff repair, reports he was told he might need it on the right side as well. 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 Treatment Goals Patient/Caregiver Goals To get rid of the pain, if possible. PT-OP-C Subjective Start: 04/14/24 16:48 Freq: Status: Active Protocol: Document 04/30/24 08:51 AB (Rec: 04/30/24 09:48 AB [id number]) OP-PT Subjective Patient Comments Patient Comments Patient reports the neck is stiff, shoulder feels ok. Patient reports back is painful, to the point he almost canceled. Patient reports he is going scheduled for back surgery. Patient reports he was walking more over the weekend. 86 deg right 90 deg left shoulder flexion AROM start of se PT-OP-E Functional Tests Start: 04/14/24 16:49 Freq: Status: Active Protocol: Document 04/14/24 13:45 DCW (Rec: 04/14/24 17:16 DCW [id number]) Functional Tests 30 Second Sit to Stand Test Score x3 Repetitions PT-OP-K Range of Motion Start: 04/14/24 16:48 Freq: Status: Active Protocol: Document 04/14/24 13:45 DCW (Rec: 04/14/24 17:16 DCW [id number]) Cervical Spine Range of Motion Cervical Spine Active Degrees Testing Position Sitting Flexion 22 Extension 26 Rotation Left 33 Rotation Right 56 Lateral Flexion Left 21 Lateral Flexion Right 18 ROM Limitations Soft Tissue Tightness,Muscle Tone,Pain Shoulder Goniometric Range of Motion Shoulder Right Active Shoulder ROM WFL No Testing Position Sitting Flexion 68 Abduction 91 External Rotation at 0 degrees Abduction 63 Internal Rotation Behind Back (text) T12 Left Active Shoulder ROM WFL No Testing Position Sitting Flexion 96 Abduction 90 External Rotation at 0 degrees Abduction 54 Internal Rotation Behind Back (text) T12 PT-OP-Q Treatments Start: 04/14/24 16:48 Freq: Status: Active Protocol: Document 04/30/24 08:51 AB (Rec: 04/30/24 09:48 AB [id number]) Therapeutic Exercises Supine Exercises shoulder flexion Supine Exercise Name AROM Side bilateral Reps/Minutes 10 sec hold X5 Comments Verbal cues hooklying clamsehell Side bilateral Resistance level one light blue band Reps/Minutes one minute X 1 then X 15 without hold Comments verbal cues, monitored for pain CS rot Supine Exercise Name AROM on occipital float Reps/Minutes 2 min Comments VC to perform slowly in pain free range, vc breath diaphragm LTR Supine Exercise Name LTR Reps/Minutes 2 min Hip Flexor Supine Exercise Name one LE on bolster one on mat then off edge on second rep Reps/Minutes 60 sec Sidelying Exercises Open Book Sidelying Exercise Name Open Book HEP Side bilateral Reps/Minutes 5 X5 Comments Verbal cues Manual Therapy Treatment Consent Patient gave verbal consent for manual Yes treatment Soft Tissue Mobilization Bilateral shoulders Body Location pec, post cuff, periscap, levator scap UT Mobilization Type Cross-Friction,Rolling Intensity/Depth Moderate Body Position Hooklying Manual Techniques shoulder PROM Body Location bilateral shoulders Reps/Duration gentle IR and ER X 3 left IR X 3 right contract relax 1/3 PT-OP-T Assessment and Plan Start: 04/14/24 16:48 Freq: Status: Active Protocol: Document 04/30/24 08:51 AB (Rec: 04/30/24 09:48 AB [id number]) Physical Therapy Assessment Goals One Impairment Pt does not have an appropriate home exercise program Short Term Goal (STG) Pt to be independent and compliant with an appropriate HEP STG Duration 05/14/24 Three Impairment Significant limitations in shoulder mobility Impairment . Long-Term Goal (LTG) Pt to demonstrate increased shoulder flexion and abduction to >120? bilaterally in order to improve ability to perform overhead activities. LTG Duration 06/14/24 Two Impairment Limitations in cervical ROM ( lateral flexion 18?R, 21?L, rotation 33?L) Impairment . Car Wash Attendant Goal (LTG) Pt to exhibit improved cervical mobility by demonstrating increased ROM of lateral flexion to >30? bilaterally and cervical rotation to 60? bilaterally, in order to improve ability to look for cross traffic while driving LTG Duration 06/14/24 Assessment Summary Assessment 140 deg AROM right shoulder flexion, patient seated end of session. Patient reports the back is better. Physical Therapy Plan Frequency and Duration Frequency of Treatment 2x/Week Plan of Care Start Date 04/14/24 Plan of Care End Date 06/14/24 Next Visit Focus/Plan Next Note Type Treatment Note Next Visit Plan Core strength, Paraspinal STM, stretching, shoulder PROM/ assess abduction
--- NOTE | 2024-05-05 14:00 | PT-OP ANOTE ---
Pt did not attend appointment due to being sick. He left a message earlier in the day with the front maker.
--- NOTE | 2024-05-13 14:07 | PT.OTN ---
Current Diagnoses Pain in right shoulder (05/13/24) Pain in left shoulder (05/13/24) Stiffness of right shoulder, not elsewhere classified (05/13/24) Stiffness of left shoulder, not elsewhere classified (05/13/24) Stiffness of other specified joint, not elsewhere classified (05/13/24) Spinal stenosis, cervical region (05/13/24) Spinal stenosis, lumbar region without neurogenic claudication (05/13/24) Physical Therapy Treatment Note PT-OP-A Visit Information Start: 04/14/24 16:48 Freq: Status: Active Protocol: Document 05/13/24 13:45 DCW (Rec: 05/13/24 14:06 [facility] [id number]) Out-Patient Physical Therapy Visit Information Visit Information Visit Type Discharge Summary Visit Start Time 13:45 Visit Stop Time 14:05 Visit Number 6 Number of WORSTED WINDER Visits 0 Evaluation Information Evaluation Date 04/14/24 PT-OP-B Current Condition Start: 04/14/24 16:48 Freq: Status: Active Protocol: Document 04/14/24 13:45 DCW (Rec: 04/14/24 17:16 [facility] [id number]) Current Condition History of Current Condition Onset Date Long-standing history Current Complaints Back pain, neck pain, shoulder stiffness, decreased activity tolerance History of Current Condition Pt is a 78 year old male presenting with a multi-year history of C/T/L spine pain, as well as pain and limited ROM in bilateral shoulders. Pt diagnosed with stenosis and osteoarthritis in his spine. Pt notes that he is moving toward spine surgery, but is hoping PT will help put off or eliminate need for surgical intervention. Reports he has difficulty with sit<->stand due to pain in abdomen and across his low back. Increased pain with radicular symptoms when sitting for too long. Does have a history of left- sided rotator cuff repair, reports he was told he might need it on the right side as well. 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 Treatment Goals Patient/Caregiver Goals To get rid of the pain, if possible. PT-OP-C Subjective Start: 04/14/24 16:48 Freq: Status: Active Protocol: Document 05/13/24 13:45 DCW (Rec: 05/13/24 14:06 DCW [id number]) OP-PT Subjective Patient Comments Patient Comments t feeling like things could be better, is getting a procedure on his hand performed next week, and then will be looking to schedule back surgery. PT-OP-E Functional Tests Start: 04/14/24 16:49 Freq: Status: Active Protocol: Document 05/13/24 13:45 DCW (Rec: 05/13/24 14:07 DCW [id number]) Functional Tests 30 Second Sit to Stand Test Score x3 Repetitions PT-OP-K Range of Motion Start: 04/14/24 16:48 Freq: Status: Active Protocol: Document 04/14/24 13:45 DCW (Rec: 04/14/24 17:16 DCW [id number]) Cervical Spine Range of Motion Cervical Spine Active Degrees Testing Position Sitting Flexion 22 Extension 26 Rotation Left 33 Rotation Right 56 Lateral Flexion Left 21 Lateral Flexion Right 18 ROM Limitations Soft Tissue Tightness,Muscle Tone,Pain Shoulder Goniometric Range of Motion Shoulder Right Active Shoulder ROM WFL No Testing Position Sitting Flexion 68 Abduction 91 External Rotation at 0 degrees Abduction 63 Internal Rotation Behind Back (text) T12 Left Active Shoulder ROM WFL No Testing Position Sitting Flexion 96 Abduction 90 External Rotation at 0 degrees Abduction 54 Internal Rotation Behind Back (text) T12 PT-OP-Q Treatments Start: 04/14/24 16:48 Freq: Status: Active Protocol: Document 05/13/24 13:45 DCW (Rec: 05/13/24 14:06 DCW [id number]) Manual Therapy Treatment Soft Tissue Mobilization Paraspinals Body Location B Lumbar paraspinals Mobilization Type Cross-Friction,Rolling, Sustained Pressure Intensity/Depth Moderate Body Position Sidelying PT-OP-T Assessment and Plan Start: 04/14/24 16:48 Freq: Status: Active Protocol: Document 05/13/24 13:45 DCW (Rec: 05/13/24 14:06 DCW [id number]) Physical Therapy Assessment Goals One Impairment Pt does not have an appropriate home exercise program Short Term Goal (STG) Pt to be independent and compliant with an appropriate HEP STG Duration 05/14/24 Three Impairment Significant limitations in shoulder mobility Impairment . Alf Goal (LTG) Pt to demonstrate increased shoulder flexion and abduction to >120? bilaterally in order to improve ability to perform overhead activities. LTG Duration 06/14/24 Two Impairment Limitations in cervical ROM ( lateral flexion 18?R, 21?L, rotation 33?L) Impairment . Alf Goal (LTG) Pt to exhibit improved cervical mobility by demonstrating increased ROM of lateral flexion to >30? bilaterally and cervical rotation to 60? bilaterally, in order to improve ability to look for cross traffic while driving LTG Duration 06/14/24 Assessment Summary Assessment Overall, fairly minimal improvement since initial evaluation. Continues to exhibit 3 repetitions during 30 second Sit to Stand test. Pt agreeable to discharge at this time, with plan to progress forward with planning his back surgery. Physical Therapy Plan Frequency and Duration Frequency of Treatment 2x/Week Plan of Care Start Date 04/14/24 Plan of Care End Date 06/14/24 Discharge Physical Therapy Discharge Reasons Plateau in Progress
== END 2024-10-02 08:28 | disposition home or self-care (01) ==
LOC: PHYS 13:45
PROVIDERS: Family Provider Family Medicine; PCP Family Medicine; Referring Provider Physical Medicine & Rehabilitation; Visit Provider Physical Medicine & Rehabilitation
DX: M48.061 Spinal stenosis, lumbar region without neurogenic claudication (principal); M48.02 Spinal stenosis, cervical region; M25.612 Stiffness of left shoulder, not elsewhere classified; M25.69 Stiffness of other specified joint, not elsewhere classified; M25.611 Stiffness of right shoulder, not elsewhere classified; M25.512 Pain in left shoulder; M25.511 Pain in right shoulder
CPT/HCPCS: 97110; 97140; 97162; 97530

== ENCOUNTER → 2024-05-18 15:11 | Outpatient (CLI) | payer OTHER, SELFPAY ==
[2023-07-19 13:47] VITALS: BMI 28.7
[2024-05-18 15:47] LABS: BUN Creatinine Ratio 12.1 (6-22); Blood Urea Nitrogen 18 mg/dL (9-20); Calcium 9.7 mg/dL (8.4-10.2); Carbon Dioxide 25 mmol/L (22-32); Chloride 103 mmol/L (98-107); Cholesterol 90 mg/dL (140-199); Estimated Glomerular Filt Rate 48 mL/min (>60); Glucose 159 mg/dL (80-110); HDL Cholesterol 29 mg/dL (40-60); HEMOLYSIS < 15 (0-50); Hemoglobin A1C% w Est Avg Glu 6.3 % (4.0-6.0); LDL Cholesterol Calculated 23 mg/dL (<100); Potassium 3.9 mmol/L (3.4-5.1); Sodium 138 mmol/L (137-145); Triglycerides 191 mg/dL (35-150)
[2024-05-18 16:02] LABS: Creatinine Urine Random 198.25 mg/dL
[2024-05-18 16:07] LABS: Microalbumin Urine Random 8.8 mg/dL (0-1.6)
== END ==
PROVIDERS: Family Provider Family Medicine; PCP Family Medicine; Referring Provider Internal Medicine Endocrinology, Diabetes & Metabolism; Visit Provider Internal Medicine Endocrinology, Diabetes & Metabolism
DX: E11.65 Type 2 diabetes mellitus with hyperglycemia (principal)
CPT/HCPCS: 80048; 80061; 82043; 82570; 83036

== ENCOUNTER → 2024-05-25 13:19 | Outpatient (CLI) | payer OTHER, SELFPAY ==
[2023-07-19 13:47] VITALS: BMI 28.7
[2024-05-25 14:31] LABS: Hematocrit 36.9 % (41-53); Hemoglobin 12.9 g/dL (13.5-17.5)
[2024-05-25 14:47] LABS: BUN Creatinine Ratio 8.6 (6-22); Blood Urea Nitrogen 13 mg/dL (9-20); Calcium 9.8 mg/dL (8.4-10.2); Carbon Dioxide 25 mmol/L (22-32); Chloride 104 mmol/L (98-107); Estimated Glomerular Filt Rate 47 mL/min (>60); Glucose 111 mg/dL (80-110); HEMOLYSIS < 15 (0-50); Potassium 3.7 mmol/L (3.4-5.1); Sodium 138 mmol/L (137-145)
[2024-05-25 15:20] LABS: Creatinine Urine Random 183.46 mg/dL; Protein (Total) Urine Random 23 mg/dL (0-12); Protein Creatinine Ratio Urine 0.12 GRAM/24H
== END ==
PROVIDERS: Family Provider Family Medicine; PCP Family Medicine; Referring Provider Student in an Organized Health Care Education/Training Program; Visit Provider Student in an Organized Health Care Education/Training Program
DX: N05.9 Unspecified nephritic syndrome with unspecified morphologic changes (principal); D70.9 Neutropenia, unspecified; D63.1 Anemia in chronic kidney disease; N25.81 Secondary hyperparathyroidism of renal origin; R80.9 Proteinuria, unspecified
CPT/HCPCS: 36415; 80048; 82570; 83970; 84156; 85014; 85018

== ENCOUNTER → 2024-08-12 10:39 | Outpatient (CLI) | payer OTHER, SELFPAY ==
[2023-07-19 13:47] VITALS: BMI 28.7
[2024-08-12 11:15] LABS: Add Manual Diff / Slide Review NO; Basophils Absolute Auto 0 /uL (0-100); Basophils Percent Auto 0.5 % (0-2); Eosinophils Absolute Auto 300 /uL (0-450); Eosinophils Percent Auto 3.9 % (2-4); Hematocrit 38.9 % (41-53); Hemoglobin 13.5 g/dL (13.5-17.5); Lymphocytes Absolute Auto 1200 /uL (1100-4500); Lymphocytes Percent Auto 17.7 % (25-40); Mean Corpuscular HGB Conc 34.8 % (30-36); Mean Corpuscular Hemoglobin 31.8 PG (26-34); Mean Corpuscular Volume 91.3 fL (80-100); Monocytes Absolute Auto 500 /uL (0-900); Neutrophils Absolute Auto 4500 /uL (1500-7000); Neutrophils Percent Auto 69.9 % (50-75); Platelet Count 154 X10^3/uL (150-400); Red Blood Cell Count 4.26 X10^6/uL (4.5-5.9); Red Cell Distribution Width 13.2 % (11.6-14.8); White Blood Cell Count 6.5 X10^3/uL (4.5-11.0)
[2024-08-12 11:28] LABS: Hemoglobin A1C% w Est Avg Glu 6.2 % (4.0-6.0)
[2024-08-12 11:57] LABS: HEMOLYSIS < 15 (0-50); Iron 101 ug/dL (49-181)
[2024-08-12 12:00] LABS: Alanine Aminotransferase 18 IU/L (<50); Albumin 4.2 g/dL (3.5-5.0); Alkaline Phosphatase 109 U/L (38-126); Aspartate Aminotransferase 19 IU/L (17-59); BUN Creatinine Ratio 15.2 (6-22); Blood Urea Nitrogen 23 mg/dL (9-20); Calcium 9.9 mg/dL (8.4-10.2); Carbon Dioxide 28 mmol/L (22-32); Chloride 105 mmol/L (98-107); Estimated Glomerular Filt Rate 47 mL/min (>60); Globulin 2.1 g/dL (1.7-4.1); Glucose 124 mg/dL (80-110); HEMOLYSIS < 15 (0-50); Potassium 4.2 mmol/L (3.4-5.1); Sodium 140 mmol/L (137-145); Total Protein 6.3 g/dL (6.3-8.2)
[2024-08-12 12:09] LABS: Percent Iron Saturation 32 % (20-50); Total Iron Binding Capacity 317 ug/dL (261-462); Transferrin 280 mg/dL (206-381)
[2024-08-12 12:47] LABS: Vitamin B12 399 pg/mL (239-931)
== END ==
LOC: LAB 10:42
PROVIDERS: Family Provider Family Medicine; PCP Family Medicine; Referring Provider Family Medicine; Visit Provider Family Medicine
DX: D64.9 Anemia, unspecified (principal); E11.9 Type 2 diabetes mellitus without complications; N40.0 Benign prostatic hyperplasia without lower urinary tract symptoms; E34.9 Endocrine disorder, unspecified; I10 Essential (primary) hypertension
CPT/HCPCS: 36415; 80053; 82607; 83036; 83540; 83550; 84402; 84403; 85025

== ENCOUNTER → 2024-11-16 09:37 | Outpatient (CLI) | payer OTHER, SELFPAY ==
[2023-07-19 13:47] VITALS: BMI 28.7
[2024-11-16 10:53] LABS: Hemoglobin A1C% w Est Avg Glu 5.7 % (4.0-6.0)
[2024-11-16 11:11] LABS: BUN Creatinine Ratio 12.4 (6-22); Blood Urea Nitrogen 23 mg/dL (9-20); Calcium 9.6 mg/dL (8.4-10.2); Carbon Dioxide 28 mmol/L (22-32); Chloride 103 mmol/L (98-107); Cholesterol 96 mg/dL (140-199); Estimated Glomerular Filt Rate 37 mL/min (>60); Glucose 127 mg/dL (80-110); HDL Cholesterol 24 mg/dL (40-60); HEMOLYSIS < 15 (0-50); LDL Cholesterol Calculated 38 mg/dL (<100); Potassium 4.2 mmol/L (3.4-5.1); Sodium 140 mmol/L (137-145); Triglycerides 171 mg/dL (35-150)
== END ==
LOC: LAB 09:38
PROVIDERS: Family Provider Family Medicine; PCP Family Medicine; Referring Provider Internal Medicine Endocrinology, Diabetes & Metabolism; Visit Provider Internal Medicine Endocrinology, Diabetes & Metabolism
DX: E11.42 Type 2 diabetes mellitus with diabetic polyneuropathy (principal)
CPT/HCPCS: 36415; 80048; 80061; 83036

== ENCOUNTER → 2024-12-03 10:12 | Outpatient (CLI) | payer OTHER, SELFPAY ==
[2023-07-19 13:47] VITALS: BMI 28.7
[2024-12-03 11:12] LABS: Hematocrit 38.2 % (41-53); Hemoglobin 13.7 g/dL (13.5-17.5)
[2024-12-03 11:33] LABS: Hemoglobin A1C% w Est Avg Glu 5.7 % (4.0-6.0)
[2024-12-03 11:43] LABS: BUN Creatinine Ratio 16.9 (6-22); Blood Urea Nitrogen 28 mg/dL (9-20); Calcium 9.8 mg/dL (8.4-10.2); Carbon Dioxide 23 mmol/L (22-32); Chloride 104 mmol/L (98-107); Estimated Glomerular Filt Rate 42 mL/min (>60); Glucose 157 mg/dL (70-99); HEMOLYSIS < 15 (0-50); Potassium 4.2 mmol/L (3.4-5.1); Sodium 139 mmol/L (137-145)
[2024-12-03 11:44] LABS: Alanine Aminotransferase 24 IU/L (<50); Albumin 4.5 g/dL (3.5-5.0); Albumin Globulin Ratio 2.1 (1.0-2.8); Alkaline Phosphatase 106 U/L (38-126); Aspartate Aminotransferase 25 IU/L (17-59); BUN Creatinine Ratio 15.2 (6-22); Bilirubin Total 1.5 mg/dL (0.2-1.3); Blood Urea Nitrogen 27 mg/dL (9-20); Calcium 9.8 mg/dL (8.4-10.2); Carbon Dioxide 23 mmol/L (22-32); Chloride 105 mmol/L (98-107); Estimated Glomerular Filt Rate 39 mL/min (>60); Globulin 2.1 g/dL (1.7-4.1); Glucose 156 mg/dL (70-99); HEMOLYSIS < 15 (0-50); Potassium 4.2 mmol/L (3.4-5.1); Sodium 138 mmol/L (137-145); Total Protein 6.6 g/dL (6.3-8.2)
[2024-12-03 11:44] LABS: Creatinine Urine Random 112.19 mg/dL; Protein (Total) Urine Random 19 mg/dL (0-12); Protein Creatinine Ratio Urine 0.16 GRAM/24H
[2024-12-04 07:36] LABS: Parathyroid Hormone Int 44 pg/mL (15-65)
== END ==
PROVIDERS: Family Provider Family Medicine; PCP Family Medicine; Referring Provider Student in an Organized Health Care Education/Training Program; Visit Provider Student in an Organized Health Care Education/Training Program
DX: E11.9 Type 2 diabetes mellitus without complications (principal); N05.9 Unspecified nephritic syndrome with unspecified morphologic changes; D70.9 Neutropenia, unspecified; D63.1 Anemia in chronic kidney disease; N25.81 Secondary hyperparathyroidism of renal origin; R80.9 Proteinuria, unspecified; I10 Essential (primary) hypertension
CPT/HCPCS: 36415; 80048; 80053; 82570; 83036; 83970; 84156; 85014; 85018

== ENCOUNTER → 2024-12-07 12:34 | Outpatient (CLI) | payer OTHER, SELFPAY ==
[2023-07-19 13:47] VITALS: BMI 28.7
[2024-12-07 13:38] LABS: Iron 111 ug/dL (49-181)
[2024-12-07 14:23] LABS: Ferritin 65 ng/mL (18-464)
== END ==
PROVIDERS: Family Provider Family Medicine; PCP Family Medicine; Referring Provider Family Medicine; Visit Provider Nurse Practitioner
DX: E83.10 Disorder of iron metabolism, unspecified (principal); G25.81 Restless legs syndrome; G47.9 Sleep disorder, unspecified
CPT/HCPCS: 36415; 82728; 83540

== ENCOUNTER → 2025-05-24 11:43 | Outpatient (CLI) | payer OTHER, SELFPAY ==
[2023-07-19 13:47] VITALS: BMI 28.7
[2025-05-24 12:16] LABS: Hemoglobin 14.4 g/dL (13.5-17.5)
[2025-05-24 12:33] LABS: Albumin 4.6 g/dL (3.5-5.0); Blood Urea Nitrogen 22 mg/dL (9-20); Calcium 9.8 mg/dL (8.4-10.2); Carbon Dioxide 26 mmol/L (22-32); Chloride 102 mmol/L (98-107); Estimated Glomerular Filt Rate 43 mL/min (>60); Glucose 132 mg/dL (70-99); HEMOLYSIS < 15 (0-50); Phosphorous 3.4 mg/dL (2.3-3.7); Potassium 4.4 mmol/L (3.4-5.1); Sodium 138 mmol/L (137-145)
[2025-05-24 14:13] LABS: Protein (Total) Urine Random 61 mg/dL (0-12); Protein Creatinine Ratio Urine 0.22 GRAM/24H
[2025-05-26 06:36] LABS: Calcium 9.9 mg/dL (8.6-10.2); Parathyroid Hormone, Intact 53 pg/mL (15-65)
== END ==
PROVIDERS: Family Provider Family Medicine; PCP Family Medicine; Referring Provider Student in an Organized Health Care Education/Training Program; Visit Provider Student in an Organized Health Care Education/Training Program
DX: N18.32 Chronic kidney disease, stage 3b (principal)
CPT/HCPCS: 36415; 80069; 82310; 82570; 83970; 84156; 85018

== ENCOUNTER → 2025-06-11 11:28 | Outpatient (CLI) | payer OTHER, SELFPAY ==
[2023-07-19 13:47] VITALS: BMI 28.7
[2025-06-11 14:58] LABS: Hemoglobin A1C% w Est Avg Glu 6.3 % (4.0-6.0)
[2025-06-11 15:10] LABS: Blood Urea Nitrogen 24 mg/dL (9-20); Calcium 9.7 mg/dL (8.4-10.2); Carbon Dioxide 26 mmol/L (22-32); Chloride 103 mmol/L (98-107); Cholesterol 94 mg/dL (140-199); Estimated Glomerular Filt Rate 41 mL/min (>60); Glucose 84 mg/dL (70-99); HDL Cholesterol 26 mg/dL (40-60); HEMOLYSIS < 15 (0-50); Potassium 4.2 mmol/L (3.4-5.1); Sodium 138 mmol/L (137-145); Triglycerides 218 mg/dL (35-150)
[2025-06-11 15:51] LABS: Microalbumi Creatinin Ratio Ur 112.0 ug/mg CR (<30)
== END ==
LOC: LAB 11:31
PROVIDERS: Family Provider Family Medicine; PCP Family Medicine; Referring Provider Internal Medicine Endocrinology, Diabetes & Metabolism; Visit Provider Internal Medicine Endocrinology, Diabetes & Metabolism
DX: E11.42 Type 2 diabetes mellitus with diabetic polyneuropathy (principal)
CPT/HCPCS: 36415; 80048; 80061; 82043; 82570; 83036